=== PATIENT | male | born 1960 | race Caucasian/White ===

== ENCOUNTER → 2020-02-04 14:06 | Outpatient (BNVA) | payer OTHER, SELFPAY | PROVIDERS: PCP Nurse Practitioner Family; Referring Provider Nurse Practitioner Family; Visit Provider Internal Medicine Endocrinology, Diabetes & Metabolism | DX: E11.65 Type 2 diabetes mellitus with hyperglycemia (principal); E11.21 Type 2 diabetes mellitus with diabetic nephropathy; E11.42 Type 2 diabetes mellitus with diabetic polyneuropathy; Z79.4 Long term (current) use of insulin; E23.0 Hypopituitarism; E66.9 Obesity, unspecified; Z68.39 Body mass index [BMI] 39.0-39.9, adult; I10 Essential (primary) hypertension; E78.5 Hyperlipidemia, unspecified | CPT/HCPCS: 82947; 99212 ==

== ENCOUNTER → 2020-05-08 11:16 | Outpatient (BNVA) | payer OTHER, SELFPAY | PROVIDERS: PCP Nurse Practitioner Family; Visit Provider Internal Medicine Endocrinology, Diabetes & Metabolism | DX: Z13.89 Encounter for screening for other disorder (principal) | CPT/HCPCS: Q3014 ==

== ENCOUNTER → 2020-08-07 12:54 | Outpatient (BNVA) | payer OTHER, SELFPAY | PROVIDERS: PCP Family Medicine; Visit Provider Internal Medicine Endocrinology, Diabetes & Metabolism | DX: E11.65 Type 2 diabetes mellitus with hyperglycemia (principal); E11.42 Type 2 diabetes mellitus with diabetic polyneuropathy; E66.9 Obesity, unspecified; E29.1 Testicular hypofunction; I10 Essential (primary) hypertension; Z79.4 Long term (current) use of insulin; Z71.3 Dietary counseling and surveillance | CPT/HCPCS: Q3014 ==

== ENCOUNTER 2021-01-25 11:49 | Outpatient (REF) | payer OTHER, SELFPAY ==
[2021-01-25 12:32] LABS: Hematocrit 46.9 % (42-52)
[2021-01-25 12:36] LABS: Estimated Average Glucose 197 mg/dL; Hemoglobin A1c % 8.5 %
[2021-01-25 12:54] LABS: Alanine Aminotransferase 11 U/L (0-40); Albumin Level 4.4 g/dL (3.5-5.0); Alkaline Phosphatase 120 U/L (39-117); Anion Gap 14 (12-20); Aspartate Amino Transferase 15 U/L (5-37); Bilirubin Total 0.5 mg/dL (0.0-1.0); Blood Urea Nitrogen 19 mg/dL (9-16); Calcium 9.6 mg/dL (8.4-10.2); Carbon Dioxide 27 mmol/L (22-29); Chloride 102 mmol/L (96-108); Cholesterol 209 mg/dL; Estimated Glomerular Filt Rate 50; Glucose Fasting 160 mg/dL (60-99); HDL Cholesterol 34 mg/dL; LDL Cholesterol Calculated 142 mg/dl; Sodium 139 mmol/L (135-145); Total Protein 7.1 g/dL (6.5-8.0); Triglycerides 165 mg/dL
[2021-01-25 13:15] LABS: Free T4 (Free Thyroxine) 1.16 ng/dL (0.71-1.85); Prostate Specific Antigen 0.46 ng/mL (<0.05-4.0); Thyroid Stimulating Hormone 1.84 uIU/mL (0.32-4.0)
[2021-01-25 13:21] LABS: Vitamin B12 335 pg/mL (200-900)
[2021-01-25 13:53] LABS: Creatinine Urine 155.31 mg/dL; Microalbum/Creatinine Ratio Ur 5.1 ug/mg cr
[2021-01-26 12:42] LABS: Sex Hormone Binding Globulin 11 nmol/L (22-77)
[2021-01-27 08:16] LABS: LDL Cholesterol Direct 149 mg/dL (<100)
[2021-01-29 14:51] LABS: Testosterone-Albumin 4.2 g/dL (3.6-5.1); Testosterone-Bioavailable 32.2 ng/dL (110.0-575.0); Testosterone-Free 16.7 pg/mL (46.0-224.0); Testosterone-SHBG 11 nmol/L (22-77); Testosterone-Total 67 ng/dL (250-1100)
[2021-01-30 14:21] LABS: Testosterone, Free 15.8 pg/mL (35.0-155.0); Testosterone, Total 65 ng/dL (250-1100)
== END 2021-01-25 11:50 | disposition home or self-care (01) ==
LOC: HO.LAB 11:49
PROVIDERS: Visit Provider Internal Medicine Endocrinology, Diabetes & Metabolism
DX: E11.65 Type 2 diabetes mellitus with hyperglycemia (principal); E29.1 Testicular hypofunction
CPT/HCPCS: 36415; 80053; 80061; 82043; 82607; 83036; 83721; 84153; 84270; 84402; 84403; 84439; 84443; 85014

== ENCOUNTER → 2021-01-28 07:52 | Outpatient (BNVA) | payer OTHER, SELFPAY | PROVIDERS: PCP Family Medicine; Visit Provider Nurse Practitioner Gerontology | DX: E11.65 Type 2 diabetes mellitus with hyperglycemia (principal); E11.42 Type 2 diabetes mellitus with diabetic polyneuropathy; E66.9 Obesity, unspecified; E78.5 Hyperlipidemia, unspecified; I10 Essential (primary) hypertension; Z79.4 Long term (current) use of insulin | CPT/HCPCS: 82947; 99212 ==

== ENCOUNTER → 2021-03-08 11:48 | Outpatient (BNVA) | payer OTHER, SELFPAY | PROVIDERS: PCP Family Medicine; Visit Provider Internal Medicine | DX: Z13.89 Encounter for screening for other disorder (principal) | CPT/HCPCS: Q3014 ==

== ENCOUNTER 2021-03-10 11:00 | Outpatient (REF) | payer OTHER, SELFPAY | END 2021-03-10 11:01 | disposition home or self-care (01) | LOC: HO.LAB 11:00 | PROVIDERS: Visit Provider Internal Medicine | DX: Z20.822 Contact with and (suspected) exposure to COVID-19 (principal) | CPT/HCPCS: C9803; U0003; U0005 ==

== ENCOUNTER → 2021-04-19 08:22 | Outpatient (BNVA) | payer OTHER, SELFPAY | PROVIDERS: PCP Family Medicine; Visit Provider Internal Medicine | DX: E29.1 Testicular hypofunction (principal); E78.5 Hyperlipidemia, unspecified | CPT/HCPCS: Q3014 ==

== ENCOUNTER 2021-05-04 14:56 | Outpatient (REF) | payer OTHER, SELFPAY | END 2021-05-04 14:57 | disposition home or self-care (01) | LOC: HO.MRI 14:56 | PROVIDERS: Visit Provider Registered Nurse Community Health | DX: Z13.89 Encounter for screening for other disorder (principal) ==

== ENCOUNTER 2021-05-11 09:33 | Outpatient (REF) | payer OTHER, SELFPAY ==
[2021-05-11 10:19] LABS: Hematocrit 47.1 % (42.0-52.0); Hemoglobin 15.2 g/dl (14.0-18.0)
[2021-05-11 11:26] LABS: Anion Gap 13 (12-20); Blood Urea Nitrogen 26 mg/dL (9-16); Calcium 9.7 mg/dL (8.4-10.2); Carbon Dioxide 27 mmol/L (22-29); Chloride 104 mmol/L (96-108); Cholesterol 216 mg/dL; Estimated Glomerular Filt Rate 48; Glucose Random 179 mg/dL (60-115); HDL Cholesterol 39 mg/dL; LDL Cholesterol Calculated 145 mg/dl; Potassium 4.1 mmol/L (3.3-5.1); Sodium 140 mmol/L (135-145); Triglycerides 164 mg/dL
[2021-05-11 11:33] LABS: Osmolality, Serum 305 mosm/kg (281-305); Prostate Specific Antigen 0.44 ng/mL (<0.05-4.0); Thyroid Stimulating Hormone 1.22 uIU/mL (0.32-4.0)
[2021-05-11 11:39] LABS: Cortisol Random 13.2 ug/dL
[2021-05-12 08:57] LABS: Follicle Stimulating Hormone 6.7 mIU/mL (1.6-8.0); LDL Cholesterol Direct 161 mg/dL (<100); Lutenizing Hormone 2.8 mIU/mL (1.5-9.3); Prolactin 9.7 ng/mL (2.0-18.0); Sex Hormone Binding Globulin 11 nmol/L (22-77)
[2021-05-12 17:55] LABS: Triiodothyronine T3 Total 98 ng/dL (76-181)
[2021-05-12 20:37] LABS: Adrenocorticotropic Hormone 19 pg/mL (6-50)
[2021-05-14 12:41] LABS: IGF-1 (Somatomedin C) 119 ng/mL (50-317); IGF-1 Z Score (Male) -0.2 SD (-2.0 - +2.0)
[2021-05-15 14:42] LABS: Testosterone, Free 22.6 pg/mL (35.0-155.0); Testosterone, Total 108 ng/dL (250-1100)
== END 2021-05-11 09:34 | disposition home or self-care (01) ==
LOC: HO.LAB 09:33
PROVIDERS: Internal Medicine; Visit Provider Nurse Practitioner Gerontology
DX: E29.1 Testicular hypofunction (principal)
CPT/HCPCS: 36415; 80048; 80061; 82024; 82533; 83001; 83002; 83721; 83930; 84146; 84153; 84270; 84305; 84402; 84403; 84439; 84443; 84480; 85014; 85018

== ENCOUNTER → 2021-05-24 09:25 | Outpatient (BNVA) | payer OTHER, SELFPAY | PROVIDERS: PCP Family Medicine; Visit Provider Registered Nurse Diabetes Educator | DX: E11.42 Type 2 diabetes mellitus with diabetic polyneuropathy (principal); Z79.4 Long term (current) use of insulin | CPT/HCPCS: 95250 ==

== ENCOUNTER → 2021-06-07 08:30 | Outpatient (BNVA) | payer OTHER, SELFPAY | PROVIDERS: PCP Family Medicine; Visit Provider Nurse Practitioner Gerontology | DX: E11.65 Type 2 diabetes mellitus with hyperglycemia (principal); E11.42 Type 2 diabetes mellitus with diabetic polyneuropathy; E78.5 Hyperlipidemia, unspecified; E66.01 Morbid (severe) obesity due to excess calories; I10 Essential (primary) hypertension; Z68.38 Body mass index [BMI] 38.0-38.9, adult; Z79.4 Long term (current) use of insulin | CPT/HCPCS: 82947; 83036; 99212 ==

== ENCOUNTER 2021-08-17 08:24 | Outpatient (REF) | payer OTHER, SELFPAY ==
[2021-08-17 09:35] LABS: Blood Urea Nitrogen 30 mg/dL (9-16); Estimated Glomerular Filt Rate 50
[2021-08-17 10:34] LABS: Cortisol Random 15.6 ug/dL
[2021-08-19 15:51] LABS: Adrenocorticotropic Hormone 37 pg/mL (6-50)
[2021-08-19 17:46] LABS: Follicle Stimulating Hormone 5.6 mIU/mL (1.6-8.0); Lutenizing Hormone 2.5 mIU/mL (1.5-9.3); Prolactin 9.9 ng/mL (2.0-18.0); Sex Hormone Binding Globulin 11 nmol/L (22-77)
[2021-08-26 12:39] LABS: Testosterone, Total 111 ng/dL (250-1100)
== END 2021-08-17 08:25 | disposition home or self-care (01) ==
LOC: HO.LAB 08:24
PROVIDERS: Absent Provider Nurse Practitioner Gerontology; Visit Provider Internal Medicine
DX: E29.1 Testicular hypofunction (principal)
CPT/HCPCS: 36415; 82024; 82533; 82565; 83001; 83002; 84146; 84270; 84402; 84403; 84520

== ENCOUNTER → 2021-08-19 08:24 | Outpatient (BNVA) | payer OTHER, SELFPAY | PROVIDERS: PCP Family Medicine; Visit Provider Internal Medicine | DX: E29.1 Testicular hypofunction (principal); E11.42 Type 2 diabetes mellitus with diabetic polyneuropathy | CPT/HCPCS: Q3014 ==

== ENCOUNTER → 2021-08-30 10:37 | Outpatient (BNVA) | payer OTHER, SELFPAY | PROVIDERS: PCP Family Medicine; Visit Provider Nurse Practitioner Gerontology | DX: E11.65 Type 2 diabetes mellitus with hyperglycemia (principal); E11.42 Type 2 diabetes mellitus with diabetic polyneuropathy; E78.5 Hyperlipidemia, unspecified; E66.01 Morbid (severe) obesity due to excess calories; I10 Essential (primary) hypertension; Z79.4 Long term (current) use of insulin; Z68.39 Body mass index [BMI] 39.0-39.9, adult | CPT/HCPCS: 82947; 83036; Q3014 ==

== ENCOUNTER → 2021-09-16 11:48 | Outpatient (BNVA) | payer OTHER, SELFPAY | PROVIDERS: PCP Family Medicine; Visit Provider Registered Nurse Diabetes Educator | DX: E11.42 Type 2 diabetes mellitus with diabetic polyneuropathy (principal) | CPT/HCPCS: 99211 ==

== ENCOUNTER → 2021-11-17 08:43 | Outpatient (BNVA) | payer OTHER, SELFPAY | PROVIDERS: PCP Family Medicine; Visit Provider Internal Medicine Endocrinology, Diabetes & Metabolism | DX: E29.1 Testicular hypofunction (principal); E11.65 Type 2 diabetes mellitus with hyperglycemia | CPT/HCPCS: 82947; 99212 ==

== ENCOUNTER 2022-02-17 09:07 | Outpatient (REF) | payer OTHER, SELFPAY ==
[2022-02-17 11:21] LABS: Cholesterol 207 mg/dL; HDL Cholesterol 43 mg/dL; LDL Cholesterol Calculated 143 mg/dl; Triglycerides 107 mg/dL
[2022-02-17 11:28] LABS: Prostate Specific Antigen 0.48 ng/mL (<0.05-4.0)
== END 2022-02-17 09:08 | disposition home or self-care (01) ==
LOC: HO.10HDL 09:07
PROVIDERS: Visit Provider Internal Medicine Endocrinology, Diabetes & Metabolism
DX: Z12.5 Encounter for screening for malignant neoplasm of prostate (principal); E11.65 Type 2 diabetes mellitus with hyperglycemia; E29.1 Testicular hypofunction
CPT/HCPCS: 36415; 80061; 84153; 99211

== ENCOUNTER → 2022-02-24 15:38 | Outpatient (BNVA) | payer OTHER, SELFPAY | PROVIDERS: PCP Family Medicine; Visit Provider Internal Medicine Endocrinology, Diabetes & Metabolism | DX: E11.65 Type 2 diabetes mellitus with hyperglycemia (principal); E29.1 Testicular hypofunction; E78.5 Hyperlipidemia, unspecified; Z79.4 Long term (current) use of insulin | CPT/HCPCS: 82947; 83036; 99212 ==

== ENCOUNTER 2022-05-23 11:57 | Outpatient (REF) | payer OTHER, SELFPAY ==
[2022-05-23 13:28] LABS: Hematocrit 43.5 % (42.0-52.0); Hemoglobin 14.7 g/dl (14.0-18.0)
[2022-05-23 14:14] LABS: Cholesterol 202 mg/dL; HDL Cholesterol 37 mg/dL; LDL Cholesterol Calculated 136 mg/dl; Triglycerides 145 mg/dL
[2022-05-31 11:39] LABS: Testosterone, Free 17.5 pg/mL (35.0-155.0); Testosterone, Total 102 ng/dL (250-1100)
== END 2022-05-23 11:58 | disposition home or self-care (01) ==
LOC: HO.10HDL 11:57
PROVIDERS: Visit Provider Internal Medicine Endocrinology, Diabetes & Metabolism
DX: E11.42 Type 2 diabetes mellitus with diabetic polyneuropathy (principal); E29.1 Testicular hypofunction; Z12.5 Encounter for screening for malignant neoplasm of prostate
CPT/HCPCS: 36415; 80061; 84153; 84402; 84403; 85014; 85018

== ENCOUNTER → 2022-05-24 13:47 | Outpatient (BNVA) | payer OTHER, SELFPAY | PROVIDERS: PCP Family Medicine; Visit Provider Internal Medicine Endocrinology, Diabetes & Metabolism | DX: E11.65 Type 2 diabetes mellitus with hyperglycemia (principal); E29.1 Testicular hypofunction; E78.5 Hyperlipidemia, unspecified | CPT/HCPCS: 82947; 83036; 99212 ==

== ENCOUNTER 2022-08-10 10:09 | Outpatient (REF) | payer OTHER, SELFPAY ==
[2022-08-10 14:07] LABS: Cholesterol 199 mg/dL; HDL Cholesterol 37 mg/dL; LDL Cholesterol Calculated 140 mg/dl; Triglycerides 111 mg/dL
== END 2022-08-10 10:10 | disposition home or self-care (01) ==
LOC: HO.10HDL 10:09
PROVIDERS: Visit Provider Internal Medicine Endocrinology, Diabetes & Metabolism
DX: E78.5 Hyperlipidemia, unspecified (principal)
CPT/HCPCS: 36415; 80061

== ENCOUNTER → 2022-08-24 12:29 | Outpatient (BNVA) | payer OTHER, SELFPAY | PROVIDERS: PCP Family Medicine; Visit Provider Internal Medicine Endocrinology, Diabetes & Metabolism | DX: E11.65 Type 2 diabetes mellitus with hyperglycemia (principal); E29.1 Testicular hypofunction; E78.5 Hyperlipidemia, unspecified; Z79.4 Long term (current) use of insulin | CPT/HCPCS: 82947; 83036; 99212 ==

== ENCOUNTER → 2022-09-01 09:41 | Outpatient (BNVA) | payer OTHER, SELFPAY | PROVIDERS: PCP Family Medicine; Visit Provider Internal Medicine Endocrinology, Diabetes & Metabolism ==

== ENCOUNTER 2022-11-18 09:49 | Outpatient (REF) | payer OTHER, SELFPAY ==
[2022-11-18 10:42] LABS: Estimated Average Glucose 203 mg/dL; Hemoglobin A1c % 8.7 %
[2022-11-18 11:09] LABS: Glucose Random 210 mg/dL (60-115)
== END 2022-11-18 09:50 | disposition home or self-care (01) ==
LOC: HO.LAB 09:49
PROVIDERS: Physician Assistant Surgical; Visit Provider Internal Medicine Endocrinology, Diabetes & Metabolism
DX: E11.65 Type 2 diabetes mellitus with hyperglycemia (principal)
CPT/HCPCS: 36415; 82947; 83036

== ENCOUNTER 2022-11-22 11:54 | Outpatient (AMB) | payer OTHER, SELFPAY ==
[2022-11-22 12:05] VITALS: BP 124/68; PULSE 88; BMI 42.2
--- NOTE | 2022-11-22 12:05 | A.OFFVIS_ITS ---
Intake Vital Signs 11/22/22 12:05 Height 5 ft 11 in Weight 302 lb 11.115 oz BMI 42.2 BP 124/68 Blood Pressure Location Lt brachial Position Sitting Pulse 88 Pulse Source Pulse Oximeter Intake Visit Reasons: DM Intake Note: Patient present today to follow up on Type Diabetes Mellitus. Patient receives DME supplies through: [facility] Last Diabetic Eye exam: May 2022 Last Podiatry Visit: Does not see a Low Altitude Air Defense Officer Random Glucose:366 mg/dl HgA1C: 9.4% Wire Saw Operator Required: No Accompanied by: Self / Same As Patient Allergies Penicillins Allergy (Unknown, Verified 11/22/22 12:09) RASH/HIVES Medication List - Last Reconciled 11/22/22 by Aquilino oByer MD atorvastatin 80 mg PO BEDTIME bempedoic acid (Nexletol) 180 mg PO DAILY blood sugar diagnostic (FreeStyle Lite Strips) As directed four times a day blood-glucose meter (FreeStyle Lite Meter kit) As directed 4x/day bolus insulin pump, 200 unit (CeQur Simplicity) As directed bupropion HCl 300 mg PO DAILY cholecalciferol (vitamin D3) 50 mcg PO DAILY clonazepam 2 mg PO BEDTIME dulaglutide (Trulicity) 3 mg (0.5 mL) subcut QWEEK empagliflozin (Jardiance) 10 mg PO QAM enalapril-hydrochlorothiazide 10-25 mg 1 tab PO DAILY ezetimibe 10 mg PO DAILY insulin aspart U-100 (Novolog FlexPen U-100 Insulin aspart) subcutaneously use as directed; Take 6 units breakfast, 10 units lunch, 8 units dinner, 4 units snack. insulin glargine (Lantus Solostar U-100 Insulin) 40 units (0.4 mL) subcut QAM lancets (FreeStyle Lancets) As directed levothyroxine 50 mcg PO DAILY omeprazole 20 mg PO DAILY oxcarbazepine 150 mg PO BID oxycodone 5 mg PO QID PRN oxycodone ER 20 mg PO BID pen needle, diabetic (BD Amaya 2nd Gen Pen Needle) As directed 3 times a day prazosin 2 mg PO BEDTIME sertraline 200 mg PO DAILY syringe with needle, safety (BD Integra Syringe) As directed injrcts once a wk syringe with needle, safety (BD Integra Syringe) As directed use once a week tadalafil (Cialis) 5 mg PO DAILY PRN 30 days testosterone cypionate 100 mg (0.5 mL) IM QWEEK zolpidem 10 mg PO BEDTIME HPI HPI Comments History of Present Illness Details Patient is a 62-year-old male with DM type 2 diagnosed who presents for management of diabetes and hypogonadism. . Past medical history: Dm2, HTN, HLD, Obesity, secondary hypogonadism for which he has received testosterone the past by myself. sleep apnea uses C-Pap Micro and macrovascular complications: Neuropathy nephropathy Diabetes medications:Trulicity 3 mg Qwkly , Jardiance 10 mg stopped due to genital yeast infection. Metformin stopped due to edema. Took Ozempic in past without sucess Lantus 32 units Novolog 10-12 units before meals stopped 4 days ago Blood glucose monitor: [employer] download shows he is using theCGMS 73% of the time. Average glucose is 254 with GMI of 9.4 . 20% range with 80% hyperglycemia c no hypoglycemia. 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 Low Altitude Air Defense Officer: no Dental exam: goes annually Ophthalmology evaluation: 05/2022 - ou Background diabetic retinopathy Other specialists: psychiatrist and counselor Laboratory Tests 01/25/21 01/25/21 01/25/21 12:10 12:10 12:40 Estimated GFR Hemoglobin A1c % 8.5 Triglycerides Cholesterol LDL Cholesterol Di rect LDL Cholesterol, C alc HDL Cholesterol Vitamin B12 335 TSH Free T4 Microalb/Creat Rat io 5.1 05/11/21 05/11/21 09:57 09:57 Estimated GFR 48 Hemoglobin A1c % Triglycerides 164 Cholesterol 216 LDL Cholesterol Di rect 161 H LDL Cholesterol, C alc 145 HDL Cholesterol 39 Vitamin B12 TSH 1.22 Free T4 1.10 Microalb/Creat Rat io On Testosterone intramuscular 100 mg q.week . No problems with urinating. 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 Absence of acromegalic features. Neck exam reveals nl size thyroid about 15 gms. No thyroid nodules palpable. No carotid bruits present. Lungs CTA. Heart S1 S2, Reg R/R. No M/R/ G. Skin exam reveals absence of vitiligo or acanthosis nigricans. Abdominal exam reveals Soft NT/ND with NA BS. No organomegaly present. A rectal examination was performed 05/2022 revealed nl smooth prostate Neck Other: . Extrem Other: Visual exam of foot performed. No ulcerations or open lesions. No onchomycosis, no callouses.Pulses 2 + distally Sensation intact to monofilament exam. Vibratory sensation sensed is decreased with 128 Hz tuning fork Results AMB Hemoglobin A1c AMB Hemoglobin A1c 9.4 % Last Edit by Christa Martinez on 11/22/22 12:24 Results Reviewed Results Reviewed: 11/22/22 12:13 Glucose, Whole Blood Routine Laboratory Last Values Glucose (Clinic) 366 mg/dL (60-115) H* 11/22/22 12:13 Hgb A1c (Clinic) 9.4 % (4.0-6.0) H 11/22/22 12:20 Assessment & Plan Assessment & Plan (1) Diabetes type 2, uncontrolled: Code(s): E11.65 - Type 2 diabetes mellitus with hyperglycemia Plan: This is a 62-year-old white male with a history of type 2 diabetes being treated with Trulicity and bolus insulin with poor glycemic control and known microvascular complications namely neuropathy. Plan is to change the Trulicity to Mounjaro 2.5 mg and titrate as tolerated. Went over side effects of Mounjaro including but not limited to nausea, vomiting rare risk pancreatitis. Patient has failed both Ozempic and Trulicity. Told patient report any hypoglycemia to adjust insulin . Patient should have follow-up with clinical unit educator . Mounjaro 2.5 mg samples given the patient lot number [id number] expiration date 05/2024 Fiasp FlexTouch U-100 samples given the patient lot number [id number] expiration 08/08/2023 (2) Hypogonadism male: Code(s): E29.1 - Testicular hypofunction Plan: History of secondary hypogonadism previously treated with testosterone and worked up in the past. Suboptimal testosterone levels on testosterone gel maximum doses. Currently on intramuscular testosterone 100 mg q.week Will check peak and trough testosterone as well as PSA and CBC and adjust testosterone accordingly. Will attempt to get approval for switching to Xyosted which is a subcutaneous testosterone refilled as patient is having difficulty with injection site pain. (3) HLD (hyperlipidemia): Code(s): E78.5 - Hyperlipidemia, unspecified Plan: Patient currently on atorvastatin and ezetimibe. and Nexletol . Will recheck lipid profile Orders: Orders Lipid Panel 1 Day E78.5 - Hyperlipidemia, unspecified AMB Hemoglobin A1c Today E11.42 - Type 2 diabetes mellitus with diabetic polyneuropathy Medications: New tirzepatide (Mounjaro) 2.5 mg (0.5 mL) subcut QWEEK 4 weeks 2 mL 5RF testosterone enanthate (Xyosted) 100 mg (0.5 mL) subcut QWEEK 2 mL 4RF Refilled insulin aspart U-100 (Novolog FlexPen U-100 Insulin aspart) subcutaneously use as directed; Take 6 units breakfast, 10 units lunch, 8 units dinner, 4 units snack. 45 mL 4RF Discontinued dulaglutide (Trulicity) Discontinued Reason: Doctor's Order 3 mg (0.5 mL) subcut QWEEK 2 mL 5RF Coding Level of Care Code Est Pt Level 4 (40727) Diagnoses Diabetes type 2, uncontrolled E11.65 Hypogonadism male E29.1 HLD (hyperlipidemia) E78.5
[2022-11-22 12:17] LABS: Glucose, Whole Blood 366 mg/dL (60-115)
== END 2022-11-22 14:27 | disposition home or self-care (01) ==
PROVIDERS: PCP Family Medicine; Referring Provider Family Medicine; Visit Provider Internal Medicine Endocrinology, Diabetes & Metabolism
DX: E11.65 Type 2 diabetes mellitus with hyperglycemia (principal); E78.5 Hyperlipidemia, unspecified; Z87.438 Personal history of other diseases of male genital organs; E11.42 Type 2 diabetes mellitus with diabetic polyneuropathy
CPT/HCPCS: 99214

== ENCOUNTER → 2022-11-22 11:54 | Outpatient (BNVA) | payer OTHER, SELFPAY | PROVIDERS: Visit Provider Internal Medicine Endocrinology, Diabetes & Metabolism | DX: E11.65 Type 2 diabetes mellitus with hyperglycemia (principal); E11.42 Type 2 diabetes mellitus with diabetic polyneuropathy; E29.1 Testicular hypofunction; E78.5 Hyperlipidemia, unspecified | CPT/HCPCS: 82947; 83036; 99212 ==

== ENCOUNTER 2022-11-23 09:55 | Outpatient (REF) | payer OTHER, SELFPAY ==
[2022-11-23 13:22] LABS: Cholesterol 215 mg/dL; HDL Cholesterol 43 mg/dL; LDL Cholesterol Calculated 145 mg/dl; Triglycerides 135 mg/dL
[2022-11-23 13:39] LABS: Hematocrit 56.4 % (42.0-52.0); Hemoglobin 18.5 g/dl (14.0-18.0)
[2022-11-23 13:53] LABS: Prostate Specific Antigen 0.79 ng/mL (<0.05-4.0)
== END 2022-11-23 09:56 | disposition home or self-care (01) ==
LOC: HO.10HDL 09:55
PROVIDERS: Visit Provider Internal Medicine Endocrinology, Diabetes & Metabolism
DX: E29.1 Testicular hypofunction (principal); E78.5 Hyperlipidemia, unspecified
CPT/HCPCS: 36415; 80061; 84153; 84402; 84403; 85014; 85018

== ENCOUNTER 2023-03-22 08:51 | Outpatient (REF) | payer OTHER, SELFPAY ==
[2023-03-22 11:27] LABS: MANUAL DIFF FLAG NO
[2023-03-22 11:35] LABS: Basophils Absolute Auto 0.1 X10*3/uL (0.0-0.2); Basophils Percent Auto 0.5 % (0-2); Eosinophils Absolute Auto 0.3 X10*3/uL (0.0-0.4); Eosinophils Percent Auto 2.2 % (0-4); Hematocrit 45.7 % (42.0-52.0); Imm Gran Abs Auto 0.06 X10*3/uL (0.00-0.03); Imm Gran Pct Auto 0.5 % (0.0-0.4); Lymphocytes Absolute Auto 2.9 X10*3/uL (1.2-4.9); Lymphocytes Percent Auto 22.8 % (20-40); Mean Corpuscular HGB Conc 32.8 g/dl (31.0-36.0); Mean Corpuscular Hemoglobin 28.2 pg (27.0-33.0); Mean Corpuscular Volume 86.1 fL (80.0-98.0); Mean Platelet Volume 11.4 fL (9.4-12.4); Monocytes Absolute Auto 0.9 X10*3/uL (0.1-1.2); Neutrophils Absolute Auto 8.7 x10*3/uL (2.0-8.3); Platelet Count 292 X10*3/uL (160-400); Red Blood Count 5.31 X10*6/uL (4.60-5.80); Red Cell Distribution Width 13.9 % (11.0-16.0); White Blood Count 12.9 X10*3/uL (4.8-10.8)
[2023-03-22 11:56] LABS: Alanine Aminotransferase 11 U/L (0-40); Albumin Level 4.2 g/dL (3.5-5.0); Alkaline Phosphatase 130 U/L (39-117); Aspartate Amino Transferase 16 U/L (5-37); Bilirubin Direct 0.1 mg/dL (0.0-0.5); Bilirubin Total 0.3 mg/dL (0.0-1.0); Iron 96 mcg/dL (45-160); Percent Iron Saturation 43 % (15-50); Total Iron Binding Capacity 221 mcg/dL (228-428); Total Protein 7.4 g/dL (6.5-8.0); Unsaturated Iron Binding 125 ug/dL
[2023-03-22 12:23] LABS: Ferritin 652 ng/mL (20-250)
== END 2023-03-22 08:52 | disposition home or self-care (01) ==
LOC: HO.HHCL 08:51
PROVIDERS: Visit Provider Nurse Practitioner Primary Care
DX: R71.8 Other abnormality of red blood cells (principal); D58.2 Other hemoglobinopathies
CPT/HCPCS: 36415; 80076; 82728; 83540; 85025

== ENCOUNTER 2023-06-21 11:32 | Outpatient (AMB) | payer OTHER, SELFPAY ==
--- NOTE | 2023-06-21 11:33 | A.OFFVIS_ITS ---
Intake Vital Signs 06/21/23 11:34 Height 5 ft 11 in Weight 293 lb 3.437 oz BMI 40.9 BP 114/76 Blood Pressure Location Lt brachial Position Sitting Pulse 90 Pulse Source Pulse Oximeter Intake Visit Reasons: DM-lvm Intake Note: Patient presents today to follow up on D2MT. Last Diabetic Eye exam: 02/2023 Last Podiatry Visit: Doesn't have one. Random Glucose: 172 mg/dl HgA1c: 9.4% Nail Specialist Required: No Accompanied by: Self / Same As Patient Allergies Penicillins Allergy (Unknown, Verified 06/21/23 11:39) RASH/HIVES HPI HPI Comments History of Present Illness Details Patient is a 62-year-old male with DM type 2 diagnosed who presents for management of diabetes and hypogonadism. . Past medical history: Dm2, HTN, HLD, Obesity, secondary hypogonadism for which he has received testosterone the past by myself. sleep apnea uses C-Pap Micro and macrovascular complications: Neuropathy nephropathy Diabetes medications:Mounjaro 2.5 mg Wkly , Jardiance 10 mg stopped due to genital yeast infection. Metformin stopped due to edema. Took Ozempic in past without sucess Lantus 40 units Novolog 10-12 units before meals stopped 4 days ago Blood glucose monitor: [email or web address] download shows he is using theCGMS 77% of the time. Average glucose is 241 with GMI of 9.1 . 15% range with 85% hyperglycemia c no hypoglycemia. 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 Dental exam: goes annually Ophthalmology evaluation: needs to make appt - ou Background diabetic retinopathy Other specialists: psychiatrist and counselor Laboratory Tests 01/25/21 01/25/21 01/25/21 12:10 12:10 12:40 Estimated GFR Hemoglobin A1c % 8.5 Triglycerides Cholesterol LDL Cholesterol Di rect LDL Cholesterol, C alc HDL Cholesterol Vitamin B12 335 TSH Free T4 Microalb/Creat Rat io 5.1 05/11/21 05/11/21 09:57 09:57 Estimated GFR 48 Hemoglobin A1c % Triglycerides 164 Cholesterol 216 LDL Cholesterol Di rect 161 H LDL Cholesterol, C alc 145 HDL Cholesterol 39 Vitamin B12 TSH 1.22 Free T4 1.10 Microalb/Creat Rat io On Testosterone intramuscular 100 mg q.week . No problems with urinating. Uses CPAP PFSH Medical History (System 04/05/23 @ 14:38 by Mera Pierce) Obesity due to excess calories HLD (hyperlipidemia) Depression Osteoarthritis Dyslipidemia Hypertension Obesity (BMI 30-39.9) Hypogonadism male Diabetic polyneuropathy associated with type 2 diabetes mellitus longterm (current) use of insulin Diabetes type 2, uncontrolled Surgical History History of hip surgery History of surgical procedure on eye proper using laser Hx of neck surgery Hx of shoulder surgery Family History Father Prostate cancer Mother Diabetes Heart problem Social History (System 04/05/23 @ 14:38 by Mera Pierce) Household Members: Family Alcohol intake: never Patient Tobacco Use Status: Never used Tobacco Physical Exam Vital Signs: Last Vital Signs Pulse 90 06/21/23 11:34 BP 114/76 06/21/23 11:34 BMI result Body Mass Index 40.9 Absence of Cushingoid features. Absence of acromegalic features. Neck exam reveals nl size thyroid about 15 gms. No thyroid nodules palpable. No carotid bruits present. Lungs CTA. Heart S1 S2, Reg R/R. No M/R/ G. Skin exam reveals absence of vitiligo or acanthosis nigricans. Abdominal exam reveals Soft NT/ND with NA BS. No organomegaly present. A rectal examination was performed 05/2022 revealed nl smooth prostate Neck Other: . Extrem Other: Visual exam of foot performed. No ulcerations or open lesions. No onchomycosis, no callouses.Pulses 2 + distally Sensation intact to monofilament exam. Vibratory sensation sensed is decreased with 128 Hz tuning fork Results AMB Hemoglobin A1c AMB Hemoglobin A1c 9.4 % Last Edit by NICHOL aHy on 06/21/23 11:53 Results Reviewed Results Reviewed: Laboratory Last Values Glucose (Clinic) 172 mg/dL (60-115) H 06/21/23 11:41 Assessment & Plan Assessment & Plan (1) Diabetes type 2, uncontrolled: Code(s): E11.65 - Type 2 diabetes mellitus with hyperglycemia Plan: This is a 62-year-old white male with a history of type 2 diabetes being treated with Mounjaro and bolus insulin with poor glycemic control and known microvascular complications namely neuropathy. Plan is to increase the Mounjaro to 5 mg Qwkly. If this does not have an optimal effect, have told patient increase Lantus by 10 units to 50 units and by 10 unit increments every 4 days to get point of care fasting < 1/5 . Patient should have follow-up with agricultural extension educator . I also took the liberty referring the patient to in flight technician (2) Hypogonadism male: Code(s): E29.1 - Testicular hypofunction Plan: History of secondary hypogonadism previously treated with testosterone and worked up in the past. Suboptimal testosterone levels on testosterone gel maximum doses. Currently off testosterone because increase in hematocrit and hemoglobin. However, patient was not using CPAP mask during time of blood work. He is getting fitted for a CPAP mask and when he restarts CPAP can reinitiate testosterone at that point. (3) HLD (hyperlipidemia): Code(s): E78.5 - Hyperlipidemia, unspecified Plan: Patient currently on atorvastatin and ezetimibe. and Nexletol . Will recheck lipid profile . If not at goal could consider a PCSK9 inhibitor Orders: Orders AMB Hemoglobin A1c Today E11.65 - Type 2 diabetes mellitus with hyperglycemia, Z13.9 - Encounter for screening, unspecified Lipid Panel Today E78.5 - Hyperlipidemia, unspecified Referrals Podiatry Referral E11.65 - Type 2 diabetes mellitus with hyperglycemia Medications: New tirzepatide (Mounjaro) 5 mg (0.5 mL) subcut QWEEK 2 mL 5RF Refilled flash glucose sensor (FreeStyle Edwin 2 Sensor kit) As directed 2 ea 4RF Discontinued tirzepatide (Mounjaro) Discontinued Reason: Doctor's Order 2.5 mg (0.5 mL) subcut QWEEK 2 mL 5RF Coding Level of Care Code Est Pt Level 4 (55071) Diagnoses Diabetes type 2, uncontrolled E11.65 Hypogonadism male E29.1 HLD (hyperlipidemia) E78.5
[2023-06-21 11:34] VITALS: BP 114/76; PULSE 90; BMI 40.9
[2023-06-21 11:46] LABS: Glucose, Whole Blood 172 mg/dL (60-115)
== END 2023-06-21 12:01 | disposition home or self-care (01) ==
PROVIDERS: PCP Family Medicine; Visit Provider Internal Medicine Endocrinology, Diabetes & Metabolism
DX: E11.65 Type 2 diabetes mellitus with hyperglycemia (principal); E29.1 Testicular hypofunction
CPT/HCPCS: 99214

== ENCOUNTER → 2023-06-21 11:32 | Outpatient (BNVA) | payer OTHER, SELFPAY | PROVIDERS: PCP Family Medicine; Visit Provider Internal Medicine Endocrinology, Diabetes & Metabolism | DX: E11.65 Type 2 diabetes mellitus with hyperglycemia (principal); E29.1 Testicular hypofunction; E78.5 Hyperlipidemia, unspecified; Z79.4 Long term (current) use of insulin; Z79.899 Other long term (current) drug therapy | CPT/HCPCS: 82947; 83036; 99212 ==

== ENCOUNTER 2023-07-11 11:26 | Outpatient (REF) | payer OTHER, SELFPAY | END 2023-07-11 11:27 | disposition home or self-care (01) | LOC: HO.HOSX 11:26 | PROVIDERS: Visit Provider Orthopaedic Surgery | DX: Z13.89 Encounter for screening for other disorder (principal) ==

== ENCOUNTER 2023-07-13 10:32 | Outpatient (AMB) | payer OTHER, SELFPAY ==
--- NOTE | 2023-07-13 11:43 | MHC.AMDMED ---
Intake Intake Visit Reasons: f/u Type 2 DM-confirmed Cereal Popper Required: No Accompanied by: Self / Same As Patient Allergies Penicillins Allergy (Unknown, Verified 06/21/23 11:39) RASH/HIVES HPI Comprehensive Diabetes Asmnt Most Recent Diabetes Results: Hemoglobin A1c 8.7 % 05/01/18 Microalb/Creat Ratio 5.1 ug/mg cr 01/25/21 Cholesterol 215 mg/dL 11/23/22 HDL Cholesterol 43 mg/dL 11/23/22 Triglycerides 135 mg/dL 11/23/22 Creatinine 1.44 mg/dL (0.5-1.4) H 08/17/21 Blood Urea Nitrogen 30 mg/dL (9-16) H 08/17/21 Sodium 140 mmol/L (135-145) 05/11/21 Potassium 4.1 mmol/L (3.3-5.1) 05/11/21 Chloride 104 mmol/L (96-108) 05/11/21 Carbon Dioxide 27 mmol/L (22-29) 05/11/21 Calcium 9.7 mg/dL (8.4-10.2) 05/11/21 AST 16 U/L (5-37) 03/22/23 ALT 11 U/L (0-40) 03/22/23 Total Protein 7.4 g/dL (6.5-8.0) 03/22/23 Albumin 4.2 g/dL (3.5-5.0) 03/22/23 [facility] Medical History (Updated 07/07/23 @ 14:03 by Andres Mcdaniel MD) Obesity due to excess calories HLD (hyperlipidemia) Depression Osteoarthritis Dyslipidemia Hypertension Obesity (BMI 30-39.9) Hypogonadism male Diabetic polyneuropathy associated with type 2 diabetes mellitus rn long term care (current) use of insulin Diabetes type 2, uncontrolled Surgical History History of hip surgery History of surgical procedure on eye proper using laser Hx of neck surgery Hx of shoulder surgery Family History Father Prostate cancer Mother Diabetes Heart problem Social History (System 04/05/23 @ 14:38 by Mera Pierce) Household Members: Family Alcohol intake: never Patient Tobacco Use Status: Never used Tobacco Assessment & Plan Assessment & Plan (1) Diabetes type 2, uncontrolled: Code(s): E11.65 - Type 2 diabetes mellitus with hyperglycemia Plan: Patient lost his old cellphone which was compatible with the Edwin 2 sensor Downloaded Edwin 2 paulette on patient's new cellphone, once we inserted and started sensor got a continual error message about blue to connectivity. Called [employer] customer service, patient's new cellphone is not compatible Edwin 2 paulette Message sent to Dr. Boyer to send prescription for Edwin 2 controller Edwin agreed to replace 2 sensors that patient lost due to on compatibility Patient will contact tobacco prevention health educator if he needs assistance in setting up Edwin reader Patient will call and set up appointment for 1 month after starting Mounjaro 5 mg to review glucose levels Coding Level of Care Code Est Pt Level 1 (16734) Diagnoses Diabetes type 2, uncontrolled E11.65
== END 2023-07-13 11:48 | disposition home or self-care (01) ==
PROVIDERS: PCP Family Medicine; Visit Provider Registered Nurse Diabetes Educator
DX: E11.65 Type 2 diabetes mellitus with hyperglycemia (principal)

== ENCOUNTER → 2023-07-13 10:32 | Outpatient (BNVA) | payer OTHER, SELFPAY | PROVIDERS: PCP Family Medicine; Visit Provider Registered Nurse Diabetes Educator | DX: E11.65 Type 2 diabetes mellitus with hyperglycemia (principal); E11.42 Type 2 diabetes mellitus with diabetic polyneuropathy; Z79.4 Long term (current) use of insulin | CPT/HCPCS: 99211 ==

== ENCOUNTER 2023-07-18 10:12 | Outpatient (REF) | payer OTHER, SELFPAY | END 2023-07-18 10:13 | disposition home or self-care (01) | LOC: HO.HOSX 10:12 | PROVIDERS: Visit Provider Orthopaedic Surgery | DX: Z13.89 Encounter for screening for other disorder (principal) ==

== ENCOUNTER 2023-10-16 10:25 | Outpatient (REF) | payer OTHER, SELFPAY ==
[2023-10-16 11:59] LABS: Cholesterol 193 mg/dL (<200); HDL Cholesterol 34 mg/dL (>40); LDL Cholesterol Calculated 135 mg/dL (<100); Triglycerides 123 mg/dL (<150)
== END 2023-10-16 10:26 | disposition home or self-care (01) ==
LOC: HO.10HDL 10:25
PROVIDERS: Visit Provider Internal Medicine Endocrinology, Diabetes & Metabolism
DX: E78.5 Hyperlipidemia, unspecified (principal)
CPT/HCPCS: 36415; 80061

== ENCOUNTER 2023-10-23 11:26 | Outpatient (AMB) | payer OTHER, SELFPAY ==
[2023-10-23 11:27] VITALS: BP 102/60; PULSE 96; BMI 41.0
--- NOTE | 2023-10-23 11:27 | MHC.OFFVIS ---
Vital Signs 10/23/23 11:27 Height 5 ft 11 in Weight 294 lb 1.546 oz BMI 41.0 BP 102/60 Blood Pressure Location Lt brachial Position Sitting Pulse 96 Pulse Source Pulse Oximeter Intake Visit Reasons: f/u T2DM /hypogonadism/hyperlipidemia/CONFIRMED Intake Note: Patient presents today to follow up on D2MT/Hypogonadism and Hyperlipidemia. Last Diabetic Eye exam: 08/2022 Last Podiatry Visit: Doesn't have one. Random Glucose: 117 mg/dl HgA1c: 9.5% Mesmerist Required: No Accompanied by: Self / Same As Patient Allergies Penicillins Allergy (Unknown, Verified 10/23/23 11:32) RASH/HIVES Medication List - Last Reconciled 10/23/23 by Génesis Gar PA-C atorvastatin 80 mg PO BEDTIME bempedoic acid (Nexletol) 180 mg PO DAILY blood sugar diagnostic (Alaris Ultra Test strips) DIRECTED TESTS 4 X/DAY blood-glucose meter (Alaris Ultra2 Meter) DIRECTED CHECKS 4 X/DAY bolus insulin pump, 200 unit (CeQur Simplicity) As directed bupropion HCl XL 300 mg PO DAILY cholecalciferol (vitamin D3) 50 mcg PO DAILY clonazepam 2 mg PO BEDTIME empagliflozin (Jardiance) 10 mg PO QAM enalapril-hydrochlorothiazide 10-25 mg 1 tab PO DAILY ezetimibe 10 mg PO DAILY flash glucose scanning reader (FreeStyle Edwin 2 [place]) As directed flash glucose sensor (FreeStyle Edwin 2 Sensor kit) As directed insulin aspart U-100 (Novolog FlexPen U-100 Insulin aspart) 10 units 3 times a day; insulin glargine (Lantus Solostar U-100 Insulin) 40 units (0.4 mL) subcut QAM lancets (FreeStyle Lancets) As directed lancets (Alaris UltraSoft 2 Lancet) As directed tests 4 X/day levothyroxine 50 mcg PO DAILY omeprazole 20 mg PO DAILY oxcarbazepine 150 mg PO BID oxycodone 5 mg PO QID PRN oxycodone ER 20 mg PO BID pen needle, diabetic (BD Amaya 2nd Gen Pen Needle) As directed 3 times a day prazosin 2 mg PO BEDTIME sertraline 200 mg PO DAILY syringe with needle, safety (BD Integra Syringe) As directed injrcts once a wk syringe with needle, safety (BD Integra Syringe) As directed use once a week tadalafil (Cialis) 5 mg PO DAILY PRN 30 days tirzepatide (Mounjaro) 5 mg (0.5 mL) subcut QWEEK zolpidem 10 mg PO BEDTIME HPI HPI f/u T2DM /hypogonadism/hyperlipidemia/CONFIRMED: Details: Patient is a 63-year-old male with a significant past medical history of hypertension, hyperlipidemia, obesity, obstructive sleep apnea, hypogonadism , hypothyroidismwho presents today for a follow-up of type 2 diabetes. he last saw Dr. Boyer in June and had CDE July. Endo: DM: his A1c today in the office is 9.5. He is currently on monitor 5 mg weekly, Lantus 50 units daily, NovoLog 14 units with breakfast, 14 units with lunch, 20 units with supper and then sometimes 20 units later in the night, Jardiance 10. he states that he finds himself giving more insulin at nighttime because he has a lot of back pain and is up all night and will often have another meal. cgm download- usage 76%, average glucose 124, GM 8.7% variability 33%. Very high 31%, high 38%, in range 31%, no hypoglycemic events. This is improved from June when he was very high 39%, high 76% and only within range 15%. He is high for most of the day with increases around mealtimes. CV: Blood pressure today in the office is 102/60 and he is enalapril / hydrochlorothiazide. His cholesterol is Not completely controlled with atorvastatin and Zetia but he states that this is better for him. Last LDL from last week was 135. 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 Diabetes type 2, uncontrolled Surgical History History of surgical procedure on eye proper using laser Hx of shoulder surgery History of hip surgery Hx of neck surgery Family History Father Prostate cancer Mother Diabetes Heart problem Social History Household Members: Family Alcohol intake: never Patient Tobacco Use Status: Never used Tobacco Physical Exam Vital Signs: Last Vital Signs Pulse 96 10/23/23 11:27 BP 102/60 10/23/23 11:27 BMI result Body Mass Index 41.0 Const Orientation/consciousness: patient oriented x3 Neck Neck: Yes no lymphadenopathy Thyroid: Thyroid normal Carotids: no bruits Resp Auscultation: clear to auscultation bilaterally Cardio Rate: regular rate Rhythm: regular rhythm Heart sounds: S1 normal heart sound present and S2 normal heart sound present Peripheral pulses: dorsalis pedis present Neuro General: patient oriented x3, gait normal and no focal motor deficits Extrem Other: Monofilament sensation intact bilaterally. Vibratory sensation intact bilaterally. Skin intact. General: Yes normal to inspection Results AMB Hemoglobin A1c AMB Hemoglobin A1c 9.5 % Last Edit by NICHOL Hay on 10/23/23 11:43 Results Reviewed Results Reviewed: Laboratory Last Values Glucose (Clinic) 117 mg/dL (60-115) H 10/23/23 11:34 Hgb A1c (Clinic) 9.5 % (4.0-6.0) H 10/23/23 11:38 Laboratory Tests 03/22/23 06/21/23 10/16/23 08:56 11:44 10:30 Hgb A1c (Clinic) 9.4 H AST 16 ALT 11 Triglycerides 123 Cholesterol 193 LDL Cholesterol, Calc 135 H HDL Cholesterol 34 L Assessment & Plan Assessment & Plan (1) Diabetes type 2, uncontrolled: Code(s): E11.65 - Type 2 diabetes mellitus with hyperglycemia Category: Medical Qualifiers: Glycemic state: with hyperglycemia Qualified Code(s): E11.65 - Type 2 diabetes mellitus with hyperglycemia Plan: We will increase the Mounjaro, switch from Lantus to toujeo and increase NovoLog. One-month follow-up. Sooner if needed. (2) shelter (current) use of insulin: Code(s): Z79.4 - shelter (current) use of insulin Category: Medical Plan: Will start Monday at 46 units given that he does have some lower readings overnight/early mornings. no true hypoglycemia. he does understand the rule of 15 and reports having glucose tabs at home. (3) Diabetic polyneuropathy associated with type 2 diabetes mellitus: Code(s): E11.42 - Type 2 diabetes mellitus with diabetic polyneuropathy Category: Medical Plan: Discussed the importance of controlling his blood sugars and the complications associated with uncontrolled type 2 diabetes. (4) Obesity (BMI 30-39.9): Code(s): E66.9 - Obesity, unspecified Category: Medical Plan: increased mounjaro. encouraged diet changes (5) Hypertension: Code(s): I10 - Essential (primary) hypertension Category: Medical Plan: wnl continue current plan (6) Dyslipidemia: Code(s): E78.5 - Hyperlipidemia, unspecified Category: Medical Plan: encouraged lowfat diet Plan More than 1 hour was spent [id number] time today with patient discussing compliance, carbohydrates, complications associated with diabetes, the pathophysiology of diabetes and the importance of lowering his A1c to be a candidate for the back surgery that he wishes to undergo. f/u 1 month or sooner prn Orders: Orders AMB Hemoglobin A1c Today E11.65 - Type 2 diabetes mellitus with hyperglycemia, Z13.9 - Encounter for screening, unspecified Medications: New tirzepatide (Mounjaro) 7.5 mg (0.5 mL) subcut QWEEK 2 mL 3RF insulin glargine U-300 conc (Toujeo Max U-300 SoloStar) 50 units (0.1667 mL) subcut DAILY 6 mL 3RF insulin glargine U-300 conc (Toujeo Max U-300 SoloStar) 46 units (0.1533 mL) subcut DAILY 6 mL 3RF Changed From insulin aspart U-100 (Novolog FlexPen U-100 Insulin aspart) (0.1 mL) 10 units 3 times a day; 15 mL 4RF E11.65 - Type 2 diabetes mellitus with hyperglycemia To insulin aspart U-100 (Novolog FlexPen U-100 Insulin aspart) (0.1 mL) 20 units 3 times a day; 15 mL 4RF E11.65 - Type 2 diabetes mellitus with hyperglycemia Discontinued tirzepatide (Mounjaro) Discontinued Reason: Doctor's Order 5 mg (0.5 mL) subcut QWEEK 2 mL 5RF insulin glargine (Lantus Solostar U-100 Insulin) Discontinued Reason: Doctor's Order 40 units (0.4 mL) subcut QAM 15 mL 5RF Patient Instructions: we switched from lantus to toujeo.. decrease dosage to 46 units increased novolog to 20 units with meals increased mounjaro to 7.5 mg weekly call me if any concerns, lows or highs. Coding Level of Care Code Est Pt Level 5 (89677) Diagnoses Uncontrolled type 2 diabetes mellitus with hyperglycemia E11.65 Glycemic state: with hyperglycemia shelter (current) use of insulin Z79.4 Diabetic polyneuropathy associated with type 2 diabetes mellitus E11.42 Obesity (BMI 30-39.9) E66.9 Hypertension I10 Dyslipidemia E78.5 Time Spent (min) 70
[2023-10-23 11:38] LABS: Glucose, Whole Blood 117 mg/dL (60-115)
== END 2023-10-23 12:18 | disposition home or self-care (01) ==
PROVIDERS: PCP Family Medicine; Visit Provider Physician Assistant
DX: E11.65 Type 2 diabetes mellitus with hyperglycemia (principal); Z79.4 Long term (current) use of insulin; E11.42 Type 2 diabetes mellitus with diabetic polyneuropathy; E66.9 Obesity, unspecified; I10 Essential (primary) hypertension; E78.5 Hyperlipidemia, unspecified
CPT/HCPCS: 99215

== ENCOUNTER → 2023-10-23 11:26 | Outpatient (BNVA) | payer OTHER, SELFPAY | PROVIDERS: PCP Family Medicine; Visit Provider Physician Assistant | DX: E11.65 Type 2 diabetes mellitus with hyperglycemia (principal); E11.42 Type 2 diabetes mellitus with diabetic polyneuropathy; E66.9 Obesity, unspecified; E78.5 Hyperlipidemia, unspecified; I10 Essential (primary) hypertension; Z79.4 Long term (current) use of insulin; Z68.41 Body mass index [BMI] 40.0-44.9, adult | CPT/HCPCS: 82947; 83036; 99212 ==

== ENCOUNTER 2023-11-27 11:09 | Outpatient (AMB) | payer OTHER, SELFPAY ==
--- NOTE | 2023-11-27 11:11 | A.OFFVIS_ITS ---
Vital Signs 11/27/23 11:14 Height 5 ft 11 in Weight 291 lb 0.163 oz BMI 40.6 BP 132/80 Blood Pressure Location Rt brachial Position Sitting Pulse 99 Pulse Source Pulse Oximeter Intake Visit Reasons: T2DM/CONFIRMED Intake Note: Patient presents today for [facility] follow up visit. Last Diabetic Eye exam: DUE Last Podiatry Visit: Does not see a Podiatris Random Glucose: 270mg/dL, Today HgA1c: 9.5%, 10/23/2023 Tip Bander Required: No Tip Bander Services: Tip Bander Offered & Declined (Patient stated he speak Irish) Accompanied by: Self / Same As Patient Allergies Penicillins Allergy (Unknown, Verified 11/27/23 11:12) RASH/HIVES Medication List - Last Reconciled 11/27/23 by Génesis Gar PA-C atorvastatin 80 mg PO BEDTIME bempedoic acid (Nexletol) 180 mg PO DAILY blood sugar diagnostic ([employer] Ultra Test strips) DIRECTED TESTS 4 X/DAY blood-glucose meter ([employer] Ultra2 Meter) DIRECTED CHECKS 4 X/DAY bolus insulin pump, 200 unit (CeQur Simplicity) As directed bupropion HCl XL 300 mg PO DAILY cholecalciferol (vitamin D3) 50 mcg PO DAILY clonazepam 2 mg PO BEDTIME empagliflozin (Jardiance) 10 mg PO QAM enalapril-hydrochlorothiazide 10-25 mg 1 tab PO DAILY ezetimibe 10 mg PO DAILY flash glucose scanning reader (FreeStyle Edwin 2 [place]) As directed flash glucose sensor (FreeStyle Edwin 2 Sensor kit) As directed insulin aspart U-100 (Novolog FlexPen U-100 Insulin aspart) 20 units 3 times a day; insulin glargine U-300 conc (Toujeo Max U-300 SoloStar) 46 units (0.1533 mL) subcut DAILY lancets (EnviroGeneStyle Lancets) As directed lancets ([employer] UltraSoft 2 Lancet) As directed tests 4 X/day levothyroxine 50 mcg PO DAILY omeprazole 20 mg PO DAILY oxcarbazepine 150 mg PO BID oxycodone 5 mg PO QID PRN oxycodone ER 20 mg PO BID pen needle, diabetic (BD Amaya 2nd Gen Pen Needle) As directed 3 times a day prazosin 2 mg PO BEDTIME sertraline 200 mg PO DAILY syringe with needle, safety (BD Integra Syringe) As directed injrcts once a wk syringe with needle, safety (BD Integra Syringe) As directed use once a week tadalafil (Cialis) 5 mg PO DAILY PRN 30 days tirzepatide (Mounjaro) 7.5 mg (0.5 mL) subcut QWEEK zolpidem 10 mg PO BEDTIME HPI HPI T2DM/CONFIRMED: Details: Patient is a 63-year-old male with a significant past medical history of hypertension, hyperlipidemia, type 2 diabetes and obesity presenting today for a follow-up. He was last seen by myself last month. Endo: DM: his A1c today in the office is 9.5. He is currently on mounjaro 7.5 mg weekly, toujeo u-300 46 units, units daily, NovoLog 20 units tid. he states that he finds himself giving more insulin at nighttime because he has a lot of back pain and is up all night and will often have another meal. -he is tolerating mounjaro while and states that actually caused him to lose a few lb. -States his pharmacy never gave him the Toujeo. They did not have this in stock so he has been using the Lantus 46 units. - d/c from jardiance a couple years ago due to yeast infections and d/c from metformin to side effects cgm download- usage 50%, average glucose 124, GM 8.7% variability 28.9%. Very high 34%, high 43%, in range 22%, 1% hypoglycemic. -low happened late afternoon He is high for most of the day with increases around mealtimes. CV: Blood pressure today in the office is 132/80 and he is enalapril / hydrochlorothiazide. His cholesterol is Not completely controlled with atorvastatin and Zetia but he states that this is better for him. Last LDL was 135. 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 Diabetes type 2, uncontrolled Surgical History History of surgical procedure on eye proper using laser Hx of shoulder surgery History of hip surgery Hx of neck surgery Family History Father Prostate cancer Mother Diabetes Heart problem Social History Household Members: Family Alcohol intake: never Patient Tobacco Use Status: Never used Tobacco Physical Exam Vital Signs: Last Vital Signs Pulse 99 11/27/23 11:14 BP 132/80 11/27/23 11:14 BMI result Body Mass Index 40.6 Const Orientation/consciousness: patient oriented x3 Neck Neck: Yes no lymphadenopathy Thyroid: Thyroid normal Carotids: no bruits Resp Auscultation: clear to auscultation bilaterally Cardio Rate: regular rate Rhythm: regular rhythm Heart sounds: S1 normal heart sound present and S2 normal heart sound present Peripheral pulses: dorsalis pedis present Neuro General: patient oriented x3, gait normal and no focal motor deficits Extrem Other: Monofilament sensation intact bilaterally. Vibratory sensation intact bilaterally. Skin intact. General: Yes normal to inspection Results Reviewed Results Reviewed: Laboratory Tests 01/25/21 03/22/23 10/16/23 12:40 08:56 10:30 AST 16 ALT 11 Triglycerides 123 Cholesterol 193 LDL Cholesterol, Calc 135 H HDL Cholesterol 34 L Urine Creatinine 155.31 Urine Microalbumin 8.0 Microalb/Creat Ratio 5.1 Assessment & Plan Assessment & Plan (1) Diabetic polyneuropathy associated with type 2 diabetes mellitus: Code(s): E11.42 - Type 2 diabetes mellitus with diabetic polyneuropathy Category: Medical Plan: Called the pharmacy today and they were able to fill the Toujeo. He will pick this up and start using it. Continue with the increased dose of the Mounjaro and NovoLog. 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 Orders: Orders Comprehensive Loyal. 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 Medications: New blood-glucose meter,continuous (FreeStyle Edwin 3 [place]) Use daily As directed to monitor blood glucose 1 ea 0RF E11.42 - Type 2 diabetes mellitus with diabetic polyneuropathy, Z79.4 - 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 of insulin blood-glucose sensor (FreeStyle Edwin 3 Sensor device) Apply every 14 days As directed to monitor blood glucose 2 ea 11RF E11.9 - Type 2 diabetes mellitus without complications, Z79.4 - half-way (current) use of insulin Changed From insulin glargine U-300 conc (Toujeo Max U-300 SoloStar) 46 units (0.1533 mL) subcut DAILY 6 mL 3RF To insulin glargine U-300 conc (Toujeo Max U-300 SoloStar) 46 units (0.1533 mL) subcut DAILY 30 days 6 mL 3RF Discontinued flash glucose scanning reader (FreeStyle Edwin 2 [place]) Discontinued Reason: Doctor's Order As directed 1 ea 0RF Coding Level of Care Code Est Pt Level 4 (11085) Complex EM visit Add On G2211 Diagnoses Diabetic polyneuropathy associated with type 2 diabetes mellitus E11.42 Primary hypertension I10 Hypertension type: primary hypertension half-way (current) use of insulin Z79.4
[2023-11-27 11:14] VITALS: BP 132/80; PULSE 99; BMI 40.6
[2023-11-27 11:23] LABS: Glucose, Whole Blood 270 mg/dL (60-115)
== END 2023-11-27 11:43 | disposition home or self-care (01) ==
PROVIDERS: PCP Family Medicine; Visit Provider Physician Assistant
DX: E11.42 Type 2 diabetes mellitus with diabetic polyneuropathy (principal); I10 Essential (primary) hypertension; Z79.4 Long term (current) use of insulin
CPT/HCPCS: 99214; G2211

== ENCOUNTER → 2023-11-27 11:09 | Outpatient (BNVA) | payer OTHER, SELFPAY | PROVIDERS: PCP Family Medicine; Visit Provider Physician Assistant | DX: E11.42 Type 2 diabetes mellitus with diabetic polyneuropathy (principal); Z79.4 Long term (current) use of insulin; I10 Essential (primary) hypertension | CPT/HCPCS: 82947; 99212 ==

== ENCOUNTER 2024-02-02 10:23 | Outpatient (REF) | payer OTHER, SELFPAY ==
[2024-02-02 13:41] LABS: Alanine Aminotransferase 22 U/L (0-40); Albumin Level 4.2 g/dL (3.5-5.0); Alkaline Phosphatase 105 U/L (39-117); Anion Gap 12 (12-20); Aspartate Amino Transferase 24 U/L (5-37); Bilirubin Total 0.5 mg/dL (0.0-1.0); Blood Urea Nitrogen 27 mg/dL (9-16); Calcium 9.2 mg/dL (8.4-10.2); Carbon Dioxide 26 mmol/L (22-29); Chloride 102 mmol/L (96-108); Estimated Glomerular Filt Rate 47; Glucose Fasting 253 mg/dL (60-99); Potassium 4.1 mmol/L (3.3-5.1); Sodium 136 mmol/L (135-145)
[2024-02-02 13:43] LABS: Estimated Average Glucose 189 mg/dL; Hemoglobin A1C 251.8629 umol/L; Hemoglobin A1c % 8.2 % (<6.0); Total Hemoglobin (HGBA1C) 3822.4082 umol/L
[2024-02-02 14:09] LABS: Creatinine Urine 97.97 mg/dL; Microalbum/Creatinine Ratio Ur 13.2 ug/mg cr (<30)
== END 2024-02-02 10:24 | disposition home or self-care (01) ==
LOC: HO.10HDL 10:23
PROVIDERS: Visit Provider Physician Assistant
DX: I10 Essential (primary) hypertension (principal); E11.42 Type 2 diabetes mellitus with diabetic polyneuropathy; Z79.4 Long term (current) use of insulin
CPT/HCPCS: 36415; 80053; 82043; 82570; 83036

== ENCOUNTER 2024-02-05 10:30 | Outpatient (AMB) | payer OTHER, SELFPAY ==
--- NOTE | 2024-02-05 10:51 | A.OFFVIS_ITS ---
Vital Signs 02/05/24 10:53 Height 5 ft 11 in Weight 291 lb 0.163 oz BMI 40.6 BP 126/78 Blood Pressure Location Rt brachial Position Sitting Pulse 93 Pulse Source Pulse Oximeter Intake Visit Reasons: T2DM/# NOT IN SERVICE Intake Note: Patient presents today for DMT2 follow up visit. Patient reporting having difficulty getting his Freestyle Edwin 3 Sensors from the Pharmacy, sensors are on backorder from the manufactory: Last Diabetic Eye exam was on: DUE Last Podiatry Visit was on: Does not see a Eviction Specialist Most Recent HgA1c: 8.2%, 02/02/2024 Random Glucose: 282 mg/dL, Today Betting Agency Counter Clerk Required: No Betting Agency Counter Clerk Services: Betting Agency Counter Clerk Offered & Declined (Patient stated he speak Burundian) Accompanied by: Self / Same As Patient Allergies Penicillins Allergy (Unknown, Verified 11/27/23 11:12) RASH/HIVES Medication List - Last Reconciled 02/05/24 by Génesis Gar PA-C atorvastatin 80 mg PO BEDTIME bempedoic acid (Nexletol) 180 mg PO DAILY blood sugar diagnostic (OneTouch Ultra Test strips) DIRECTED TESTS 4 X/DAY blood-glucose meter (OneTouch Ultra2 Meter) DIRECTED CHECKS 4 X/DAY blood-glucose meter,continuous (FreeStyle Edwin 3 [place]) Use daily As directed to monitor blood glucose blood-glucose sensor (FreeStyle Edwin 3 Sensor device) Apply every 14 days As directed to monitor blood glucose blood-glucose sensor (FreeStyle Edwin 3 Plus Sensor device) Apply 1 new sensor every 14 days as directed to monitor blood glucose continuously. bolus insulin pump, 200 unit (CeQur Simplicity) As directed bupropion HCl XL 300 mg PO DAILY cholecalciferol (vitamin D3) 50 mcg PO DAILY clonazepam 2 mg PO BEDTIME enalapril-hydrochlorothiazide 10-25 mg 1 tab PO DAILY ezetimibe 10 mg PO DAILY insulin aspart U-100 (Novolog FlexPen U-100 Insulin aspart) 20 units 3 times a day; insulin glargine U-300 conc (Toujeo Max U-300 SoloStar) 46 units (0.1533 mL) subcut DAILY 30 days lancets (FreeStyle Lancets) As directed lancets (OneTouch UltraSoft 2 Lancet) As directed tests 4 X/day levothyroxine 50 mcg PO DAILY omeprazole 20 mg PO DAILY oxcarbazepine 150 mg PO BID oxycodone 5 mg PO QID PRN oxycodone ER 20 mg PO BID pen needle, diabetic (BD Amaya 2nd Gen Pen Needle) As directed 3 times a day prazosin 2 mg PO BEDTIME sertraline 200 mg PO DAILY syringe with needle, safety (BD Integra Syringe) As directed injrcts once a wk syringe with needle, safety (BD Integra Syringe) As directed use once a week tadalafil (Cialis) 5 mg PO DAILY PRN 30 days zolpidem 10 mg PO BEDTIME HPI HPI T2DM/# NOT IN SERVICE: Details: Patient is a 63-year-old male with a significant past medical history of hypertension, hyperlipidemia, type 2 diabetes and obesity presenting today for a follow-up. He was last seen by myself last month. Endo: DM: His A1c is 8.2 and down from 9.5. He is currently on mounjaro 5 mg weekly, toujeo u-300 46 units, units daily, NovoLog 20 units tid. -he states that he did not tolerate the 7.5 mg of Mounjaro so he started taking the left over 5 mg of Mounjaro that he had. -he states that the Toujeo did nothing at the 46 units. He states that he would still wake up with elevated blood sugars and have elevated blood sugars mid day. He does not want to be on this medication. Finds that this is ineffective just like Lantus was ineffective. He actually has not been taking any basal insulin for the last week or so. He states he has been trying to control his blood sugars with just the NovoLog. - d/c from jardiance a couple years ago due to yeast infections and d/c from metformin to side effects cgm-he was not able to pick this up. He states that they were out of stock. CV: Blood pressure today in the office is 126/78 and he is enalapril / hydrochlorothiazide. His cholesterol is Not completely controlled with atorvastatin and Zetia but he states that this is better for him. Last LDL was 135. 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 Diabetes type 2, uncontrolled Surgical History History of surgical procedure on eye proper using laser Hx of shoulder surgery History of hip surgery Hx of neck surgery Family History Father Prostate cancer Mother Diabetes Heart problem Social History Household Members: Family Alcohol intake: never Patient Tobacco Use Status: Never used Tobacco Physical Exam Vital Signs: Last Vital Signs Pulse 93 02/05/24 10:53 BP 126/78 02/05/24 10:53 BMI result Body Mass Index 40.6 Const Orientation/consciousness: patient oriented x3 Neck Neck: Yes no lymphadenopathy Thyroid: Thyroid normal Carotids: no bruits Resp Auscultation: clear to auscultation bilaterally Cardio Rate: regular rate Rhythm: regular rhythm Heart sounds: S1 normal heart sound present and S2 normal heart sound present Neuro General: patient oriented x3, gait normal and no focal motor deficits Extrem General: Yes normal to inspection Results Reviewed Results Reviewed: Laboratory Last Values Glucose (Clinic) 282 mg/dL (60-115) H 02/05/24 10:58 Laboratory Tests 02/02/24 10:28 Sodium 136 Potassium 4.1 Chloride 102 Carbon Dioxide 26 Creatinine 1.51 H Estimated GFR 47 Fasting Glucose 253 H Estimat Average Glucose 189 Hemoglobin A1c % 8.2 H Urine Creatinine 97.97 Urine Microalbumin 13.0 Microalb/Creat Ratio 13.2 Assessment & Plan Assessment & Plan (1) prison (current) use of insulin: Code(s): Z79.4 - prison (current) use of insulin Category: Medical Plan: Advised to continue with the Toujeo until he picks up Tresiba. I will switch to Tresiba due to the ineffectiveness of Lantus in Toujeo. I have reordered the sensors. He will pick these up. Continue NovoLog. Recent in Mounjaro 5 mg. We will stop the 7.5 due to intolerance. (2) Diabetic polyneuropathy associated with type 2 diabetes mellitus: Code(s): E11.42 - Type 2 diabetes mellitus with diabetic polyneuropathy Category: Medical Plan: As above. I have also referred him to Podiatry. 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 2 ea 11RF blood-glucose sensor (FreeStyle Edwin 3 Plus Sensor device) Apply 1 new sensor every 14 days as directed to monitor blood glucose continuously. 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
[2024-02-05 10:53] VITALS: BP 126/78; PULSE 93; BMI 40.6
[2024-02-05 11:08] LABS: Glucose, Whole Blood 282 mg/dL (60-115)
== END 2024-02-05 11:40 | disposition home or self-care (01) ==
PROVIDERS: PCP Family Medicine; Visit Provider Physician Assistant
DX: Z79.4 Long term (current) use of insulin (principal); E11.42 Type 2 diabetes mellitus with diabetic polyneuropathy

== ENCOUNTER → 2024-02-05 10:30 | Outpatient (BNVA) | payer OTHER, SELFPAY | PROVIDERS: PCP Family Medicine; Visit Provider Physician Assistant | DX: E11.42 Type 2 diabetes mellitus with diabetic polyneuropathy (principal); Z79.4 Long term (current) use of insulin | CPT/HCPCS: 82947; 99212 ==

== ENCOUNTER 2024-03-11 13:58 | Outpatient (AMB) | payer OTHER, SELFPAY ==
--- NOTE | 2024-03-11 14:00 | MHC.OFFVIS ---
Vital Signs 03/11/24 14:01 Height 5 ft 11 in Weight 300 lb 0.786 oz BMI 41.8 BP 116/78 Blood Pressure Location Lt brachial Position Sitting Pulse 102 H Pulse Source Pulse Oximeter Intake Visit Reasons: DM/CONFIRMED Intake Note: Patient presents today for D2MT follow up visit. Last Diabetic Eye exam: 02/2024 Last Podiatry Visit: Doesn't have one Random Glucose: 182 mg/dl HgA1c: 8.2% 02/02/24 Ship Steward Required: No Accompanied by: Self / Same As Patient Allergies Penicillins Allergy (Unknown, Verified 03/11/24 14:07) RASH/HIVES Medication List - Last Reconciled 03/11/24 by Génesis Gar PA-C atorvastatin 80 mg PO BEDTIME bempedoic acid (Nexletol) 180 mg PO DAILY blood sugar diagnostic ([email or web address] Ultra Test strips) DIRECTED TESTS 4 X/DAY blood-glucose meter ([email or web address] Ultra2 Meter) DIRECTED CHECKS 4 X/DAY blood-glucose meter,continuous (FreeStyle Edwin 3 [place]) Use daily As directed to monitor blood glucose blood-glucose sensor (FreeStyle Edwin 3 Sensor device) Apply every 14 days As directed to monitor blood glucose blood-glucose sensor (FreeStyle Edwin 3 Plus Sensor device) Apply 1 new sensor every 14 days as directed to monitor blood glucose continuously. bolus insulin pump, 200 unit (CeQur Simplicity) As directed bupropion HCl XL 300 mg PO DAILY cholecalciferol (vitamin D3) 50 mcg PO DAILY clonazepam 2 mg PO BEDTIME enalapril-hydrochlorothiazide 10-25 mg 1 tab PO DAILY ezetimibe 10 mg PO DAILY insulin aspart U-100 (Novolog FlexPen U-100 Insulin aspart) 20 units 3 times a day; insulin degludec (Tresiba FlexTouch U-200 insulin) 40 units (0.2 mL) subcut BEDTIME lancets (FreeStyle Lancets) As directed lancets ([email or web address] UltraSoft 2 Lancet) As directed tests 4 X/day levothyroxine 50 mcg PO DAILY omeprazole 20 mg PO DAILY oxcarbazepine 150 mg PO BID oxycodone 5 mg PO QID PRN oxycodone ER 20 mg PO BID pen needle, diabetic (BD Amaya 2nd Gen Pen Needle) As directed 3 times a day prazosin 2 mg PO BEDTIME sertraline 200 mg PO DAILY syringe with needle, safety (BD Integra Syringe) As directed injrcts once a wk syringe with needle, safety (BD Integra Syringe) As directed use once a week tadalafil (Cialis) 5 mg PO DAILY PRN 30 days tirzepatide (Mounjaro) 5 mg (0.5 mL) subcut QWEEK zolpidem 10 mg PO BEDTIME HPI HPI DM/CONFIRMED: Details: Patient is a 63-year-old male with a significant past medical history of hypertension, hyperlipidemia, type 2 diabetes and obesity presenting today for a follow-up. He was last seen by myself last month. Endo: DM: His A1c is 8.2 and down from 9.5. He is currently on mounjaro 5 mg weekly, tresiba 40 units, NovoLog 20 units tid. -He states his blood sugars have been much better since starting tresiba. He states his blood sugars are around 150-200. -He has had 2 low blood sugars. He states once he was fasting for a long time and states it was self induced. - d/c from jardiance a couple years ago due to yeast infections and d/c from metformin to side effects. he states that he did not tolerate the 7.5 mg of Mounjaro so he started taking the left over 5 mg of Mounjaro that he had. cgm-he forgot to bring his reader CV: Blood pressure today in the office is 116/78 and he is enalapril / hydrochlorothiazide. His cholesterol is Not completely controlled with atorvastatin and Zetia but he states that this is better for him. Last LDL was 135. 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 Diabetes type 2, uncontrolled Surgical History History of surgical procedure on eye proper using laser Hx of shoulder surgery History of hip surgery Hx of neck surgery Family History Father Prostate cancer Mother Diabetes Heart problem Social History Household Members: Family Alcohol intake: never Patient Tobacco Use Status: Never used Tobacco Physical Exam Vital Signs: Last Vital Signs Pulse 102 H 03/11/24 14:01 BP 116/78 03/11/24 14:01 BMI result Body Mass Index 41.8 Results Reviewed Results Reviewed: Laboratory Tests 10/16/23 02/02/24 02/05/24 10:30 10:28 10:58 Sodium 136 Potassium 4.1 Chloride 102 Carbon Dioxide 26 Anion Gap 12 BUN 27 H Creatinine 1.51 H Estimated GFR 47 Glucose (Clinic) 282 H Fasting Glucose 253 H Estimat Average Glucose 189 Hemoglobin A1c % 8.2 H Triglycerides 123 Cholesterol 193 LDL Cholesterol, Calc 135 H HDL Cholesterol 34 L Urine Creatinine 97.97 Urine Microalbumin 13.0 Microalb/Creat Ratio 13.2 Assessment & Plan Assessment & Plan (1) Diabetes type 2, uncontrolled: Code(s): E11.65 - Type 2 diabetes mellitus with hyperglycemia Category: Medical Qualifiers: Glycemic state: with hyperglycemia Qualified Code(s): E11.65 - Type 2 diabetes mellitus with hyperglycemia Plan: increase tresiba to 46 units continue novolog 20 units TID continue mounjaro 5 mg weekly (2) Hypertension: Code(s): I10 - Essential (primary) hypertension Category: Medical Qualifiers: Hypertension type: primary hypertension Qualified Code(s): I10 - Essential (primary) hypertension Plan: WNL. Continue current regimen (3) CKD (chronic kidney disease) stage 3, GFR 30-59 ml/min: Code(s): N18.30 - Chronic kidney disease, stage 3 unspecified Category: Medical Plan: stable. 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 Microalbumin, Random (w Creat) Today E11.65 - Type 2 diabetes mellitus with hyperglycemia, I10 - Essential (primary) hypertension, N18.30 - Chronic kidney disease, stage 3 unspecified, Z79.4 - 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 (current) 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 of insulin Referrals Nephrology Referral E11.65 - Type 2 diabetes mellitus with hyperglycemia, I10 - Essential (primary) hypertension, N18.30 - Chronic kidney disease, stage 3 unspecified, Z79.4 - senior living (current) use of insulin Medications: Changed From insulin degludec (Tresiba FlexTouch U-200 insulin) 40 units (0.2 mL) subcut BEDTIME 9 mL 6RF To insulin degludec (Tresiba FlexTouch U-200 insulin) 46 units (0.23 mL) subcut BEDTIME 9 mL 6RF Refilled tirzepatide (Mounjaro) 5 mg (0.5 mL) subcut QWEEK 2 mL 3RF tadalafil (Cialis) administer approximately 30min before sexual activity; do not use more than 1 dose per 24hrs 5 mg PO DAILY 30 days PRN 7 tabs 5RF sexual activity E29.1 - Testicular hypofunction Coding Level of Care Code Tele Est Pt Level 4 (31541) Complex EM visit Add On G2211 Diagnoses Uncontrolled type 2 diabetes mellitus with hyperglycemia E11.65 Glycemic state: with hyperglycemia Primary hypertension I10 Hypertension type: primary hypertension CKD (chronic kidney disease) stage 3, GFR 30-59 ml/min N18.30
[2024-03-11 14:01] VITALS: BP 116/78; PULSE 102; BMI 41.8
[2024-03-11 14:12] LABS: Glucose, Whole Blood 182 mg/dL (60-115)
== END 2024-03-11 14:29 | disposition home or self-care (01) ==
PROVIDERS: PCP Family Medicine; Visit Provider Physician Assistant
DX: E11.65 Type 2 diabetes mellitus with hyperglycemia (principal); I10 Essential (primary) hypertension; N18.30 Chronic kidney disease, stage 3 unspecified

== ENCOUNTER → 2024-03-11 13:58 | Outpatient (BNVA) | payer OTHER, SELFPAY | PROVIDERS: PCP Family Medicine; Visit Provider Physician Assistant | DX: E11.65 Type 2 diabetes mellitus with hyperglycemia (principal) | CPT/HCPCS: 82947 ==

== ENCOUNTER 2024-06-12 08:46 | Outpatient (REF) | payer OTHER, SELFPAY ==
--- OUTSIDE RECORDS SUMMARY | 2024-06-12 10:26 | XMS_ITS | Encounter Summary ---
Author Organization [employer] Address 75 [facility] 7 [place] [address] Care Team Providers Care Trademark Attorney Name Role Phone Karen Avelar Primary Care Provider [phone] Reason for Visit * Reason Onset Date Comments Med Refill 01/15/2024 Encounter Details Date Type Department Care Team (Late st Contact Info) Description 01/15/2024 Telephone [facility] MEDICINE 230 [place], [place] [phone] Karen Avelar ANP 230 [place], [place] [phone] Med Refill Social History Tobacco Use Types [...] hr tablet To be sent to: [facility]/pharmacy #[id number] documented in this encounter Plan of Treatment Upcoming Encounters Date Type Department Care Team (Late st Contact Info) Description 07/04/2024 11:00 AM EDT Office Visit [facility] MEDICINE 230 [place] [address] Karen Avelar ANP [address] [place] [address] 08/01/2024 11:00 AM EDT Clinical Support [facility] CH[facility] MED & PEDS 505 [place], [place] [phone] Becky Pool, JIMMIE 505 [place] [address] documented as of this encounter Visit Diagnoses Not on filedocumented in this encounter Additional Health Concerns Assessment Noted Time PHQ-9 Depression Total Score: 21 024 2:14 PM EDT documented as of this encounter Care Teams Trademark Attorney Relationship Specialty Start Date End Date Karen Avelar ANP 230 [place] [address] PCP - General Family Medicine 12/08/21 documented as of this encounter
--- OUTSIDE RECORDS SUMMARY | 2024-06-12 10:26 | XMS_ITS | Encounter Summary ---
Author Organization [employer] Address 75 [facility] 7 [place] [address] Care Team Providers Care Lens Molder Name Role Phone Karen Avelar LIBBY Primary Care Provider [phone] Reason for Visit * Reason Comments controlled substance treatment Encounter Details Date Type Department Care Team ([facility] Contact Info) Description 05/13/2024 11:00 AM EST Telemedicine [facility] MED & PEDS 505 [place] [address] Becky Pool, RN 505 [place] [address] prison (current) use of opiate analgesic Social History [...] RN - 05/13/2024 11:00 AM EST S: COOK NIGHT NV. Prescribed oxycodone 10mg PO q6h PRN [...] No questions/ concerns at this time. O: MANAGER OF DIGITAL verified today. Oxycodone 10mg rx last filled on 05/06/24 & oxycontin ER 20mg rx last filled 05/09/24. Pill count performed over the phone, patient states he has 86 Oxycodone 10mg at this time, 82 expected; 47 oxycontin ER at this time, 47 expected. Medications are not overused by patient.. A: COOK NIGHT Contract Revisit: Opioid dependence related to chronic pain. P: Patient to continue taking medication only as prescribed; Next COOK NIGHT RV appointment scheduled for 08/01/24 @ 11am at [facility]. F/U sooner PRN. Patient verbalized understanding and agreed to plan. 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
--- OUTSIDE RECORDS SUMMARY | 2024-06-12 10:26 | XMS_ITS | Encounter Summary ---
Author Organization [employer] Address 75 [facility] 7 [place] [address] Care Team Providers Care Siderographist Name Role Phone Karen Avelar Primary Care Provider [phone] Reason for Visit * Reason Onset Date Comments Durable Medical Equipment 05/13/2024 Shoe h orn, sock aid, bariatric walker Encounter Details Date Type Department Care Team ([facility] st Contact Info) Description 05/13/2024 Telephone [facility] MEDICINE [address] [place], [place] [phone] Karen Avelar ANP [address] [place], [place] [phone] Durable Medical Equipment (Shoe horn, sock aid, [...] and up loaded into Media. Message to [facility] Care ManagerBriana Morales was sent via [employer]. * Telephone Encounter - Chaya Holbrook - 05/13/2024 1:11 PM EST DME RX for Walker and shoe horn and sock aid generated and placed on providers desk for review and signature. * Telephone Encounter - Chaya Holbrook - 05/13/2024 1:10 PM EST ----- Message from Briana Vale sent at 05/13/2024 10:11 AM EST ----- Regarding: DME request Greetings, I am (Briana Morales), Animal Care Giver for [facility] Care Management, requesting the following DME???s on [...] this request, feel free to contact the Animal Care Giver below. Utility Porter: Briana Morales E-mail: [email or web address] Production Supervisor: Cortney Sanchez E-mail: [email or web address] Thanks in advance for your assistance with this request. Sincerely, [facility] [employer] Care Management documented in this encounter Plan of Treatment Upcoming Encounters Date Type Department Care Team ([facility] st Contact Info) Description 07/04/2024 11:00 AM EDT Office Visit [facility] MEDICINE [address] [place] [address] Karen Avelar ANP [address] [place] [address] 08/01/2024 11:00 AM EDT Clinical Support [facility] CHC MED & PEDS [address] [place] [address] Becky Pool, RN 505 [place] [address] documented as of this encounter Visit Diagnoses Not on filedocumented in this encounter Additional Health Concerns Assessment Noted Time PHQ-9 Depression Total Score: 21 024 2:14 PM EDT documented as of this encounter Care Teams Siderographist Relationship Specialty Start Date End Date Karen Avelar ANP [address] [place] [address] PCP - General Family Medicine 12/08/21 documented as of this encounter
--- OUTSIDE RECORDS SUMMARY | 2024-06-12 10:26 | XMS_ITS | Encounter Summary ---
Author Organization [employer] Address 75 [facility] 7 [place] [address] Care Team Providers Care Quality Assurance Clerk Name Role Phone Karen Avelar Primary Care Provider [phone] Reason for Visit * Reason Onset Date Comments Med Refill 03/28/2023 Encounter Details Date Type Department Care Team ([facility] st Contact Info) Description 03/28/[address] [facility] MEDICINE [address] [place], [place] [phone] Karen Avelar ANP 230 [place], [place] [phone] Med Refill Social History Tobacco Use Types [...] Description 07/04/2024 11:00 AM EDT Office Visit [facility] MEDICINE [address] [place] [address] Karen Avelar ANP 230 [place] [address] 08/01/2024 11:00 AM EDT Clinical Support [facility] CHC MED & PEDS [address] [place] [address] Becky Pool, JIMMIE [address] [place] [address] documented as of this encounter Visit Diagnoses Not on filedocumented in this encounter Additional Health Concerns Assessment Noted Time PHQ-9 Depression Total Score: 14 023 1:08 PM EDT documented as of this encounter Care Teams Quality Assurance Clerk Relationship Specialty Start Date End Date Karen Avelar ANP 230 [place] [address] PCP - General Family Medicine 12/08/21 documented as of this encounter
--- OUTSIDE RECORDS SUMMARY | 2024-06-12 10:26 | XMS_ITS | Clinical Summary ---
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 05/13/2024 Telephone [facility] MEDICINE [address] [place] [address] Karen Avelar ANP Durable Medical Equipment (Shoe horn, sock aid, bariatric walker) 05/13/2024 Telephone [facility] MED & PEDS [address] [place] [address] Becky Pool, RN 05/13/2024 Travel 05/06/2024 11:00 AM EST Telemedicine [facility] MEDICINE [address] [place] [address] Karen Avelar ANP Type 2 diabetes mellitus with stage 3 chronic kidney disease, with long-term current use of insulin, unspecified whether stage 3a or 3b CKD (CMS/HCC) (Primary Dx); Hypotestosteronism; Diabetic polyneuropathy associated with type 2 diabetes mellitus (CMS/HCC); alf (current) use of opiate analgesic; Primary osteoarthritis involving multiple joints 05/06/2024 Travel 05/06/2024 Refill [facility] MEDICINE [address] [place] [address] Karen Avelar ANP Primary osteoarthritis involving multiple joints 04/30/2024 Telephone [facility] MEDICINE [address] [place] [address] Karen Avelar ANP Referral 04/23/2024 Telephone [facility] MED & PEDS [address] [place] [address] Becky Pool, RN 04/23/2024 Refill [facility] MED & PEDS [address] [place] [address] Becky Pool, JIMMIE 04/23/2024 Telephone [facility] MEDICINE [address] [place] [address] Karen Avelar ANP Med refill 04/04/2024 Telephone [facility] MED & PEDS [address] [place] [address] Becky Pool, RN 04/04/2024 Telephone [facility] MED & PEDS [address] [place] [address] Becky Pool, JIMMIE 04/02/2024 Telephone [facility] MED & PEDS [address] [place] [address] Becky Pool RN 04/02/2024 Telephone [facility] [address] [place] [address] Karen Avelar ANP PSG ORDER 04/02/[address] [address] Karen Avelar ANP Medication Question 03/29/[address] [address] Karen Avelar ANP Nurse Triage 03/28/2024 1:30 PM EST Telemedicine [facility] MED & PEDS [address] [place] [address] Gefofrey Kaur MD Acute cough (Primary Dx); COVID 03/28/2024 Travel 03/28/[address] [address] Karen Avelar ANP Nurse Triage 03/26/[address] [address] Karen Avelar ANP Nurse Triage 03/22/[address] [address] Karen Avelar ANP Medication Question 03/21/2024 10:30 AM EST Office Visit [address] [address] Karen Avelar ANP Mixed hyperlipidemia (Primary Dx); Hypertension with albuminuria; Obstructive sleep apnea syndrome; Primary osteoarthritis involving multiple joints; Type 2 diabetes mellitus with stage 3 chronic kidney disease, with long-term current use of insulin, unspecified whether stage 3a or 3b CKD (CMS/HCC); alf (current) use of opiate analgesic; Diabetic polyneuropathy [...] Description 07/04/2024 11:00 AM EDT Office Visit [facility] MEDICINE [address] [place] [address] Karen Avelar ANP [address] [place] [address] 08/01/2024 11:00 AM EDT Clinical Support [facility] MED & PEDS [address] [place] [address] Becky Pool, JIMMIE [address] [place] [address] Health Maintenance Due Date Last Done Comments [...] unspecified whether stage 3a or 3b CKD (CMS/[facility]) LIPID PANEL, STANDARD Routine 08/10/2022 10:13 AM EDT COLONOSCOPY Routine 03/02/2016 4:57 PM EST from Last 3 Months or Most Recently Relevant to Health Maintenance Results * (ABNORMAL) POCT HGB A1C (10/16/2023 9:44 AM EDT) Hemoglobin A1C 9.0(A) 4.0 - 6.0 % QC Media Lot # [id number] Lot# Expiration Date ,[id number] Blood 10/16/2023 9:44 AM EDT [facility] POINT OF CARE TEST ENTER/EDIT OR DERABLES Final Result * Lipid Panel, Standard (08/10/2022 10:13 AM EDT) Triglycerides 111 mg/dL [facility] Comment:Desirable Triglyceri de: less than 150 mg/dLBorderline High Triglyceride 150-199 mg/dLHigh Triglyceride: 200-499 mg/dLVery High Triglyceride: greater than or equal to 5OO mg/dL Cholesterol 199 mg/dL [facility] Comment:Desirable Cholestero l: less than 200 mg/dLBorderline High Cholesterol: 200-239 mg/dLHigh Cholesterol: greater than 239 mg/dL LDL Cholesterol Calculated 140 mg/dl [facility] Comment:Desirable LDL: less than 100 mg/dLNear Optimal/Above Optimal LDL: 110- 129 mg/dLBorderline High LDL: 130-159 mg/dLHigh LDL: 160-189 mg/dLVery High LDL: greater than or equal to 190 mg/dL HDL Cholesterol 37 mg/dL [facility] Comment:Desirable HDL: great er than 40 mg/dL Note: This HDL assay may give artificially low results in patients with liver disease. 08/10/2022 10:1 3 AM EDT 08/10/2022 1:36 PM EDT [facility] External Provider LAB BLO OD ORDERABLES Final Result [facility] [address] [place] [address] [phone] * Hm Colonoscopy (03/02/2016 4:57 PM EST) us Historical Provider HEALTH MAINTENANCE Final Result from Last 3 Months or Most Recently Relevant to Health Maintenance Insurance [facility] Care Teams Violin Teacher Relationship Specialty Start Date End Date Karen Avelar ANP [address] [place] [address] PCP - General Family Medicine 12/08/21
--- OUTSIDE RECORDS SUMMARY | 2024-06-12 10:26 | XMS_ITS | Clinical Summary ---
Author Organization [address] [place] [address] Address [address] [place] [address] Phone Care Team Providers Care Cellophane Worker Name Role Phone Jordana Cade MD Primary Care Provider [phone] Allergies Active Allergy Reactions Criticality Noted Date [...] can recall. Patient's C-spine MRI 05/11/2021 at [facility] shows left >right neuroforaminal narrowing [...] AM EST Office Visit Orthopedic Surgery - [address] [phone] Tristan Deal DPM Controlled type 2 diabetes [...] in [place] OTHER SURGICAL HISTORY 12/10/2019 PROCEDURE: [place] ARTHRD ANT INTERBODY MIN DSC CRV BELOW [...] AM EDT Office Visit Orthopedic Surgery - [place] [address] [phone] Tristan eDal DPM [address] [address] Health Maintenance Due Date Last Done Comments [...] patient's age to complete this topic Insurance [facility] MEDICARE Member Subscriber Plan / Payer (Ef fective 2013-Present) Name:Bhumika Rose Relation to Subscriber:Self Name:Bhumika Rose Payer ID:[id number] Group ID:[id number] Type:Not on file Address: [place] [address] [address] [place] [address] Care Teams Cellophane Worker Relationship Specialty Start Date End Date [place], [place] Jordana [address] [place] [phone] PCP - General 07/21/13
--- OUTSIDE RECORDS SUMMARY | 2024-06-12 10:26 | XMS_ITS | Encounter Summary ---
Author Organization [employer] Address 75 [facility] 7 [place] [address] Care Team Providers Care Supervisor Aluminum Fabrication Name Role Phone Karen Avelar Primary Care Provider [phone] Reason for Visit * Reason Onset Date Comments Med Refill 12/19/2023 Encounter Details Date Type Department Care Team (Late st Contact Info) Description 12/19/[address] [facility] MEDICINE [address] [place], [place] [phone] Karen Avelar ANP [address] [place], [place] [phone] Med Refill Social History Tobacco Use Types [...] immediate release tablet To be sent to: [facility]/pharmacy #[id number] documented in this encounter Plan of Treatment Upcoming Encounters Date Type Department Care Team (Late st Contact Info) Description 07/04/2024 11:00 AM EDT Office Visit [facility] MEDICINE [address] [place] [address] Karen Avealr ANP [address] [place] [address] 08/01/2024 11:00 AM EDT Clinical Support [facility] CH[facility] MED & PEDS [address] [place], [place] [phone] Becky Pool, JIMMIE [address] [place] [address] documented as of this encounter Visit Diagnoses Not on filedocumented in this encounter Additional Health Concerns Assessment Noted Time PHQ-9 Depression Total Score: 21 024 2:14 PM EDT documented as of this encounter Care Teams Supervisor Aluminum Fabrication Relationship Specialty Start Date End Date Karen Avelar ANP [address] [place] [address] PCP - General Family Medicine 12/08/21 documented as of this encounter
--- OUTSIDE RECORDS SUMMARY | 2024-06-12 10:26 | XMS_ITS | Encounter Summary ---
Author Organization [employer] Address 75 [facility] 7 [place] [address] Care Team Providers Care Child Welfare Social Worker Name Role Phone Karen Avelar Primary Care Provider [phone] Reason for Visit * Reason Onset Date Comments Referral 09/15/2022 Encounter Details Date Type Department Care Team (Late st Contact Info) Description 09/15/2022 Telephone [facility] MEDICINE [address] [place] [address] Karen Avelar ANP [address] [place], [place] [phone] Referral Social History Tobacco Use Types Packs/Day [...] Description 07/04/2024 11:00 AM EDT Office Visit [facility] MEDICINE [address] [place] [address] Karen Avelar ANP [address] [place] [address] 08/01/2024 11:00 AM EDT Clinical Support [facility] CHC MED & PEDS [address] [place], [place] [phone] Becky Pool, RN [address] [place] [address] documented as of this encounter Visit Diagnoses Not on filedocumented in this encounter Care Teams Child Welfare Social Worker Relationship Specialty Start Date End Date Karen Avelar ANP [address] [place] [address] PCP - General Family Medicine 12/08/21 documented as of this encounter
--- OUTSIDE RECORDS SUMMARY | 2024-06-12 10:26 | XMS_ITS | Encounter Summary ---
Author Organization [employer] Address 75 [facility] 7 [place] [address] Care Team Providers Care Stemhole Borer Name Role Phone Valentino Karen SOUZA Primary Care Provider [phone] Encounter Details Date Type Department Care Team ([facility] Contact Info) Description 05/13/2024 Telephone [facility] MED & PEDS [address] [place] [address] Becky Pool, RN 505 [place] [address] Social History Tobacco Use Types Packs/Day Years [...] RN - 05/13/2024 11:45 AM EST .What SUPERVISOR PYROTECHNIC LOADING Tier would you like this patient to be? Tier 1 = HIGH RISK, Monthly SUPERVISOR PYROTECHNIC LOADING visits Tier 2 = MODerate RISK, Q3 Month visits Tier 3 = LOW RISK = Q4-6 month visits documented in this encounter Plan of Treatment Upcoming Encounters Date Type Department Care Team (Late st Contact Info) Description 07/04/2024 11:00 AM EDT Office Visit [facility] MEDICINE 230 [place] [address] Karen Avelar ANP 230 [place] [address] 08/01/2024 11:00 AM EDT Clinical Support [facility] CHC MED & PEDS [address] [place] [address] Becky Pool, RN 505 [place] [address] documented as of this encounter Visit Diagnoses Not on filedocumented in this encounter Additional Health Concerns Assessment Noted Time PHQ-9 Depression Total Score: 21 024 2:14 PM EDT documented as of this encounter Care Teams Stemhole Borer Relationship Specialty Start Date End Date Karen Avelar ANP 230 [place] [address] PCP - General Family Medicine 12/08/21 documented as of this encounter
--- OUTSIDE RECORDS SUMMARY | 2024-06-12 10:26 | XMS_ITS | Encounter Summary ---
Author Organization [employer] Address 75 [facility] 7 [place] [address] Care Team Providers Care Metal Hanging Supervisor Name Role Phone Karen Avelar Primary Care Provider [phone] Reason for Visit * Reason Onset Date Comments Med Refill 11/21/2023 Encounter Details Date Type Department Care Team (Late st Contact Info) Description 11/21/2023 Telephone [facility] MEDICINE 230 [place], [place] [phone] Karen Avelar ANP 230 [place], [place] [phone] Med Refill Social History Tobacco Use Types [...] 12 hr tablet To be sent to: [facility]/PHARMACY #[id number] documented in this encounter Plan of Treatment Upcoming Encounters Date Type Department Care Team (Late st Contact Info) Description 07/04/2024 11:00 AM EDT Office Visit [facility] MEDICINE 230 [place] [address] Karen Avelar ANP 230 [place] [address] 08/01/2024 11:00 AM EDT Clinical Support [facility] CHC MED & PEDS 505 [place], [place] [phone] Becky Pool, JIMMIE 505 [place] [address] documented as of this encounter Visit Diagnoses Not on filedocumented in this encounter Additional Health Concerns Assessment Noted Time PHQ-9 Depression Total Score: 21 024 2:14 PM EDT documented as of this encounter Care Teams Metal Hanging Supervisor Relationship Specialty Start Date End Date Karen Avelar ANP 230 [place] [address] PCP - General Family Medicine 12/08/21 documented as of this encounter
--- OUTSIDE RECORDS SUMMARY | 2024-06-12 10:26 | XMS_ITS | Encounter Summary ---
Author Organization [employer] Address 75 [facility] 7 [place] [address] Care Team Providers Care Piercing Mill Operator Name Role Phone Karen Avelar Primary Care Provider [phone] Reason for Visit * Reason Onset Date Comments Prior Authorization 09/07/2022 Encounter Details Date Type Department Care Team (Late st Contact Info) Description 09/07/2022 Telephone [facility] MEDICINE 230 [place], [place] [phone] Karen Avelar ANP 230 [place], [place] [phone] Prior Authorization Social History Tobacco Use Types [...] - 09/07/2022 11:47 AM EDT Tc from [place] with [facility] pharmacy requesting a PA for medication OxyCONTIN 20 MG 12 hr tablet documented in this encounter Plan of Treatment Upcoming Encounters Date Type Department Care Team (Late st Contact Info) Description 07/04/2024 11:00 AM EDT Office Visit [facility] MEDICINE [address] [place] [address] Karen Avelar ANP 230 [place] [address] 08/01/2024 11:00 AM EDT Clinical Support [facility] CHC MED & PEDS 505 [place] [address] Becky Pool, RN 505 [place] [address] documented as of this encounter Visit Diagnoses Not on filedocumented in this encounter Care Teams Piercing Mill Operator Relationship Specialty Start Date End Date Karen Avelar ANP [address] [place] [address] PCP - General Family Medicine 12/08/21 documented as of this encounter
--- OUTSIDE RECORDS SUMMARY | 2024-06-12 10:26 | XMS_ITS | Encounter Summary ---
Author Organization [employer] Address 75 [facility] 7t [place] [address] Care Team Providers Care Pill Maker Name Role Phone Karen Avelar Primary Care Provider [phone] Encounter Details Date Type Department Care Team [...] Description 07/04/2024 11:00 AM EDT Office Visit [facility] MEDICINE 230 [place] [address] Karen Avelar ANP 230 [place] [address] 08/01/2024 11:00 AM EDT Clinical Support [facility] MED & PEDS 505 [place] [address] Becky Pool, RN 505 [place] [address] documented as of this encounter Visit Diagnoses Not on filedocumented in this encounter Additional Health Concerns Assessment Noted Time PHQ-9 Depression Total Score: 21 024 2:14 PM EDT documented as of this encounter Care Teams Pill Maker Relationship Specialty Start Date End Date Karen Avelar ANP [address] [place] [address] PCP - General Family Medicine 12/08/21 documented as of this encounter
--- OUTSIDE RECORDS SUMMARY | 2024-06-12 10:26 | XMS_ITS | Clinical Summary ---
Author Organization [facility] Address [address] [place] [address] Care Team Providers Care Crossing Guard Name Role Phone Merna Read VETERANS' COUNSELOR Primary Care Provider [phone] Social History Tobacco Use Types Packs/Day Years [...] age to complete this topic Care Teams Crossing Guard Relationship Specialty Start Date End Date Merna Read NP [address] [place] [address] PCP - General Family Medicine 08/10/17
--- OUTSIDE RECORDS SUMMARY | 2024-06-12 10:26 | XMS_ITS | Encounter Summary ---
Author Organization [employer] Address 75 [facility] 7 [place] [address] Care Team Providers Care Airline Mechanic Name Role Phone Karen Avelar Primary Care Provider [phone] Reason for Visit * Reason Onset Date Comments Med Refill 06/03/2024 Encounter Details Date Type Department Care Team (Late st Contact Info) Description 06/03/2024 Refill [facility] MEDICINE 230 [place], [place] [phone] Karen Avelar ANP 230 [place], [place] [phone] Primary osteoarthritis involving multiple joints Social History [...] hr tablet To be sent to: [facility]/pharmacy #[id number] documented in this encounter Plan of Treatment Upcoming Encounters Date Type Department Care Team (Late st Contact Info) Description 07/04/2024 11:00 AM EDT Office Visit [facility] MEDICINE [address] [place] [address] Karen Avelar ANP 230 [place] [address] 08/01/2024 11:00 AM EDT Clinical Support [facility] CHC MED & PEDS 505 [place] [address] Becky Pool, RN 505 [place] [address] documented as of this encounter Visit Diagnoses Diagnosis Primary osteoarthritis involving multiple joints documented in this encounter Additional Health Concerns Assessment Noted Time PHQ-9 Depression Total Score: 21 024 2:14 PM EDT documented as of this encounter Care Teams Airline Mechanic Relationship Specialty Start Date End Date Karen Avelar ANP 230 [place] [address] PCP - General Family Medicine 12/08/21 documented as of this encounter
--- OUTSIDE RECORDS SUMMARY | 2024-06-12 10:26 | XMS_ITS | Encounter Summary ---
Author Organization [employer] Address 75 [facility] 7 [place] [address] Care Team Providers Care Donor Center Technician Name Role Phone Karen Avelar Primary Care Provider [phone] Reason for Visit * Reason Comments Med Refill Encounter Details Date Type Department Care Team ([facility] st Contact Info) Description 03/05/2023 Refill [facility] MEDICINE 230 [place] [address] Karen Avelar ANP 230 [place], [place] [phone] Social History Tobacco Use Types Packs/Day Years [...] Description 07/04/2024 11:00 AM EDT Office Visit [facility] MEDICINE [address] [place] [address] Karen Avelar ANP [address] [place] [address] 08/01/2024 11:00 AM EDT Clinical Support [facility] CHC MED & PEDS 505 [place] [address] Becky Pool, RN 505 [place] [address] documented as of this encounter Visit Diagnoses Not on filedocumented in this encounter Additional Health Concerns Assessment Noted Time PHQ-9 Depression Total Score: 14 023 1:08 PM EDT documented as of this encounter Care Teams Donor Center Technician Relationship Specialty Start Date End Date Karen Avelar ANP [address] [place] [address] PCP - General Family Medicine 12/08/21 documented as of this encounter
--- OUTSIDE RECORDS SUMMARY | 2024-06-12 10:27 | XMS_ITS | Encounter Summary ---
Author Organization [employer] Address 75 [facility] 7 [place] [address] Care Team Providers Care Knit Goods Press Hand Name Role Phone Karen Avelar Primary Care Provider [phone] Reason for Visit * Reason Onset Date Comments Med Refill 02/12/2024 Encounter Details Date Type Department Care Team (Late st Contact Info) Description 02/12/2024 Telephone [facility] MEDICINE 230 [place], [place] [phone] Karen Avelar ANP 230 [place], [place] [phone] Med Refill Social History Tobacco Use Types [...] 12 hr tablet To be sent to: [facility]/pharmacy #[id number] documented in this encounter Plan of Treatment Upcoming Encounters Date Type Department Care Team (Late st Contact Info) Description 07/04/2024 11:00 AM EDT Office Visit [facility] MEDICINE [address] [place] [address] Karen Avelar ANP [address] [place] [address] 08/01/2024 11:00 AM EDT Clinical Support [facility] CHC MED & PEDS 505 [place] [address] Becky Pool, RN 505 [place] [address] documented as of this encounter Visit Diagnoses Not on filedocumented in this encounter Additional Health Concerns Assessment Noted Time PHQ-9 Depression Total Score: 21 024 2:14 PM EDT documented as of this encounter Care Teams Knit Goods Press Hand Relationship Specialty Start Date End Date Karen Avelar ANP [address] [place] [address] PCP - General Family Medicine 12/08/21 documented as of this encounter
--- OUTSIDE RECORDS SUMMARY | 2024-06-12 10:27 | XMS_ITS | Encounter Summary ---
Author Organization [employer] Address 75 [facility] 7 [place] [address] Care Team Providers Care Drainman Name Role Phone Karen Avelar Primary Care Provider [phone] Reason for Visit * Reason Onset Date Comments Med Refill 07/31/2023 Encounter Details Date Type Department Care Team (Late st Contact Info) Description 07/31/2023 Refill [facility] MEDICINE 230 [place] [address] Karen Avelar ANP 230 [place], [place] [phone] Social History Tobacco Use Types Packs/Day Years [...] * Telephone Encounter - LIBBY Paiz - 08/02/2023 4:33 PM EDT Rx'd alternate med * Telephone Encounter - Marylou Irizarry - 07/31/2023 1:01 PM EDT TC from pt requesting medication refill. Medications needing refill : enalapril-hydroCHLOROthiazide (Vasoretic) 10-25 MG tablet To be sent to: [facility]/pharmacy #[id number] - [address] documented in this encounter Plan of Treatment Upcoming Encounters Date Type Department Care Team (Late st Contact Info) Description 07/04/2024 11:00 AM EDT Office Visit [facility] MEDICINE [address] [place] [address] Karen Avelar ANP 230 [place] [address] 08/01/2024 11:00 AM EDT Clinical Support [facility] CHC MED & PEDS 505 [place] [address] Becky Pool, RN 505 [place] [address] documented as of this encounter Visit Diagnoses Not on filedocumented in this encounter Additional Health Concerns Assessment Noted Time PHQ-9 Depression Total Score: 14 023 1:08 PM EDT documented as of this encounter Care Teams Drainman Relationship Specialty Start Date End Date Karen Avelar ANP 230 [place] [address] PCP - General Family Medicine 12/08/21 documented as of this encounter
--- OUTSIDE RECORDS SUMMARY | 2024-06-12 10:27 | XMS_ITS | Encounter Summary ---
Author Organization [employer] Address 75 [facility] 7 [place] [address] Care Team Providers Care Entomology Professor Name Role Phone Karen Avelar Primary Care Provider [phone] Reason for Visit * Reason Onset Date Comments Med Refill 01/19/2024 Encounter Details Date Type Department Care Team ([facility] st Contact Info) Description 01/19/[address] [facility] MEDICINE 230 [place], [place] [phone] Karen Avelar ANP 230 [place], [place] [phone] Med Refill Social History Tobacco Use Types [...] 11:00 AM EDT Medication was sent to [id number] on 12/20/23 with 1 refill. * Telephone Encounter - Luz Mcclendon - 01/19/2024 10:54 AM EDT TC from pt requesting medication refill. Medications needing refill : tadalafil (Cialis) 5 MG tablet To be sent to: [facility] #[id number] - [address] documented in this encounter Plan of Treatment Upcoming Encounters Date Type Department Care Team (Late st Contact Info) Description 07/04/2024 11:00 AM EDT Office Visit [facility] MEDICINE [address] [place], [place] [phone] Karen Avelar ANP 230 [place], [place] [phone] 08/01/2024 11:00 AM EDT Clinical Support [facility] CHC MED & PEDS [address] [place] [address] Becky Pool RN [address] [place] [address] documented as of this encounter Visit Diagnoses Not on filedocumented in this encounter Additional Health Concerns Assessment Noted Time PHQ-9 Depression Total Score: 21 024 2:14 PM EDT documented as of this encounter Care Teams Entomology Professor Relationship Specialty Start Date End Date Karen Avelar ANP [address] [place] [address] PCP - General Family Medicine 12/08/21 documented as of this encounter
--- OUTSIDE RECORDS SUMMARY | 2024-06-12 10:27 | XMS_ITS | Encounter Summary ---
Author Organization [employer] Address 75 [facility] 7t [place] [address] Care Team Providers Care Real Estate Listing Consultant Name Role Phone Karen Avelar LIBBY Primary Care Provider [phone] Encounter Details Date Type Department Care Team ([facility] st Contact Info) Description 08/06/2023 Orders Only [facility] MEDICINE 230 [place] [address] Provider, MD Lawrence Social History Tobacco Use Types Packs/Day Years [...] the past 12 months, has t he [email or web address], gas, oil or water company threatened to [...] 07/04/2024 11:00 AM EDT Office Visit [facility] MEDICINE 230 [place] [address] Karen Avelar ANP 230 [place] [address] 08/01/2024 11:00 AM EDT Clinical Support [facility] CHC MED & PEDS 505 [place] [address] Becky Pool, RN 505 [place] [address] documented as of this encounter Procedures Procedure [...] documented as of this encounter Care Teams Real Estate Listing Consultant Relationship Specialty Start Date End Date Karen Avelar ANP [address] [place] [address] PCP - General Family Medicine 12/08/21 documented as of this encounter
--- OUTSIDE RECORDS SUMMARY | 2024-06-12 10:27 | XMS_ITS | Encounter Summary ---
Author Organization [employer] Address 75 [facility] 7 [place] [address] Care Team Providers Care Light Industrial Supervisor Name Role Phone Karen Avelar Primary Care Provider [phone] Reason for Visit * Reason Onset Date Comments Med Refill 01/30/2023 Encounter Details Date Type Department Care Team ([facility] st Contact Info) Description 01/30/2023 Telephone [facility] MEDICINE 230 [place], [place] [phone] Karen Avelar ANP 230 [place], [place] [phone] Med Refill Social History Tobacco Use Types [...] Office Visit [facility] MEDICINE [address] [place] [address] Karen Avelar ANP 230 [place] [address] 08/01/2024 11:00 AM EDT Clinical Support [facility] CHC MED & PEDS 505 [place] [address] Becky Pool, JIMMIE 505 [place] [address] documented as of this encounter Visit Diagnoses Not on filedocumented in this encounter Additional Health Concerns Assessment Noted Time PHQ-9 Depression Total Score: 14 023 1:08 PM EDT documented as of this encounter Care Teams Light Industrial Supervisor Relationship Specialty Start Date End Date Karen Avelar ANP [address] [place] [address] PCP - General Family Medicine 12/08/21 documented as of this encounter
--- OUTSIDE RECORDS SUMMARY | 2024-06-12 10:27 | XMS_ITS | Clinical Summary ---
Author Organization [facility], Address [address] [place] [address] [place] [address] Phone Care Team Providers Care General Science Teacher Name Role Phone Merna Read NP Primary Care Provider [phone] Allergies Active Allergy Reactions Criticality Noted Date [...] Active Naloxone HCl (Narcan) 4 MG/0.1ML liquid [place] as directed Ac tive OXcarbazepine (TRILEPTAL) 150 MG tablet TOME SHIRA TABLETA DOS VECES AL D?A 0 Active OXYCONTIN 20 MG 12 hr abuse-deterren t tablet TOME SIHRA TABLETA CADA 12 HORAS 0 Active pioglitazone [...] AM EDT) Hemoglobin A1C 8.3(H) (4.0-5.6) % [facility] Comment: MONITORING: In known diabetic patients, hemoglobin A1c targets should be discussed with health care provider. DIAGNOSTIC USE: ??The English Diabetes Association (ADA) and the World Health [...] Supplement 1 Testing performed or reported by [facility], a Service of [facility], [address] [place] [address] Jude Villanueva MD, Straight Line Edger Blood (Blood, Venous) 10/14/2020 9:11 AM EDT 10/14/2020 9:21 AM EDT Janusz Francisco MD LAB BLOOD ORDERABLES Final Result Performing Organization Address City/State/[facility] Co de Phone Number [facility] from Last 3 Months or Most Recently Relevant to Health Maintenance Insurance ALTH Care Teams General Science Teacher Relationship Specialty Start Date End Date Merna Read NP [facility] - General 02/12/19
--- OUTSIDE RECORDS SUMMARY | 2024-06-12 10:27 | XMS_ITS | Encounter Summary ---
Author Organization [facility], Address [address] [place] [address] Phone Care Team Providers Care Manager Convention Name Role Phone Merna Read NP Primary Care Provider [phone] Encounter Details Date Type Department Care Team (Late st Contact Info) Description 07/05/2021 Documentation Only [facility], [address] [place] [phone] Janusz Francisco MD [address] [place] [address] Social History Tobacco Use Types [...] on filedocumented in this encounter Care Teams Manager Convention Relationship Specialty Start Date End Date Merna Read NP PCP - General 02/12/19 documented as of this encounter
--- OUTSIDE RECORDS SUMMARY | 2024-06-12 10:27 | XMS_ITS | Encounter Summary ---
Author Organization [employer] Address 75 [facility] 7 [place] [address] Care Team Providers Care Core Finisher Name Role Phone Karen Avelar Primary Care Provider [phone] Reason for Visit * Reason Onset Date Comments Med Refill 01/27/2023 Encounter Details Date Type Department Care Team ([facility] st Contact Info) Description 01/27/2023 Telephone [facility] MEDICINE 230 [place], [place] [phone] Karen Avelar ANP 230 [place], [place] [phone] Med Refill Social History Tobacco Use Types [...] 12 hr tablet to be sent to [facility]/pharmacy #[id number] documented in this encounter Plan of Treatment Upcoming Encounters Date Type Department Care Team (Late st Contact Info) Description 07/04/2024 11:00 AM EDT Office Visit [facility] MEDICINE 230 [place] [address] Karen Avelar ANP 230 [place] [address] 08/01/2024 11:00 AM EDT Clinical Support [facility] CHC MED & PEDS 505 [place] [address] Becky Pool, JIMMIE 505 [place] [address] documented as of this encounter Visit Diagnoses Not on filedocumented in this encounter Additional Health Concerns Assessment Noted Time PHQ-9 Depression Total Score: 14 023 1:08 PM EDT documented as of this encounter Care Teams Core Finisher Relationship Specialty Start Date End Date Karen Avelar ANP [address] [place] [address] PCP - General Family Medicine 12/08/21 documented as of this encounter
[2024-06-12 17:55] LABS: Appearance Urine Cloudy; Color Urine Yellow; Glucose Urine UA 100 mg/dL (Negative); Leukocyte Esterase Urine Negative (Negative); Nitrite Urine Negative (Negative); PH 5.5 (5.0-9.0); Urine Blood Negative (Negative); Urine Ketones Negative (Negative); Urine Protein Negative (Neg-Trace)
[2024-06-12 18:06] LABS: Estimated Average Glucose 189 mg/dL; Hemoglobin A1c % 8.2 % (<6.0); Total Hemoglobin (HGBA1C) 3936.3913 umol/L
[2024-06-12 18:19] LABS: Alanine Aminotransferase 23 U/L (0-40); Albumin Level 4.5 g/dL (3.5-5.0); Alkaline Phosphatase 119 U/L (39-117); Anion Gap 12 (12-20); Aspartate Amino Transferase 29 U/L (5-37); Bilirubin Total 0.4 mg/dL (0.0-1.0); Blood Urea Nitrogen 30 mg/dL (9-16); Calcium 9.6 mg/dL (8.4-10.2); Carbon Dioxide 25 mmol/L (22-29); Chloride 104 mmol/L (96-108); Estimated Glomerular Filt Rate 51; Glucose Random 207 mg/dL (60-115); Sodium 137 mmol/L (135-145); Total Protein 8.1 g/dL (6.5-8.0)
[2024-06-12 18:22] LABS: Creatinine Urine 143.39 mg/dL; Total Protein Urine Random < 7 mg/dL (<12)
[2024-06-12 18:28] LABS: Parathyroid Hormone Intact 150.6 pg/mL (8.7-77.1)
[2024-06-12 18:31] LABS: Hematocrit 45.6 % (42.0-52.0); Hemoglobin 15.2 g/dl (14.0-18.0); Mean Corpuscular HGB Conc 33.3 g/dl (31.0-36.0); Mean Corpuscular Hemoglobin 28.8 pg (27.0-33.0); Mean Corpuscular Volume 86.4 fL (80.0-98.0); Mean Platelet Volume 11.6 fL (9.4-12.4); Platelet Count 346 X10*3/uL (160-400); Red Blood Count 5.28 X10*6/uL (4.60-5.80); Red Cell Distribution Width 13.4 % (11.0-16.0); White Blood Count 14.3 X10*3/uL (4.8-10.8)
[2024-06-12 18:37] LABS: Vitamin D 25-OH Total 47.5 ng/mL (>30)
== END 2024-06-12 08:47 | disposition home or self-care (01) ==
LOC: HO.HKASLDS 08:46
PROVIDERS: PCP Family Medicine; Referring Provider Physician Assistant; Visit Provider Internal Medicine Hypertension Specialist
DX: N18.30 Chronic kidney disease, stage 3 unspecified (principal); Z13.1 Encounter for screening for diabetes mellitus
CPT/HCPCS: 36415; 80053; 81003; 82306; 82570; 83036; 83970; 84100; 84156; 85027

== ENCOUNTER 2024-06-12 08:46 | Outpatient (AMB) | payer OTHER, SELFPAY ==
[2024-06-12 08:52] VITALS: BP 132/80; PULSE 98; O2SAT 98; BMI 40.6
--- NOTE | 2024-06-12 08:52 | HO.NEPHOV_ITS ---
Vital Signs 06/12/24 08:52 Height 5 ft 11 in Weight 291 lb BMI 40.6 BP 132/80 Blood Pressure Location Lt brachial Position Sitting Pulse 98 Pulse Source Pulse Oximeter Pulse Oximetry (%) 98 Oxygen Delivery Method Room Air Intake Visit Reasons: INP: Chronic kidney disease/ LVM Sheet Sorter Required: No Accompanied by: Self / Same As Patient Allergies Penicillins Allergy (Unknown, Verified 06/12/24 08:55) RASH/HIVES Medication List - Last Reconciled 06/12/24 by Danny Pan MD atorvastatin 80 mg PO BEDTIME bempedoic acid (Nexletol) 180 mg PO DAILY blood sugar diagnostic ([employer] Ultra Test strips) DIRECTED TESTS 4 X/DAY blood-glucose meter ([employer]such Ultra2 Meter) DIRECTED CHECKS 4 X/DAY blood-glucose meter,continuous (LayerGlossStyle Edwin 3 [place]) Use daily As directed to monitor blood glucose blood-glucose sensor (FreeStyle Edwin 3 Plus Sensor device) Apply 1 new sensor every 14 days as directed to monitor blood glucose continuously. bolus insulin pump, 200 unit (CeQur Simplicity) As directed bupropion HCl XL 300 mg PO DAILY cholecalciferol (vitamin D3) 50 mcg PO DAILY clonazepam 2 mg PO BEDTIME enalapril maleate 10 mg PO DAILY ezetimibe 10 mg PO DAILY hydrochlorothiazide 25 mg PO DAILY insulin aspart U-100 (Novolog FlexPen U-100 Insulin aspart) 20 units 3 times a day; insulin degludec (Tresiba FlexTouch U-200 insulin) 46 units (0.23 mL) subcut BEDTIME lancets (FreeStyle Lancets) As directed lancets (ContactuallyTouch UltraSoft 2 Lancet) As directed tests 4 X/day levothyroxine 50 mcg PO DAILY omeprazole 20 mg PO DAILY oxcarbazepine 300 mg PO DAILY oxycodone 10 mg PO DAILY PRN oxycodone ER 20 mg PO BID pen needle, diabetic (BD Amaya 2nd Gen Pen Needle) As directed 3 times a day prazosin 2 mg PO BEDTIME sertraline 200 mg PO DAILY syringe with needle, safety (BD Integra Syringe) As directed injrcts once a wk syringe with needle, safety (BD Integra Syringe) As directed use once a week tadalafil (Cialis) 5 mg PO DAILY PRN 30 days tirzepatide (Mounjaro) 5 mg (0.5 mL) subcut QWEEK zolpidem 10 mg PO BEDTIME HPI Comments Details: l eft hip pain - repla Right replaced 2019 dm x since 35 Leona Bai a pleasant middle-aged man with a history of diabetes mellitus since age of 35. Hemoglobin A1c has been around 8.5-9.3%. He has been referred for evaluation of chronic kidney disease. Serum creatinine has been averaging around 1.5 mg/dL. The EGFR was 50 mL/minute back in 2020 and as of January 2024 EGFR was 47 mL/minute. In the past he did not have any significant proteinuria based on the urine protein creatinine ratio. Has a history of significant arthritis. He had right hip replaced back in 2018. He is waiting for left hip replacement in the next few weeks. He has been taking Patsy Neurobion which she obtained from [facility]. This contains diclofenac. Also has a history of hypertension blood pressure has been well controlled. [facility] Medical History Obesity due to excess calories HLD (hyperlipidemia) Depression Osteoarthritis Dyslipidemia Hypertension Obesity (BMI 30-39.9) Hypogonadism male Diabetic polyneuropathy associated with type 2 diabetes mellitus [facility] (current) use of insulin Diabetes type 2, uncontrolled Surgical History History of surgical procedure on eye proper using laser Hx of shoulder surgery History of hip surgery Hx of neck surgery Family History Father Prostate cancer Mother Diabetes Heart problem Social History Household Members: Family Alcohol intake: never Patient Tobacco Use Status: Never used Tobacco Review of Systems Const Denies fever(s) and Denies weight loss Card Denies chest pain Resp Denies cough and Denies hemoptysis GI Denies abdominal pain, Denies diarrhea and Denies nausea Musc Reports back pain (Chronic) and Reports arthralgias Neuro Denies focal weakness Physical Exam Vital Signs: Last Vital Signs Pulse 98 06/12/24 08:52 BP 132/80 06/12/24 08:52 Pulse Ox 98 06/12/24 08:52 Oxygen Delivery Method Room Air 06/12/24 08:52 BMI result Body Mass Index 40.6 Const General: comfortable; No acute distress Orientation/consciousness: patient oriented x3 Eyes General: appearance normal, both eyes and all related structures Visual Gabriel: normal visual gabriel by confrontation Neck Neck: Yes supple and Yes no JVD Resp Effort & Inspection: normal respiratory effort and respiratory effort not decreased Cardio Palpation: no palpable S3 and no palpable S4 Heart sounds: no rubs GI Inspection: Yes normal to inspection Palpation (GI): Soft to palpation Percussion: Yes normal to percussion Auscultation: normal bowel sounds General: Yes no CVA tenderness Back/Spine/Pelvis Back: no CVA tenderness Skin General skin exam: no petechiae and no purpura Neuro General: patient oriented x3 and no focal motor deficits Extrem General: No clubbing and No edema Results Reviewed Nephrology Results: Sodium 136 mmol/L (135-145) 02/02/24 Potassium 4.1 mmol/L (3.3-5.1) 02/02/24 Chloride 102 mmol/L (96-108) 02/02/24 Carbon Dioxide 26 mmol/L (22-29) 02/02/24 BUN 27 mg/dL (9-16) H 02/02/24 Creatinine 1.51 mg/dL (0.5-1.4) H 02/02/24 Calcium 9.2 mg/dL (8.4-10.2) 02/02/24 Urine Creatinine 97.97 mg/dL 02/02/24 Assessment & Plan Assessment & Plan (1) CKD (chronic kidney disease) stage 3, GFR 30-59 ml/min: Code(s): N18.30 - Chronic kidney disease, stage 3 unspecified Category: Medical Plan 63-year-old man with a history of longstanding diabetes mellitus with hypertension obesity has chronic kidney disease. Based on the available lab data renal function has been relatively stable for the last few years. The most recent creatinine was 1.5 in January of 2024. He did not have a significant proteinuria at the time. He probably has underlying hypertensive diabetic kidney disease. Other possibilities would include obstructive uropathy Based on recent urine studies I do not believe he has any active glomerular nephritis or interstitial disease. There could be a component of YAZMIN from the use of NSAIDs however upon reviewing all the previous lab data I believe he was predominantly chronic kidney disease rather than acute Recommendations. Initiated workup for CKD. Repeat renal panel today. Recheck urine for protein creatinine ratio. Discussed importance of tight control blood sugar to slow the progression of renal disease. Maintain blood pressure less than 130/80. He should avoid NSAIDs including Doloneurobion. Further management will depend on the outcome of the above baseline investigations. Orders: Orders Phosphorus Today N18.30 - Chronic kidney disease, stage 3 unspecified Parathyroid Hormone Intact Today N18.30 - Chronic kidney disease, stage 3 unspecified Total Protein Urine Random Today N18.30 - Chronic kidney disease, stage 3 un specified UA and rflx microscopic Today N18.30 - Chronic kidney disease, stage 3 unspecified Creatinine Urine Today N18.30 - Chronic kidney disease, stage 3 unspecified Complete Blood Count no Diff Today N18.30 - Chronic kidney disease, stage 3 unspecified Comprehensive Met. Panel Today N18.30 - Chronic kidney disease, stage 3 unspecified Vitamin D 25-OH Total Today N18.30 - Chronic kidney disease, stage 3 unspecified Hemoglobin A1c Today N18.30 - Chronic kidney disease, stage 3 unspecified Coding Level of Care Code New Pt Level 5 (24539) Diagnoses CKD (chronic kidney disease) stage 3, GFR 30-59 ml/min N18.30
--- OUTSIDE RECORDS SUMMARY | 2024-06-12 09:30 | XMS_ITS | Encounter Summary ---
Author Organization [employer] Address [address] [place] [address] Care Team Providers Care Scale Attendant Name Role Phone Karen Avelar Primary Care Provider [phone] Reason for Visit * Reason Onset Date Comments Med Refill 03/28/2023 Encounter Details Date Type Department Care Team ([facility] st Contact Info) Description 03/28/2023 Telephone [facility] [address] [place], [place] [phone] Karen Avelar ANP [address] [place], [place] [phone] Med Refill Social History Tobacco Use Types Packs/Day Years Used Date Smoking Tobacco: Never Passive Smoke Exposure: Never Smokeless Tobacco: Never Alcohol Use Standard Drinks/Week Comments Never 0 (1 standard drink = 0.6 oz pur e alcohol) Depression Answer Date Recorded Patient Health Questionnaire-9 Score 14 01/02/2023 Housing Stability Answer Date Recorded What is your housing situation today? I have rodo hernandez 01/27/[address] you li ve. Do you have problems with any of the following? None of the above 01/27/2023 Food Insecurity Answer Date Recorded Within the past 12 months, y ou worried that your food would run out before you got money to buy more: Never True 01/27/2023 Within the past 12 months,th e food you bought just didn't last and you didn't have enough money to get more: Never True Transportation Answer Date Recorded In the past 12 months, has l ack of transportation kept you from medical appts, meetings, work or from getting things needed for daily living? No 01/27/2023 Utilities Answer Date Recorded In the past 12 months, has t he electric, gas, oil or water company threatened to shut off services in your home? No 01/27/2023 Depression Answer Date Recorded Patient Health Questionnaire-2 Score 4 01/02/2023 Sex and Gender Information Value Date Recorded Sex Assigned at Male 02/07/2022 10:20 AM EDT Legal Sex Male 10:20 AM EDT Gender Identity Male 02/07/2022 10:20 AM EDT Sexual Orientation Straight 02/07/2022 10 :20 AM EDT documented as of this encounter Miscellaneous Notes * Telephone Encounter - Dari Gao LPN - 03/28/2023 10:38 AM EST Medication pended to PCP. * Telephone Encounter - Stuart Reyes - 03/28/2023 10:28 AM EST Tc from pt requesting medication refill for enalapril-hydroCHLOROthiazide (Vasoretic) 10-25 MG tablet. documented in this encounter Plan of Treatment Upcoming Encounters Date Type Department Care Team (Late st Contact Info) Description 07/04/2024 11:00 AM EDT Office Visit [facility] [address] [place] [address] Karen Avelar ANP [address] [place] [address] 08/01/2024 11:00 AM EDT Clinical Support [facility] [address] [place] [address] Becky Pool, JIMMIE [address] [place] [address] documented as of this encounter Visit Diagnoses Not on filedocumented in this encounter Additional Health Concerns Assessment Noted Time PHQ-9 Depression Total Score: 14 023 1:08 PM EDT documented as of this encounter Care Teams Scale Attendant Relationship Specialty Start Date End Date Karen Avelar ANP [address] [place] [address] PCP - General Family Medicine 12/08/21 documented as of this encounter
--- OUTSIDE RECORDS SUMMARY | 2024-06-12 09:30 | XMS_ITS | Clinical Summary ---
Author Organization [employer] Address [address] [place] [address] 7 [place] [address] Care Team Providers Care Air Intercept Controller Supervisor Name Role Phone Karen Avelar Primary Care Provider [phone] Allergies Active Allergy Reactions Criticality Noted Date Comments Canagliflozin Rash Medium 04/14/2022 Rash on chest Penicillins Rash Low 03/25/2010 Other reaction(s): rash Pregabalin Other 01/18/2022 suicidality Medications buPROPion XL (Wellbutrin XL) 300 MG 24 hr tablet Active clonazePAM (KlonoPIN) 2 MG tablet TOME SHIRA TABLETA TODOS LOS D Active Docusate Sodium (DSS) 100 MG capsule Take 1 capsule by mouth 2 times daily. Active ezetimibe (Zetia) 10 MG tablet TOME SHIRA TABLETA TODOS LOS D Active NovoLOG 100 UNIT/ML solution Active Insulin Disposable Pump (V-Go 30) kit USE DAILY DIRECTED Active Lantus SoloStar 100 UNIT/ML pen Inject 40 Units under the skin in the morning. Active BD Pen Needle Amaya U/F 32G X 4 MM misc DIRECTED ONCE DAILY Active ketorolac (Acular) 0.5 % ophthalmic solution PLEASE SEE ATTACHED FOR DETAILED DIRECTIONS Active OXcarbazepine (Trileptal) 300 MG tablet TOME SHIRA TABLETA DOS VECES AL D A 022 Active prazosin (Minipress) 2 MG capsule Active QUEtiapine (SEROquel) 50 MG tablet take 1 tablet (50MG) by oral route at bedtime Active sertraline (Zoloft) 100 MG tablet Active valACYclovir (Valtrex) 1 g tablet take 1 tablet by oral route BID x 7 days 022 Active zolpidem (Ambien) 10 MG tablet TOME SHIRA TABLETA POR V A ORAL AL ACOSTARSE Active CeQur Simplicity 2U device Active naloxone (Narcan) 4 mg/0.1 mL nasal sprayIndications :jail prescription opiate use Administer 1 spray (4 mg) into affected nostril(s) if needed for opioid reversal for up to 2 doses. 2 each 1 023 Active cloNIDine (Catapres) 0.1 MG tabletIndication s:Acute opioid withdrawal (CMS/HCC) Take orally up to three times daily for symptoms of withdrawal. Do note take if blood pressure less than 100/80 30 tablet 023 Active atorvastatin (Lipitor) 80 MG tablet TOME SHIRA TABLETA TODOS LOS D AL ACOSTARSE 023 Active prednisoLONE acetate (Pred-Forte) 1 % ophthalmic suspension INSTILL 1 DROP INTO BOTH EYES FOR 4 DAYS AFTER LASER PROCEDURE THEN DISCONTINUE 023 Active Mounjaro 2.5 MG/0.5ML solution pen-injector 5 mg. 023 Active testosterone cypionate (Depo-Testostero ne) 200 MG/ML injection INJECT 100 MG (0.5 ML) INTRAMUSCULARLY EVERY WEEK 023 Active aspirin 81 MG EC tablet Take 1 tablet by mouth. Active hydroCHLOROthiaz lynne (HYDRODiuril) 25 MG tabletIndication s:Hypertension with albuminuria,Hype rtension associated with diabetes (CMS/HCC) (CMS/HCC) Take 1 tab once daily by mouth 90 tablet 3 024 Active enalapril (Vasotec) 10 MG tabletIndication s:Hypertension with albuminuria,Hype rtension associated with diabetes (CMS/HCC) (CMS/HCC) Take 1 tab once daily by mouth 90 tablet 3 Active Emollient (CeraVe Diabetics Dry Skin) creamIndications :Type 2 diabetes mellitus with stage 3 chronic kidney disease, with long-term current use of insulin, unspecified whether stage 3a or 3b CKD (CMS/HCC),Dry skin Apply 1 Application. topically if needed in the morning and at bedtime (dry skin). 236 mL 11 Active glucose blood (FreeStyle Precision [place] Test) test strip Test blood sugar q 8 hours 100 each 12 Active omeprazole (PriLOSEC) [address] capsule TAKE 1 CAPSULES BY MOUTH EVERYDAY BEFORE A MEAL 90 capsule 1 Active levothyroxine (Synthroid, Levoxyl) 50 MCG tablet TAKE 1 TABLET BY MOUTH EVERY DAY 90 tablet 3 Active tadalafil (Cialis) 5 MG tabletIndication s:Vasculogenic erectile dysfunction, unspecified vasculogenic erectile dysfunction type TAKE 1 TABLET BY MOUTH EVERY DAY IF NEEDED FOR ERECTILE DYSFUNCTION 20 tablet 1 Active albuterol 108 (90 Base) MCG/ACT inhaler Inhale 2 puffs every 6 (six) hours if needed for wheezing. 18 g 024 2024 Active oxyCODONE (Roxicodone) 10 MG immediate release tabletIndication s:Primary osteoarthritis involving multiple joints Take 1 tablet (10 mg) by mouth every 6 (six) hours if needed for severe pain for up to 28 days. 112 tablet 025 2024 Active oxyCODONE ER (OxyCONTIN) 20 MG 12 hr tabletIndication s:Primary osteoarthritis involving multiple joints Take 1 tablet (20 mg) by mouth every 12 (twelve) hours. Do not crush, chew, or split. 56 tablet 025 2024 Active naloxone (Narcan) 4 mg/0.1 mL nasal sprayIndications :Type 2 diabetes mellitus with stage 3 chronic kidney disease, with long-term current use of insulin, unspecified whether stage 3a or 3b CKD (CMS/HCC) Administer 1 spray (4 mg) into affected nostril(s) if needed for opioid reversal. May repeat every 2-3 minutes if needed, alternating nostrils, until medical assistance becomes available. 2 each 024 2024 oxyCODONE ER (OxyCONTIN) 20 MG 12 hr tabletIndication s:Primary osteoarthritis involving multiple joints Take 1 tablet (20 mg) by mouth every 12 (twelve) hours. Do not crush, chew, or split. 56 tablet 025 2024 Discontinued( Reorder (will not trigger notification to Pharmacy)) oxyCODONE (Roxicodone) 10 MG immediate release tabletIndication s:Primary osteoarthritis involving multiple joints Take 1 tablet (10 mg) by mouth every 6 (six) hours if needed for severe pain for up to 28 days. 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 of opiate analgesic 03/10 Depression, recurrent 10/10/2023 Hypertension associated with diabetes ([facility]) 08/02/2023 Hypertension with albuminuria 07/17/2019 Overview (01/02/2023): Enalapril-hydrochlorothiazide 10-25mg daily Chronic kidney disease due to hypertension 07/16 Stage 3 chronic kidney disease 07/17/2019 Disorder associated with type 2 diabetes mellitu s 07/17/2019 Gastroesophageal reflux disease 04/30/2015 Hyperlipidemia 04/30/2015 Overview (01/02/2023): Atorvastatin 80mg Ezetimibe 10mg daily Lifestyle recommendations to improve heart health & lower cholesterol: be as active as able, ideally exercise 150min moderate intensity or 75min vigorous intensity weekly; increase intake of vegetables, fruits, whole grains, fish. Try to minimize intake of sugary or greasy food and drink. Use olive oil or vegetable, peanut, canola, or similar oil for cooking. Decrease or stop drinking alcohol if you drink, quit/decrease smoking if you smoke. Hypotestosteronism 04/30/2015 Overview (01/02/2023): Testosterone cypionate via endo 0.5mg 200mg/mL IM or subcu weekly Hypothyroidism 04/30/2015 Mixed anxiety and depressive disorder 04/30/2015 Overview (01/02/2023): w/ insomnia Follows w/ psychiatry Bupropion 300mg XL Clonazepam 2mg 1 tab daily prn anxiety Prazosin 2mg at bedtime Quetiapine 50mg at bedtime Sertraline 100mg daily Zolpidem 10mg at bedtime Obstructive sleep apnea syndrome 04/30/2015 Primary osteoarthritis involving multiple joints 04/30/2015 Overview (01/02/2023): And in context of chronic neck pain s/p ACDF C5-6 Oxycontin 20mg q12 Oxycodone 5mg for breakthrough q6hrs as needed Naloxone for prn use in case of resp depression Regular exercise, heat, stretching Type 2 diabetes mellitus wit h stage 3 chronic kidney disease, with long-term current use of insulin 04/30/2015 Overview (01/02/2023): Follows w/ [facility] Endo, meds rx'd by Dr. Boyer Has neuropathy, nephropathy, retinopathy Eye exam: 05/2022 mild non-prolif DM retinopathy, procedure 12/19/22 for posterior capsular opacification, at [facility]. A1c 8.7% 08/2022, most recently 9.4% 01/02/2023 Current regimen: Mounjaro 2.5mg/0.5ml wkly Lantus 40 units daily Enalapril-hydrochlorothiazide 10-25mg daily Atorvastatin 80mg Ezetimibe 10mg daily Novolog 6 UNITS SUBCUTANEOUSLY AT BREAKFAST, 10 UNITS AT LUNCH, 8 UNITS AT DINNER, 4 UNITS FOR SNACK ED (erectile dysfunction) of organic origin 04/11 Diabetic polyneuropathy asso ciated with type 2 diabetes mellitus 04/30/2015 Constipation 04/30/2015 Obesity, morbid 04/30/2015 Vitamin D deficiency 04/30/2015 Encounters Date Type Department Care Team Description 06/03/2024 Refill [facility] [address] [place] [address] Karen Avelar ANP Primary osteoarthritis involving multiple joints 05/13/2024 11:00 AM EST Telemedicine [facility] P[facility]S [address] [place] [address] Becky Pool, RN 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 of opiate analgesic 05/13/2024 Telephone [facility] [address] [place] [phone] Karen Avelar ANP Durable Medical Equipment (Shoe horn, sock aid, bariatric walker) 05/13/2024 Telephone [facility] PEDS [address] [place] [address] Becky Pool, RN 05/13/2024 Travel 05/06/2024 11:00 AM EST Telemedicine [facility] [address] [place] [phone] Karen Avelar ANP Type 2 diabetes mellitus with stage 3 chronic kidney disease, with long-term current use of insulin, unspecified whether stage 3a or 3b CKD (CMS/HCC) (Primary Dx); Hypotestosteronism; Diabetic polyneuropathy associated with type 2 diabetes mellitus (CMS/HCC); jail (current) use of opiate analgesic; Primary osteoarthritis involving multiple joints 05/06/2024 Travel 05/06/2024 Refill [facility] [address] [place] [phone] Karen Avelar ANP Primary osteoarthritis involving multiple joints 04/30/2024 Telephone [facility] [address] [place] [phone] Karen Avelar ANP Referral 04/23/2024 Telephone [facility]ED[facility] [address] [place] [address] Becky Pool, RN 04/23/2024 Refill [facility]ED[facility] [address] [place] [address] Becky Pool, JIMMIE 04/23/2024 Telephone [facility] [address] [place] [phone] Karen Avealr ANP Med refill 04/04/2024 Telephone [facility]ED[facility] [address] [place] [address] Becky Pool, RN 04/04/2024 Telephone [facility] [address] [place] [address] Becky Pool, JIMMIE 04/02/2024 Telephone [facility] [address] [place] [address] Becky Pool RN 04/02/2024 Telephone [facility] [address] [place] [phone] Karen Avelar ANP PSG ORDER 04/02/[address] [phone] Karen Avelar ANP Medication Question 03/29/[address] [address] Karen Avelar ANP Nurse Triage 03/28/2024 1:30 PM EST Telemedicine [facility] MED [facility] PED[facility] [address] [place] [address] Geoffrey Kaur MD Acute cough (Primary Dx); COVID 03/28/2024 Travel 03/28/[address] [phone] Karen Avelar ANP Nurse Triage 03/26/[address] [address] Karen Avelar ANP Nurse Triage 03/22/[address] [phone] Karen Avelar ANP Medication Question 03/21/2024 10:30 AM EST Office Visit [address] [address] Karen Avelar ANP Mixed hyperlipidemia (Primary Dx); Hypertension with albuminuria; Obstructive sleep apnea syndrome; Primary osteoarthritis involving multiple joints; Type 2 diabetes mellitus with stage 3 chronic kidney disease, with long-term current use of insulin, unspecified whether stage 3a or 3b CKD (CMS/HCC); jail (current) use of opiate analgesic; Diabetic polyneuropathy associated with type 2 diabetes mellitus (CMS/HCC); Encounter for immunization; Screening for malignant neoplasm of colon; Vasculogenic erectile dysfunction, unspecified vasculogenic erectile dysfunction type; Arthritis of both hips 03/21/2024 Travel from Last 3 Months Immunizations Name Administration Dates Next Due Hep B, adult 08/03/2015,07/09/2013,01/12/2009 Influenza injectable quadriv alent preservative free 04/14/2022 Influenza, IIV3, injectable 12/31/2009 Influenza, Split (incl. faustina fied surface antigen) 01/27/2012 Influenza, seasonal, injecta ble, preservative free 03/21/2024 Moderna Covid-19 Vaccine 6+ Bivalent 04/14/2022 Pneumococcal Polysaccharide PPSV23 09/24/2009 TD (adult), 2 Lf tetanus tox oid, preservative free, adsorbed 03/16/2009 Tdap 09/11/2013 Social History Tobacco Use Types Packs/Day Years Used Date Smoking Tobacco: Never Passive Smoke Exposure: Never Smokeless Tobacco: Never Tobacco Cessation:Counseling Given: Not Answered Alcohol Use Standard Drinks/Week Comments Never 0 (1 standard drink = 0.6 oz pur e alcohol) Depression Answer Date Recorded Patient Health Questionnaire-9 Score 21 10/10/2023 Patient Health Questionnaire-9 Score 21 10/10/2023 Last PHQ-9: Questionnaire Data Not on file 0 10/10/2023 Housing Stability Answer Date Recorded What is [...] to shut off services in your home? Yes 05/24/2023 Depression Answer Date Recorded Patient Health Questionnaire-2 Score 5 10/10/2023 Sex and Gender Information Value Date Recorded Sex Assigned at Male 02/07/2022 10:20 AM EDT Legal Sex Male 10:20 AM EDT Gender Identity Male 02/07/2022 10:20 AM EDT Sexual Orientation Straight 02/07/2022 10 :20 AM EDT Last Filed Vital Signs Vital Sign Reading Time Taken Comments Blood Pressure 135/72 03/21/2024 11:05 AM EST Pulse 89 03/21/2024 11:05 AM EST Temperature 36.8 ??C (98.2 ??F) 03/21/2024 11:[address] Respiratory Rate 14 03/21/2024 11:05 AM EST Oxygen Saturation 95% 03/21/2024 11:05 AM EST Inhaled Oxygen Concentration - - Weight 136 kg (299 lb 9.6 oz) 03/21/2024 11:05 A M EST Height 180.3 cm (5' 11 ) 10/10/2023 2:13 PM EDT Body Mass Index 41.79 10/10/2023 2:13 PM EDT Plan of Treatment Upcoming Encounters Date Type Department Care Team (Late st Contact Info) Description 07/04/2024 11:00 AM EDT Office Visit [facility] [address] [place] [address] Karen Avelar ANP [address] [place] [address] 08/01/2024 11:00 AM EDT Clinical Support [facility] [address] [place] [address] Becky Pool, JIMMIE [address] [place] [address] Health Maintenance Due Date Last Done Comments CT Colonography 1962 FIT DNA/Cologuard 1962 FIT 1962 FOBT 1962 HIV Screening 1962 Sigmoidoscopy 1962 Diabetes: Foot Exam 1972 Hepatitis C Screening 1980 Pneumococcal Vaccine: 50+ Years (2 of 2 - PCV) 09/24/2010 09/24/2009 Zoster Vaccines (1 of 2) 2012 Colonoscopy 03/02/2021 03/02/2016 Colorectal Cancer Screening 03/02/2021 RSV Patients and Patients Aged 60 years or older (1 - Risk 60-74 years 1-dose series) 2022 Lipid Panel 08/11/2023 08/10/2022, 05/11, 02/17/2022, Additional history exists DTaP/Tdap/Td Vaccines (2 - Td or Tdap) 09/12/2023 09/11/2013, 03/16/2009 Diabetes: Hemoglobin A1C 01/16/2024 024, 06/02/2023, 01/02/2023 Depression Monitoring (PHQ-9) 04/11/2024 10/10/2023, 10/10/2023 SDOH Screening 05/24/2024 05/24/2023 Depression Screening 10/09/2024 10/10/2023, 10/10/19 24 Eye Exam 12/19/2024 12/19/2022 Alcohol/Substance Use Screening 03/21/2025 03/21/2024 COVID-19 Vaccine ( season) 2025 04/14/2022, 04/27/2021, 07/23/2020, Additional history exists Postponed from 12/10/2023 (Patient Refused) Tobacco Screening 03/21/2025 03/21/2024 Hepatitis B Vaccines Completed 08/03/2015, 07/09/2013, 01/12/2009 Influenza Vaccine Completed 03/21/2024, , 01/27/2012, Additional history exists HIB Vaccines Aged Out No longer eligi ble based on patient's age to complete this topic HPV Vaccines Aged Out No longer eligi ble based on patient's age to complete this topic Hepatitis A Vaccines Aged Out No long er eligible based on patient's age to complete this topic IPV Vaccines Aged Out No longer eligi ble based on patient's age to complete this topic Meningococcal Vaccine Aged Out No musa lucia eligible based on patient's age to complete this topic RSV under 20 months Aged Out No longe r eligible based on patient's age to complete this topic Rotavirus Vaccines Aged Out No longer eligible based on patient's age to complete this topic Procedures Procedure Name Priority Date/Time Associated Diagnosis Comments POCT GLYCATED HEMOGLOBIN, TOTAL Routine 10/16/2023 9:44 AM EDT Type 2 diabetes mellitus with stage 3 chronic kidney disease, with long-term current use of insulin, unspecified whether stage 3a or 3b CKD (CMS/[facility]) LIPID PANEL, STANDARD Routine 08/10/2022 10:13 AM EDT COLONOSCOPY Routine 03/02/2016 4:57 PM EST from Last 3 Months or Most Recently Relevant to Health Maintenance Results * (ABNORMAL) POCT HGB A1C (10/16/2023 9:44 AM EDT) Hemoglobin A1C 9.0(A) 4.0 - 6.0 % QC Media Lot # [id number] Lot# Expiration Date ,[id number] Blood 10/16/2023 9:44 AM EDT [facility] POINT OF CARE TEST ENTER/EDIT OR DERABLES Final Result * Lipid Panel, Standard (08/10/2022 10:13 AM EDT) Triglycerides 111 mg/dL [facility] Comment:Desirable Triglyceri de: less than 150 mg/dLBorderline High Triglyceride 150-199 mg/dLHigh Triglyceride: 200-499 mg/dLVery High Triglyceride: greater than or equal to 5OO mg/dL Cholesterol 199 mg/dL [facility] Comment:Desirable Cholestero l: less than 200 mg/dLBorderline High Cholesterol: 200-239 mg/dLHigh Cholesterol: greater than 239 mg/dL LDL Cholesterol Calculated 140 mg/dl [facility] Comment:Desirable LDL: less than 100 mg/dLNear Optimal/Above Optimal LDL: 110- 129 mg/dLBorderline High LDL: 130-159 mg/dLHigh LDL: 160-189 mg/dLVery High LDL: greater than or equal to 190 mg/dL HDL Cholesterol 37 mg/dL [facility] Comment:Desirable HDL: great er than 40 mg/dL Note: This HDL assay may give artificially low results in patients with liver disease. 08/10/2022 10:1 3 AM EDT 08/10/2022 1:36 PM EDT [facility] External Provider LAB BLO OD ORDERABLES Final Result [facility] [address] [place] [address] [phone] * Hm Colonoscopy (03/02/2016 4:57 PM EST) us Historical Provider HEALTH MAINTENANCE Final Result from Last 3 Months or Most Recently Relevant to Health Maintenance Insurance [facility] Care Teams Air Intercept Controller Supervisor Relationship Specialty Start Date End Date Karen Avelar ANP [address] [place] [phone] PCP - General Family Medicine 12/08/21
--- OUTSIDE RECORDS SUMMARY | 2024-06-12 09:30 | XMS_ITS | Encounter Summary ---
Author Organization [employer] Address [address] [facility] [address] [place] [address] Care Team Providers Care Risk Adjustment Specialist Name Role Phone Karen Avelar Primary Care Provider [phone] Reason for Visit * Reason Onset Date Comments Referral 09/15/2022 Encounter Details Date Type Department Care Team (Late st Contact Info) Description 09/15/2022 Telephone [facility] [address] [place] [address] Karen Avelar ANP [address] [place], [place] [phone] Referral Social History Tobacco Use Types Packs/Day Years Used Date Smoking Tobacco: Never Passive Smoke Exposure: Never Smokeless Tobacco: Never Alcohol Use Standard Drinks/Week Comments Never 0 (1 standard drink = 0.6 oz pur e alcohol) Sex and Gender Information Value Date Recorded Sex Assigned at Male 02/07/2022 10:20 AM EDT Legal Sex Male 10:20 AM EDT Gender Identity Male 02/07/2022 10:20 AM EDT Sexual Orientation Straight 02/07/2022 10 :20 AM EDT COVID-19 Exposure Response Date Recorded In the last 10 days, have yo u been in contact with someone who was confirmed or suspected to have Coronavirus/COVID-19? No / Unsure 09/08/2022 11:10 AM EDT documented as of this encounter Miscellaneous Notes * Telephone Encounter - Gladis London - 09/15/2022 12:10 PM EDT Tc from pt requesting status on Physical therapy referral ? Would like to know where he is being referral to ? documented in this encounter Plan of Treatment Upcoming Encounters Date Type Department Care Team (Late st Contact Info) Description 07/04/2024 11:00 AM EDT Office Visit [facility] [address] [place] [address] Karen Avelar ANP [address] [place] [address] 08/01/2024 11:00 AM EDT Clinical Support [facility] [address] [place], [place] [phone] Becky Pool, RN [address] [place] [address] documented as of this encounter Visit Diagnoses Not on filedocumented in this encounter Care Teams Risk Adjustment Specialist Relationship Specialty Start Date End Date Karen Avelar ANP [address] [place] [phone] PCP - General Family Medicine 12/08/21 documented as of this encounter
--- OUTSIDE RECORDS SUMMARY | 2024-06-12 09:30 | XMS_ITS | Encounter Summary ---
Author Organization [employer] Address [address] [facility] [address] [place] [address] Care Team Providers Care Sales Executive Name Role Phone Karen Avelar Primary Care Provider [phone] Encounter Details Date Type Department Care Team (Latest Contact Info) Description 05/13/2024 Travel Social History Tobacco Use Types Packs/Day Years [...] AM EDT documented as of this encounter Plan of Treatment Upcoming Encounters Date Type Department Care Team (Late st Contact Info) Description 07/04/2024 11:00 AM EDT Office Visit [facility] [address] [place] [address] Karen Avelar ANP [address] [place] [address] 08/01/2024 11:00 AM EDT Clinical Support [facility] [address] [place] [address] Becky Pool, RN [address] [place] [address] documented as of this encounter Visit Diagnoses Not on filedocumented in this encounter Additional Health Concerns Assessment Noted Time PHQ-9 Depression Total Score: 21 024 2:14 PM EDT documented as of this encounter Care Teams Sales Executive Relationship Specialty Start Date End Date Karen Avelar ANP [address] [place] [phone] PCP - General Family Medicine 12/08/21 documented as of this encounter
--- OUTSIDE RECORDS SUMMARY | 2024-06-12 09:30 | XMS_ITS | Encounter Summary ---
Author Organization [employer] Address [address] [facility] 7 [place] [address] Care Team Providers Care Hospitality Intern Name Role Phone Karen Avelar Primary Care Provider [phone] Reason for Visit * Reason Onset Date Comments Durable Medical Equipment 05/13/2024 Shoe h orn, sock aid, bariatric walker Encounter Details Date Type Department Care Team ([facility] st Contact Info) Description 05/13/2024 Telephone [facility] MEDICINE [address] [place], [place] [phone] Karen Avelar ANP [address] [place], [place] [phone] Durable Medical Equipment (Shoe horn, sock aid, bariatric walker) Social History Tobacco Use Types Packs/Day Years [...] encounter Miscellaneous Notes * Telephone Encounter - Kyung Reyes - 05/21/2024 11:55 AM EST Signed DME Orders were received form provider and up loaded into Media. Message to [facility] Care ManagerBriana Morales was sent via Blinkbuggy. * Telephone Encounter - Chaya Holbrook - 05/13/2024 1:11 PM EST DME RX for Walker and shoe horn and sock aid generated and placed on providers desk for review and signature. * Telephone Encounter - Chaya Holbrook - 05/13/2024 1:10 PM EST ----- Message from Briana Vale sent at 05/13/2024 10:11 AM EST ----- Regarding: DME request Greetings, I am (Briana Morales), Compensation Business Partner for [facility] Care Management, requesting the following DME???s on behalf of patient. DME Item: shoe horn, Sock aid, Bariatric rollator walker with seat. Member will need a script for PT/OT evaluation. Supportive DX: E.11.42 Diabetic polyneuropathy associated with type 2 diabetes mellitus, I10, R80.9Hypertension with albuminuria, N18.30 Stage 3 chronic kidney disease, M15.0 primary osteoarthritis involving multiple joints, E66.01 Morbid Obesity. If you should have any inquiries regarding this request, feel free to contact the Compensation Business Partner below. Coronary Clinical Specialist: Briana Morales E-mail: [email or web address] Quarry Boss: Cortney Sanchez E-mail: [email or web address] Thanks in advance for your assistance with this request. Sincerely, [facility] Care Management documented in this encounter Plan of Treatment Upcoming Encounters Date Type Department Care Team ([facility] st Contact Info) Description 07/04/2024 11:00 AM EDT Office Visit [facility] MEDICINE [address] [place] [address] Karen Avelar ANP [address] [place] [address] 08/01/2024 11:00 AM EDT Clinical Support [facility] MED & PEDS [address] [place] [address] Becky Pool, RN [address] [place] [address] documented as of this encounter Visit Diagnoses Not on filedocumented in this encounter Additional Health Concerns Assessment Noted Time PHQ-9 Depression Total Score: 21 024 2:14 PM EDT documented as of this encounter Care Teams Hospitality Intern Relationship Specialty Start Date End Date Karen Avelar ANP [address] [place] [id number] PCP - General Family Medicine 12/08/21 documented as of this encounter
--- OUTSIDE RECORDS SUMMARY | 2024-06-12 09:30 | XMS_ITS | Clinical Summary ---
Author Organization [address] [place] [address] Address [address] [place] [address] Phone Care Team Providers Care Process Excellence Manager Name Role Phone Jordana Cade MD Primary Care Provider [phone] Allergies Active Allergy Reactions Criticality Noted Date Comments Penicillins 05/31/2021 Medications acetaminophen (TYLENOL) 500 mg tablet Take 500 mg by mouth every 6 hours as needed. Active zolpidem (AMBIEN) 10 mg tablet Take by mouth at bedtime as needed. Active testosterone (Androderm) 4 mg/[address] onto the skin. Active aspirin 81 mg EC tablet Take 81 mg by mouth daily. Active docusate sodium (COLACE) 100 mg capsule Take 100 mg by mouth 2 times daily. Active enalapril-hydro CHLOROthiazide (VASERETIC) 10-25 mg per tablet Take 1 tablet by mouth 1 (one) time each day. Active empagliflozin (Jardiance) 25 mg tablet Take by mouth. Activ e clonazePAM (KlonoPIN) 2 mg tablet Take 2 mg by mouth 2 times daily as needed. Active levothyroxine (SYNTHROID, LEVOTHROID) 50 mcg tablet Take 50 mcg by mouth daily. Active polyethylene glycol (MIRALAX) 17 gram packet Take 17 g by mouth daily. Active oxyCODONE (ROXICODONE) 5 mg immediate release tablet Take 5 mg by mouth every 4 hours as needed. Active senna (SENOKOT) 8.6 mg tablet Take by mouth. A ctive QUEtiapine (SEROquel) 50 mg tablet Take 50 mg by mouth 2 times daily. Active ezetimibe (ZETIA) 10 mg tablet Take 10 mg by mouth daily. Active ketoconazole (NIZORAL) 2 % cream Apply topically 1 (one) time each day. 60 g 1 5 Active Active Problems Problem Noted Date Diagnosed Date Acute pain of right shoulder 05/31/2021 Overview (03/06/2024): Last Assessment & Plan: Patient describes 2-month history of new right shoulder pain, worse with shoulder palpation, reaching overhead, behind the back and range of motion. I prescribed PT, for possible right cervical radiculopathy, and right shoulder pain/? tendinitis. I ordered right shoulder x-rays to evaluate for any arthritis. He has history of right shoulder surgery in 1979, has not seen orthopedics since that time, did not have issues with the right shoulder postop. If needed I can refer him to orthopedics if he is not improving with time and PT, any + findings on his x- ray. Cervical radiculopathy 05/31/2021 Overview (03/06/2024): Last Assessment & Plan: Patient is s/p C5-6 ACDF 12/10/2019, did well after surgery. 2 months ago he started experiencing pain in the right neck, shoulder, upper arm >forearm and hand. He states subjectively the right hand feels weak, he feels mild symptoms in the entire hand and all fingers. The main pain is in the right lateral neck, right shoulder and lateral upper arm to the lateral elbow. He states he gets headaches on and off from the pain. He does not experience symptoms on the left arm. He has not been on recent oral steroids. He has history of diabetes, his last hemoglobin A1c was 7.2 according to the patient. Recently he has also noticed tinnitus, denies recent cold or flu symptoms, fevers, sweats chills. He states he woke up with this pain, no inciting event that he can recall. Patient's C-spine MRI 05/11/2021 at [facility] shows left >right neuroforaminal narrowing C5-6, right C4-5 facet arthropathy without central or foraminal stenosis, bilateral C3-4 neuroforaminal narrowing. I prescribed PT, for possible right cervical radiculopathy, and right shoulder pain/? tendinitis. I ordered right shoulder x-rays to evaluate for any arthritis. He states the main pain tends to be right lateral neck and shoulder, increased shoulder pain with palpation and reaching overhead or behind his back. I also ordered C-spine x-rays to check the hardware and bony fusion, I do not see that he came in for his 6-week or 1 year postop x-rays. All questions answered, I will call patient with an update after reviewing his x-rays and MRI with Dr. Frederick. I asked him to call with any concerns or questions, worsening symptoms. Chest pain 05/31/2021 Overview (03/06/2024): Chest pain Hypertensive disorder 05/31/2021 Overview (03/06/2024): Hypertensive disorder Encounters Date Type Department Care Team Description 05/07/2024 10:45 AM EST Office Visit Orthopedic Surgery - [address] [phone] Tristan Deal DPM Controlled type 2 diabetes with neuropathy (CMS/HCC) (Primary Dx); Arthritis of both feet; Hammertoes of both feet; Tinea pedis of both feet; Dermatophytosis, nail from Last 3 Months Surgical History Surgery Date Site/Laterality Comments HIP ARTHROPLASTY 2016 Right PROCEDURE: HISTORICAL HIP REPLACEMENT SHOULDER SURGERY 1979 Right PROCEDURE: HISTORICAL SHOULDER SURGERY; COMMENT: bone graft from hip, surgery in [place] OTHER SURGICAL HISTORY 12/10/2019 PROCEDURE: TX ARTHRD ANT INTERBODY MIN DSC CRV BELOW C2; COMMENT: C5-6 ACDF, Dr. Glenda Frederick Medical History Medical History Date Comments DM type 2, uncontrolled, with neuropathy DX:DM type 2, uncontrolled, with neuropathy Mixed hyperlipidemia DX:Mixed hy perlipidemia Hypothyroidism (acquired) DX:Hyp othyroidism (acquired) Erectile dysfunction DX:Erectile dysfunction Low testosterone DX:Low testoste john GERD without esophagitis DX:GERD without esophagitis Vitamin D deficiency DX:Vitamin D deficiency Depression, unspecified depression type DX:Depression, unspecified depression type Obesity DX:Obesity Polyneuropathy DX:Polyneuropath y Essential hypertension DX:Essent ial hypertension Anxiety disorder DX:Anxiety diso rder Social History Tobacco Use Types Packs/Day Years Used Date Smoking Tobacco: Never Smokeless Tobacco: Never Alcohol Use Standard Drinks/Week Comments Not Currently 0 (1 standard drink = 0.6 oz pur e alcohol) Sex and Gender Information Value Date Recorded Sex Assigned at Not on file Legal Sex Male 3:25 AM EST Gender Identity Not on file Sexual Orientation Not on file Obstetrics History Last Filed Vital Signs Vital Sign Reading Time Taken Comments Blood Pressure - - Pulse - - Temperature - - Respiratory Rate - - Oxygen Saturation - - Inhaled Oxygen Concentration - - Weight 132 kg (290 lb) 05/07/2024 10:47 AM EST Height 180.3 cm (5' 11 ) 05/07/2024 10:47 AM EST Body Mass Index 40.45 05/07/2024 10:47 AM EST Plan of Treatment Upcoming Encounters Date Type Department Care Team (Late st Contact Info) Description 07/09/2024 10:00 AM EDT Office Visit Orthopedic Surgery - [place] [address] [phone] Tristan Deal DPM [address] [address] Health Maintenance Due Date Last Done Comments Diabetes: Annual GFR (Glomerular Filtration Rate) 1962 Diabetes: Annual Foot Exam 1972 Diabetes: Annual Retina Eye Exam 1972 Pneumococcal Vaccine: 50+ Years (2 of 2 - PCV) 09/24/2010 09/24/2009 Pneumococcal Vaccine: Pediatrics (0 to 5 Years) and At-Risk Patients (6 to 64 Years) (2 of 2 - PCV) 09/24/2010 09/24/2009 Zoster Vaccines (1 of 2) 2012 Colorectal Cancer Screening: Colonoscopy 03/13/2022 HIV Screening 03/13/2022 Hepatitis C Screening 03/13/2022 Medicare Annual Wellness Visit 03/13/2022 Social Influencers of Health Screening 03/13/2022 Hypertension/CHF/CAD Annual BMP Blood Test 03/25/2022 RSV Immunization Patients 60+ Years Old (1 - Risk 60-74 years 1-dose series) 2022 DTaP,Tdap,and Td Vaccines (3 - Td or Tdap) 09/12/2023 09/11/2013, 03/16/2009 COVID-19 Vaccine ( season) 2023 04/14/2022, 04/27/2021, 07/23/2020, Additional history exists Diabetes: Annual Urine Albumin-Creatinine Ratio (uACR) 05/07/2024 Diabetes: Blood Sugar Control Test (HGBA1C) 05/07/2024 10/16/2023 Depression Screening 10/09/2024 10/10/2023 Cholesterol Screening (Lipid Panel) 08/11/2027 08/10/2022 Hepatitis B Vaccines Completed 08/03/2015, 07/09/2013, 01/12/2009 [...] on patient's age to complete this topic MMR Vaccines Aged Out No longer eligi ble based on patient's age to complete this topic Meningococcal ACWY Vaccine Aged Out N o longer eligible based on patient's age to complete this topic Meningococcal B Vacine Aged Out No lo nger eligible based on patient's age to complete this topic RSV Immunization Patients Under 20 months Aged Out No longer eligible based on patient's age to complete this topic Varicella Vaccines Aged Out No longer eligible based on patient's age to complete this topic Insurance [facility] MEDIC[facility] Member Subscriber Plan / Payer (Ef fective 2013-Present) Name:Bhumika Rose Relation to Subscriber:Self Name:Bhumika Rose Payer ID:[id number] Group ID:[id number] Type:Not on file Address: [place] [address] [address] [place] [id number] Care Teams Process Excellence Manager Relationship Specialty Start Date End Date Caroline, MD Jordana [address] [place] [phone] PCP - General 07/21/13
--- OUTSIDE RECORDS SUMMARY | 2024-06-12 09:30 | XMS_ITS | Encounter Summary ---
Author Organization [employer] Address [address] [facility] 7 [place] [address] Care Team Providers Care Cost Accountant Name Role Phone Karen Avelar Primary Care Provider [phone] Reason for Visit * Reason Onset Date Comments Prior Authorization 09/07/2022 Encounter Details Date Type Department Care Team (Late st Contact Info) Description 09/07/2022 Telephone [facility] MEDICINE [address] [place], [place] [phone] Karen Avelar ANP [address] [place], [place] [phone] Prior Authorization Social History Tobacco Use Types Packs/Day Years [...] encounter Miscellaneous Notes * Telephone Encounter - Karely Townsend LPN - 09/09/2022 12:21 PM EDT Please read message below and advise regarding PA * Telephone Encounter - Rajiv Eyal - 09/07/2022 11:47 AM EDT Tc from [place] with [facility] pharmacy requesting a PA for medication OxyCONTIN 20 MG 12 hr tablet documented in this encounter Plan of Treatment Upcoming Encounters Date Type Department Care Team (Late st Contact Info) Description 07/04/2024 11:00 AM EDT Office Visit [facility] MEDICINE [address] [place] [address] Karen Avelar ANP [address] [place] [address] 08/01/2024 11:00 AM EDT Clinical Support [facility] MED & PEDS [address] [place] [address] Becky Pool, RN [address] [place] [address] documented as of this encounter Visit Diagnoses Not on filedocumented in this encounter Care Teams Cost Accountant Relationship Specialty Start Date End Date Karen Avelar ANP [address] [place] [id number] PCP - General Family Medicine 12/08/21 documented as of this encounter
--- OUTSIDE RECORDS SUMMARY | 2024-06-12 09:30 | XMS_ITS | Encounter Summary ---
Author Organization [employer] Address [address] [facility] 7 [place] [address] Care Team Providers Care Systems Admin Name Role Phone Karen Avelar Primary Care Provider Reason for Visit * Reason Onset Date Comments Med Refill 06/03/2024 Encounter Details Date Type Department Care Team (Late st Contact Info) Description 06/03/2024 Refill [facility] MEDICINE [address] [place], [place] [phone] Karen Avelar ANP [address] [place], [place] [phone] Primary osteoarthritis involving multiple joints Social History Tobacco Use Types Packs/Day Years [...] encounter Miscellaneous Notes * Telephone Encounter - Denise Su - 06/03/2024 9:33 AM EST TC from pt requesting medication refill. Medications needing refill : oxyCODONE (Roxicodone) 10 MG immediate release tablet oxyCODONE ER (OxyCONTIN) 20 MG 12 hr tablet To be sent to: [facility]/pharmacy #[id number] documented in this encounter Plan of Treatment Upcoming Encounters Date Type Department Care Team (Late st Contact Info) Description 07/04/2024 11:00 AM EDT Office Visit [facility] MEDICINE [address] [place] [address] Karen Avelar ANP [address] [place] [address] 08/01/2024 11:00 AM EDT Clinical Support [facility] MED [facility] PEDS [address] [place] [address] Becky Pool, RN [address] [place] [address] documented as of this encounter Visit Diagnoses Diagnosis Primary osteoarthritis involving multiple joints documented in this encounter Additional Health Concerns Assessment Noted Time PHQ-9 Depression Total Score: 21 024 2:14 PM EDT documented as of this encounter Care Teams Systems Admin Relationship Specialty Start Date End Date Karen Avelar ANP [address] [place] [address] PCP - General Family Medicine 12/08/21 documented as of this encounter
--- OUTSIDE RECORDS SUMMARY | 2024-06-12 09:30 | XMS_ITS | Encounter Summary ---
Author Organization [employer] Address [address] [facility] 7 [place] [address] Care Team Providers Care Parachute Manufacturing Supervisor Name Role Phone Valentino Karen SOUZA Primary Care Provider [phone] Encounter Details Date Type Department Care Team ([facility] Contact Info) Description 05/13/2024 Telephone [facility] MED & PEDS [address] [place] [address] Becky Pool, RN [address] [place] [address] Social History Tobacco Use Types Packs/Day Years [...] encounter Miscellaneous Notes * Telephone Encounter - LIBBY Paiz - 05/13/2024 4:54 PM EST 2 * Telephone Encounter - Becky Pool RN - 05/13/2024 11:45 AM EST .What FLY TIER Tier would you like this patient to be? Tier 1 = HIGH RISK, Monthly FLY TIER visits Tier 2 = MODerate RISK, Q3 Month visits Tier 3 = LOW RISK = Q4-6 month visits documented in this encounter Plan of Treatment Upcoming Encounters Date Type Department Care Team (Late st Contact Info) Description 07/04/2024 11:00 AM EDT Office Visit [facility] MEDICINE [address] [place] [address] Karen Avelar ANP [address] [place] [address] 08/01/2024 11:00 AM EDT Clinical Support [facility] CH[facility] MED & PEDS [address] [place] [address] Becky Pool, RN [address] [place] [address] documented as of this encounter Visit Diagnoses Not on filedocumented in this encounter Additional Health Concerns Assessment Noted Time PHQ-9 Depression Total Score: 21 024 2:14 PM EDT documented as of this encounter Care Teams Parachute Manufacturing Supervisor Relationship Specialty Start Date End Date Karen Avelar ANP [address] [place] [address] PCP - General Family Medicine 12/08/21 documented as of this encounter
--- OUTSIDE RECORDS SUMMARY | 2024-06-12 09:31 | XMS_ITS | Encounter Summary ---
Author Organization [employer] Address [address] [facility] 7t [place] [address] Care Team Providers Care Hasher Operator Name Role Phone Karen Avelar LIBBY Primary Care Provider [phone] Encounter Details Date Type Department Care Team ([facility] st Contact Info) Description 08/06/2023 Orders Only [facility] MEDICINE [address] [place] [address] Provider, MD aLwrence Social History Tobacco Use Types Packs/Day Years [...] the past 12 months, has t he [employer] gas, oil or water company threatened to [...] Description 07/04/2024 11:00 AM EDT Office Visit [facility] MEDICINE [address] [place] [address] Karen Avelar ANP [address] [place] [address] 08/01/2024 11:00 AM EDT Clinical Support [facility] CH[facility] MED & PEDS [address] [place] [address] Becky Pool, RN [address] [place] [address] documented as of this encounter Procedures Procedure Name Priority Date/Time Associated Diagnosis Comments HM COLONOSCOPY Routine 03/02/2016 4:57 PM EST documented in this encounter Results * Hm Colonoscopy (03/02/2016 4:57 PM EST) us Historical Provider HEALTH MAINTENANCE Final Result documented in this encounter Visit Diagnoses Not on filedocumented in this encounter Additional Health Concerns Assessment Noted Time PHQ-9 Depression Total Score: 14 023 1:08 PM EDT documented as of this encounter Care Teams Hasher Operator Relationship Specialty Start Date End Date Karen Avelar ANP [address] [place] [address] PCP - General Family Medicine 12/08/21 documented as of this encounter
--- OUTSIDE RECORDS SUMMARY | 2024-06-12 09:31 | XMS_ITS | Clinical Summary ---
Author Organization [facility], Address [address] [place] [address] [place] [address] Phone Care Team Providers Care Compliance Tester Name Role Phone Merna Read NP Primary Care Provider [phone] Allergies Active Allergy Reactions Criticality Noted Date Comments Penicillins Rash Low 07/17/2019 Medications aspirin 81 MG tablet Take 1 tablet by mouth 1 (one) time each day Active polyethylene glycol (MiraLax) packet 1 packet by Other route 1 (one) time each day Active Omeprazole 20 MG tablet delayed-releas e Take 1 capsule by mouth 1 (one) time each day Active cholecalcifero l (VITAMIN D-3) 50 MCG (1999 UT) capsule Take 1 capsule by mouth 1 (one) time each day Active oxyCODONE (ROXICODONE) 5 MG immediate release tablet Take 1 tablet by mouth every 4 (four) hours Active buPROPion XL (WELLBUTRIN XL) 300 MG 24 hr tablet 0 Active clonazePAM (KlonoPIN) 2 MG tablet TOME SHIRA TABLETA TODOS LOS D? 0 Active docusate sodium (Colace) 100 MG capsule Take 1 capsule by mouth 2 (two) times a day Active TRULICITY 1.5 MG/0.5ML solution pen-injector INJECT ONE PEN EVERY WEEK 0 Active JARDIANCE 25 MG tablet 0 Active enalapril-hydr oCHLOROthiazid e (VASERETIC) 10-25 MG per tablet Take 1 tablet by mouth 1 (one) time each day Active ezetimibe (ZETIA) 10 MG tablet 0 Active FREESTYLE LITE test strip TEST BLOOD SUGARS 4 TIMES A DAY 0 Active NOVOLOG 100 UNIT/ML injection 0 Active Insulin Disposable Pump (V-GO 30) kit 0 Active Lancets (FREESTYLE) lancets USE 1 LANCET BY TO SKIN ROUTE 4 TIMES EVERY DAY 0 Active levothyroxine (SYNTHROID, LEVOTHROID) 50 MCG tablet 0 Active Naloxone HCl (Narcan) 4 MG/0.1ML liquid [place] as directed Ac tive OXcarbazepine (TRILEPTAL) 150 MG tablet TOME SHIRA TABLETA DOS VECES AL D?A 0 Active OXYCONTIN 20 MG 12 hr abuse-deterren t tablet TOME SHIRA TABLETA CADA 12 HORAS 0 Active pioglitazone (ACTOS) 30 MG tablet 0 Active QUEtiapine (SEROquel) 50 MG tablet Take 1 tablet by mouth at bed time Active rosuvastatin (CRESTOR) 10 MG tablet 0 Active sertraline (ZOLOFT) 100 MG tablet 0 Active tadalafil (Cialis) 5 MG tablet Take 1 tablet by mouth 1 (one) time each day Active testosterone (Androderm) 4 MG/24HR Apply 1 patch topically 1 (one) time each day in the evening Active zolpidem (AMBIEN) 10 MG tablet 0 Active Ozempic, 1 MG/DOSE, 4 MG/3ML solution pen-injector INJECT 1 MG SUBCUTANEOUSLY EVERY WEEK 2 Active prazosin (MINIPRESS) 2 MG capsule TOME SHIRA C JONATAN WORTHINGTON LOS D AL ACOSTARSE 2 Active omeprazole (PriLOSEC) [address] capsule TOME SHIRA C JONATAN WORTHINGTON LOS D BEFORE A MEAL 2 Active atorvastatin (LIPITOR) 80 MG tablet Take 80 mg by mouth at bed time at bedtime 2 Active atorvastatin (LIPITOR) 40 MG tablet Take 40 mg by mouth at bed time 2 Active Active Problems Problem Noted Date Diagnosed Date Vitamin D deficiency 07/17/2019 Hypothyroidism 07/17/2019 Hyperlipidemia 07/17/2019 Hypertension with albuminuria 07/17/2019 Gastroesophageal reflux disease 07/17/2019 Disorder due to type 2 diabetes mellitus 04/08/2 020 Chronic kidney disease stage 3 07/17/2019 Chronic kidney disease due to hypertension 07/16 Family History Medical History Relation Comments Cancer Father 2 Prostate Hypertension Father 2 Diabetes Mother 2 Relation Status Comments Father 1 Father 2 Mother 1 Mother 2 Social History Tobacco Use Types Packs/Day Years Used Date Smoking Tobacco: Former Cigarettes Q uit: 07/18/1989 Comments:Smoking History Inf o:Some days Alcohol Use Standard Drinks/Week Comments No 0 (1 standard drink = 0.6 oz pur e alcohol) Sex and Gender Information Value Date Recorded Sex Assigned at Not on file Legal Sex Male 4:37 PM EST Gender Identity Not on file Sexual Orientation Not on file Last Filed Vital Signs Vital Sign Reading Time Taken Comments Blood Pressure 124/76 07/18/2017 12:00 PM EDT Pulse - - Temperature - - Respiratory Rate - - Oxygen Saturation - - Inhaled Oxygen Concentration - - Weight 134 kg (295 lb) 10/17/2017 12:00 PM EDT Height 180.3 cm (5' 11 ) 10/17/2017 12:00 PM EDT Body Mass Index 41.14 10/17/2017 12:00 PM EDT Plan of Treatment Health Maintenance Due Date Last Done Comments Pneumococcal Vaccine: Pediat rics (0 to 5 Years) and At-Risk Patients (6 to 64 Years) (1 of 2 - PCV) 1968 Colorectal Cancer Screening: Annual FOBT 07/27/2011 Colorectal Cancer Screening: Colonoscopy 07/27/2011 Colorectal Cancer Screening: Sigmoidoscopy 07/27/2011 Diabetes: Ophthalmology Exam 06/28/2019 Diabetes: Pedal Pulse Checked 06/28/2019 Diabetes: Sensory Foot Exam 06/28/2019 Diabetes: Visual Foot Exam 06/28/2019 Diabetes: Hemoglobin A1C 01/14/2021 10/14/2020 Influenza Vaccine (#1) 2023 Hepatitis B Vaccine Aged Out No longe r eligible based on patient's age to complete this topic Procedures Procedure Name Priority Date/Time Associated Diagnosis Comments HEMOGLOBIN A1C Routine 10/14/2020 9:11 AM EDT Type 2 diabetes mellitus with diabetic chronic kidney disease (HCC) Other proteinuria from Last 3 Months or Most Recently Relevant to Health Maintenance Results * (ABNORMAL) Hemoglobin A1c (10/14/2020 9:11 AM EDT) Hemoglobin A1C 8.3(H) (4.0-5.6) % [facility] Comment: MONITORING: In known diabetic patients, hemoglobin A1c targets should be discussed with health care provider. DIAGNOSTIC USE: ??The [place] Diabetes Association (ADA) and the World Health Organization (WHO) recommend the use of HbA1c to diagnose diabetes using a threshold of 6.5%. Patients who have an HbA1c between 5.7% and 6.4% are considered at increased risk for developing diabetes in the future. CAUTION: Falsely low HbA1c results may be observed in patients with hemolytic anemia, homozygous forms of abnormal hemoglobin (e.g. SS, CC, SC), , recent blood loss or hemoglobin F greater than 7%. Fructosamine may be used as an alternate test in these cases. REFERENCE: ADA: Standards of Medical Care in Diabetes 2020, The Journal of Clinical and Applied Research and Education Volume 43, Supplement 1 Testing performed or reported by [facility], a Service of [facility], [address] [place] [address] Jude Villanueva MD, Deputy General Counsel Blood (Blood, Venous) 10/14/2020 9:11 AM EDT 10/14/2020 9:21 AM EDT Janusz Francisco MD LAB BLOOD ORDERABLES Final Result Performing Organization Address City/State/[facility] Co de Phone Number [facility] from Last 3 Months or Most Recently Relevant to Health Maintenance Insurance ALTH Care Teams Compliance Tester Relationship Specialty Start Date End Date Merna Read NP [facility] - General 02/12/19
--- OUTSIDE RECORDS SUMMARY | 2024-06-12 09:31 | XMS_ITS | Clinical Summary ---
Author Organization [facility] Address [address] [place] [address] Care Team Providers Care Director Of Design Name Role Phone Merna Read ZIPPER JOINER Primary Care Provider [phone] Social History Tobacco Use Types Packs/Day Years Used Date Smoking Tobacco: Never Assessed Sex and Gender Information Value Date Recorded Sex Assigned at Not on file Gender Identity Not on file Sexual Orientation Not on file Plan of Treatment Health Maintenance Due Date Last Done Comments Hepatitis C Screening 1962 COVID-19 Vaccine (#1) 01/25/1963 Depression Screening 1974 Preventative Health Evaluation 1980 DTap / Tdap / Td (1 - Tdap) 1981 Colon Cancer Screening (Colonoscopy) 07/27/2007 Shingrix-Zoster Vaccine (1 of 2) 2012 Influenza Vaccine (#1) 2023 RSV Adult > 60+ Yrs or Pregn ant (1 - 1-dose 75+ series) 2037 Hepatitis B Vaccines Aged Out No long er eligible based on patient's age to complete this topic Pneumococcal Vaccine Aged Out No long er eligible based on patient's age to complete this topic RSV Ped < 20 months Aged Out No longe r eligible based on patient's age to complete this topic Care Teams Director Of Design Relationship Specialty Start Date End Date Merna Read NP [address] [place] [address] PCP - General Family Medicine 08/10/17
--- OUTSIDE RECORDS SUMMARY | 2024-06-12 09:31 | XMS_ITS | Encounter Summary ---
Author Organization [employer] Address [address] [facility] 7 [place] [address] Care Team Providers Care Associate Creative Director Name Role Phone Karen Avelar Primary Care Provider [phone] Reason for Visit * Reason Onset Date Comments Med Refill 02/12/2024 Encounter Details Date Type Department Care Team (Late st Contact Info) Description 02/12/2024 Telephone [facility] MEDICINE [address] [place], [place] [phone] Karen Avelar ANP [address] [place], [place] [phone] Med Refill Social History Tobacco Use Types [...] encounter Miscellaneous Notes * Telephone Encounter - Louise Garcias - 02/12/2024 9:16 AM EST TC from pt requesting medication refill. Medications needing refill : oxyCODONE (Roxicodone) 5 MG immediate release tablet oxyCODONE ER (OxyCONTIN) 30 MG 12 hr tablet To be sent to: [facility]/pharmacy #[id number] documented in this encounter Plan of Treatment Upcoming Encounters Date Type Department Care Team (Late st Contact Info) Description 07/04/2024 11:00 AM EDT Office Visit [facility] MEDICINE [address] [place] [address] Karen Avelar ANP [address] [place] [address] 08/01/2024 11:00 AM EDT Clinical Support [facility] MED & PEDS [address] [place] [address] Becky Pool, RN [address] [place] [address] documented as of this encounter Visit Diagnoses Not on filedocumented in this encounter Additional Health Concerns Assessment Noted Time PHQ-9 Depression Total Score: 21 024 2:14 PM EDT documented as of this encounter Care Teams Associate Creative Director Relationship Specialty Start Date End Date Karen Avelar ANP [address] [place] [address] PCP - General Family Medicine 12/08/21 documented as of this encounter
--- OUTSIDE RECORDS SUMMARY | 2024-06-12 09:31 | XMS_ITS | Encounter Summary ---
Author Organization [employer] Address 75 [facility] 7 [place] [address] Care Team Providers Care Punch Press Setter Name Role Phone Karen Avelar Primary Care Provider Reason for Visit * Reason Onset Date Comments Med Refill 12/19/2023 Encounter Details Date Type Department Care Team (Late st Contact Info) Description 12/19/2023 Telephone [facility] MEDICINE [address] [place], [place] [phone] Karen Avelar ANP [address] [place], [place] [phone] Med Refill Social History Tobacco Use Types [...] * Telephone Encounter - Gladis London - 12/19/2023 12:51 PM EDT TC from pt requesting medication refill. Medications needing refill : oxyCODONE ER (OxyCONTIN) 30 MG 12 hr tablet oxyCODONE (Roxicodone) 5 MG immediate release tablet To be sent to: [facility]/pharmacy #[id number] documented in this encounter Plan of Treatment Upcoming Encounters Date Type Department Care Team (Late st Contact Info) Description 07/04/2024 11:00 AM EDT Office Visit [facility] MEDICINE [address] [place] [address] Karen Avelar ANP [address] [place] [address] 08/01/2024 11:00 AM EDT Clinical Support [facility] CH[facility] MED & PEDS [address] [place], [place] [phone] Becky Pool, JIMMIE [address] [place] [address] documented as of this encounter Visit Diagnoses Not on filedocumented in this encounter Additional Health Concerns Assessment Noted Time PHQ-9 Depression Total Score: 21 024 2:14 PM EDT documented as of this encounter Care Teams Punch Press Setter Relationship Specialty Start Date End Date Karen Avelar ANP [address] [place] [address] PCP - General Family Medicine 12/08/21 documented as of this encounter
--- OUTSIDE RECORDS SUMMARY | 2024-06-12 09:31 | XMS_ITS | Encounter Summary ---
Author Organization [employer] Address 75 [facility] 7 [place] [address] Care Team Providers Care Road Manager Name Role Phone Karen Avelar Primary Care Provider [phone] Reason for Visit * Reason Onset Date Comments Med Refill 01/30/2023 Encounter Details Date Type Department Care Team ([facility] st Contact Info) Description 01/30/2023 Telephone [facility] MEDICINE [address] [place], [place] [phone] Karen Avelar ANP [address] [place], [place] [phone] Med Refill Social History Tobacco Use Types [...] 07/04/2024 11:00 AM EDT Office Visit [facility] MEDICINE [address] [place] [phone] Karen Avelar ANP [address] [place] [address] 08/01/2024 11:00 AM EDT Clinical Support [facility] MED & PEDS [address] [place] [address] Becky Pool, JIMMIE [address] [place] [address] documented as of this encounter Visit Diagnoses Not on filedocumented in this encounter Additional Health Concerns Assessment Noted Time PHQ-9 Depression Total Score: 14 023 1:08 PM EDT documented as of this encounter Care Teams Road Manager Relationship Specialty Start Date End Date Karen Avelar ANP [address] [place] [address] PCP - General Family Medicine 12/08/21 documented as of this encounter
--- OUTSIDE RECORDS SUMMARY | 2024-06-12 09:31 | XMS_ITS | Encounter Summary ---
Author Organization [employer] Address 75 [facility] 7 [place] [address] Care Team Providers Care Sleeve Turner Name Role Phone Karen Avelar Primary Care Provider [phone] Reason for Visit * Reason Onset Date Comments Med Refill 07/31/2023 Encounter Details Date Type Department Care Team (Late st Contact Info) Description 07/31/2023 Refill [facility] MEDICINE [address] [place] [address] Karen Avelar ANP [address] [place], [place] [phone] Social History Tobacco Use Types Packs/Day Years [...] Miscellaneous Notes * Telephone Encounter - LIBBY Pazi - 08/02/2023 4:33 PM EDT Rx'd alternate med * Telephone Encounter - Marylou Irizarry - 07/31/2023 1:01 PM EDT TC from pt requesting medication refill. Medications needing refill : enalapril-hydroCHLOROthiazide (Vasoretic) 10-25 MG tablet To be sent to: [facility]/pharmacy #[id number] - [address] documented in this encounter Plan of Treatment Upcoming Encounters Date Type Department Care Team (Late st Contact Info) Description 07/04/2024 11:00 AM EDT Office Visit [facility] MEDICINE [address] [place] [address] Karen Avelar ANP [address] [place] [address] 08/01/2024 11:00 AM EDT Clinical Support [facility] CHC MED & PEDS [address] [place] [address] Becky Pool, RN [address] [place] [address] documented as of this encounter Visit Diagnoses Not on filedocumented in this encounter Additional Health Concerns Assessment Noted Time PHQ-9 Depression Total Score: 14 023 1:08 PM EDT documented as of this encounter Care Teams Sleeve Turner Relationship Specialty Start Date End Date Karen Avelar ANP [address] [place] [address] PCP - General Family Medicine 12/08/21 documented as of this encounter
--- OUTSIDE RECORDS SUMMARY | 2024-06-12 09:31 | XMS_ITS | Encounter Summary ---
Author Organization [facility], Address [address] [place] [address] Phone Care Team Providers Care Dermatological Surgeon Name Role Phone Merna Read NP Primary Care Provider [phone] Encounter Details Date Type Department Care Team (Late st Contact Info) Description 07/05/2021 Documentation Only [facility], [address] [place] [phone] Janusz Francisco MD [address] [place] [place] [address] Social History Tobacco Use Types Packs/Day Years [...] on file Sexual Orientation Not on file documented as of this encounter Plan of Treatment Not on file documented as of this encounter Visit Diagnoses Not on filedocumented in this encounter Care Teams Dermatological Surgeon Relationship Specialty Start Date End Date Merna Read NP PCP - General 02/12/19 documented as of this encounter
--- OUTSIDE RECORDS SUMMARY | 2024-06-12 09:31 | XMS_ITS | Encounter Summary ---
Author Organization [employer] Address 75 [facility] 7 [place] [address] Care Team Providers Care Toll Test Desk Worker Name Role Phone Karen Avelar Primary Care Provider [phone] Reason for Visit * Reason Comments Med Refill Encounter Details Date Type Department Care Team ([facility] st Contact Info) Description 03/05/2023 Refill [facility] MEDICINE [address] [place] [address] Karen Avelar ANP [address] [place], [place] [phone] Social History Tobacco Use Types Packs/Day Years [...] Description 07/04/2024 11:00 AM EDT Office Visit [facility] MEDICINE [address] [place] [phone] Karen Avelar ANP [address] [place] [address] 08/01/2024 11:00 AM EDT Clinical Support [facility] CHC MED & PEDS [address] [place] [address] Becky Pool, RN [address] [place] [address] documented as of this encounter Visit Diagnoses Not on filedocumented in this encounter Additional Health Concerns Assessment Noted Time PHQ-9 Depression Total Score: 14 023 1:08 PM EDT documented as of this encounter Care Teams Toll Test Desk Worker Relationship Specialty Start Date End Date Karen Avelar ANP [address] [place] [address] PCP - General Family Medicine 12/08/21 documented as of this encounter
--- OUTSIDE RECORDS SUMMARY | 2024-06-12 09:31 | XMS_ITS | Encounter Summary ---
Author Organization [employer] Address 75 [facility] 7 [place] [address] Care Team Providers Care Mule Tender Name Role Phone Karen Avelar Primary Care Provider [phone] Reason for Visit * Reason Onset Date Comments Med Refill 01/15/2024 Encounter Details Date Type Department Care Team (Late st Contact Info) Description 01/15/2024 Telephone [facility] MEDICINE [address] [place], [place] [phone] Karen Avelar ANP [address] [place], [place] [phone] Med Refill Social History Tobacco Use Types [...] encounter Miscellaneous Notes * Telephone Encounter - Teofilo Martinez - 01/15/2024 10:58 AM EDT TC from pt requesting medication refill. Medications needing refill : oxyCODONE (Roxicodone) 5 MG immediate release tablet and oxyCODONE ER (OxyCONTIN) 30 MG 12 hr tablet To be sent to: [facility]/pharmacy #[id number] documented in this encounter Plan of Treatment Upcoming Encounters Date Type Department Care Team (Late st Contact Info) Description 07/04/2024 11:00 AM EDT Office Visit [facility] MEDICINE [address] [place] [address] Karen Avelar ANP [address] [place] [address] 08/01/2024 11:00 AM EDT Clinical Support [facility] CH[facility] MED & PEDS [address] [place], [place] [phone] Becky Pool, JIMMIE [address] [place] [address] documented as of this encounter Visit Diagnoses Not on filedocumented in this encounter Additional Health Concerns Assessment Noted Time PHQ-9 Depression Total Score: 21 024 2:14 PM EDT documented as of this encounter Care Teams Mule Tender Relationship Specialty Start Date End Date Karen Avelar ANP [address] [place] [address] PCP - General Family Medicine 12/08/21 documented as of this encounter
--- OUTSIDE RECORDS SUMMARY | 2024-06-12 09:31 | XMS_ITS | Encounter Summary ---
Author Organization [employer] Address 75 [facility] 7 [place] [address] Care Team Providers Care Rfid Analyst Name Role Phone Karen Avelar Primary Care Provider [phone] Reason for Visit * Reason Onset Date Comments Med Refill 11/21/2023 Encounter Details Date Type Department Care Team (Late st Contact Info) Description 11/21/2023 Telephone [facility] MEDICINE [address] [place], [place] [phone] Karen Avelar ANP [address] [place], [place] [phone] Med Refill Social History Tobacco Use Types [...] * Telephone Encounter - Teofilo Martinez - 11/21/2023 9:23 AM EDT TC from pt requesting medication refill. Medications needing refill : oxyCODONE (Roxicodone) 5 MG immediate release tablet and oxyCODONE ER (OxyCONTIN) 30 MG 12 hr tablet To be sent to: [facility]/PHARMACY #[id number] documented in this encounter Plan of Treatment Upcoming Encounters Date Type Department Care Team (Late st Contact Info) Description 07/04/2024 11:00 AM EDT Office Visit [facility] MEDICINE [address] [place] [address] Karen Avelar ANP [address] [place] [address] 08/01/2024 11:00 AM EDT Clinical Support [facility] CH[facility] MED & PEDS [address] [place], [place] [phone] Becky Pool, JIMMIE [address] [place] [address] documented as of this encounter Visit Diagnoses Not on filedocumented in this encounter Additional Health Concerns Assessment Noted Time PHQ-9 Depression Total Score: 21 024 2:14 PM EDT documented as of this encounter Care Teams Rfid Analyst Relationship Specialty Start Date End Date Karen Avelar ANP [address] [place] [address] PCP - General Family Medicine 12/08/21 documented as of this encounter
--- OUTSIDE RECORDS SUMMARY | 2024-06-12 09:31 | XMS_ITS | Encounter Summary ---
Author Organization [employer] Address 75 [facility] 7 [place] [address] Care Team Providers Care Desktop Manager Name Role Phone Karen Avelar Primary Care Provider [phone] Reason for Visit * Reason Onset Date Comments Med Refill 01/27/2023 Encounter Details Date Type Department Care Team ([facility] st Contact Info) Description 01/27/2023 Telephone [facility] MEDICINE [address] [place], [place] [phone] Karen Avelar ANP [address] [place], [place] [phone] Med Refill Social History Tobacco Use Types [...] encounter Miscellaneous Notes * Telephone Encounter - Janine Ann - 01/27/2023 10:33 AM EDT Tc from pt requesting medication refill on OxyCONTIN 20 MG 12 hr tablet to be sent to [facility]/pharmacy #[id number] documented in this encounter Plan of Treatment Upcoming Encounters Date Type Department Care Team (Late st Contact Info) Description 07/04/2024 11:00 AM EDT Office Visit [facility] MEDICINE [address] [place] [address] Karen Avelar ANP [address] [place] [address] 08/01/2024 11:00 AM EDT Clinical Support [facility] CH[facility] MED & PEDS [address] [place] [address] Becky Pool, JIMMIE [address] [place] [address] documented as of this encounter Visit Diagnoses Not on filedocumented in this encounter Additional Health Concerns Assessment Noted Time PHQ-9 Depression Total Score: 14 023 1:08 PM EDT documented as of this encounter Care Teams Desktop Manager Relationship Specialty Start Date End Date Karen Avelar ANP [address] [place] [address] PCP - General Family Medicine 12/08/21 documented as of this encounter
--- OUTSIDE RECORDS SUMMARY | 2024-06-12 09:31 | XMS_ITS | Encounter Summary ---
Author Organization [employer] Address 75 [facility] 7 [place] [address] Care Team Providers Care Iron Pourer Name Role Phone Karen Avelar Primary Care Provider [phone] Reason for Visit * Reason Onset Date Comments Med Refill 01/19/2024 Encounter Details Date Type Department Care Team ([facility] st Contact Info) Description 01/19/[address] [facility] MEDICINE [address] [place], [place] [phone] Karen Avelar ANP [address] [place], [place] [phone] Med Refill Social History Tobacco Use Types [...] Telephone Encounter - Dari Gao LPN - 01/19/2024 11:00 AM EDT Medication was sent to [id number] on 12/20/23 with 1 refill. * Telephone Encounter - Luz Mcclendon - 01/19/2024 10:54 AM EDT TC from pt requesting medication refill. Medications needing refill : tadalafil (Cialis) 5 MG tablet To be sent to: [id number] - [address] documented in this encounter Plan of Treatment Upcoming Encounters Date Type Department Care Team (Late st Contact Info) Description 07/04/2024 11:00 AM EDT Office Visit [facility] MEDICINE [address] [place], [place] [phone] Karen Avelar ANP [address] [place], [place] [phone] 08/01/2024 11:00 AM EDT Clinical Support [facility] CHC MED & PEDS [address] [place] [address] Becky Pool RN [address] [place] [address] documented as of this encounter Visit Diagnoses Not on filedocumented in this encounter Additional Health Concerns Assessment Noted Time PHQ-9 Depression Total Score: 21 024 2:14 PM EDT documented as of this encounter Care Teams Iron Pourer Relationship Specialty Start Date End Date Karen Avelar ANP [address] [place] [address] PCP - General Family Medicine 12/08/21 documented as of this encounter
--- OUTSIDE RECORDS SUMMARY | 2024-06-12 09:31 | XMS_ITS | Encounter Summary ---
Author Organization [employer] Address 75 [facility] 7 [place] [address] Care Team Providers Care Archeology Professor Name Role Phone Karen Avelar LIBBY Primary Care Provider [phone] Reason for Visit * Reason Comments controlled substance treatment Encounter Details Date Type Department Care Team (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 Prescribed oxycodone 10mg PO q6h PRN & oxycontin ER 20mg Po q12h PRN. (doses increased at the last PCP visit 05/06/24). States has been taking as prescribed. BZO from psych. Provider. Patient states talks to his therapist Q 3- 4 weeks. Pt denies use of nicotine/ETOH/street drugs/marijuana. Currently rates pain a 8/10 located in the back, neck, shoulders, hips, elbows. States medicatio n is about 50% effective at alleviating pain. Ibuprofen PRN. No questions/ concerns at this time. O: HOME MANAGER verified today. Oxycodone 10mg rx last filled on 05/06/24 & oxycontin ER 20mg rx last filled 05/09/24. Pill count performed over the phone, patient states he has 86 Oxycodone 10mg at this time, 82 expected; 47 oxycontin ER at this time, 47 expected. Medications are not overused by patient.. A: AUTOMOTIVE SERVICE ASSISTANT Contract Revisit: Opioid dependence related to chronic pain. P: Patient to continue taking medication only as prescribed; Next AUTOMOTIVE SERVICE ASSISTANT RV appointment scheduled for 08/01/24 @ 11am at [facility]. F/U sooner PRN. Patient verbalized understanding and agreed to plan. 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
== END 2024-06-12 09:18 | disposition home or self-care (01) ==
PROVIDERS: PCP Family Medicine; Referring Provider Physician Assistant; Visit Provider Internal Medicine Hypertension Specialist
DX: N18.30 Chronic kidney disease, stage 3 unspecified (principal)
CPT/HCPCS: 99203

== ENCOUNTER 2024-06-17 10:27 | Outpatient (AMB) | payer OTHER, SELFPAY ==
--- NOTE | 2024-06-17 10:35 | A.OFFVIS_ITS ---
Vital Signs 06/17/24 10:37 Height 5 ft 11 in Weight 291 lb 0.163 oz BMI 40.6 BP 116/66 Blood Pressure Location Rt brachial Position Sitting Pulse 94 Pulse Source Pulse Oximeter Pulse Oximetry (%) 96 Oxygen Delivery Method Room Air Intake Visit Reasons: T2DM Intake Note: Patient presents today for a follow-up on for Type 2 Diabetes Mellitus: Last Diabetic eye exam was on: 02/2024, Next appt 02/28/2025 Last Podiatry exam was on: Patient does not see a Delivery Technician Most recent HbA1c: 8.2%, 06/12/2024 Random Glucose- 262 mg/dL, Today Real Estate Sales Agent Required: No Accompanied by: Significant Other Allergies Penicillins Allergy (Unknown, Verified 06/17/24 10:46) RASH/HIVES HPI HPI T2DM: Details: Patient is a 63-year-old male with a significant past medical history of hypertension, hyperlipidemia, type 2 diabetes and obesity presenting today for a follow-up. Endo: DM: His A1c is 8.2 and down from 9.5. He is currently on mounjaro 5 mg weekly, tresiba 46 units, NovoLog 20 units tid. He states that he has had some hypoglycemic events if he does not eat as much as he expected to eat. cgm-very hyperglycemic 20%, 42% hyperglycemic, 37% in range, 1% low. - d/c from jardiance a couple years ago due to yeast infections and d/c from metformin to side effects. he states that he did not tolerate the 7.5 mg of Mounjaro so he started taking the left over 5 mg of Mounjaro that he had. He has not tolerated Trulicity due to GI upset. CV: Blood pressure today in the office is 116/66 and he is enalapril / hydrochlorothiazide. His cholesterol is Not completely controlled with a torvastatin and Zetia but he states that this is better for him. Last LDL was 135. 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 Diabetes type 2, uncontrolled Surgical History History of surgical procedure on eye proper using laser Hx of shoulder surgery History of hip surgery Hx of neck surgery Family History Father Prostate cancer Mother Diabetes Heart problem Social History Household Members: Family Alcohol intake: never Patient Tobacco Use Status: Never used Tobacco Physical Exam Vital Signs: Last Vital Signs Pulse 94 06/17/24 10:37 BP 116/66 06/17/24 10:37 Pulse Ox 96 06/17/24 10:37 Oxygen Delivery Method Room Air 06/17/24 10:37 BMI result Body Mass Index 40.6 Const Orientation/consciousness: patient oriented x3 Neck Neck: Yes no lymphadenopathy Thyroid: Thyroid normal Carotids: no bruits Resp Auscultation: clear to auscultation bilaterally Cardio Rate: regular rate Rhythm: regular rhythm Heart sounds: S1 normal heart sound present and S2 normal heart sound present Peripheral pulses: dorsalis pedis present Neuro General: patient oriented x3, gait normal and no focal motor deficits Extrem Other: Monofilament sensation absent on the right plantar aspect of the foot. Monofilament sensation present but diminished on the dorsum of the feet and on the left plantar aspect. Vibratory sensation intact bilaterally. Skin intact. Good capillary refill. General: Yes normal to inspection Results Reviewed Results Reviewed: Laboratory Tests 06/12/24 06/17/24 09:27 10:45 Sodium 137 Potassium 4.0 Chloride 104 Carbon Dioxide 25 Anion Gap 12 BUN 30 H Creatinine 1.42 H Estimated GFR 51 Glucose (Clinic) 262 H Random Glucose 207 H Estimat Average Glucose 189 Hemoglobin A1c % 8.2 H Assessment & Plan Assessment & Plan (1) Diabetes type 2, uncontrolled: Code(s): E11.65 - Type 2 diabetes mellitus with hyperglycemia Category: Medical Qualifiers: Glycemic state: with hyperglycemia Qualified Code(s): E11.65 - Type 2 diabetes mellitus with hyperglycemia Plan: Increase Tresiba to 50 units this week as he is on Mounjaro and then he is discontinuing it for the next 2 weeks due to surgery. We discussed that when he discontinues the Mounjaro he should temporarily go up on the Tresiba to 55 units. He will continue with his NovoLog dosing. He has tolerated Ozempic better but ran into supply issues and I advised him to switch from Mounjaro to Ozempic after the completion of his knee surgery. 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 Reviewed rule of 15. (3) Diabetic polyneuropathy associated with type 2 diabetes mellitus: Code(s): E11.42 - Type 2 diabetes mellitus with diabetic polyneuropathy Category: Medical Plan: Follows with Podiatry. Neuropathy is stable. is here today and does report checking his feet daily. Medications: New semaglutide (Ozempic) 0.5 mg (0.736 mL) subcut QWEEK 3 mL 2RF Changed From insulin degludec (Tresiba FlexTouch U-200 insulin) 46 units (0.23 mL) subcut BEDTIME 9 mL 6RF To insulin degludec (Tresiba FlexTouch U-200 insulin) 55 units (0.275 mL) subcut BEDTIME 9 mL 6RF Discontinued tirzepatide (Mounjaro) Discontinued Reason: Doctor's Order 5 mg (0.5 mL) subcut QWEEK 2 mL 3RF Coding Level of Care Code Est Pt Level 4 (96980) Complex EM visit Add On G2211 Diagnoses Uncontrolled type 2 diabetes mellitus with hyperglycemia E11.65 Glycemic state: with hyperglycemia penitentiary (current) use of insulin Z79.4 Diabetic polyneuropathy associated with type 2 diabetes mellitus E11.42
[2024-06-17 10:37] VITALS: BP 116/66; PULSE 94; O2SAT 96; BMI 40.6
[2024-06-17 10:50] LABS: Glucose, Whole Blood 262 mg/dL (60-115)
--- OUTSIDE RECORDS SUMMARY | 2024-06-17 11:47 | XMS_ITS | Encounter Summary ---
Author Organization [employer] Address [address] [facility] 7 [place] [address] Care Team Providers Care Lacquer Maker Name Role Phone Karen Avelar Primary Care Provider [phone] Encounter Details Date Type Department Care Team (Late st Contact Info) Description 06/17/2024 Orders Only GENERIC EXTERNAL DATA DEPARTMENT Provider, Generic External Data Social History Tobacco Use Types Packs/Day Years [...] 07/04/2024 11:00 AM EDT Office Visit [facility] [address] [place] [address] Karen Avelar ANP [address] [place] [address] 08/01/2024 11:00 AM EDT Clinical Support [facility] [address] [place], [place] [phone] Becky Pool, RN [address] [place] [address] documented as of this encounter Procedures Procedure Name Priority Date/Time Associated Diagnosis Comments GLUCOSE, WHOLE BLOOD Routine 06/17/2024 10:45 AM EDT documented in this encounter Results * (ABNORMAL) Glucose, Whole Blood (06/17/2024 10:45 AM EDT) Glucose, Whole Blood 262(H) 60 - 115 mg/dL [facility] Comment:METER #: [id number] 5Testing performed in the Endocrinology Department [address] , [address], [facility]. 06/17/2024 10:4 5 AM EDT 06/17/2024 10:49 AM EDT us Generic External Data Provider LAB BLOOD ORDERAB LES Final Result [facility] [address] [place] [address] [phone] documented in this encounter Visit Diagnoses Not on filedocumented in this encounter Additional Health Concerns Assessment Noted Time PHQ-9 Depression Total Score: 21 024 2:14 PM EDT documented as of this encounter Care Teams Lacquer Maker Relationship Specialty Start Date End Date Karen Avelar ANP [address] [place] [address] PCP - General Family Medicine 12/08/21 documented as of this encounter
--- OUTSIDE RECORDS SUMMARY | 2024-06-17 11:47 | XMS_ITS | Encounter Summary ---
Author Organization [employer] Address [address] [facility] 7 [place] [address] Care Team Providers Care Human Resources Office Manager Name Role Phone Karen Avelar Primary Care Provider [phone] Reason for Visit * Reason Onset Date Comments Med Refill 06/03/2024 Encounter Details Date Type Department Care Team (Late st Contact Info) Description 06/03/[address] [facility] [address] [place] [address] Karen Avelar ANP [address] [place], [place] [phone] Primary osteoarthritis involving multiple joints Social History [...] 12 hr tablet To be sent to: [facility]/pharmacy #[id number] documented in this encounter Plan of Treatment Upcoming Encounters Date Type Department Care Team (Late st Contact Info) Description 07/04/2024 11:00 AM EDT Office Visit [facility] [address] [place] [address] Karen Avelar ANP [address] [place] [address] 08/01/2024 11:00 AM EDT Clinical Support [facility] [address] [place] [address] Becky Pool, RN [address] [place] [address] documented as of this encounter Visit Diagnoses Diagnosis Primary osteoarthritis involving multiple joints documented in this encounter Additional Health Concerns Assessment Noted Time PHQ-9 Depression Total Score: 21 024 2:14 PM EDT documented as of this encounter Care Teams Human Resources Office Manager Relationship Specialty Start Date End Date Karen Avelar ANP [address] [place] [address] PCP - General Family Medicine 12/08/21 documented as of this encounter
--- OUTSIDE RECORDS SUMMARY | 2024-06-17 11:47 | XMS_ITS | Encounter Summary ---
Author Organization [employer] Address [address] [facility] 7 [place] [address] Care Team Providers Care Industrial Conveyor Belt Repairer Name Role Phone Karen Avelar Primary Care Provider [phone] Reason for Visit * Reason Comments Med Refill Encounter Details Date Type Department Care Team ([facility] st Contact Info) Description 03/05/2023 Refill [facility] [address] [place] [address] Karen Avelar ANP [address] [place], [place] [phone] Social History Tobacco Use Types Packs/Day Years [...] Office Visit [facility] [address] [place] [address] Karen Avelar ANP [address] [place] [address] 08/01/2024 11:00 AM EDT Clinical Support [facility] [address] [place] [address] Becky Pool, RN [address] [place] [address] documented as of this encounter Visit Diagnoses Not on filedocumented in this encounter Additional Health Concerns Assessment Noted Time PHQ-9 Depression Total Score: 14 023 1:08 PM EDT documented as of this encounter Care Teams Industrial Conveyor Belt Repairer Relationship Specialty Start Date End Date Karen Avelar ANP [address] [place] [address] PCP - General Family Medicine 12/08/21 documented as of this encounter
--- OUTSIDE RECORDS SUMMARY | 2024-06-17 11:47 | XMS_ITS | Encounter Summary ---
Author Organization [employer] Address [address] [facility] 7 [place] [address] Care Team Providers Care B2B Account Executive Name Role Phone Karen Avelar Primary Care Provider [phone] Reason for Visit * Reason Onset Date Comments Durable Medical Equipment 05/13/2024 Shoe h orn, sock aid, bariatric walker Encounter Details Date Type Department Care Team ([facility] st Contact Info) Description 05/13/2024 Telephone [facility] [address] [place], [place] [phone] Karen Avelar ANP [address] [place], [place] [phone] Durable Medical Equipment (Shoe horn, sock aid, [...] and up loaded into Media. Message to [facility] Care ManagerBriana Morales was sent via [employer]. * Telephone Encounter - Chaya Holbrook - 05/13/2024 1:11 PM EST DME RX for Walker and shoe horn and sock aid generated and placed on providers desk for review and signature. * Telephone Encounter - Chaya Holbrook - 05/13/2024 1:10 PM EST ----- Message from Briana Vale sent at 05/13/2024 10:11 AM EST ----- Regarding: DME request Greetings, I am (Briana Morales), Feed Manager for [facility] Care Management, requesting the following DME???s [...] this request, feel free to contact the Feed Manager below. Resident Care Associate: Briana Morales E-mail: [email or web address] Division: Cortney Sanchez E-mail: [email or web address] Thanks in advance for your assistance with this request. Sincerely, [facility] [employer] Care Management documented in this encounter Plan of Treatment Upcoming Encounters Date Type Department Care Team ([facility] st Contact Info) Description 07/04/2024 11:00 AM EDT Office Visit [facility] [address] [place] [address] Karen Avelar ANP [address] [place] [address] 08/01/2024 11:00 AM EDT Clinical Support [facility] [address] [place] [address] Becky Pool, RN [address] [place] [address] documented as of this encounter Visit Diagnoses Not on filedocumented in this encounter Additional Health Concerns Assessment Noted Time PHQ-9 Depression Total Score: 21 024 2:14 PM EDT documented as of this encounter Care Teams B2B Account Executive Relationship Specialty Start Date End Date Karen Avelar ANP [address] [place] [address] PCP - General Family Medicine 12/08/21 documented as of this encounter
--- OUTSIDE RECORDS SUMMARY | 2024-06-17 11:47 | XMS_ITS | Clinical Summary ---
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 05/13/2024 Telephone [facility] [address] [place] [address] Karen Avelar ANP Durable Medical Equipment (Shoe horn, sock aid, bariatric walker) 05/13/2024 Telephone [facility] PEDS [address] [place] [address] Becky Pool, JIMMIE 05/13/2024 Travel 05/06/2024 11:00 AM EST Telemedicine [facility] [address] [place] [address] Karen Avelar ANP Type 2 diabetes mellitus with stage 3 chronic kidney disease, with long-term current use of insulin, unspecified whether stage 3a or 3b CKD (CMS/HCC) (Primary Dx); Hypotestosteronism; Diabetic polyneuropathy associated with type 2 diabetes mellitus (CMS/HCC); halfway (current) use of opiate analgesic; Primary osteoarthritis involving multiple joints 05/06/2024 Travel 05/06/2024 Refill [facility] [address] [place] [address] Karen Avelar ANP Primary osteoarthritis involving multiple joints 04/30/2024 Telephone [facility] [address] [place] [address] Karen Avelar ANP Referral 04/23/2024 Telephone [facility] PEDS [address] [place] [address] Becky Pool, JIMMIE 04/23/2024 Refill [facility] P[facility] [address] [place] [address] Becky Pool, RN 04/23/2024 Telephone [facility] [address] [place] [address] Karen Avelar ANP Med refill 04/04/2024 Telephone [facility] P[facility] [address] [place] [address] Becky Pool, JIMMIE 04/04/2024 Telephone [facility] [address] [place] [address] Becky Pool, JIMMIE 04/02/2024 Telephone [facility] P[facility] [address] [place] [address] Becky Pool, JIMMIE 04/02/2024 [facility] Health Information Management [address] [place] [address] Karen Avelar ANP PSG ORDER 04/02/[address] [address] Karen Avelar ANP Medication Question 03/29/[address] [address] Karen Avelar ANP Nurse Triage 03/28/2024 1:30 PM EST Telemedicine [facility] [address] [place] [phone] Geoffrey Kaur MD Acute cough (Primary Dx); COVID 03/28/2024 Travel 03/28/[address] [phone] Karen Avelar ANP Nurse Triage 03/26/[address] [address] Karen Avelar ANP Nurse Triage 03/22/[address] [address] Karen Avelar ANP Medication Question 03/21/2024 10:30 AM EST Office Visit [address] [phone] Karen Avelar ANP Mixed hyperlipidemia (Primary Dx); Hypertension with albuminuria; Obstructive sleep apnea syndrome; Primary osteoarthritis involving multiple joints; Type 2 diabetes mellitus with stage 3 chronic kidney disease, with long-term current use of insulin, unspecified whether stage 3a or 3b CKD (CMS/HCC); 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; Diabetic polyneuropathy [...] Visit [facility] [address] [place] [address] Karen Avelar, ANP [address] [place] [address] 08/01/2024 11:00 AM EDT Clinical Support [facility] [address] [place] [address] Becky Pool, RN [address] [place] [address] Health Maintenance Due Date Last Done Comments [...] - Td or Tdap) 09/12/2023 09/11/2013, 03/16/2009 Depression Monitoring (PHQ-9) 04/11/2024 10/10/2023, 10/10/2023 SDOH Screening 05/24/2024 05/24/2023 Diabetes: Hemoglobin A1C 09/12/2024 025, 10/16/2023, 06/02/2023, Additional history exists Depression Screening 10/09/2024 10/10/2023, 10/10/19 24 Eye [...] WHOLE BLOOD Routine 06/17/2024 10:45 AM EDT URINE PROTEIN, TOTAL, RANDOM (W/O CREATININE) Routine 06/12/2024 9:37 AM EST CREATININE, RANDOM URINE Routine 06/12/2024 9:37 AM EST URINALYSIS WITH REFLEX TO MICROSCOPIC Routine 06/12/2024 9:37 AM EST VITAMIN D,25-OH,TOTAL,IA Routine 06/12/2024 9:27 AM EST CBC Routine 06/12/2024 9:27 AM EST PTH, INTACT WITHOUT CALCIUM Routine 06/12/2024 9:27 AM EST PHOSPHATE ( PHOSPHORUS) Routine 06/12/2024 9:27 AM EST COMPREHENSIVE METABOLIC PANEL Routine 06/12/2024 9:27 AM EST HEMOGLOBIN A1C Routine 06/12/2024 9:27 AM EST LIPID PANEL, STANDARD Routine 08/10/2022 10:13 AM EDT HM COLONOSCOPY Routine 03/02/2016 4:57 PM EST from Last 3 Months or Most Recently Relevant to Health Maintenance Results * (ABNORMAL) Glucose, Whole Blood (06/17/2024 10:45 AM EDT) Glucose, Whole Blood 262(H) 60 - 115 mg/dL [facility] Comment:METER #: [id number] 5Testing performed in the Endocrinology Department [address] , [address], [facility]. 06/17/2024 10:4 5 AM EDT 06/17/2024 10:49 AM EDT us Generic External Data Provider LAB BLOOD ORDERAB LES Final Result [facility] [address] [place] [phone] * (ABNORMAL) Urinalysis with Reflex to Microscopic (06/12/2024 9:37 AM EST) Color Urine Yellow [facility] Appearance Urine Cloudy [facility] PH 5.5 5.0 - 9.0 [facility] Glucose Urine UA 100(A) Negative mg/dL [facility] Urine Blood Negative Negative [facility] Specific [place] - Urine 1.020 1.005 - 1.025 [facility] Urine Protein Negative Neg-Trace mg/dL [facility] Urine Ketones Negative Negative mg/dL [facility] Nitrite Urine Negative Negative [facility] Leukocyte Esterase Urine Negative Negative [facility] 06/12/2024 9:37 AM EST 06/12/2024 5:49 PM EST us Generic External Data Provider LAB URINE ORDERAB LES Final Result Performing Organization Address City/[facility]/ZIP Co de Phone Number [facility] [address] [place] [phone] * Urine Protein, Total, Random without Creatinine (06/12/2024 9:37 AM EST) Protein, Total, Random Urine <7 <12 mg/dL [facility] 06/12/2024 9:37 AM EST 06/12/2024 5:49 PM EST us Generic External Data Provider LAB URINE ORDERAB LES Final Result Performing Organization Address City/[facility] Co de Phone Number [facility] [address] [place] [phone] * Creatinine, Random Urine (06/12/2024 9:37 AM EST) Creatinine, Urine 143.39 mg/dL [facility] 06/12/2024 9:37 AM EST 06/12/2024 5:49 PM EST us Generic External Data Provider LAB URINE ORDERAB LES Final Result Performing Organization Address [facility]/ZIP Co de Phone Number [facility] [address] [place] [phone] * Vitamin D, 25-Hydroxy, Total, Immunoassay (06/12/2024 9:27 AM EST) Vitamin D 25-OH Total 47.5 >30 ng/mL [facility] Comment:Health Based Referen ce Values*< 20 ng/mL [id number] ng/mL Insufficient> 30 ng/mL Sufficient*Trini ALLEN. N Engl J Med. 2007;357:266-280Care must be taken in interpreting Vitamin D results fromdifferent laboratories and methodologies. Published datademonstrated that results from patients undergoinghemodialysis may show a negative bias when tested withvarious automated 25-OH vitamin D assays when compared toLC-MS/MS.When testing samples from patients whose predominant form ofVitamin D is Vitamin D2, such as patients receiving VitaminD2 supplementation, results that are subtherapeutic shouldbe confirmed with another method such as LC-MS/MS. 06/12/2024 9:27 AM EST 06/12/2024 5:49 PM EST Generic External Data Provider LAB BLOOD ORDERAB LES Final Result Performing Organization Address [facility] Co de Phone Number [facility] [address] [place] [phone] * (ABNORMAL) CBC (06/12/2024 9:27 AM EST) White Blood Count 14.3(H) 4.8 - 10.8 X10*3/uL [facility] Red Blood Count 5.28 4.60 - 5.80 X10*6/uL [facility] Hemoglobin 15.2 14.0 - 18.0 g/dl [facility] Hematocrit 45.6 42.0 - 52.0 % [facility] Mean Corpuscular Volume 86.4 80.0 - 98.0 fL [facility] Mean Corpuscular Hemoglobin 28.8 27.0 - 33.0 pg [facility] Mean Corpuscular HGB Conc 33.3 31.0 - 36.0 g/dl [facility] Red Cell Distribution Width 13.4 11.0 - 16.0 % [facility] Platelet Count 346 160 - 400 X10*3/uL [facility] Mean Platelet Volume 11.6 9.4 - 12.4 fL [facility] NRBC Pct Auto 0.0 0.0 - 0.2 /100WBC [facility] NRBC Abs Auto 0.000 0.0 - 0.012 X10*3/uL [facility] 06/12/2024 9:27 AM EST 06/12/2024 5:49 PM EST Generic External Data Provider LAB BLOOD ORDERAB LES Final Result Performing Organization Address [facility] de Phone Number [facility] [address] [place] [phone] * (ABNORMAL) Phosphate (As Phosphorus) (06/12/2024 9:27 AM EST) Phosphorus 2.0(L) 2.7 - 4.5 mg/dL [facility] 06/12/2024 9:27 AM EST 06/12/2024 5:49 PM EST Generic External Data Provider LAB BLOOD ORDERAB LES Final Result Performing Organization Address [facility] Co de Phone Number [facility] [address] [place] [phone] * (ABNORMAL) PTH, Intact Without Calcium (06/12/2024 9:27 AM EST) Parathyroid Hormone, Intact 150.6(H) 8.7 - 77.1 pg/mL [facility] 06/12/2024 9:27 AM EST 06/12/2024 5:49 PM EST us Generic External Data Provider LAB BLOOD ORDERAB LES Final Result Performing Organization Address [facility]/ZIP Co de Phone Number [facility] [address] [place] [phone] * (ABNORMAL) Hemoglobin A1c (06/12/2024 9:27 AM EST) Hemoglobin A1c 8.2(H) <6.0 % [facility] Comment:Hemoglobin A1C Refer ence Range Adults: 4.8 - 6.0 % Non diabetic: < 6.0 % Goal: < 7.0 %Additional Action Suggested: > 8.0 %Note: Hemoglobin A1c results are invalid for patients with abnormal amounts of HbF. Blood transfusions may impact the HbA1c concentration in the patient sample. Estimated Average Glucose 189 mg/dL [facility] Comment:eAG = Estimated ave rage glucose which is %A1C expressed asaverage glucose, using the formula of the H5O-MyzdqieBdmgvwy Glucose study (ADAG), Diabetes Care, Vol.31,#8,Nov. 2007 06/12/2024 9:27 AM EST 06/12/2024 5:49 PM EST us Generic External Data Provider LAB BLOOD ORDERAB LES Final Result Performing Organization Address [facility] Co de Phone Number [facility] [address] [place] [phone] * (ABNORMAL) Comprehensive Metabolic Panel (06/12/2024 9:27 AM EST) Sodium 137 135 - 145 mmol/L [facility] Potassium 4.0 3.3 - 5.1 mmol/L [facility] Chloride 104 96 - 108 mmol/L [facility] Carbon Dioxide 25 22 - 29 mmol/L [facility] Anion Gap 12 12 - 20 [facility] Urea Nitrogen (BUN) 30(H) 9 - 16 mg/dL [facility] Creatinine, Serum 1.42(H) 0.5 - 1.4 mg/dL [facility] Estimated Glomerular Filt Rate 51 [facility] Comment:Chronic Kidney Disea se: Estimated GFR < 60 mL/min/1.17m0Xbbepq Kidney Disease: Estimated GFR < 15 mL/min/1.73m2 Glucose 207(H) 60 - 115 mg/dL [facility] Calcium 9.6 8.4 - 10.2 mg/dL [facility] Bilirubin, Total 0.4 0.0 - 1.0 mg/dL [facility] Aspartate Amino Transferase 29 5 - 37 U/L [facility] Alanine Aminotransferase 23 0 - 40 U/L [facility] Total Protein 8.1(H) 6.5 - 8.0 g/dL [facility] Albumin Level 4.5 3.5 - 5.0 g/dL [facility] Alkaline Phosphatase 119(H) 39 - 117 U/L [facility] 06/12/2024 9:27 AM EST 06/12/2024 5:49 PM EST us Generic External Data Provider LAB BLOOD ORDERAB LES Final Result [facility] [address] [place] [phone] * Lipid Panel, Standard (08/10/2022 10:13 AM EDT) Triglycerides 111 mg/dL [facility] Comment:Desirable Triglyceri de: less than 150 mg/dLBorderline High Triglyceride 150-199 mg/dLHigh Triglyceride: 200-499 mg/dLVery High Triglyceride: greater than or equal to 5OO mg/dL Cholesterol 199 mg/dL [facility] Comment:Desirable Cholestero l: less than 200 mg/dLBorderline High Cholesterol: 200-239 mg/dLHigh Cholesterol: greater than 239 mg/dL LDL Cholesterol Calculated 140 mg/dl [facility] Comment:Desirable LDL: less than 100 mg/dLNear Optimal/Above Optimal LDL: 110- 129 mg/dLBorderline High LDL: 130-159 mg/dLHigh LDL: 160-189 mg/dLVery High LDL: greater than or equal to 190 mg/dL HDL Cholesterol 37 mg/dL [facility] Comment:Desirable HDL: great er than 40 mg/dL Note: This HDL assay may give artificially low results in patients with liver disease. 08/10/2022 10:1 3 AM EDT 08/10/2022 1:36 PM EDT [facility] External Provider LAB BLO OD ORDERABLES Final Result [facility] [address] [place] [phone] * Hm Colonoscopy (03/02/2016 4:57 PM EST) Historical Provider MD HEALTH MAINTENANCE Final Result from Last 3 Months or Most Recently Relevant to Health Maintenance [place] [address] [place] [address] - [employer] Care Teams Camp Tender Relationship Specialty Start Date End Date Karen Avelar ANP [address] [place] [phone] PCP - General Family Medicine 12/08/21
--- OUTSIDE RECORDS SUMMARY | 2024-06-17 11:47 | XMS_ITS | Encounter Summary ---
Author Organization [employer] Address [address] [facility] [address] [place] [address] Care Team Providers Care Licensed Home Inspector Name Role Phone Karen Avelar Primary Care Provider [phone] Reason for Visit * Reason Onset Date Comments Referral 09/15/2022 Encounter Details Date Type Department Care Team (Late st Contact Info) Description 09/15/2022 Telephone [facility] [address] [place] [address] Karen Avelar ANP [address] [place], [place] [phone] Referral Social History Tobacco Use Types Packs/Day [...] EDT Office Visit [facility] [address] [place] [address] Karen Avelar ANP [address] [place] [address] 08/01/2024 11:00 AM EDT Clinical Support [facility] [address] [place], [place] [phone] Becky Pool, RN [address] [place] [address] documented as of this encounter Visit Diagnoses Not on filedocumented in this encounter Care Teams Licensed Home Inspector Relationship Specialty Start Date End Date Karen Avelar ANP [address] [place] [phone] PCP - General Family Medicine 12/08/21 documented as of this encounter
--- OUTSIDE RECORDS SUMMARY | 2024-06-17 11:47 | XMS_ITS | Clinical Summary ---
Author Organization [address] [place] [address] Address [address] [place] [address] Phone Care Team Providers Care Machine Stapler Name Role Phone Jordana Cade MD Primary Care Provider [phone] Allergies Active Allergy Reactions Criticality Noted Date [...] can recall. Patient's C-spine MRI 05/11/2021 at [facility] shows left >right neuroforaminal narrowing C5-6, [...] AM EST Office Visit Orthopedic Surgery - [address] [phone] Tristan Deal DPM Controlled type 2 diabetes [...] in [place] OTHER SURGICAL HISTORY 12/10/2019 PROCEDURE: AL ARTHRD ANT INTERBODY MIN DSC CRV BELOW [...] AM EDT Office Visit Orthopedic Surgery - [place] [address] [phone] Tristan Deal DPM [address] [address] Health Maintenance Due Date Last Done Comments [...] [facility] MEDICARE Member Subscriber Plan / Payer (Ef fective 2013-Present) Name:Bhumika Rose Relation to Subscriber:Self Name:Bhumika Rose Payer ID:[id number] Group ID:[id number] Type:Not on file Address: [place] [address] [phone] Care Teams Machine Stapler Relationship Specialty Start Date End Date [place], [place] Jordana [address] [place] [phone] PCP - General 07/21/13
--- OUTSIDE RECORDS SUMMARY | 2024-06-17 11:47 | XMS_ITS | Encounter Summary ---
Author Organization [employer] Address [address] [facility] 7 [place] [address] Care Team Providers Care [facility] Name Role Phone Karen Avelar Primary Care Provider [phone] Reason for Visit * Reason Onset Date Comments Prior Authorization 09/07/2022 Encounter Details Date Type Department Care Team (Late st Contact Info) Description 09/07/[address] [facility] [address] [place], [place] [phone] Karen Avelar ANP [address] [place], [place] [phone] Prior Authorization Social History Tobacco Use Types [...] - 09/07/2022 11:47 AM EDT Tc from [place] with [facility] pharmacy requesting a PA for medication OxyCONTIN 20 MG 12 hr tablet documented in this encounter Plan of Treatment Upcoming Encounters Date Type Department Care Team (Late st Contact Info) Description 07/04/2024 11:00 AM EDT Office Visit [facility] [address] [place] [address] Karen Avelar ANP [address] [place] [address] 08/01/2024 11:00 AM EDT Clinical Support [facility] [address] [place] [address] Becky Pool, RN [address] [place] [address] documented as of this encounter Visit Diagnoses Not on filedocumented in this encounter Care Teams [facility] Relationship Specialty Start Date End Date Karen Avelar ANP [address] [place] [phone] PCP - General Family Medicine 12/08/21 documented as of this encounter
--- OUTSIDE RECORDS SUMMARY | 2024-06-17 11:48 | XMS_ITS | Encounter Summary ---
Author Organization [employer] Address 75 [facility] 7 [place] [address] Care Team Providers Care Geospatial Engineer Name Role Phone Karen Avelar Primary Care Provider [phone] Encounter Details Date Type Department Care Team (Late st Contact Info) Description 06/12/2024 Orders Only GENERIC EXTERNAL DATA DEPARTMENT [...] Office Visit [facility] MED[facility]INE 230 [place], [place] [phone] Karen Avelar ANP 230 [place] [address] 08/01/2024 11:00 AM EDT Clinical Support [facility]S 505 [place] [address] Becky Pool, RN 505 [place] [address] documented as of this encounter Procedures Procedure Name Priority Date/Time Associated Diagnosis Comments URINALYSIS WITH REFLEX TO MICROSCOPIC Routine 06/12/2024 9:37 AM EST URINE PROTEIN, TOTAL, RANDOM (W/O CREATININE) Routine 06/12/2024 9:37 AM EST CREATININE, RANDOM URINE Routine 06/12/2024 9:37 AM EST VITAMIN D,25-OH,TOTAL,IA Routine 06/12/2024 9:27 AM EST CBC Routine 06/12/2024 9:27 AM EST PHOSPHATE ( PHOSPHORUS) Routine 06/12/2024 9:27 AM EST PTH, INTACT WITHOUT CALCIUM Routine 06/12/2024 9:27 AM EST HEMOGLOBIN A1C Routine 06/12/2024 9:27 AM EST COMPREHENSIVE METABOLIC PANEL Routine 06/12/2024 9:27 AM EST documented in this encounter Results * Urine Protein, Total, Random without Creatinine (06/12/2024 9:37 AM EST) Protein, Total, Random Urine <7 <12 mg/dL [facility] 06/12/2024 9:37 AM EST 06/12/2024 5:49 PM EST Generic External Data Provider LAB URINE ORDERAB LES Final Result Performing Organization Address City/[facility] Co de Phone Number [facility] [address] [place] [phone] * Creatinine, Random Urine (06/12/2024 9:37 AM EST) Creatinine, Urine 143.39 mg/dL [facility] 06/12/2024 9:37 AM EST 06/12/2024 5:49 PM EST [facility] External Data Provider LAB URINE ORDERAB LES Final Result Performing Organization Address [facility] Co de Phone Number [facility] [address] [place] [phone] * (ABNORMAL) Urinalysis with Reflex to Microscopic (06/12/2024 9:37 AM EST) Color Urine Yellow [facility] Appearance Urine Cloudy [facility] PH 5.5 5.0 - 9.0 [facility] Glucose Urine UA 100(A) Negative mg/dL [facility] Urine Blood Negative Negative [facility] Specific [place] - Urine 1.020 1.005 - 1.025 [facility] Urine Protein Negative Neg-Trace mg/dL [facility] Urine Ketones Negative Negative mg/dL [facility] Nitrite Urine Negative Negative [facility] Leukocyte Esterase Urine Negative Negative [facility] 06/12/2024 9:37 AM EST 06/12/2024 5:49 PM EST Generic External Data Provider LAB URINE ORDERAB LES Final Result Performing Organization Address [facility]/ZIP Co de Phone Number [facility] [address] [place] [phone] * Vitamin D, 25-Hydroxy, Total, Immunoassay (06/12/2024 9:27 AM EST) Vitamin D 25-OH Total 47.5 >30 ng/mL [facility] Comment:Health Based Referen ce Values*< 20 ng/mL Snvieeeql31-34 ng/mL Insufficient> 30 ng/mL Sufficient*Trini ALLEN. N [...] ORDERAB LES Final Result Performing Organization Address City/[facility]/ZIP Co de Phone Number [facility] [address] [place] [phone] * (ABNORMAL) CBC (06/12/2024 9:27 AM EST) White Blood Count 14.3(H) 4.8 - 10.8 X10*3/uL [facility] Red Blood Count 5.28 4.60 - 5.80 X10*6/uL [facility] Hemoglobin 15.2 14.0 - 18.0 g/dl [facility] Hematocrit 45.6 42.0 - 52.0 % [facility] Mean Corpuscular Volume 86.4 80.0 - 98.0 fL [facility] Mean Corpuscular Hemoglobin 28.8 27.0 - 33.0 pg [facility] Mean Corpuscular HGB Conc 33.3 31.0 - 36.0 g/dl [facility] Red Cell Distribution Width 13.4 11.0 - 16.0 % [facility] Platelet Count 346 160 - 400 X10*3/uL [facility] Mean Platelet Volume 11.6 9.4 - 12.4 fL [facility] NRBC Pct Auto 0.0 0.0 - 0.2 /100WBC [facility] NRBC Abs Auto 0.000 0.0 - 0.012 X10*3/uL [facility] 06/12/2024 9:27 AM EST 06/12/2024 5:49 PM EST us Generic External Data Provider LAB BLOOD ORDERAB LES Final Result Performing Organization Address City/[facility]/ZIP Co de Phone Number [facility] [address] [place] [phone] * (ABNORMAL) PTH, Intact Without Calcium (06/12/2024 9:27 AM EST) Parathyroid Hormone, Intact 150.6(H) 8.7 - 77.1 pg/mL [facility] 06/12/2024 9:27 AM EST 06/12/2024 5:49 PM EST us Generic External Data Provider LAB BLOOD ORDERAB LES Final Result Performing Organization Address [facility]/ZIP Co de Phone Number [facility] [address] [place] [phone] * (ABNORMAL) Phosphate (As Phosphorus) (06/12/2024 9:27 AM EST) Phosphorus 2.0(L) 2.7 - 4.5 mg/dL [facility] 06/12/2024 9:27 AM EST 06/12/2024 5:49 PM EST us Generic External Data Provider LAB BLOOD ORDERAB LES Final Result Performing Organization Address City/State/[facility] Co de Phone Number [facility] [address] [place] [phone] * (ABNORMAL) Comprehensive Metabolic Panel (06/12/2024 9:27 AM EST) Sodium 137 135 - 145 mmol/L [facility] Potassium 4.0 3.3 - 5.1 mmol/L [facility] Chloride 104 96 - 108 mmol/L [facility] Carbon Dioxide 25 22 - 29 mmol/L [facility] Anion Gap 12 12 - 20 [facility] Urea Nitrogen (BUN) 30(H) 9 - 16 mg/dL [facility] Creatinine, Serum 1.42(H) 0.5 - 1.4 mg/dL [facility] Estimated Glomerular Filt Rate 51 [facility] Comment:Chronic Kidney Disea se: Estimated GFR < 60 mL/min/1.61n4Zbdzyl Kidney Disease: Estimated GFR < 15 mL/min/1.73m2 Glucose 207(H) 60 - 115 mg/dL [facility] Calcium 9.6 8.4 - 10.2 mg/dL [facility] Bilirubin, Total 0.4 0.0 - 1.0 mg/dL [facility] Aspartate Amino Transferase 29 5 - 37 U/L [facility] Alanine Aminotransferase 23 0 - 40 U/L [facility] Total Protein 8.1(H) 6.5 - 8.0 g/dL [facility] Albumin Level 4.5 3.5 - 5.0 g/dL [facility] Alkaline Phosphatase 119(H) 39 - 117 U/L [facility] 06/12/2024 9:27 AM EST 06/12/2024 5:49 PM EST us Generic External Data Provider LAB BLOOD ORDERAB LES Final Result Performing Organization Address [facility] Co de Phone Number [facility] [address] [place] [phone] * (ABNORMAL) Hemoglobin A1c (06/12/2024 9:27 AM EST) Hemoglobin A1c 8.2(H) <6.0 % [facility] Comment:Hemoglobin A1C Refer ence Range Adults: 4.8 - 6.0 % Non diabetic: < 6.0 % Goal: < 7.0 %Additional Action Suggested: > 8.0 %Note: Hemoglobin A1c results are invalid for patients with abnormal amounts of HbF. Blood transfusions may impact the HbA1c concentration in the patient sample. Estimated Average Glucose 189 mg/dL [facility] Comment:eAG = Estimated ave rage glucose which is %A1C expressed asaverage glucose, using the formula of the M3R-TsotemhXvqgupz Glucose study (ADAG), Diabetes Care, Vol.31,#8,Nov. 2007 06/12/2024 9:27 AM EST 06/12/2024 5:49 PM EST us Generic External Data Provider LAB BLOOD ORDERAB LES Final Result Performing Organization Address [facility] de Phone Number [facility] [address] [place] [phone] documented in this encounter Visit Diagnoses Not on filedocumented in this encounter Additional Health Concerns Assessment Noted Time PHQ-9 Depression Total Score: 21 024 2:14 PM EDT documented as of this encounter Care Teams Geospatial Engineer Relationship Specialty Start Date End Date Karen Avelar ANP [address] [place] [address] PCP - General Family Medicine 12/08/21 documented as of this encounter
--- OUTSIDE RECORDS SUMMARY | 2024-06-17 11:48 | XMS_ITS | Encounter Summary ---
Author Organization [employer] Address 75 [facility] 7 [place] [address] Care Team Providers Care Performance Improvement Coordinator Name Role Phone Karen Avelar Primary Care Provider [phone] Reason for Visit * Reason Onset Date Comments Med Refill 02/12/2024 Encounter Details Date Type Department Care Team (Late st Contact Info) Description 02/12/2024 Telephone [facility] MEDICINE 230 [place], [place] [phone] Karen Avelar ANP 230 [place], [place] [phone] Med Refill Social History Tobacco Use Types [...] 12 hr tablet To be sent to: [facility]/pharmacy #[id number] documented in this encounter Plan of Treatment Upcoming Encounters Date Type Department Care Team (Late st Contact Info) Description 07/04/2024 11:00 AM EDT Office Visit [facility] [address] [place] [address] Karen Avelar ANP [address] [place] [address] 08/01/2024 11:00 AM EDT Clinical Support [facility]EDS 505 [place] [address] Becky Pool, RN 505 [place] [address] documented as of this encounter Visit Diagnoses Not on filedocumented in this encounter Additional Health Concerns Assessment Noted Time PHQ-9 Depression Total Score: 21 024 2:14 PM EDT documented as of this encounter Care Teams Performance Improvement Coordinator Relationship Specialty Start Date End Date Karen Avelar ANP [address] [place] [address] PCP - General Family Medicine 12/08/21 documented as of this encounter
--- OUTSIDE RECORDS SUMMARY | 2024-06-17 11:48 | XMS_ITS | Encounter Summary ---
Author Organization [employer] Address 75 [facility] 7 [place] [address] Care Team Providers Care Crime Specialist Name Role Phone Karen Avelar Primary Care Provider [phone] Reason for Visit * Reason Onset Date Comments Med Refill 12/19/2023 Encounter Details Date Type Department Care Team (Late st Contact Info) Description 12/19/[address] [facility] MED[facility]INE 230 [place], [place] [phone] Karen Avelar ANP 230 [place], [place] [phone] Med Refill Social History Tobacco Use Types [...] immediate release tablet To be sent to: [facility]/pharmacy #[id number] documented in this encounter Plan of Treatment Upcoming Encounters Date Type Department Care Team (Late st Contact Info) Description 07/04/2024 11:00 AM EDT Office [address] [facility] MEDICINE [address] [place] [address] Karen Avelar ANP 230 [place] [address] 08/01/2024 11:00 AM EDT Clinical Support [facility] MED [facility]EDS 505 [place], [place] [phone] Becky Pool, JIMMIE 505 [place] [address] documented as of this encounter Visit Diagnoses Not on filedocumented in this encounter Additional Health Concerns Assessment Noted Time PHQ-9 Depression Total Score: 21 024 2:14 PM EDT documented as of this encounter Care Teams Crime Specialist Relationship Specialty Start Date End Date Karen Avelar ANP [address] [place] [address] PCP - General Family Medicine 12/08/21 documented as of this encounter
--- OUTSIDE RECORDS SUMMARY | 2024-06-17 11:48 | XMS_ITS | Encounter Summary ---
Author Organization [employer] Address 75 [facility] 7 [place] [address] Care Team Providers Care Panel Beater Name Role Phone Karen Avelar Primary Care Provider [phone] Reason for Visit * Reason Onset Date Comments Med Refill 01/30/2023 Encounter Details Date Type Department Care Team ([facility] st Contact Info) Description 01/30/2023 Telephone [facility] MEDICINE [address] [place], [place] [phone] Karen Avelar ANP [address] [place], [place] [phone] Med Refill Social History Tobacco Use Types [...] Description 07/04/2024 11:00 AM EDT Office Visit [facility] MEDICINE [address] [place] [phone] Karen Avelar ANP [address] [place] [address] 08/01/2024 11:00 AM EDT Clinical Support [facility] MED & PEDS [address] [place] [address] Becky Pool, JIMMIE 505 [place] [address] documented as of this encounter Visit Diagnoses Not on filedocumented in this encounter Additional Health Concerns Assessment Noted Time PHQ-9 Depression Total Score: 14 023 1:08 PM EDT documented as of this encounter Care Teams Panel Beater Relationship Specialty Start Date End Date Karen Avelar ANP [address] [place] [address] PCP - General Family Medicine 12/08/21 documented as of this encounter
--- OUTSIDE RECORDS SUMMARY | 2024-06-17 11:48 | XMS_ITS | Clinical Summary ---
Author Organization [facility] Address [address] [place] [address] Care Team Providers Care Shellfish Bed Worker Name Role Phone Merna Read DOOR REPAIRER BUS Primary Care Provider [phone] Social History Tobacco Use Types Packs/Day Years [...] age to complete this topic Care Teams Shellfish Bed Worker Relationship Specialty Start Date End Date Merna Read NP 230 [place] [address] PCP - General Family Medicine 08/10/17
--- OUTSIDE RECORDS SUMMARY | 2024-06-17 11:48 | XMS_ITS | Clinical Summary ---
Author Organization [facility], Address [address] [place] [address] [place] [address] Phone Care Team Providers Care Security Shift Manager Name Role Phone Merna Read NP Primary Care Provider [phone] Allergies Active Allergy Reactions Criticality Noted Date [...] Active Naloxone HCl (Narcan) 4 MG/0.1ML liquid [place] as directed Ac tive OXcarbazepine (TRILEPTAL) 150 [...] AM EDT) Hemoglobin A1C 8.3(H) (4.0-5.6) % [facility] Comment: MONITORING: In known diabetic patients, hemoglobin A1c targets should be discussed with health care provider. DIAGNOSTIC USE: ??The [place] Diabetes Association (ADA) and the World Health [...] Supplement 1 Testing performed or reported by [facility], a Service of [facility], [address] [place] [address] Jude Villanueva MD, Jacquard Loom Fixer Blood (Blood, Venous) 10/14/2020 9:11 AM EDT 10/14/2020 9:21 AM EDT Janusz Francisco MD LAB BLOOD ORDERABLES Final Result Performing Organization Address City/State/[facility] Co de Phone Number [facility] from Last 3 Months or Most Recently Relevant to Health Maintenance Insurance ALTH Care Teams Security Shift Manager Relationship Specialty Start Date End Date Merna Read NP [facility] - General 02/12/19
--- OUTSIDE RECORDS SUMMARY | 2024-06-17 11:48 | XMS_ITS | Encounter Summary ---
Author Organization [employer] Address 75 [facility] 7 [place] [address] Care Team Providers Care Beekeeper Name Role Phone Karen Avelar Primary Care Provider [phone] Reason for Visit * Reason Onset Date Comments Med Refill 01/15/2024 Encounter Details Date Type Department Care Team (Late st Contact Info) Description 01/15/2024 Telephone [facility] MEDICINE [address] [place], [place] [phone] Karen Avelar ANP 230 [place], [place] [phone] Med Refill Social History Tobacco Use Types [...] 12 hr tablet To be sent to: [facility]/pharmacy #[id number] documented in this encounter Plan of Treatment Upcoming Encounters Date Type Department Care Team (Late st Contact Info) Description 07/04/2024 11:00 AM EDT Office Visit [facility] MEDICINE [address] [place] [address] Karen Avelar ANP [address] [place] [address] 08/01/2024 11:00 AM EDT Clinical Support [facility]S [address] [place], [place] [phone] Becky Pool, JIMMIE 505 [place] [address] documented as of this encounter Visit Diagnoses Not on filedocumented in this encounter Additional Health Concerns Assessment Noted Time PHQ-9 Depression Total Score: 21 024 2:14 PM EDT documented as of this encounter Care Teams Beekeeper Relationship Specialty Start Date End Date Karen Avelar ANP 230 [place] [address] PCP - General Family Medicine 12/08/21 documented as of this encounter
--- OUTSIDE RECORDS SUMMARY | 2024-06-17 11:48 | XMS_ITS | Encounter Summary ---
Author Organization [employer] Address 75 [facility] 7 [place] [address] Care Team Providers Care Bakery And Deli Sales Manager Name Role Phone Karen Avelar Primary Care Provider [phone] Reason for Visit * Reason Onset Date Comments Med Refill 11/21/2023 Encounter Details Date Type Department Care Team (Late st Contact Info) Description 11/21/2023 Telephone [facility] MEDICINE 230 [place], [place] [phone] Karen Avelar ANP 230 [place], [place] [phone] Med Refill Social History Tobacco Use Types [...] 12 hr tablet To be sent to: [facility]/PHARMACY #[id number] documented in this encounter Plan of Treatment Upcoming Encounters Date Type Department Care Team (Late st Contact Info) Description 07/04/2024 11:00 AM EDT Office Visit [facility] MEDICINE [address] [place] [address] Karen Avelar ANP [address] [place] [address] 08/01/2024 11:00 AM EDT Clinical Support [facility] MED [facility]EDS [address] [place], [place] [phone] Becky Pool, JIMMIE [address] [place] [address] documented as of this encounter Visit Diagnoses Not on filedocumented in this encounter Additional Health Concerns Assessment Noted Time PHQ-9 Depression Total Score: 21 024 2:14 PM EDT documented as of this encounter Care Teams Bakery And Deli Sales Manager Relationship Specialty Start Date End Date Karen Avelar ANP [address] [place] [address] PCP - General Family Medicine 12/08/21 documented as of this encounter
--- OUTSIDE RECORDS SUMMARY | 2024-06-17 11:48 | XMS_ITS | Encounter Summary ---
Author Organization [employer] Address 75 [facility] 7 [place] [address] Care Team Providers Care User Acceptance Tester Name Role Phone Karen Avelar Primary Care Provider [phone] Reason for Visit * Reason Onset Date Comments Med Refill 01/19/2024 Encounter Details Date Type Department Care Team (Late st Contact Info) Description 01/19/2024 Telephone [facility] MEDICINE 230 [place], [place] [phone] Karen Avelar ANP 230 [place], [place] [phone] Med Refill Social History Tobacco Use Types [...] 11:00 AM EDT Medication was sent to [id number] on 12/20/23 with 1 refill. * Telephone Encounter - Luz Mcclendon - 01/19/2024 10:54 AM EDT TC from pt requesting medication refill. Medications needing refill : tadalafil (Cialis) 5 MG tablet To be sent to: [id number] - [address] documented in this encounter Plan of Treatment Upcoming Encounters Date Type Department Care Team (Late st Contact Info) Description 07/04/2024 11:00 AM EDT Office Visit [facility] MEDICINE [address] [place], [place] [phone] Karen Avelar ANP [address] [place], [place] [phone] 08/01/2024 11:00 AM EDT Clinical Support [facility]S [address] [place] [address] Becky Pool RN [address] [place] [address] documented as of this encounter Visit Diagnoses Not on filedocumented in this encounter Additional Health Concerns Assessment Noted Time PHQ-9 Depression Total Score: 21 024 2:14 PM EDT documented as of this encounter Care Teams User Acceptance Tester Relationship Specialty Start Date End Date Karen Avelar ANP [address] [place] [address] PCP - General Family Medicine 12/08/21 documented as of this encounter
--- OUTSIDE RECORDS SUMMARY | 2024-06-17 11:48 | XMS_ITS | Encounter Summary ---
Author Organization [employer] Address 75 [facility] 7 [place] [address] Care Team Providers Care Bonsai Tender Name Role Phone Karen Avelar Primary Care Provider [phone] Reason for Visit * Reason Onset Date Comments Med Refill 03/28/2023 Encounter Details Date Type Department Care Team ([facility] st Contact Info) Description 03/28/2023 Telephone [facility] MEDICINE 230 [place], [place] [phone] Karen Avelar ANP 230 [place], [place] [phone] Med Refill Social History Tobacco Use Types [...] Description 07/04/2024 11:00 AM EDT Office Visit [facility] [address] [place] [address] Karen Avelar ANP [address] [place] [address] 08/01/2024 11:00 AM EDT Clinical Support [facility]S [address] [place] [address] Becky Pool, JIMMIE [address] [place] [address] documented as of this encounter Visit Diagnoses Not on filedocumented in this encounter Additional Health Concerns Assessment Noted Time PHQ-9 Depression Total Score: 14 023 1:08 PM EDT documented as of this encounter Care Teams Bonsai Tender Relationship Specialty Start Date End Date Karen Avelar ANP [address] [place] [address] PCP - General Family Medicine 12/08/21 documented as of this encounter
--- OUTSIDE RECORDS SUMMARY | 2024-06-17 11:48 | XMS_ITS | Encounter Summary ---
Author Organization [employer] Address 75 [facility] 7 [place] [address] Care Team Providers Care Cabin Supervisor Name Role Phone Karen Avelar Primary Care Provider [phone] Reason for Visit * Reason Onset Date Comments Med Refill 07/31/2023 Encounter Details Date Type Department Care Team (Late st Contact Info) Description 07/31/2023 Refill [facility]INE [address] [place] [address] Karen Avelar ANP 230 [place], [place] [phone] Social History Tobacco Use Types Packs/Day Years [...] 10-25 MG tablet To be sent to: [facility]/pharmacy #[id number] - [address] documented in this encounter Plan of Treatment Upcoming Encounters Date Type Department Care Team (Late st Contact Info) Description 07/04/2024 11:00 AM EDT Office Visit [facility] MED[facility]INE [address] [place] [address] Karen Avelar ANP [address] [place] [address] 08/01/2024 11:00 AM EDT Clinical Support [facility] [address] [place] [address] Becky Pool, RN [address] [place] [address] documented as of this encounter Visit Diagnoses Not on filedocumented in this encounter Additional Health Concerns Assessment Noted Time PHQ-9 Depression Total Score: 14 023 1:08 PM EDT documented as of this encounter Care Teams Cabin Supervisor Relationship Specialty Start Date End Date Karen Avelar ANP [address] [place] [address] PCP - General Family Medicine 12/08/21 documented as of this encounter
--- OUTSIDE RECORDS SUMMARY | 2024-06-17 11:48 | XMS_ITS | Encounter Summary ---
Author Organization [facility], Address [address] [place] [address] Phone Care Team Providers Care Automatic Tire Tester Name Role Phone Merna Read NP Primary Care Provider [phone] Encounter Details Date Type Department Care Team (Late st Contact Info) Description 07/05/2021 Documentation Only [facility], [address] [place] [phone] Janusz Francisco MD [address] [place] [address] Social History Tobacco Use Types [...] on filedocumented in this encounter Care Teams Automatic Tire Tester Relationship Specialty Start Date End Date Merna Read NP PCP - General 02/12/19 documented as of this encounter
--- OUTSIDE RECORDS SUMMARY | 2024-06-17 11:48 | XMS_ITS | Encounter Summary ---
Author Organization [employer] Address 75 [facility] 7t [place] [address] Care Team Providers Care Focuser Name Role Phone Karen Avelar LIBBY Primary Care Provider Encounter Details Date Type Department Care Team ([facility] st Contact Info) Description 08/06/2023 Orders Only [facility] [address] [place] [address] Provider, MD Lawrence Social History Tobacco Use [...] the past 12 months, has t he [place], gas, oil or water company threatened to [...] Office Visit [facility] 230 [place] [address] Karen Avelar ANP 230 [place] [address] 08/01/2024 11:00 AM EDT Clinical Support [facility] 505 [place] [address] Becky Pool, RN 505 [place] [address] documented as of this encounter Procedures Procedure [...] documented as of this encounter Care Teams Focuser Relationship Specialty Start Date End Date Karen Avelar ANP 230 [place] [address] PCP - General Family Medicine 12/08/21 documented as of this encounter
--- OUTSIDE RECORDS SUMMARY | 2024-06-17 11:48 | XMS_ITS | Encounter Summary ---
Author Organization [employer] Address 75 [facility] 7 [place] [address] Care Team Providers Care Clamshell Engineer Name Role Phone Karen Avelar Primary Care Provider [phone] Reason for Visit * Reason Onset Date Comments Med Refill 01/27/2023 Encounter Details Date Type Department Care Team ([facility] st Contact Info) Description 01/27/2023 Telephone [facility] MEDICINE 230 [place], [place] [phone] Karen Avelar ANP 230 [place], [place] [phone] Med Refill Social History Tobacco Use Types [...] 12 hr tablet to be sent to [facility]/pharmacy #[id number] documented in this encounter Plan of Treatment Upcoming Encounters Date Type Department Care Team (Late st Contact Info) Description 07/04/2024 11:00 AM EDT Office Visit [facility] MED[facility]INE 230 [place] [address] Karen Avelar ANP 230 [place] [address] 08/01/2024 11:00 AM EDT Clinical Support [facility] MED & PEDS 505 [place] [address] Becky Pool, JIMMIE 505 [place] [address] documented as of this encounter Visit Diagnoses Not on filedocumented in this encounter Additional Health Concerns Assessment Noted Time PHQ-9 Depression Total Score: 14 023 1:08 PM EDT documented as of this encounter Care Teams Clamshell Engineer Relationship Specialty Start Date End Date Karen Avelar ANP [address] [place] [phone] PCP - General Family Medicine 12/08/21 documented as of this encounter
== END 2024-06-17 11:38 | disposition home or self-care (01) ==
PROVIDERS: PCP Family Medicine; Visit Provider Physician Assistant
DX: E11.65 Type 2 diabetes mellitus with hyperglycemia (principal); Z79.4 Long term (current) use of insulin; E11.42 Type 2 diabetes mellitus with diabetic polyneuropathy

== ENCOUNTER → 2024-06-17 10:27 | Outpatient (BNVA) | payer OTHER, SELFPAY | PROVIDERS: PCP Family Medicine; Visit Provider Physician Assistant ==

== ENCOUNTER 2024-06-17 11:19 | Outpatient (REF) | payer OTHER, SELFPAY ==
[2024-06-17 11:46] LABS: MANUAL DIFF FLAG NO
[2024-06-17 11:51] LABS: Basophils Absolute Auto 0.1 X10*3/uL (0.0-0.2); Basophils Percent Auto 0.5 % (0-2); Eosinophils Absolute Auto 0.2 X10*3/uL (0.0-0.4); Eosinophils Percent Auto 1.3 % (0-4); Hemoglobin 14.8 g/dl (14.0-18.0); Imm Gran Abs Auto 0.05 X10*3/uL (0.00-0.03); Imm Gran Pct Auto 0.4 % (0.0-0.4); Mean Corpuscular HGB Conc 33.6 g/dl (31.0-36.0); Mean Corpuscular Hemoglobin 28.5 pg (27.0-33.0); Mean Corpuscular Volume 84.8 fL (80.0-98.0); Mean Platelet Volume 10.9 fL (9.4-12.4); Monocytes Absolute Auto 0.8 X10*3/uL (0.1-1.2); Monocytes Percent Auto 6.1 % (2-11); Neutrophils Percent Auto 76.7 % (45-73); Platelet Count 331 X10*3/uL (160-400); Red Blood Count 5.19 X10*6/uL (4.60-5.80); Red Cell Distribution Width 13.2 % (11.0-16.0)
[2024-06-17 11:58] LABS: Prothrombin Time 11.6 SEC (10.9-12.4)
[2024-06-17 12:00] LABS: Partial Thromboplastin Time 31.1 SEC (26.0-36.8)
[2024-06-17 12:05] LABS: Estimated Average Glucose 189 mg/dL; Hemoglobin A1c % 8.2 % (<6.0)
[2024-06-17 12:39] LABS: Anion Gap 14 (12-20); Blood Urea Nitrogen 27 mg/dL (9-16); Carbon Dioxide 25 mmol/L (22-29); Chloride 106 mmol/L (96-108); Estimated Glomerular Filt Rate 55; Glucose Random 254 mg/dL (60-115); Potassium 4.2 mmol/L (3.3-5.1); Sodium 141 mmol/L (135-145)
--- OUTSIDE RECORDS SUMMARY | 2024-06-17 12:59 | XMS_ITS | Encounter Summary ---
Author Organization [employer] Address 75 [facility] 7 [place] [address] Care Team Providers Care Service Desk Team Lead Name Role Phone Karen Avelar Primary Care Provider [phone] Encounter Details Date Type Department Care Team [...] Description 07/04/2024 11:00 AM EDT Office Visit [facility] MEDICINE 230 [place] [address] Karen Avelar ANP 230 [place] [address] 08/01/2024 11:00 AM EDT Clinical Support [facility] MED & PEDS 505 [place], [place] [phone] Becky Pool, RN 505 [place] [address] documented as of this encounter Procedures Procedure Name Priority Date/Time Associated Diagnosis Comments GLUCOSE, WHOLE BLOOD Routine 06/17/2024 10:45 AM EDT documented in this encounter Results * (ABNORMAL) Glucose, Whole Blood (06/17/2024 10:45 AM EDT) Glucose, Whole Blood 262(H) 60 - 115 mg/dL [facility] Comment:METER #: [id number] 5Testing performed in the Endocrinology Department [address] , [address], [facility]. 06/17/2024 10:4 5 AM EDT 06/17/2024 10:49 AM EDT us Generic External Data Provider LAB BLOOD ORDERAB LES Final Result [facility] [address] [place] [address] [phone] documented in this encounter Visit Diagnoses Not on filedocumented in this encounter Additional Health Concerns Assessment Noted Time PHQ-9 Depression Total Score: 21 024 2:14 PM EDT documented as of this encounter Care Teams Service Desk Team Lead Relationship Specialty Start Date End Date Karen Avelar ANP 230 [place] [address] PCP - General Family Medicine 12/08/21 documented as of this encounter
--- OUTSIDE RECORDS SUMMARY | 2024-06-17 12:59 | XMS_ITS | Encounter Summary ---
Author Organization [employer] Address 75 [facility] 7 [place] [address] Care Team Providers Care Museum Guide Name Role Phone Karen Avelar Primary Care Provider [phone] Reason for Visit * Reason Onset Date Comments Referral 09/15/2022 Encounter Details Date Type Department Care Team (Late st Contact Info) Description 09/15/2022 Telephone [facility] MEDICINE 230 [place] [address] Karen Avelar ANP 230 [place], [place] [phone] Referral Social History Tobacco Use Types Packs/Day [...] 11:00 AM EDT Office Visit [facility] MEDICINE [address] [place] [address] Karen Avelar ANP 230 [place] [address] 08/01/2024 11:00 AM EDT Clinical Support [facility] MED & PEDS 505 [place], [place] [phone] Becky Pool, RN 505 [place] [address] documented as of this encounter Visit Diagnoses Not on filedocumented in this encounter Care Teams Museum Guide Relationship Specialty Start Date End Date Karen Avelar ANP [address] [place] [address] PCP - General Family Medicine 12/08/21 documented as of this encounter
--- OUTSIDE RECORDS SUMMARY | 2024-06-17 12:59 | XMS_ITS | Clinical Summary ---
Author Organization [employer] Address [address] [place] [address] 7 [place] [address] Care Team Providers Care Mutual Funds Agent Name Role Phone Karen Avelar Primary Care Provider Allergies Active Allergy Reactions Criticality Noted Date [...] naloxone (Narcan) 4 mg/0.1 mL nasal sprayIndications :parts counterman prescription opiate use Administer 1 spray (4 [...] Diagnosed Date Acute cough 03/28/2024 COVID 03/28/2024 parts counterman (current) use of opiate analgesic 03/10 Depression, recurrent 10/10/2023 Hypertension associated with diabetes (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 Boyer Has [...] DEPARTMENT Provider, Generic External Data 06/03/2024 Refill [facility] [address] [place] [phone] Karen Avelar, LIBBY Primary osteoarthritis involving multiple joints 05/13/2024 11:00 AM EST Telemedicine [facility] MED [facility] PEDS 505 [place] [address] Becky Pool, RN parts counterman (current) use of opiate analgesic 05/13/2024 Telephone [facility] 230 [place] [address] Karen Avelar ANP Durable Medical Equipment (Shoe horn, sock aid, bariatric walker) 05/13/2024 Telephone [facility] 505 [place] [address] Becky Pool, JIMMIE 05/13/2024 Travel 05/06/2024 11:00 AM EST Telemedicine [facility] [address] [place] [address] Karen Avelar ANP Type 2 diabetes mellitus with stage 3 chronic kidney disease, with long-term current use of insulin, unspecified whether stage 3a or 3b CKD (CMS/HCC) (Primary Dx); Hypotestosteronism; Diabetic polyneuropathy associated with type 2 diabetes mellitus (CMS/HCC); nursing home (current) use of opiate analgesic; Primary osteoarthritis involving multiple joints 05/06/2024 Travel 05/06/2024 Refill [facility] [address] [place] [address] Karen Avelar ANP Primary osteoarthritis involving multiple joints 04/30/2024 Telephone [facility] [address] [place] [address] Karen Avelar ANP Referral 04/23/2024 Telephone [facility] PED[facility] 505 [place] [address] Becky Pool, JIMMIE 04/23/2024 Refill [facility] 505 [place] [address] Becky Pool, RN 04/23/2024 Telephone [facility] [address] [place] [phone] Karen Avelar ANP Med refill 04/04/2024 Telephone [facility] PED[facility] 505 [place] [address] Becky Pool, JIMMIE 04/04/2024 Telephone [facility] 505 [place] [address] Becky Pool, JIMMIE 04/02/2024 Telephone [facility] 505 [place] [address] Becky Pool, JIMMIE 04/02/2024 [facility] Health Information Management [address] [place] [phone] Karen Avelar ANP PSG ORDER 04/02/[address] [address] Karen Avelar ANP Medication Question 03/29/[address] [address] Karen Avelar ANP Nurse Triage 03/28/2024 1:30 PM EST Telemedicine [facility] MED [facility] PEDS [address] [place] [phone] Geoffrey Kaur MD Acute cough (Primary Dx); COVID 03/28/2024 Travel 03/28/[address] [address] Karen Avelar ANP Nurse Triage 03/26/[address] [address] Karen Avelar ANP Nurse Triage 03/22/[address] [address] Karen Avelar ANP Medication Question 03/21/2024 10:30 AM EST Office Visit [address] [address] Karen Avelar ANP Mixed hyperlipidemia (Primary Dx); Hypertension with albuminuria; Obstructive sleep apnea syndrome; Primary osteoarthritis involving multiple joints; Type 2 diabetes mellitus with stage 3 chronic kidney disease, with long-term current use of insulin, unspecified whether stage 3a or 3b CKD (CMS/HCC); parts counterman (current) use of opiate 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 06/17/2024 10:4 5 AM EDT 06/17/2024 10:49 AM EDT us Generic External Data Provider LAB BLOOD ORDERAB LES Final Result [facility] [address] [place] [phone] * (ABNORMAL) Urinalysis with Reflex to Microscopic (06/12/2024 9:37 AM EST) Color Urine Yellow [facility] Appearance Urine Cloudy [facility] PH 5.5 5.0 - 9.0 [facility] Glucose Urine UA 100(A) Negative mg/dL [facility] Urine Blood Negative Negative [facility] Specific [place] - Urine 1.020 1.005 - 1.025 [facility] Urine Protein Negative Neg-Trace mg/dL [facility] Urine Ketones Negative Negative mg/dL [facility] Nitrite Urine Negative Negative [facility] Leukocyte Esterase Urine Negative Negative [facility] 06/12/2024 9:37 AM EST 06/12/2024 5:49 PM EST us Generic External Data Provider LAB URINE ORDERAB LES Final Result Performing Organization Address [facility]/ZIP Co de Phone Number [facility] [address] [place] [phone] * Urine Protein, Total, Random without Creatinine (06/12/2024 9:37 AM EST) Protein, Total, Random Urine <7 <12 mg/dL [facility] 06/12/2024 9:37 AM EST 06/12/2024 5:49 PM EST us Generic External Data Provider LAB URINE ORDERAB LES Final Result Performing Organization Address [facility] Co de Phone Number [facility] [address] [place] [phone] * Creatinine, Random Urine (06/12/2024 9:37 AM EST) Creatinine, Urine 143.39 mg/dL [facility] 06/12/2024 9:37 AM EST 06/12/2024 5:49 PM EST us Generic External Data Provider LAB URINE ORDERAB LES Final Result Performing Organization Address [facility]/ZIP Co de Phone Number [facility] [address] [place] [phone] * Vitamin D, 25-Hydroxy, Total, Immunoassay (06/12/2024 9:27 AM EST) Vitamin D 25-OH Total 47.5 >30 ng/mL [facility] Comment:Health Based Referen ce Values*< 20 ng/mL Ucdinczdz35-91 ng/mL Insufficient> 30 ng/mL Sufficient*Trini ALLEN. N [...] ORDERAB LES Final Result Performing Organization Address [facility] Co de Phone Number [facility] [address] [place] [phone] * (ABNORMAL) CBC (06/12/2024 9:27 AM EST) White Blood Count 14.3(H) 4.8 - 10.8 X10*3/uL [facility] Red Blood Count 5.28 4.60 - 5.80 X10*6/uL [facility] Hemoglobin 15.2 14.0 - 18.0 g/dl [facility] Hematocrit 45.6 42.0 - 52.0 % [facility] Mean Corpuscular Volume 86.4 80.0 - 98.0 fL [facility] Mean Corpuscular Hemoglobin 28.8 27.0 - 33.0 pg [facility] Mean Corpuscular HGB Conc 33.3 31.0 - 36.0 g/dl [facility] Red Cell Distribution Width 13.4 11.0 - 16.0 % [facility] Platelet Count 346 160 - 400 X10*3/uL [facility] Mean Platelet Volume 11.6 9.4 - 12.4 fL [facility] NRBC Pct Auto 0.0 0.0 - 0.2 /100WBC [facility] NRBC Abs Auto 0.000 0.0 - 0.012 X10*3/uL [facility] 06/12/2024 9:27 AM EST 06/12/2024 5:49 PM EST Generic External Data Provider LAB BLOOD ORDERAB LES Final Result Performing Organization Address [facility] de Phone Number [facility] [address] [place] [phone] * (ABNORMAL) Phosphate (As Phosphorus) (06/12/2024 9:27 AM EST) Phosphorus 2.0(L) 2.7 - 4.5 mg/dL [facility] 06/12/2024 9:27 AM EST 06/12/2024 5:49 PM EST Generic External Data Provider LAB BLOOD ORDERAB LES Final Result Performing Organization Address [facility] Co de Phone Number [facility] [address] [place] [phone] * (ABNORMAL) PTH, Intact Without Calcium (06/12/2024 9:27 AM EST) Parathyroid Hormone, Intact 150.6(H) 8.7 - 77.1 pg/mL [facility] 06/12/2024 9:27 AM EST 06/12/2024 5:49 PM EST us Generic External Data Provider LAB BLOOD ORDERAB LES Final Result Performing Organization Address [facility]/ZIP Co de Phone Number [facility] [address] [place] [phone] * (ABNORMAL) Hemoglobin A1c (06/12/2024 9:27 AM EST) Hemoglobin A1c 8.2(H) <6.0 % [facility] Comment:Hemoglobin A1C Refer ence Range Adults: 4.8 - 6.0 % Non diabetic: < 6.0 % Goal: < 7.0 %Additional Action Suggested: > 8.0 %Note: Hemoglobin A1c results are invalid for patients with abnormal amounts of HbF. Blood transfusions may impact the HbA1c concentration in the patient sample. Estimated Average Glucose 189 mg/dL [facility] Comment:eAG = Estimated ave rage glucose which is %A1C expressed asaverage glucose, using the formula of the K9E-QyasnxsBkomtxw Glucose study (ADAG), Diabetes Care, Vol.31,#8,Nov. 2007 06/12/2024 9:27 AM EST 06/12/2024 5:49 PM EST us Generic External Data Provider LAB BLOOD ORDERAB LES Final Result Performing Organization Address [facility] Co de Phone Number [facility] [address] [place] [phone] * (ABNORMAL) Comprehensive Metabolic Panel (06/12/2024 9:27 AM EST) Sodium 137 135 - 145 mmol/L [facility] Potassium 4.0 3.3 - 5.1 mmol/L [facility] Chloride 104 96 - 108 mmol/L [facility] Carbon Dioxide 25 22 - 29 mmol/L [facility] Anion Gap 12 12 - 20 [facility] Urea Nitrogen (BUN) 30(H) 9 - 16 mg/dL [facility] Creatinine, Serum 1.42(H) 0.5 - 1.4 mg/dL [facility] Estimated Glomerular Filt Rate 51 [facility] Comment:Chronic Kidney Disea se: Estimated GFR < 60 mL/min/1.06r7Apeyrh Kidney Disease: Estimated GFR < 15 mL/min/1.73m2 Glucose 207(H) 60 - 115 mg/dL [facility] Calcium 9.6 8.4 - 10.2 mg/dL [facility] Bilirubin, Total 0.4 0.0 - 1.0 mg/dL [facility] Aspartate Amino Transferase 29 5 - 37 U/L [facility] Alanine Aminotransferase 23 0 - 40 U/L [facility] Total Protein 8.1(H) 6.5 - 8.0 g/dL [facility] Albumin Level 4.5 3.5 - 5.0 g/dL [facility] Alkaline Phosphatase 119(H) 39 - 117 U/L [facility] 06/12/2024 9:27 AM EST 06/12/2024 5:49 PM EST us Generic External Data Provider LAB BLOOD ORDERAB LES Final Result [facility] [address] [place] [phone] * Lipid Panel, Standard (08/10/2022 10:13 AM EDT) Triglycerides 111 mg/dL [facility] Comment:Desirable Triglyceri de: less than 150 mg/dLBorderline High Triglyceride 150-199 mg/dLHigh Triglyceride: 200-499 mg/dLVery High Triglyceride: greater than or equal to 5OO mg/dL Cholesterol 199 mg/dL [facility] Comment:Desirable Cholestero l: less than 200 mg/dLBorderline High Cholesterol: 200-239 mg/dLHigh Cholesterol: greater than 239 mg/dL LDL Cholesterol Calculated 140 mg/dl [facility] Comment:Desirable LDL: less than 100 mg/dLNear Optimal/Above Optimal LDL: 110- 129 mg/dLBorderline High LDL: 130-159 mg/dLHigh LDL: 160-189 mg/dLVery High LDL: greater than or equal to 190 mg/dL HDL Cholesterol 37 mg/dL [facility] Comment:Desirable HDL: great er than 40 mg/dL Note: This HDL assay may give artificially low results in patients with liver disease. 08/10/2022 10:1 3 AM EDT 08/10/2022 1:36 PM EDT [facility] External Provider LAB BLO OD ORDERABLES Final Result [facility] [address] [place] [phone] * Hm Colonoscopy (03/02/2016 4:57 PM EST) Historical Provider MD HEALTH MAINTENANCE Final Result from Last 3 Months or Most Recently Relevant to Health Maintenance [place] [address] [place] [address] - [employer] Care Teams Mutual Funds Agent Relationship Specialty Start Date End Date Karen Avelar ANP [address] [place] [phone] PCP - General Family Medicine 12/08/21
--- OUTSIDE RECORDS SUMMARY | 2024-06-17 12:59 | XMS_ITS | Clinical Summary ---
Author Organization [facility] Address [address] [place] [address] Care Team Providers Care Cardiograph Operator Name Role Phone Merna Read HOSIERY KNITTER Primary Care Provider [phone] Social History Tobacco Use Types Packs/Day Years [...] age to complete this topic Care Teams Cardiograph Operator Relationship Specialty Start Date End Date Merna Read NP [address] [facility] [place] [address] PCP - General Family Medicine 08/10/17
--- OUTSIDE RECORDS SUMMARY | 2024-06-17 12:59 | XMS_ITS | Encounter Summary ---
Author Organization [employer] Address 75 [facility] 7 [place] [address] Care Team Providers Care Software Development Analyst Name Role Phone Karen Avelar Primary Care Provider [phone] Reason for Visit * Reason Onset Date Comments Med Refill 01/30/2023 Encounter Details Date Type Department Care Team ([facility] st Contact Info) Description 01/30/2023 Telephone [facility] [address] [place], [place] [phone] Karen Avelar ANP [address] [place], [place] [phone] Med Refill Social History Tobacco Use Types [...] Description 07/04/2024 11:00 AM EDT Office Visit [facility] [address] [place] [phone] Karen Avelar ANP [address] [place] [address] 08/01/2024 11:00 AM EDT Clinical Support [facility] [address] [place] [address] Becky Pool, JIMMIE [address] [place] [address] documented as of this encounter Visit Diagnoses Not on filedocumented in this encounter Additional Health Concerns Assessment Noted Time PHQ-9 Depression Total Score: 14 023 1:08 PM EDT documented as of this encounter Care Teams Software Development Analyst Relationship Specialty Start Date End Date Karen Avelar ANP [address] [place] [phone] PCP - General Family Medicine 12/08/21 documented as of this encounter
--- OUTSIDE RECORDS SUMMARY | 2024-06-17 12:59 | XMS_ITS | Encounter Summary ---
Author Organization [employer] Address 75 [facility] 7 [place] [address] Care Team Providers Care Sample Patternmaker Name Role Phone Karen Avelar Primary Care Provider [phone] Reason for Visit * Reason Onset Date Comments Med Refill 11/21/2023 Encounter Details Date Type Department Care Team (Late st Contact Info) Description 11/21/[address] [facility] MED[facility] [address] [place], [place] [phone] Karen Avelar ANP [address] [place], [place] [phone] Med Refill Social History Tobacco Use Types [...] 12 hr tablet To be sent to: [facility] #[id number] documented in this encounter Plan of Treatment Upcoming Encounters Date Type Department Care Team (Late st Contact Info) Description 07/04/2024 11:00 AM EDT Office Visit [facility] MED[facility] [address] [place] [address] Karen Avelar ANP [address] [place] [address] 08/01/2024 11:00 AM EDT Clinical Support [facility] [address] [place], [place] [phone] Becky Pool, JIMMIE [address] [place] [address] documented as of this encounter Visit Diagnoses Not on filedocumented in this encounter Additional Health Concerns Assessment Noted Time PHQ-9 Depression Total Score: 21 024 2:14 PM EDT documented as of this encounter Care Teams Sample Patternmaker Relationship Specialty Start Date End Date Karen Avelar ANP [address] [place] [address] PCP - General Family Medicine 12/08/21 documented as of this encounter
--- OUTSIDE RECORDS SUMMARY | 2024-06-17 12:59 | XMS_ITS | Encounter Summary ---
Author Organization [employer] Address [address] [facility] 7 [place] [address] Care Team Providers Care [employer] Team Member Name Role Phone Karen Avelar Primary Care Provider [phone] Encounter Details Date Type Department Care Team [...] Description 07/04/2024 11:00 AM EDT Office Visit [facility] MEDICINE [address] [place], [place] [phone] Karen Avelar ANP 230 [place] [address] 08/01/2024 11:00 AM EDT Clinical Support [facility] CHC MED & PEDS 505 [place] [address] Becky Pool, RN [address] [place] [address] documented as of this encounter Procedures Procedure [...] Protein, Total, Random Urine <7 <12 mg/dL [facility] 06/12/2024 9:37 AM EST 06/12/2024 5:49 PM EST Generic External Data Provider LAB URINE ORDERAB LES Final Result Performing Organization Address City/[facility] Co de Phone Number [facility] [address] [place] [phone] * Creatinine, Random Urine (06/12/2024 9:37 AM EST) Creatinine, Urine 143.39 mg/dL [facility] 06/12/2024 9:37 AM EST 06/12/2024 5:49 PM EST [email or web address] External Data Provider LAB URINE ORDERAB LES Final Result Performing Organization Address [facility] Co de Phone Number [facility] [address] [place] [phone] * (ABNORMAL) Urinalysis with Reflex to Microscopic (06/12/2024 9:37 AM EST) Color Urine Yellow [facility] Appearance Urine Cloudy [facility] PH 5.5 5.0 - 9.0 [facility] Glucose Urine UA 100(A) Negative mg/dL [facility] Urine Blood Negative Negative [facility] Specific [place] - Urine 1.020 1.005 - 1.025 [facility] Urine Protein Negative Neg-Trace mg/dL [facility] Urine Ketones Negative Negative mg/dL [facility] Nitrite Urine Negative Negative [facility] Leukocyte Esterase Urine Negative Negative [facility] 06/12/2024 9:37 AM EST 06/12/2024 5:49 PM EST Generic External Data Provider LAB URINE ORDERAB LES Final Result Performing Organization Address [facility]/ZIP Co de Phone Number [facility] [address] [place] [phone] * Vitamin D, 25-Hydroxy, Total, Immunoassay (06/12/2024 9:27 AM EST) Vitamin D 25-OH Total 47.5 >30 ng/mL [facility] Comment:Health Based Referen ce Values*< 20 ng/mL Yskwiuacp31-16 ng/mL Insufficient> 30 ng/mL Sufficient*Trini ALLEN. N [...] Performing Organization Address City/[facility]/ZIP Co de Phone Number [facility] [address] [place] [phone] * (ABNORMAL) CBC (06/12/2024 9:27 AM EST) White Blood Count 14.3(H) 4.8 - 10.8 X10*3/uL [facility] Red Blood Count 5.28 4.60 - 5.80 X10*6/uL [facility] Hemoglobin 15.2 14.0 - 18.0 g/dl [facility] Hematocrit 45.6 42.0 - 52.0 % [facility] Mean Corpuscular Volume 86.4 80.0 - 98.0 fL [facility] Mean Corpuscular Hemoglobin 28.8 27.0 - 33.0 pg [facility] Mean Corpuscular HGB Conc 33.3 31.0 - 36.0 g/dl [facility] Red Cell Distribution Width 13.4 11.0 - 16.0 % [facility] Platelet Count 346 160 - 400 X10*3/uL [facility] Mean Platelet Volume 11.6 9.4 - 12.4 fL [facility] NRBC Pct Auto 0.0 0.0 - 0.2 /100WBC [facility] NRBC Abs Auto 0.000 0.0 - 0.012 X10*3/uL [facility] 06/12/2024 9:27 AM EST 06/12/2024 5:49 PM EST us Generic External Data Provider LAB BLOOD ORDERAB LES Final Result Performing Organization Address City/[facility]/ZIP Co de Phone Number [facility] [address] [place] [phone] * (ABNORMAL) PTH, Intact Without Calcium (06/12/2024 9:27 AM EST) Parathyroid Hormone, Intact 150.6(H) 8.7 - 77.1 pg/mL [facility] 06/12/2024 9:27 AM EST 06/12/2024 5:49 PM EST us Generic External Data Provider LAB BLOOD ORDERAB LES Final Result Performing Organization Address [facility]/ZIP Co de Phone Number [facility] [address] [place] [phone] * (ABNORMAL) Phosphate (As Phosphorus) (06/12/2024 9:27 AM EST) Phosphorus 2.0(L) 2.7 - 4.5 mg/dL [facility] 06/12/2024 9:27 AM EST 06/12/2024 5:49 PM EST us Generic External Data Provider LAB BLOOD ORDERAB LES Final Result Performing Organization Address City/State/[facility] Co de Phone Number [facility] [address] [place] [address] [phone] * (ABNORMAL) Comprehensive Metabolic Panel (06/12/2024 9:27 AM EST) Sodium 137 135 - 145 mmol/L [facility] Potassium 4.0 3.3 - 5.1 mmol/L [facility] Chloride 104 96 - 108 mmol/L [facility] Carbon Dioxide 25 22 - 29 mmol/L [facility] Anion Gap 12 12 - 20 [facility] Urea Nitrogen (BUN) 30(H) 9 - 16 mg/dL [facility] Creatinine, Serum 1.42(H) 0.5 - 1.4 mg/dL [facility] Estimated Glomerular Filt Rate 51 [facility] Comment:Chronic Kidney Disea se: Estimated GFR < 60 mL/min/1.91t3Uxjhdx Kidney Disease: Estimated GFR < 15 mL/min/1.73m2 Glucose 207(H) 60 - 115 mg/dL [facility] Calcium 9.6 8.4 - 10.2 mg/dL [facility] Bilirubin, Total 0.4 0.0 - 1.0 mg/dL [facility] Aspartate Amino Transferase 29 5 - 37 U/L [facility] Alanine Aminotransferase 23 0 - 40 U/L [facility] Total Protein 8.1(H) 6.5 - 8.0 g/dL [facility] Albumin Level 4.5 3.5 - 5.0 g/dL [facility] Alkaline Phosphatase 119(H) 39 - 117 U/L [facility] 06/12/2024 9:27 AM EST 06/12/2024 5:49 PM EST us Generic External Data Provider LAB BLOOD ORDERAB LES Final Result Performing Organization Address [facility] Co de Phone Number [facility] [address] [place] [phone] * (ABNORMAL) Hemoglobin A1c (06/12/2024 9:27 AM EST) Hemoglobin A1c 8.2(H) <6.0 % [facility] Comment:Hemoglobin A1C Refer ence Range Adults: 4.8 - 6.0 % Non diabetic: < 6.0 % Goal: < 7.0 %Additional Action Suggested: > 8.0 %Note: Hemoglobin A1c results are invalid for patients with abnormal amounts of HbF. Blood transfusions may impact the HbA1c concentration in the patient sample. Estimated Average Glucose 189 mg/dL [facility] Comment:eAG = Estimated ave rage glucose which is %A1C expressed asaverage glucose, using the formula of the U9N-AibzqzzXdtipwv Glucose study (ADAG), Diabetes Care, Vol.31,#8,Nov. 2007 06/12/2024 9:27 AM EST 06/12/2024 5:49 PM EST us Generic External Data Provider LAB BLOOD ORDERAB LES Final Result Performing Organization Address [facility] de Phone Number [facility] [address] [place] [phone] documented in this encounter Visit Diagnoses Not on filedocumented in this encounter Additional Health Concerns Assessment Noted Time PHQ-9 Depression Total Score: 21 024 2:14 PM EDT documented as of this encounter Care Teams [employer] Team Member Relationship Specialty Start Date End Date Karen Avelar ANP [address] [place] [address] PCP - General Family Medicine 12/08/21 documented as of this encounter
--- OUTSIDE RECORDS SUMMARY | 2024-06-17 12:59 | XMS_ITS | Encounter Summary ---
Author Organization [employer] Address 75 [facility] 7 [place] [address] Care Team Providers Care Roofing Technician Name Role Phone Karen Avelar Primary Care Provider [phone] Reason for Visit * Reason Onset Date Comments Durable Medical Equipment 05/13/2024 Shoe h orn, sock aid, bariatric walker Encounter Details Date Type Department Care Team ([facility] st Contact Info) Description 05/13/2024 Telephone [facility] MEDICINE [address] [place], [place] [phone] Karen Avelar ANP [address] [place], [place] [phone] Durable Medical Equipment (Shoe horn, sock aid, [...] and up loaded into Media. Message to [facility] Care ManagerBriana Morales was sent via [employer]. * Telephone Encounter - Chaya Holbrook - 05/13/2024 1:11 PM EST DME RX for Walker and shoe horn and sock aid generated and placed on providers desk for review and signature. * Telephone Encounter - Chaya Holbrook - 05/13/2024 1:10 PM EST ----- Message from Briana Vale sent at 05/13/2024 10:11 AM EST ----- Regarding: DME request Greetings, I am (Briana Morales), Chief Design Engineer for [facility] Care Management, requesting the following DME???s on [...] this request, feel free to contact the Chief Design Engineer below. [employer] Custodian: Briana Morales E-mail: [email or web address] Knurling Machine Tender: Cortney Sanchez E-mail: [email or web address] Thanks in advance for your assistance with this request. Sincerely, [facility] Care Management documented in this encounter Plan of Treatment Upcoming Encounters Date Type Department Care Team ([facility] st Contact Info) Description 07/04/2024 11:00 AM EDT Office Visit [facility] MEDICINE [address] [place] [address] Karen Avelar ANP [address] [place] [address] 08/01/2024 11:00 AM EDT Clinical Support [facility] CHC MED & PEDS [address] [place] [address] Becky Pool, RN 505 [place] [address] documented as of this encounter Visit Diagnoses Not on filedocumented in this encounter Additional Health Concerns Assessment Noted Time PHQ-9 Depression Total Score: 21 024 2:14 PM EDT documented as of this encounter Care Teams Roofing Technician Relationship Specialty Start Date End Date Karen Avelar ANP [address] [place] [phone] PCP - General Family Medicine 12/08/21 documented as of this encounter
--- OUTSIDE RECORDS SUMMARY | 2024-06-17 12:59 | XMS_ITS | Encounter Summary ---
Author Organization [employer] Address [address] [facility] 7 [place] [address] Care Team Providers Care Senior Android Software Engineer Name Role Phone Karen Avelar Primary Care Provider [phone] Reason for Visit * Reason Onset Date Comments Prior Authorization 09/07/2022 Encounter Details Date Type Department Care Team (Late st Contact Info) Description 09/07/2022 Telephone [facility] MEDICINE [address] [place], [place] [phone] Karen Avelar ANP 230 [place], [place] [phone] Prior Authorization Social History Tobacco Use Types [...] - 09/07/2022 11:47 AM EDT [facility]c [facility] [place] pharmacy requesting a PA for medication OxyCONTIN 20 MG 12 hr tablet documented in this encounter Plan of Treatment Upcoming Encounters Date Type Department Care Team (Late st Contact Info) Description 07/04/2024 11:00 AM EDT Office Visit [facility] MEDICINE [address] [place] [address] Karen Avelar ANP [address] [place] [address] 08/01/2024 11:00 AM EDT Clinical Support [facility] MED & PEDS 505 [place] [address] Becky Pool, RN 505 [place] [address] documented as of this encounter Visit Diagnoses Not on filedocumented in this encounter Care Teams Senior Android Software Engineer Relationship Specialty Start Date End Date Karen Avelar ANP [address] [place] [address] PCP - General Family Medicine 12/08/21 documented as of this encounter
--- OUTSIDE RECORDS SUMMARY | 2024-06-17 12:59 | XMS_ITS | Encounter Summary ---
Author Organization [employer] Address 75 [facility] 7 [place] [address] Care Team Providers Care Fork Assembler Name Role Phone Karen Avelar Primary Care Provider [phone] Reason for Visit * Reason Onset Date Comments Med Refill 01/27/2023 Encounter Details Date Type Department Care Team ([facility] st Contact Info) Description 01/27/2023 Telephone [facility] MEDICINE [address] [place], [place] [phone] Karen Avelar ANP 230 [place], [place] [phone] Med Refill Social History Tobacco Use Types [...] hr tablet to be sent to [facility]/pharmacy #[id number] documented in this encounter Plan of Treatment Upcoming Encounters Date Type Department Care Team (Late st Contact Info) Description 07/04/2024 11:00 AM EDT Office Visit [facility] MEDICINE [address] [place] [address] Karen Avelar ANP [address] [place] [address] 08/01/2024 11:00 AM EDT Clinical Support [facility] CHC MED & PEDS [address] [place] [address] Becky Pool, JIMMIE [address] [place] [address] documented as of this encounter Visit Diagnoses Not on filedocumented in this encounter Additional Health Concerns Assessment Noted Time PHQ-9 Depression Total Score: 14 023 1:08 PM EDT documented as of this encounter Care Teams Fork Assembler Relationship Specialty Start Date End Date Karen Avelar ANP [address] [place] [address] PCP - General Family Medicine 12/08/21 documented as of this encounter
--- OUTSIDE RECORDS SUMMARY | 2024-06-17 12:59 | XMS_ITS | Encounter Summary ---
Author Organization [employer] Address 75 [facility] 7 [place] [address] Care Team Providers Care Producer Assistant Name Role Phone Karen Avelar Primary Care Provider [phone] Reason for Visit * Reason Onset Date Comments Med Refill 01/15/2024 Encounter Details Date Type Department Care Team (Late st Contact Info) Description 01/15/2024 Telephone [facility] MEDICINE 230 [place], [place] [phone] Karen Avelar ANP 230 [place], [place] [phone] Med Refill Social History Tobacco Use Types [...] hr tablet To be sent to: [facility]/pharmacy #[id number] documented in this encounter Plan of Treatment Upcoming Encounters Date Type Department Care Team (Late st Contact Info) Description 07/04/2024 11:00 AM EDT Office Visit [facility] MEDICINE [address] [place] [address] Karen Avelar ANP [address] [place] [address] 08/01/2024 11:00 AM EDT Clinical Support [facility] CH[facility] MED & PEDS 505 [place], [place] [phone] Becky Pool, JIMMIE [address] [place] [address] documented as of this encounter Visit Diagnoses Not on filedocumented in this encounter Additional Health Concerns Assessment Noted Time PHQ-9 Depression Total Score: 21 024 2:14 PM EDT documented as of this encounter Care Teams Producer Assistant Relationship Specialty Start Date End Date Karen Avelar ANP 230 [place] [address] PCP - General Family Medicine 12/08/21 documented as of this encounter
--- OUTSIDE RECORDS SUMMARY | 2024-06-17 12:59 | XMS_ITS | Encounter Summary ---
Author Organization [employer] Address 75 [facility] 7 [place] [address] Care Team Providers Care Office Bookkeeper Name Role Phone Karen Avelar Primary Care Provider [phone] Reason for Visit * Reason Onset Date Comments Med Refill 12/19/2023 Encounter Details Date Type Department Care Team (Late st Contact Info) Description 12/19/2023 Telephone [facility] MEDICINE 230 [place], [place] [phone] Karen Avelar ANP 230 [place], [place] [phone] Med Refill Social History Tobacco Use Types [...] immediate release tablet To be sent to: [facility]/pharmacy #[id number] documented in this encounter Plan of Treatment Upcoming Encounters Date Type Department Care Team (Late st Contact Info) Description 07/04/2024 11:00 AM EDT Office Visit [facility] MEDICINE [address] [place] [address] Karen Avelar ANP [address] [place] [address] 08/01/2024 11:00 AM EDT Clinical Support [facility] MED & PEDS 505 [place], [place] [phone] Becky Pool, JIMMIE 505 [place] [address] documented as of this encounter Visit Diagnoses Not on filedocumented in this encounter Additional Health Concerns Assessment Noted Time PHQ-9 Depression Total Score: 21 024 2:14 PM EDT documented as of this encounter Care Teams Office Bookkeeper Relationship Specialty Start Date End Date Karen Avelar ANP 230 [place] [address] PCP - General Family Medicine 12/08/21 documented as of this encounter
--- OUTSIDE RECORDS SUMMARY | 2024-06-17 12:59 | XMS_ITS | Encounter Summary ---
Author Organization [employer] Address 75 [facility] 7 [place] [address] Care Team Providers Care Slope Tender Name Role Phone Karen Avelar Primary Care Provider [phone] Reason for Visit * Reason Onset Date Comments Med Refill 06/03/2024 Encounter Details Date Type Department Care Team (Late st Contact Info) Description 06/03/2024 Refill [facility] MEDICINE 230 [place] [address] Karen Avelar ANP 230 [place], [place] [phone] Primary osteoarthritis involving multiple joints Social History [...] 12 hr tablet To be sent to: [facility]/pharmacy #[id number] documented in this encounter Plan of Treatment Upcoming Encounters Date Type Department Care Team (Late st Contact Info) Description 07/04/2024 11:00 AM EDT Office Visit [facility] MEDICINE [address] [place] [address] Karen Avelar ANP [address] [place] [address] 08/01/2024 11:00 AM EDT Clinical Support [facility] CHC MED & PEDS [address] [place] [address] Becky Pool, RN 505 [place] [address] documented as of this encounter Visit Diagnoses Diagnosis Primary osteoarthritis involving multiple joints documented in this encounter Additional Health Concerns Assessment Noted Time PHQ-9 Depression Total Score: 21 024 2:14 PM EDT documented as of this encounter Care Teams Slope Tender Relationship Specialty Start Date End Date Karen Avelar ANP [address] [place] [address] PCP - General Family Medicine 12/08/21 documented as of this encounter
--- OUTSIDE RECORDS SUMMARY | 2024-06-17 12:59 | XMS_ITS | Encounter Summary ---
Author Organization [employer] Address 75 [facility] 7 [place] [address] Care Team Providers Care Air Intelligence Officer Name Role Phone Karen Avelar Primary Care Provider [phone] Reason for Visit * Reason Comments Med Refill Encounter Details Date Type Department Care Team ([facility] st Contact Info) Description 03/05/2023 Refill [facility] MEDICINE 230 [place] [address] Karen Avelar ANP 230 [place], [place] [phone] Social History Tobacco Use Types Packs/Day Years [...] Description 07/04/2024 11:00 AM EDT Office Visit [facility] MEDICINE [address] [place] [phone] Karen Avelar ANP [address] [place] [address] 08/01/2024 11:00 AM EDT Clinical Support [facility] CHC MED & PEDS [address] [place] [address] Becky Pool, RN 505 [place] [address] documented as of this encounter Visit Diagnoses Not on filedocumented in this encounter Additional Health Concerns Assessment Noted Time PHQ-9 Depression Total Score: 14 023 1:08 PM EDT documented as of this encounter Care Teams Air Intelligence Officer Relationship Specialty Start Date End Date Karen Avelar ANP [address] [place] [address] PCP - General Family Medicine 12/08/21 documented as of this encounter
--- OUTSIDE RECORDS SUMMARY | 2024-06-17 12:59 | XMS_ITS | Clinical Summary ---
Author Organization [address] [place] [address] Address [address] [place] [address] Phone Care Team Providers Care Clinical Statistics Manager Name Role Phone Jordana Cade MD Primary Care Provider [phone] Allergies Active Allergy Reactions Criticality Noted Date [...] can recall. Patient's C-spine MRI 05/11/2021 at [facility] shows left >right neuroforaminal narrowing [...] AM EST Office Visit Orthopedic Surgery - [address] [phone] Tristan Deal DPM Controlled type 2 diabetes [...] in [place] OTHER SURGICAL HISTORY 12/10/2019 PROCEDURE: ME ARTHRD ANT INTERBODY MIN DSC CRV BELOW [...] AM EDT Office Visit [facility] Surgery - [place] [address] [phone] Tristan Deal DPM [address] [address] Health Maintenance Due Date Last Done Comments [...] patient's age to complete this topic Insurance [facility] MEDICARE Member Subscriber Plan / Payer (Ef fective 2013-Present) Name:Bhumika Rose Relation to Subscriber:Self Name:Bhumika Rose Payer ID:[id number] Group ID:[id number] Type:Not on file Address: [place] [address] [address] [phone] Care Teams Clinical Statistics Manager Relationship Specialty Start Date End Date [place], [place] Jordana [address] [place] [phone] PCP - General 07/21/13
--- OUTSIDE RECORDS SUMMARY | 2024-06-17 12:59 | XMS_ITS | Encounter Summary ---
Author Organization [employer] Address 75 [facility] 7 [place] [address] Care Team Providers Care Building Surveyor Name Role Phone Karen Avelar Primary Care Provider [phone] Reason for Visit * Reason Onset Date Comments Med Refill 03/28/2023 Encounter Details Date Type Department Care Team ([facility] st Contact Info) Description 03/28/2023 Telephone [facility] MEDICINE [address] [place], [place] [phone] Karen Avelar ANP 230 [place], [place] [phone] Med Refill Social History Tobacco Use Types [...] Description 07/04/2024 11:00 AM EDT Office Visit [facility] MEDICINE [address] [place] [address] Karen Avlear ANP [address] [place] [address] 08/01/2024 11:00 AM EDT Clinical Support [facility] MED & PEDS 505 [place] [address] Becky Pool, JIMMIE [address] [place] [address] documented as of this encounter Visit Diagnoses Not on filedocumented in this encounter Additional Health Concerns Assessment Noted Time PHQ-9 Depression Total Score: 14 023 1:08 PM EDT documented as of this encounter Care Teams Building Surveyor Relationship Specialty Start Date End Date Karen Avelar ANP [address] [place] [address] PCP - General Family Medicine 12/08/21 documented as of this encounter
--- OUTSIDE RECORDS SUMMARY | 2024-06-17 13:00 | XMS_ITS | Encounter Summary ---
Author Organization [employer] Address 75 [facility] 7 [place] [address] Care Team Providers Care Outside Residential Sales Professional Name Role Phone Karen Avelar Primary Care Provider [phone] Reason for Visit * Reason Onset Date Comments Med Refill 01/19/2024 Encounter Details Date Type Department Care Team (Late st Contact Info) Description 01/19/2024 Telephone [facility] MEDICINE [address] [place], [place] [phone] Karen Avelar ANP 230 [place], [place] [phone] Med Refill Social History Tobacco Use Types [...] 11:00 AM EDT Medication was sent to [id number] on 12/20/23 with 1 refill. * Telephone Encounter - Luz Mcclendon - 01/19/2024 10:54 AM EDT TC from pt requesting medication refill. Medications needing refill : tadalafil (Cialis) 5 MG tablet To be sent to: [facility] #[id number] - [address] documented in this encounter Plan of Treatment Upcoming Encounters Date Type Department Care Team (Late st Contact Info) Description 07/04/2024 11:00 AM EDT Office Visit [facility] MEDICINE [address] [place], [place] [phone] Karen Avelar ANP 230 [place], [place] [phone] 08/01/2024 11:00 AM EDT Clinical Support [facility] CH[facility] MED & PEDS [address] [place] [address] Becky Pool RN [address] [place] [address] documented as of this encounter Visit Diagnoses Not on filedocumented in this encounter Additional Health Concerns Assessment Noted Time PHQ-9 Depression Total Score: 21 024 2:14 PM EDT documented as of this encounter Care Teams Outside Residential Sales Professional Relationship Specialty Start Date End Date Karen Avelar ANP [address] [place] [address] PCP - General Family Medicine 12/08/21 documented as of this encounter
--- OUTSIDE RECORDS SUMMARY | 2024-06-17 13:00 | XMS_ITS | Encounter Summary ---
Author Organization [employer] Address 75 [facility] 7 [place] [address] Care Team Providers Care Product Safety Expert Name Role Phone Karen Avelar Primary Care Provider [phone] Reason for Visit * Reason Onset Date Comments Med Refill 02/12/2024 Encounter Details Date Type Department Care Team (Late st Contact Info) Description 02/12/2024 Telephone [facility] MEDICINE [address] [place], [place] [phone] Karen Avelar ANP 230 [place], [place] [phone] Med Refill Social History Tobacco Use Types [...] 12 hr tablet To be sent to: [facility]/pharmacy #[id number] documented in this encounter Plan of Treatment Upcoming Encounters Date Type Department Care Team (Late st Contact Info) Description 07/04/2024 11:00 AM EDT Office Visit [facility] MEDICINE [address] [place] [address] Karen Avelar ANP 230 [place] [address] 08/01/2024 11:00 AM EDT Clinical Support [facility] CHC MED & PEDS 505 [place] [address] Becky Pool, RN 505 [place] [address] documented as of this encounter Visit Diagnoses Not on filedocumented in this encounter Additional Health Concerns Assessment Noted Time PHQ-9 Depression Total Score: 21 024 2:14 PM EDT documented as of this encounter Care Teams Product Safety Expert Relationship Specialty Start Date End Date Karen Avelar ANP 230 [place] [address] PCP - General Family Medicine 12/08/21 documented as of this encounter
--- OUTSIDE RECORDS SUMMARY | 2024-06-17 13:00 | XMS_ITS | Encounter Summary ---
Author Organization [employer] Address 75 [facility] 7t [place] [address] Care Team Providers Care Police Shift Commander Name Role Phone Karen Avelar LIBBY Primary Care Provider [phone] Encounter Details Date Type Department Care Team ([facility] st Contact Info) Description 08/06/2023 Orders Only [facility] MEDICINE 230 [place] [address] Provider, MD Lawrence Social History Tobacco Use [...] the past 12 months, has t he [employer], gas, oil or water company threatened to [...] 11:00 AM EDT Office Visit [facility] MEDICINE 230 [place] [address] Karen Avelar ANP 230 [place] [address] 08/01/2024 11:00 AM EDT Clinical Support [facility] CHC MED & PEDS 505 [place] [address] Becky Pool, RN 505 [place] [address] documented as of this encounter Procedures Procedure [...] documented as of this encounter Care Teams Police Shift Commander Relationship Specialty Start Date End Date Karen Avelar ANP 230 [place] [address] PCP - General Family Medicine 12/08/21 documented as of this encounter
--- OUTSIDE RECORDS SUMMARY | 2024-06-17 13:00 | XMS_ITS | Clinical Summary ---
Author Organization [facility], Address [address] [place] [address] [place] [address] Phone Care Team Providers Care Vp Emerging Media Name Role Phone Merna Read NP Primary Care Provider [phone] Allergies Active Allergy Reactions Criticality Noted Date [...] Active Naloxone HCl (Narcan) 4 MG/0.1ML liquid [place] as directed Ac tive OXcarbazepine (TRILEPTAL) 150 MG tablet TOME SHRIA TABLETA DOS VECES AL D?A 0 Active [...] AM EDT) Hemoglobin A1C 8.3(H) (4.0-5.6) % [facility] Comment: MONITORING: In known diabetic patients, hemoglobin A1c targets should be discussed with health care provider. DIAGNOSTIC USE: ??The [place] Diabetes Association (ADA) and the World Health [...] Supplement 1 Testing performed or reported by [facility], a Service of [facility], [address] [place] [address] Jude Villanueva MD, Oxygen Equipment Aide Blood (Blood, Venous) 10/14/2020 9:11 AM EDT 10/14/2020 9:21 AM EDT Janusz Francisco MD LAB BLOOD ORDERABLES Final Result Performing Organization Address City/State/[facility] Co de Phone Number [facility] from Last 3 Months or Most Recently Relevant to Health Maintenance Insurance ALTH Care Teams Vp Emerging Media Relationship Specialty Start Date End Date Merna Read NP [facility] - General 02/12/19
--- OUTSIDE RECORDS SUMMARY | 2024-06-17 13:00 | XMS_ITS | Encounter Summary ---
Author Organization [facility], Address [address] [place] [address] Phone Care Team Providers Care Film Processing Utility Worker Name Role Phone Merna Read NP Primary Care Provider [phone] Encounter Details Date Type Department Care Team (Late st Contact Info) Description 07/05/2021 Documentation Only [facility], [address] [phone] Janusz Francisco MD [address] [place] [address] Social History Tobacco Use Types [...] on filedocumented in this encounter Care Teams Film Processing Utility Worker Relationship Specialty Start Date End Date Merna Read NP PCP - General 02/12/19 documented as of this encounter
--- OUTSIDE RECORDS SUMMARY | 2024-06-17 13:00 | XMS_ITS | Encounter Summary ---
Author Organization [employer] Address 75 [facility] 7 [place] [address] Care Team Providers Care Structural Engineering Technician Name Role Phone Karen Avelar Primary Care Provider [phone] Reason for Visit * Reason Onset Date Comments Med Refill 07/31/2023 Encounter Details Date Type Department Care Team (Late st Contact Info) Description 07/31/2023 Refill [facility] MEDICINE [address] [place] [address] Karen Avelar ANP 230 [place], [place] [phone] Social History Tobacco Use Types Packs/Day Years [...] 10-25 MG tablet To be sent to: [facility]/pharmacy #[id number] - [address] documented in this encounter Plan of Treatment Upcoming Encounters Date Type Department Care Team (Late st Contact Info) Description 07/04/2024 11:00 AM EDT Office Visit [facility] MEDICINE [address] [place] [address] Karen Avelar ANP 230 [place] [address] 08/01/2024 11:00 AM EDT Clinical Support [facility] CHC MED & PEDS 505 [place] [address] Becky Pool, RN 505 [place] [address] documented as of this encounter Visit Diagnoses Not on filedocumented in this encounter Additional Health Concerns Assessment Noted Time PHQ-9 Depression Total Score: 14 023 1:08 PM EDT documented as of this encounter Care Teams Structural Engineering Technician Relationship Specialty Start Date End Date Karen Avelar ANP 230 [place] [address] PCP - General Family Medicine 12/08/21 documented as of this encounter
== END 2024-06-17 11:20 | disposition home or self-care (01) ==
LOC: HO.10HDL 11:19
PROVIDERS: Visit Provider Orthopaedic Surgery
DX: Z01.812 Encounter for preprocedural laboratory examination (principal); Z79.01 Long term (current) use of anticoagulants; E11.65 Type 2 diabetes mellitus with hyperglycemia; E11.42 Type 2 diabetes mellitus with diabetic polyneuropathy; Z79.4 Long term (current) use of insulin
CPT/HCPCS: 36415; 80051; 82565; 82947; 83036; 84520; 85025; 85610; 85730; 99212

== ENCOUNTER 2024-07-31 09:33 | Outpatient (AMB) | payer OTHER, SELFPAY ==
[2024-07-31 09:35] VITALS: BP 142/80; PULSE 86; O2SAT 93; BMI 41.3
--- NOTE | 2024-07-31 09:35 | HO.NEPHOV_ITS ---
Vital Signs 07/31/24 09:35 07/31/24 09:44 Height 5 ft 11 in Weight 296 lb 4 oz BMI 41.3 BP 142/80 H 120/70 Blood Pressure Location Lt brachial Lt brachial Position Sitting Sitting Pulse 86 Pulse Source Pulse Oximeter Pulse Oximetry (%) 93 Oxygen Delivery Method Room Air Intake Visit Reasons: R/S 07/24/2024/ LVM Accompanied by: Spouse Allergies Penicillins Allergy (Unknown, Verified 07/31/24 09:36) RASH/HIVES Medication List - Last Reconciled 07/31/24 by Danny Pan MD atorvastatin 80 mg PO BEDTIME bempedoic acid (Nexletol) 180 mg PO DAILY blood sugar diagnostic (ARKeXuch Ultra Test strips) DIRECTED TESTS 4 X/DAY blood-glucose meter (GenerationOne Ultra2 Meter) DIRECTED CHECKS 4 X/DAY blood-glucose sensor (Aminex TherapeuticsStyle Edwin 3 Plus Sensor device) Apply 1 new sensor every 14 days as directed to monitor blood glucose continuously. blood-glucose,coroner technician,cont (FreeStyle Edwin 3 [place]) Use daily As directed to monitor blood glucose bolus insulin pump, 200 unit (CeQur Simplicity) As directed bupropion HCl XL 300 mg PO DAILY cholecalciferol (vitamin D3) 50 mcg PO DAILY clonazepam 2 mg PO BEDTIME enalapril maleate 10 mg PO DAILY ezetimibe 10 mg PO DAILY hydrochlorothiazide 25 mg PO DAILY insulin aspart U-100 (Novolog FlexPen U-100 Insulin aspart) 20 units 3 times a day; insulin degludec (Tresiba FlexTouch U-200 insulin) 55 units (0.275 mL) subcut BEDTIME lancets (FreeStyle Lancets) As directed lancets (HoverWindTouch UltraSoft 2 Lancet) As directed tests 4 X/day levothyroxine 50 mcg PO DAILY omeprazole 20 mg PO DAILY oxcarbazepine 300 mg PO DAILY oxycodone 10 mg PO DAILY PRN oxycodone ER 20 mg PO BID pen needle, diabetic (BD Amaya 2nd Gen Pen Needle) As directed 3 times a day prazosin 2 mg PO BEDTIME semaglutide (Ozempic) 0.5 mg (0.736 mL) subcut QWEEK sertraline 200 mg PO DAILY syringe with needle, safety (BD Integra Syringe) As directed injrcts once a wk syringe with needle, safety (BD Integra Syringe) As directed use once a week tadalafil (Cialis) 5 mg PO DAILY PRN 30 days zolpidem 10 mg PO BEDTIME HPI Comments Details: Bhumika a pleasant middle-aged man with a history of diabetes mellitus since age of 35. Hemoglobin A1c has been around 8.5-9.3%. He has been referred for evaluation of chronic kidney disease. Serum creatinine has been averaging around 1.5 mg/dL. The EGFR was 50 mL/minute back in 2020 and as of January 2024 EGFR was 47 mL/minute. In the past he did not have any significant proteinuria based on the urine prot ein creatinine ratio. Has a history of significant arthritis. He had right hip replaced back in 2018. He is waiting for left hip replacement in the next few weeks. He has been taking Patsy Neurobion which she obtained from [facility] [employer]. This contains diclofenac Also has a history of hypertension blood pressure has been well controlled. 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 Diabetes type 2, uncontrolled Surgical History History of surgical procedure on eye proper using laser Hx of shoulder surgery History of hip surgery Hx of neck surgery Family History Father Prostate cancer Mother Diabetes Heart problem Social History Household Members: Family Alcohol intake: never Patient Tobacco Use Status: Never used Tobacco Physical Exam Vital Signs: Last Vital Signs Pulse 86 07/31/24 09:35 BP 142/80 H 07/31/24 09:35 Pulse Ox 93 07/31/24 09:35 Oxygen Delivery Method Room Air 07/31/24 09:35 BMI result Body Mass Index 41.3 Const General: comfortable; No acute distress Orientation/consciousness: patient oriented x3 Eyes General: appearance normal, both eyes and all related structures Visual Gabriel: normal visual gabriel by confrontation Neck Neck: Yes supple and Yes no JVD Resp Effort & Inspection: normal respiratory effort and respiratory effort not dec reased Cardio Palpation: no palpable S3 and no palpable S4 Heart sounds: no rubs GI Inspection: Yes normal to inspection Palpation (GI): Soft to palpation Percussion: Yes normal to percussion Auscultation: normal bowel sounds General: Yes no CVA tenderness Back/Spine/Pelvis Back: no CVA tenderness Skin General skin exam: no petechiae and no purpura Neuro General: patient oriented x3 and no focal motor deficits Extrem General: No clubbing and No edema Results Reviewed Nephrology Results: Hgb 14.8 g/dl (14.0-18.0) 06/17/24 WBC 13.0 X10*3/uL (4.8-10.8) H 06/17/24 Plt Count 331 X10*3/uL (160-400) 06/17/24 Sodium 141 mmol/L (135-145) 06/17/24 Potassium 4.2 mmol/L (3.3-5.1) 06/17/24 Chloride 106 mmol/L (96-108) 06/17/24 Carbon Dioxide 25 mmol/L (22-29) 06/17/24 BUN 27 mg/dL (9-16) H 06/17/24 Creatinine 1.33 mg/dL (0.5-1.4) 06/17/24 Calcium 9.6 mg/dL (8.4-10.2) 06/12/24 Phosphorus 2.0 mg/dL (2.7-4.5) L 06/12/24 PTH Intact 150.6 pg/mL (8.7-77.1) H 06/12/24 Urine Protein Negative mg/dL (Neg-Trace) 06/12/24 Urine Creatinine 143.39 mg/dL 06/12/24 Assessment & Plan Assessment & Plan (1) CKD (chronic kidney disease) stage 3, GFR 30-59 ml/min: Code(s): N18.30 - Chronic kidney disease, stage 3 unspecified Category: Medical Plan 64-year-old man with a history of longstanding diabetes mellitus with hypertension obesity has chronic kidney disease. Based on the available lab data renal function has been relatively stable for the last few years. The recent creatinine was 1.5 in January of 2024. Repeat was 1.33 in June 2024 No significant proteinuria at the time. He probably has underlying hypertensive diabetic kidney disease. Other possibilities would include obstructive uropathy- but seems unlikely Based on recent urine studies I do not believe he has any active glomerular nephritis or interstitial disease. There could be a component of YAZMIN from the use of NSAIDs however upon reviewing all the previous lab data I believe he was predominantly chronic kidney disease rather than acute Recommendations. Discussed importance of tight control blood sugar to slow the progression of renal disease. Maintain blood pressure less than 130/80. Weight loss He would benefit from SGLT-2 inhibitors. He should avoid NSAIDs including Doloneurobion. NO changes made today Orders: Orders Basic Metabolic Panel 5 Months N18.30 - Chronic kidney disease, stage 3 unspecified Coding Level of Care Code Est Pt Level 4 (38680) Diagnoses CKD (chronic kidney disease) stage 3, GFR 30-59 ml/min N18.30
[2024-07-31 09:44] VITALS: BP 120/70
--- OUTSIDE RECORDS SUMMARY | 2024-07-31 10:41 | XMS_ITS | Encounter Summary ---
Author Organization [employer] Address 75 [facility] 7 [place] [address] Care Team Providers Care Home Appliance Technician Name Role Phone Karen Avelar Primary Care Provider [phone] Reason for Visit * Reason Onset Date Comments Med Refill 11/21/2023 Encounter Details Date Type Department Care Team (Late st Contact Info) Description 11/21/2023 Telephone [facility] MEDICINE 230 [place], [place] [phone] Karen Avelar ANP 230 [place], [place] [phone] Med Refill Social History Tobacco Use Types [...] 12 hr tablet To be sent to: [facility]/PHARMACY #[id number] documented in this encounter Plan of Treatment Upcoming Encounters Date Type Department Care Team (Late st Contact Info) Description 08/01/2024 11:00 AM EDT Clinical Support [facility] CHC MED & PEDS 505 [place] [address] Becky Pool, JIMMIE 505 [place] [address] 08/29/2024 9:00 AM EDT Office Visit [facility] MEDICINE 230 [place], [place] [phone] Karen Avelar ANP [address] [place] [address] documented as of this encounter Visit Diagnoses Not on filedocumented in this encounter Additional Health Concerns Assessment Noted Time PHQ-9 Depression Total Score: 21 024 2:14 PM EDT documented as of this encounter Care Teams Home Appliance Technician Relationship Specialty Start Date End Date Karen Avelar ANP 230 [place] [address] PCP - General Family Medicine 12/08/21 documented as of this encounter
--- OUTSIDE RECORDS SUMMARY | 2024-07-31 10:41 | XMS_ITS | Encounter Summary ---
Author Organization [employer] Address 75 [facility] 7 [place] [address] Care Team Providers Care Dry Starch Operator Name Role Phone Karen Avelar Primary Care Provider [phone] Reason for Visit * Reason Onset Date Comments Med Refill 12/19/2023 Encounter Details Date Type Department Care Team (Late st Contact Info) Description 12/19/2023 Telephone [facility] MEDICINE 230 [place], [place] [phone] Karen Avelar ANP 230 [place], [place] [phone] Med Refill Social History Tobacco Use Types [...] immediate release tablet To be sent to: [facility]/pharmacy #[id number] documented in this encounter Plan of Treatment Upcoming Encounters Date Type Department Care Team (Late st Contact Info) Description 08/01/2024 11:00 AM EDT Clinical Support [facility] CHC MED & PEDS 505 [place] [address] Becky Pool, JIMMIE 505 [place] [address] 08/29/2024 9:00 AM EDT Office Visit [facility] MEDICINE 230 [place], [place] [phone] Karen Avelar ANP [address] [place], [place] [phone] documented as of this encounter Visit Diagnoses Not on filedocumented in this encounter Additional Health Concerns Assessment Noted Time PHQ-9 Depression Total Score: 21 024 2:14 PM EDT documented as of this encounter Care Teams Dry Starch Operator Relationship Specialty Start Date End Date Karen Avelar ANP [address] [place] [address] PCP - General Family Medicine 12/08/21 documented as of this encounter
--- OUTSIDE RECORDS SUMMARY | 2024-07-31 10:41 | XMS_ITS | Encounter Summary ---
Author Organization [employer] Address 75 [facility] 7 [place] [address] Care Team Providers Care Stars Specialist Name Role Phone Karen Avelar Primary Care Provider [phone] Reason for Visit * Reason Onset Date Comments Med Refill 07/30/2024 Encounter Details Date Type Department Care Team (Late st Contact Info) Description 07/30/[address] [facility] MEDICINE [address] [place] [address] Karen Avelar ANP 230 [place], [place] [phone] Primary osteoarthritis involving multiple joints Social History [...] * Telephone Encounter - Denise Su - 07/30/2024 9:18 AM EDT TC from pt requesting medication refill. Medications needing refill : oxyCODONE (Roxicodone) 10 MG immediate release tablet oxyCODONE ER (OxyCONTIN) 20 MG 12 hr tablet To be sent to: [facility]/pharmacy #[id number] documented in this encounter Plan of Treatment Upcoming Encounters Date Type Department Care Team (Late st Contact Info) Description 08/01/2024 11:00 AM EDT Clinical Support [facility] CHC MED & PEDS 505 [place] [address] Becky Pool, RN 505 [place] [address] 08/29/2024 9:00 AM EDT Office Visit [facility] MEDICINE [address] [place] [address] Karen Avelar ANP [address] [place] [address] documented as of this encounter Visit Diagnoses Diagnosis Primary osteoarthritis involving multiple joints documented in this encounter Additional Health Concerns Assessment Noted Time PHQ-9 Depression Total Score: 21 024 2:14 PM EDT documented as of this encounter Care Teams Stars Specialist Relationship Specialty Start Date End Date Karen Avelar ANP 230 [place] [address] PCP - General Family Medicine 12/08/21 documented as of this encounter
--- OUTSIDE RECORDS SUMMARY | 2024-07-31 10:41 | XMS_ITS | Encounter Summary ---
Author Organization [employer] Address 75 [facility] 7 [place] [address] Care Team Providers Care Housekeeping Worker Name Role Phone Karen Avelar Primary Care Provider [phone] Reason for Visit * Reason Onset Date Comments Referral 09/15/2022 Encounter Details Date Type Department Care Team (Late st Contact Info) Description 09/15/2022 Telephone [facility] MEDICINE 230 [place] [address] Karen Avelar ANP 230 [place], [place] [phone] Referral Social History Tobacco Use Types Packs/Day [...] Description 08/01/2024 11:00 AM EDT Clinical Support [facility] MED & PEDS 505 [place] [address] Becky Pool, RN 505 [place] [address] 08/29/2024 9:00 AM EDT Office Visit [facility] MEDICINE [address] [place] [address] Karen Avelar ANP [address] [place] [address] documented as of this encounter Visit Diagnoses Not on filedocumented in this encounter Care Teams Housekeeping Worker Relationship Specialty Start Date End Date Karen Avelar ANP [address] [place] [address] PCP - General Family Medicine 12/08/21 documented as of this encounter
--- OUTSIDE RECORDS SUMMARY | 2024-07-31 10:41 | XMS_ITS | Encounter Summary ---
Author Organization [employer] Address 75 [facility] 7 [place] [address] Care Team Providers Care Employee Relations Specialist Name Role Phone Karen Avelar Primary Care Provider [phone] Reason for Visit * Reason Comments Med Refill Encounter Details Date Type Department Care Team ([facility] st Contact Info) Description 03/05/2023 Refill [facility] MEDICINE 230 [place] [address] Karen Avelar ANP 230 [place], [place] [phone] Social History Tobacco Use Types Packs/Day Years [...] Description 08/01/2024 11:00 AM EDT Clinical Support [facility] CHC MED & PEDS 505 [place] [address] Becky Pool, RN 505 [place] [address] 08/29/2024 9:00 AM EDT Office Visit [facility] MEDICINE 230 [place] [address] Karen Avelar ANP 230 [place] [address] documented as of this encounter Visit Diagnoses Not on filedocumented in this encounter Additional Health Concerns Assessment Noted Time PHQ-9 Depression Total Score: 14 023 1:08 PM EDT documented as of this encounter Care Teams Employee Relations Specialist Relationship Specialty Start Date End Date Karen Avelar ANP [address] [place] [address] PCP - General Family Medicine 12/08/21 documented as of this encounter
--- OUTSIDE RECORDS SUMMARY | 2024-07-31 10:41 | XMS_ITS | Encounter Summary ---
Author Organization [employer] Address 75 [facility] 7 [place] [address] Care Team Providers Care Veneer Cutter Name Role Phone Karen Avelar Primary Care Provider [phone] Reason for Visit * Reason Onset Date Comments Med Refill 07/31/2023 Encounter Details Date Type Department Care Team (Late st Contact Info) Description 07/31/2023 Refill [facility] MEDICINE [address] [place] [address] Karen Avelra ANP [address] [place], [place] [phone] Social History Tobacco Use Types Packs/Day Years [...] Rx'd alternate med * Telephone Encounter - Mraylou Irizarry - 07/31/2023 1:01 PM EDT TC from pt requesting medication refill. Medications needing refill : enalapril-hydroCHLOROthiazide (Vasoretic) 10-25 MG tablet To be sent to: [facility]/pharmacy #[id number] - [address] documented in this encounter Plan of Treatment Upcoming Encounters Date Type Department Care Team (Late st Contact Info) Description 08/01/2024 11:00 AM EDT Clinical Support [facility] CHC MED & PEDS [address] [place] [address] Becky Pool, RN 505 [place] [address] 08/29/2024 9:00 AM EDT Office Visit [facility] MEDICINE [address] [place] [address] Karen Avelar ANP [address] [place] [address] documented as of this encounter Visit Diagnoses Not on filedocumented in this encounter Additional Health Concerns Assessment Noted Time PHQ-9 Depression Total Score: 14 023 1:08 PM EDT documented as of this encounter Care Teams Veneer Cutter Relationship Specialty Start Date End Date Karen Avelar ANP [address] [place] [address] PCP - General Family Medicine 12/08/21 documented as of this encounter
--- OUTSIDE RECORDS SUMMARY | 2024-07-31 10:41 | XMS_ITS | Encounter Summary ---
Author Organization [email or web address] Address 75 [facility] 7 [place] [address] Care Team Providers Care Composition Tile Layer Name Role Phone Karen Avelar Primary Care Provider [phone] Reason for Visit * Reason Onset Date Comments Med Refill 02/12/2024 Encounter Details Date Type Department Care Team (Late st Contact Info) Description 02/12/2024 Telephone [facility] MEDICINE [address] [place], [place] [phone] Karen Avelar ANP 230 [place], [place] [phone] Med Refill Social History Tobacco Use Types [...] 12 hr tablet To be sent to: [facility]/pharmacy #[id number] documented in this encounter Plan of Treatment Upcoming Encounters Date Type Department Care Team (Late st Contact Info) Description 08/01/2024 11:00 AM EDT Clinical Support [facility] CHC MED & PEDS [address] [place] [address] Becky Pool, JIMMIE 505 [place] [address] 08/29/2024 9:00 AM EDT Office Visit [facility] MEDICINE [address] [place] [address] Karen Avelar ANP [address] [place] [address] documented as of this encounter Visit Diagnoses Not on filedocumented in this encounter Additional Health Concerns Assessment Noted Time PHQ-9 Depression Total Score: 21 024 2:14 PM EDT documented as of this encounter Care Teams Composition Tile Layer Relationship Specialty Start Date End Date Karen Avelar ANP 230 [place] [address] PCP - General Family Medicine 12/08/21 documented as of this encounter
--- OUTSIDE RECORDS SUMMARY | 2024-07-31 10:41 | XMS_ITS | Clinical Summary ---
Author Organization [employer] Address [address] [place] [address] 7 [place] [address] Care Team Providers Care Critical Care Specialist Name Role Phone Karen Avelar Primary Care Provider [phone] Allergies Active Allergy Reactions Criticality Noted Date [...] SHIRA TABLETA DOS VECES AL D A Active prazosin (Minipress) 2 MG capsule Active QUEtiapine (SEROquel) 50 MG tablet take 1 tablet (50MG) by oral route at bedtime Active sertraline (Zoloft) 100 MG tablet Active valACYclovir (Valtrex) 1 g tablet take 1 tablet by oral route BID x 7 days Active zolpidem (Ambien) 10 MG tablet TOME SHIRA TABLETA POR V A ORAL AL ACOSTARSE Active CeQur Simplicity 2U device Active naloxone (Narcan) 4 mg/0.1 mL nasal sprayIndications :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 2 each 1 Active cloNIDine (Catapres) 0.1 MG tabletIndication s:Acute opioid withdrawal (CMS/HCC) Take orally up to three times daily for symptoms of withdrawal. Do note take if blood pressure less than 100/80 30 tablet 023 Active atorvastatin (Lipitor) 80 MG tablet TOME SHIRA TABLETA TODOS LOS D AL ACOSTARSE Active prednisoLONE acetate (Pred-Forte) 1 % ophthalmic suspension INSTILL 1 DROP INTO BOTH EYES FOR 4 DAYS AFTER LASER PROCEDURE THEN DISCONTINUE Active Mounjaro 2.5 MG/0.5ML solution pen-injector 5 mg. 023 Active testosterone cypionate (Depo-Testostero ne) 200 MG/ML injection INJECT 100 MG (0.5 ML) INTRAMUSCULARLY EVERY WEEK 023 Active aspirin 81 MG EC tablet Take 1 tablet by mouth. Active Emollient (CeraVe Diabetics Dry Skin) creamIndications :Type 2 diabetes mellitus with stage 3 chronic kidney disease, with long-term current use of insulin, unspecified whether stage 3a or 3b CKD (CMS/HCC),Dry skin Apply 1 Application. topically if needed in the morning and at bedtime (dry skin). 236 mL 11 024 Active glucose blood (FreeStyle Precision [place] Test) test strip Test blood sugar q 8 hours 100 each 12 024 Active levothyroxine (Synthroid, Levoxyl) 50 MCG tablet TAKE 1 TABLET BY MOUTH EVERY DAY 90 tablet 3 024 Active tadalafil (Cialis) 5 MG tabletIndication s:Vasculogenic erectile dysfunction, unspecified vasculogenic erectile dysfunction type TAKE 1 TABLET BY MOUTH EVERY DAY IF NEEDED FOR ERECTILE DYSFUNCTION 20 tablet 1 024 Active albuterol 108 (90 Base) MCG/ACT inhaler Inhale 2 puffs every 6 (six) hours if needed for wheezing. 18 g 024 2024 Active oxyCODONE ER (OxyCONTIN) 20 MG 12 hr tabletIndication s:Primary osteoarthritis involving multiple joints Take 1 tablet (20 mg) by mouth every 12 (twelve) hours. Do not crush, chew, or split. Do not start before July 03, 2024. 56 tablet 025 2024 Active omeprazole (PriLOSEC) [address] capsule TAKE 1 CAPSULES BY MOUTH EVERYDAY BEFORE A MEAL 90 capsule 1 025 Active hydroCHLOROthiaz lynne (HYDRODiuril) 25 MG tabletIndication s:Hypertension with albuminuria,Hype rtension associated with diabetes (CMS/HCC) TAKE 1 TABLET BY MOUTH ONCE DAILY 90 tablet 3 025 Active enalapril (Vasotec) 10 MG tabletIndication s:Hypertension with albuminuria,Hype rtension associated with diabetes (CMS/HCC) TOME SHIRA TABLETA POR VIA ORAL TODOS LOS NETTLES 90 tablet 3 025 Active hydroCHLOROthiaz lynne (HYDRODiuril) 25 MG tabletIndication s:Hypertension with albuminuria,Hype rtension associated with diabetes (CMS/HCC) Take 1 tab once daily by mouth 90 tablet 3 024 2024 Discontinued enalapril (Vasotec) 10 MG tabletIndication s:Hypertension with albuminuria,Hype rtension associated with diabetes (CMS/HCC) Take 1 tab once daily by mouth 90 tablet 3 024 2024 Discontinued omeprazole (PriLOSEC) [address] capsule TAKE 1 CAPSULES BY MOUTH EVERYDAY BEFORE A MEAL 90 capsule 1 024 2024 Discontinued oxyCODONE (Roxicodone) 10 MG immediate release tabletIndication s:Primary osteoarthritis involving multiple joints Take 1 tablet (10 mg) by mouth every 6 (six) hours if needed for severe pain for up to 28 days. Do not start before June 29, 2024. 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 Boyer Has [...] Encounters Date Type Department Care Team Description 07/30/2024 Refill [facility] MEDICINE [address] [place] [address] Karen Avelar ANP Primary osteoarthritis involving multiple joints 07/18/2024 Refill [facility] MEDICINE [address] [place] [address] Karen Avelar ANP Hypertension with albuminuria; Hypertension associated with diabetes ([facility]) 07/17/2024 Refill [facility] MEDICINE [address] [place], [place] [phone] Karen Avelar ANP 07/03/2024 Telephone [facility] MEDICINE [address] [place], [place] [phone] Karen Avelar ANP Nurse Triage 06/27/2024 Refill [facility] MEDICINE [address] [place] [address] Karen Avelar ANP Primary osteoarthritis involving multiple joints 06/17/2024 Orders Only GENERIC EXTERNAL DATA DEPARTMENT Provider, Generic External Data 06/12/2024 Orders Only GENERIC EXTERNAL DATA DEPARTMENT Provider, Generic External Data 06/03/2024 Refill [facility] MEDICINE [address] [place] [phone] Karen Avelar ANP Primary osteoarthritis involving multiple joints 05/13/2024 11:00 AM EST [facility] [address] [place] [address] Becky Pool, JIMMIE 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 05/13/2024 Telephone [facility] MEDICINE [address] [place] [address] Karen Avelar ANP Durable Medical Equipment (Shoe horn, sock aid, bariatric walker) 05/13/2024 Telephone [facility] [address] [place] [address] Becky Pool RN 05/13/2024 Travel 05/06/2024 11:00 AM EST Telemedicine [facility] MEDICINE [address] [place] [address] Karen Avelar ANP Type 2 diabetes mellitus with stage 3 chronic kidney disease, with long-term current use of insulin, unspecified whether stage 3a or 3b CKD (CMS/HCC) (Primary Dx); Hypotestosteronism; Diabetic polyneuropathy associated with type 2 diabetes mellitus (CMS/HCC); [facility] (current) use of opiate analgesic; Primary osteoarthritis involving multiple joints 05/06/2024 Travel 05/06/2024 Refill [facility] [address] [place] [address] Karen Avelar ANP Primary osteoarthritis involving multiple joints from Last 3 Months Immunizations Name Administration [...] 08/01/2024 11:00 AM EDT Clinical Support [facility] CHC MED & PEDS [address] [place] [address] Becky Pool, RN 505 [place] [address] 08/29/2024 9:00 AM EDT Office Visit [facility] MEDICINE [address] [place] [address] Karen Avelar ANP [address] [place] [address] Health Maintenance Due Date Last Done Comments [...] - Td or Tdap) 09/12/2023 09/11/2013, 03/16/2009 SDOH Screening 05/24/2024 05/24/2023 Diabetes: Hemoglobin A1C 09/12/202406/12/2 025, 10/16/2023, 06/02/2023, Additional history exists Depression [...] Procedure Name Priority Date/Time Associated Diagnosis Comments AMB REFERRAL TO ORTHOPAEDIC SURGERY Routine 06/20/2024 Primary osteoarthritis involving multiple joints GLUCOSE, WHOLE BLOOD Routine 06/17/2024 10:45 AM [...] Recently Relevant to Health Maintenance Results * Referral to Orthopaedic Surgery (06/20/2024) [facility] OUTPATIENT REFERRAL ORDERABLES F inal Result * (ABNORMAL) Glucose, Whole Blood (06/17/2024 10:45 AM EDT) Glucose, Whole Blood 262(H) 60 - 115 mg/dL [facility] Comment:METER #: [id number] 5Testing performed in the Endocrinology Department [address] , [address], [facility]. 06/17/2024 10:4 5 AM EDT 06/17/2024 10:49 AM EDT Generic External Data Provider LAB BLOOD ORDERAB LES Final Result [facility] [address] [place] [phone] * (ABNORMAL) Urinalysis with Reflex to Microscopic (06/12/2024 9:37 AM EST) Color Urine Yellow [facility] Appearance Urine Cloudy [facility] PH 5.5 5.0 - 9.0 [facility] Glucose Urine UA 100(A) Negative mg/dL [facility] Urine Blood Negative Negative [facility] Specific [place] - Urine 1.020 1.005 - 1.025 [facility] Urine Protein Negative Neg-Trace mg/dL [facility] Urine Ketones Negative Negative mg/dL [facility] Nitrite Urine Negative Negative [facility] Leukocyte Esterase Urine Negative Negative [facility] 06/12/2024 9:37 AM EST 06/12/2024 5:49 PM EST us Generic External Data Provider LAB URINE ORDERAB LES Final Result Performing Organization Address [facility] de Phone Number [facility] [address] [place] [phone] * Urine Protein, Total, Random without Creatinine (06/12/2024 9:37 AM EST) Protein, Total, Random Urine <7 <12 mg/dL [facility] 06/12/2024 9:37 AM EST 06/12/2024 5:49 PM EST us Generic External Data Provider LAB URINE ORDERAB LES Final Result Performing Organization Address [facility] Co de Phone Number [facility] [address] [place] [phone] * Creatinine, Random Urine (06/12/2024 9:37 AM EST) Creatinine, Urine 143.39 mg/dL [facility] 06/12/2024 9:37 AM EST 06/12/2024 5:49 PM EST us Generic External Data Provider LAB URINE ORDERAB LES Final Result Performing Organization Address [facility] Co de Phone Number [facility] [address] [place] [phone] * Vitamin D, 25-Hydroxy, Total, Immunoassay (06/12/2024 9:27 AM EST) Vitamin D 25-OH Total 47.5 >30 ng/mL [facility] Comment:Health Based Referen ce Values*< 20 ng/mL [id number] ng/mL Insufficient> 30 ng/mL Sufficient*Trini ALLEN. N [...] Provider LAB BLOOD ORDERAB LES Final Result [facility] [address] [place] [phone] * (ABNORMAL) CBC (06/12/2024 9:27 AM EST) White Blood Count 14.3(H) 4.8 - 10.8 X10*3/uL [facility] Red Blood Count 5.28 4.60 - 5.80 X10*6/uL [facility] Hemoglobin 15.2 14.0 - 18.0 g/dl [facility] Hematocrit 45.6 42.0 - 52.0 % [facility] Mean Corpuscular Volume 86.4 80.0 - 98.0 fL [facility] Mean Corpuscular Hemoglobin 28.8 27.0 - 33.0 pg [facility] Mean Corpuscular HGB Conc 33.3 31.0 - 36.0 g/dl [facility] Red Cell Distribution Width 13.4 11.0 - 16.0 % [facility] Platelet Count 346 160 - 400 X10*3/uL [facility] Mean Platelet Volume 11.6 9.4 - 12.4 fL [facility] NRBC Pct Auto 0.0 0.0 - 0.2 /100WBC [facility] NRBC Abs Auto 0.000 0.0 - 0.012 X10*3/uL [facility] 06/12/2024 9:27 AM EST 06/12/2024 5:49 PM EST us Generic External Data Provider LAB BLOOD ORDERAB LES Final Result Performing Organization Address [facility] de Phone Number [facility] [address] [place] [phone] * (ABNORMAL) Phosphate (As Phosphorus) (06/12/2024 9:27 AM EST) Phosphorus 2.0(L) 2.7 - 4.5 mg/dL [facility] 06/12/2024 9:27 AM EST 06/12/2024 5:49 PM EST us Generic External Data Provider LAB BLOOD ORDERAB LES Final Result Performing Organization Address [facility] de Phone Number [facility] [address] [place] [phone] * (ABNORMAL) PTH, Intact Without Calcium (06/12/2024 9:27 AM EST) Parathyroid Hormone, Intact 150.6(H) 8.7 - 77.1 pg/mL [facility] 06/12/2024 9:27 AM EST 06/12/2024 5:49 PM EST us Generic External Data Provider LAB BLOOD ORDERAB LES Final Result Performing Organization Address [facility] Co de Phone Number [facility] [address] [place] [phone] * (ABNORMAL) Hemoglobin A1c (06/12/2024 9:27 AM EST) Hemoglobin A1c 8.2(H) <6.0 % [facility] Comment:Hemoglobin A1C Refer ence Range Adults: 4.8 - 6.0 % Non diabetic: < 6.0 % Goal: < 7.0 %Additional Action Suggested: > 8.0 %Note: Hemoglobin A1c results are invalid for patients with abnormal amounts of HbF. Blood transfusions may impact the HbA1c concentration in the patient sample. Estimated Average Glucose 189 mg/dL [facility] Comment:eAG = Estimated ave rage glucose which is %A1C expressed asaverage glucose, using the formula of the [id number] Glucose study (ADAG), Diabetes Care, Vol.31,#8,Nov. 2007 06/12/2024 9:27 AM EST 06/12/2024 5:49 PM EST us Generic External Data Provider LAB BLOOD ORDERAB LES Final Result [facility] [address] [place] [phone] * (ABNORMAL) Comprehensive Metabolic Panel (06/12/2024 9:27 AM EST) Sodium 137 135 - 145 mmol/L [facility] Potassium 4.0 3.3 - 5.1 mmol/L [facility] Chloride 104 96 - 108 mmol/L [facility] Carbon Dioxide 25 22 - 29 mmol/L [facility] Anion Gap 12 12 - 20 [facility] Urea Nitrogen (BUN) 30(H) 9 - 16 mg/dL [facility] Creatinine, Serum 1.42(H) 0.5 - 1.4 mg/dL [facility] Estimated Glomerular Filt Rate 51 [facility] Comment:Chronic Kidney Disea se: Estimated GFR < 60 mL/min/[id number] Kidney Disease: Estimated GFR < 15 mL/min/1.73m2 Glucose 207(H) 60 - 115 mg/dL [facility] Calcium 9.6 8.4 - 10.2 mg/dL [facility] Bilirubin, Total 0.4 0.0 - 1.0 mg/dL [facility] Aspartate Amino Transferase 29 5 - 37 U/L [facility] Alanine Aminotransferase 23 0 - 40 U/L [facility] Total Protein 8.1(H) 6.5 - 8.0 g/dL [facility] Albumin Level 4.5 3.5 - 5.0 g/dL [facility] Alkaline Phosphatase 119(H) 39 - 117 U/L [facility] 06/12/2024 9:27 AM EST 06/12/2024 5:49 PM EST us Generic External Data Provider LAB BLOOD ORDERAB LES Final Result [facility] [address] [place] [phone] * Lipid Panel, Standard (08/10/2022 10:13 AM EDT) Triglycerides 111 mg/dL [facility] Comment:Desirable Triglyceri de: less than 150 mg/dLBorderline High Triglyceride 150-199 mg/dLHigh Triglyceride: 200-499 mg/dLVery High Triglyceride: greater than or equal to 5OO mg/dL Cholesterol 199 mg/dL [facility] Comment:Desirable Cholestero l: less than 200 mg/dLBorderline High Cholesterol: 200-239 mg/dLHigh Cholesterol: greater than 239 mg/dL LDL Cholesterol Calculated 140 mg/dl [facility] Comment:Desirable LDL: less than 100 mg/dLNear Optimal/Above Optimal LDL: 110- 129 mg/dLBorderline High LDL: 130-159 mg/dLHigh LDL: 160-189 mg/dLVery High LDL: greater than or equal to 190 mg/dL HDL Cholesterol 37 mg/dL [facility] Comment:Desirable HDL: great er than 40 mg/dL Note: This HDL assay may give artificially low results in patients with liver disease. 08/10/2022 10:1 3 AM EDT 08/10/2022 1:36 PM EDT [facility] External Provider LAB BLO OD ORDERABLES Final Result [facility] [address] [place] [phone] * Hm Colonoscopy (03/02/2016 4:57 PM EST) Historical Provider MD HEALTH MAINTENANCE Final Result from Last 3 Months or Most Recently Relevant to Health Maintenance [place] [address] [place] [address] - [employer] Care Teams Critical Care Specialist Relationship Specialty Start Date End Date Karen Avelar ANP [address] [place] [address] [place] [address] PCP - General Family Medicine 12/08/21
--- OUTSIDE RECORDS SUMMARY | 2024-07-31 10:41 | XMS_ITS | Encounter Summary ---
Author Organization [employer] Address 75 [facility] 7 [place] [address] Care Team Providers Care Santa'S Helper Name Role Phone Karen Avelar Primary Care Provider [phone] Reason for Visit * Reason Onset Date Comments Med Refill 01/27/2023 Encounter Details Date Type Department Care Team ([facility] st Contact Info) Description 01/27/2023 Telephone [facility] MEDICINE [address] [place], [place] [phone] Karen Avelar ANP [address] [place], [place] [phone] Med Refill Social History Tobacco Use Types [...] 12 hr tablet to be sent to [facility]/pharmacy #[id number] documented in this encounter Plan of Treatment Upcoming Encounters Date Type Department Care Team (Late st Contact Info) Description 08/01/2024 11:00 AM EDT Clinical Support [facility] CHC MED & PEDS [address] [place] [address] Becky Pool, RN [address] [place] [address] 08/29/2024 9:00 AM EDT Office Visit [facility] MEDICINE [address] [place] [address] Karen Avelar ANP [address] [place] [address] documented as of this encounter Visit Diagnoses Not on filedocumented in this encounter Additional Health Concerns Assessment Noted Time PHQ-9 Depression Total Score: 14 023 1:08 PM EDT documented as of this encounter Care Teams Santa'S Helper Relationship Specialty Start Date End Date Karen Avelar ANP [address] [place] [address] PCP - General Family Medicine 12/08/21 documented as of this encounter
--- OUTSIDE RECORDS SUMMARY | 2024-07-31 10:41 | XMS_ITS | Encounter Summary ---
Author Organization [employer] Address 75 [facility] 7t [place] [address] Care Team Providers Care Enterprise Systems Manager Name Role Phone Karen Avelar LIBBY Primary Care Provider [phone] Encounter Details Date Type Department Care Team ([facility] st Contact Info) Description 08/06/2023 Orders Only [facility] MEDICINE [address] [place] [address] Provider, MD [place] Social History Tobacco Use [...] the past 12 months, has t he [employer], gas, oil or water company threatened to [...] Description 08/01/2024 11:00 AM EDT Clinical Support [facility] MED & PEDS [address] [place] [address] Becky Pool, JIMMIE [address] [place] [address] 08/29/2024 9:00 AM EDT Office Visit [facility] MEDICINE [address] [place] [address] Karen Avelar ANP [address] [place] [address] documented as of this encounter Procedures Procedure [...] documented as of this encounter Care Teams Enterprise Systems Manager Relationship Specialty Start Date End Date Karen Avelar ANP [address] [place] [address] PCP - General Family Medicine 12/08/21 documented as of this encounter
--- OUTSIDE RECORDS SUMMARY | 2024-07-31 10:41 | XMS_ITS | Encounter Summary ---
Author Organization [employer] Address 75 [facility] 7 [place] [address] Care Team Providers Care Turkish Rubber Name Role Phone Karen Avelar Primary Care Provider [phone] Reason for Visit * Reason Onset Date Comments Med Refill 01/15/2024 Encounter Details Date Type Department Care Team (Late st Contact Info) Description 01/15/2024 Telephone [facility] MED[facility]INE [address] [place], [place] [phone] Karen Avelar ANP 230 [place], [place] [phone] Med Refill Social History Tobacco Use Types [...] 12 hr tablet To be sent to: [facility]acy #[id number] documented in this encounter Plan of Treatment Upcoming Encounters Date Type Department Care Team (Late st Contact Info) Description 08/01/2024 11:00 AM EDT Clinical Support [facility] PEDS [address] [place] [address] Becky Pool, JIMMIE 505 [place] [address] 08/29/2024 9:00 AM EDT Office Visit [facility] MEDICINE [address] [place], [place] [phone] Karen Avelar ANP 230 [place] [address] documented as of this encounter Visit Diagnoses Not on filedocumented in this encounter Additional Health Concerns Assessment Noted Time PHQ-9 Depression Total Score: 21 024 2:14 PM EDT documented as of this encounter Care Teams Turkish Rubber Relationship Specialty Start Date End Date Karen Avelar ANP 230 [place] [address] PCP - General Family Medicine 12/08/21 documented as of this encounter
--- OUTSIDE RECORDS SUMMARY | 2024-07-31 10:41 | XMS_ITS | Encounter Summary ---
Author Organization [employer] Address 75 [facility] 7 [place] [address] Care Team Providers Care Property Management Specialist Name Role Phone Karen Avelar Primary Care Provider [phone] Reason for Visit * Reason Onset Date Comments Med Refill 01/19/2024 Encounter Details Date Type Department Care Team ([facility] st Contact Info) Description 01/19/2024 Telephone [facility] MEDICINE 230 [place], [place] [phone] Karen Avelar ANP 230 [place], [place] [phone] Med Refill Social History Tobacco Use Types [...] 11:00 AM EDT Medication was sent to [id number] on 12/20/23 with 1 refill. * Telephone Encounter - Luz Mcclendon - 01/19/2024 10:54 AM EDT TC from pt requesting medication refill. Medications needing refill : tadalafil (Cialis) 5 MG tablet To be sent to: [id number] - [address] documented in this encounter Plan of Treatment Upcoming Encounters Date Type Department Care Team (Late st Contact Info) Description 08/01/2024 11:00 AM EDT Clinical Support [facility] MED [facility] PEDS [address] [place] [address] Becky Pool, JIMMIE 505 [place] [address] 08/29/2024 9:00 AM EDT Office Visit [facility] MED[facility]INE [address] [place] [address] [phone] Karen Avelar ANP 230 [place] [address] documented as of this encounter Visit Diagnoses Not on filedocumented in this encounter Additional Health Concerns Assessment Noted Time PHQ-9 Depression Total Score: 21 024 2:14 PM EDT documented as of this encounter Care Teams Property Management Specialist Relationship Specialty Start Date End Date Karen Avelar ANP 230 [place] [address] PCP - General Family Medicine 12/08/21 documented as of this encounter
--- OUTSIDE RECORDS SUMMARY | 2024-07-31 10:41 | XMS_ITS | Encounter Summary ---
Author Organization [employer] Address 75 [facility] 7 [place] [address] Care Team Providers Care Railway Switchman Name Role Phone Karen Avelar Primary Care Provider [phone] Reason for Visit * Reason Onset Date Comments Med Refill 03/28/2023 Encounter Details Date Type Department Care Team ([facility] st Contact Info) Description 03/28/2023 Telephone [facility] MEDICINE 230 [place], [place] [phone] Karen Avelar ANP 230 [place], [place] [phone] Med Refill Social History Tobacco Use Types [...] Description 08/01/2024 11:00 AM EDT Clinical Support [facility]EDS 505 [place] [address] Becky Pool, JIMMIE 505 [place] [address] 08/29/2024 9:00 AM EDT Office Visit [facility] 230 [place], [place] [phone] Karen Avelar ANP 230 [place] [address] documented as of this encounter Visit Diagnoses Not on filedocumented in this encounter Additional Health Concerns Assessment Noted Time PHQ-9 Depression Total Score: 14 023 1:08 PM EDT documented as of this encounter Care Teams Railway Switchman Relationship Specialty Start Date End Date Karen Avelar ANP [address] [place] [address] PCP - General Family Medicine 12/08/21 documented as of this encounter
--- OUTSIDE RECORDS SUMMARY | 2024-07-31 10:41 | XMS_ITS | Encounter Summary ---
Author Organization [facility], Address [address] [place] [address] Phone Care Team Providers Care Museum Technician Name Role Phone Merna Read NP Primary Care Provider [phone] Encounter Details Date Type Department Care Team (Late st Contact Info) Description 07/05/2021 Documentation Only [facility], [address] [place] [phone] Janusz Francisco MD [address] [place] [address] Social History Tobacco Use Types [...] filedocumented in this encounter Care Teams Museum Technician Relationship Specialty Start Date End Date Merna Read NP PCP - General 02/12/19 documented as of this encounter
--- OUTSIDE RECORDS SUMMARY | 2024-07-31 10:41 | XMS_ITS | Encounter Summary ---
Author Organization [employer] Address 75 [facility] 7 [place] [address] Care Team Providers Care Industrial Economics Teacher Name Role Phone Karen Avelar Primary Care Provider [phone] Reason for Visit * Reason Onset Date Comments Med Refill 01/30/2023 Encounter Details Date Type Department Care Team ([facility] st Contact Info) Description 01/30/2023 Telephone [facility] MEDICINE 230 [place], [place] [phone] Karen Avelar ANP 230 [place], [place] [phone] Med Refill Social History Tobacco Use Types [...] Description 08/01/2024 11:00 AM EDT Clinical Support [facility] MED & PEDS 505 [place] [address] Becky Pool, RN 505 [place] [address] 08/29/2024 9:00 AM EDT Office Visit [facility] [address] [place] [address] Karen Avelar ANP [address] [place] [address] documented as of this encounter Visit Diagnoses Not on filedocumented in this encounter Additional Health Concerns Assessment Noted Time PHQ-9 Depression Total Score: 14 023 1:08 PM EDT documented as of this encounter Care Teams Industrial Economics Teacher Relationship Specialty Start Date End Date Karen Avelar ANP [address] [place] [address] PCP - General Family Medicine 12/08/21 documented as of this encounter
--- OUTSIDE RECORDS SUMMARY | 2024-07-31 10:41 | XMS_ITS | Clinical Summary ---
Author Organization [facility], Address [address] [place] [address] [place] [address] Phone Care Team Providers Care Soft Crab Shedder Name Role Phone Merna Read NP Primary Care Provider [phone] Allergies Active Allergy Reactions Criticality Noted Date [...] Active Naloxone HCl (Narcan) 4 MG/0.1ML liquid [place] as directed Ac tive OXcarbazepine (TRILEPTAL) 150 [...] Due Date Last Done Comments Pneumococcal Vaccine: 50+ Ye ars (1 of 2 - PCV) 1981 Colorectal Cancer Screening: Annual FOBT 07/27/2011 Colorectal Cancer Screening: Colonoscopy 07/27/2011 Colorectal Cancer Screening: Sigmoidoscopy 07/27/2011 Diabetes: Ophthalmology Exam 06/28/2019 Diabetes: Pedal Pulse Checked 06/28/2019 Diabetes: Sensory Foot Exam 06/28/2019 Diabetes: Visual Foot Exam 06/28/2019 Diabetes: Hemoglobin A1C 01/14/2021 10/14/2020 Influenza Vaccine (Season Ended) 2024 Hepatitis B Vaccine Aged Out No longe [...] AM EDT) Hemoglobin A1C 8.3(H) (4.0-5.6) % [facility] Comment: MONITORING: In known diabetic patients, hemoglobin A1c targets should be discussed with health care provider. DIAGNOSTIC USE: ??The [place] Diabetes Association (ADA) and the World Health [...] Supplement 1 Testing performed or reported by [facility], a Service of [facility], [address] [place] [address] Jude Villanueva MD, Supervisor Dairy Sanitation Blood (Blood, Venous) 10/14/2020 9:11 AM EDT 10/14/2020 9:21 AM EDT us Janusz Francisco MD LAB BLOOD ORDERABLES Final Result [facility] from Last 3 Months or Most Recently Relevant to Health Maintenance Insurance [place] [id number] Care Teams Soft Crab Shedder Relationship Specialty Start Date End Date Merna Read NP PCP - General 02/12/19
--- OUTSIDE RECORDS SUMMARY | 2024-07-31 10:41 | XMS_ITS | Encounter Summary ---
Author Organization [employer] Address 75 [facility] 7 [place] [address] Care Team Providers Care Graphic Arts Instructor Name Role Phone Karen Avelar Primary Care Provider [phone] Reason for Visit * Reason Onset Date Comments Nurse Triage 07/03/2024 Encounter Details Date Type Department Care Team (Late st Contact Info) Description 07/03/2024 Telephone [facility]ICINE [address] [place], [place] [phone] Karen Avelar ANP [address] [place], [place] [phone] Nurse Triage Social History Tobacco Use Types Packs/Day Years [...] encounter Miscellaneous Notes * Telephone Encounter - Flavia Cuadra RN - 07/03/2024 1:12 PM EDT Triage call Pt reports right foot pain. Pain is located on the bottom of the foot radiating from middle to back. Pt reports, it feels like there is a cut inside . No open areas reported. Pt reportsdoes take oxycodone ER for pain and this is not helping. Pt is not able to take NSAIDS as per kidney Doctor . Pt uses cane and walker for ambulation but is ambulating with much difficulty and pain due to this foot pain. Pt was due for left hip surgery but this was canceled due to high A1C and willbe rescheduled at some point. Pt has applied arnica cream to the sole of right foot with a littlerelief. Pt is advised no in office apts available and offered to come to [facility] today. Pt reports willcome to [facility] tomorrow morning which opens at 830am. Pt is advised to apply ice to bottom of foot , cover a ziplock baggie full of ice with wash cloth and apply for 20 min. Pt could also try heat but, must remove cream from foot first and Pt agrees. Pt agrees with disposition and home care advised. Insurance is verified as active. Protocol Used: Foot Pain (Adult) Protocol-Based Disposition: See in Office or Video Visit within 3 Days Video visit not offered Positive Triage Questions: * Moderate pain (e.g., interferes with normal activities, limping) and present > 3 days * Patient wants to be seen * All higher-acuity triage questions were negative Care Advice Discussed: * Reassurance and Education - Foot Pain * Foot Pain - Aggravating Factors * Pain Medicines * Reasons To Call Back - Swelling, redness, or fever occur - Severe pain not relieved by pain medicine - Pain lasts over 7 days - You become worse * Telephone Encounter - Denise Su - 07/03/2024 12:38 PM EDT Symptom: Foot or Ankle Pain - Not From Injury Outcome: Talk to a nurse or provider within 15 minutes Reason: Can't walk (unless normally can't walk) The caller accepted this outcome. [phone] documented in this encounter Plan of Treatment Upcoming Encounters Date Type Department Care Team (Late st Contact Info) Description 08/01/2024 11:00 AM EDT Clinical Support [facility] [address] [place] [address] Becky Pool, JIMMIE 505 [place] [address] 08/29/2024 9:00 AM EDT Office Visit [facility] [address] [place] [address] Karen Avelar ANP [address] [place] [address] documented as of this encounter Visit Diagnoses Not on filedocumented in this encounter Additional Health Concerns Assessment Noted Time PHQ-9 Depression Total Score: 21 024 2:14 PM EDT documented as of this encounter Care Teams Graphic Arts Instructor Relationship Specialty Start Date End Date Karen Avelar ANP [address] [place] [address] PCP - General Family Medicine 12/08/21 documented as of this encounter
--- OUTSIDE RECORDS SUMMARY | 2024-07-31 10:41 | XMS_ITS | Encounter Summary ---
Author Organization [employer] Address 75 [facility] 7 [place] [address] Care Team Providers Care Straight Cutter Machine Name Role Phone Karen Avelar Primary Care Provider [phone] Reason for Visit * Reason Onset Date Comments Prior Authorization 09/07/2022 Encounter Details Date Type Department Care Team (Late st Contact Info) Description 09/07/2022 Telephone [facility] MEDICINE 230 [place], [place] [phone] Karen Avelar ANP 230 [place], [place] [phone] Prior Authorization Social History Tobacco Use Types [...] - 09/07/2022 11:47 AM EDT Tc from [place] with [facility] pharmacy requesting a PA for medication OxyCONTIN 20 MG 12 hr tablet documented in this encounter Plan of Treatment Upcoming Encounters Date Type Department Care Team (Late st Contact Info) Description 08/01/2024 11:00 AM EDT Clinical Support [facility] MED [facility] PEDS [address] [place] [address] Becky Pool, RN [address] [place] [address] 08/29/2024 9:00 AM EDT Office Visit [facility] MEDICINE [address] [place] [address] Karen Avelar ANP [address] [place] [address] documented as of this encounter Visit Diagnoses Not on filedocumented in this encounter Care Teams Straight Cutter Machine Relationship Specialty Start Date End Date Karen Avelar ANP [address] [place] [address] PCP - General Family Medicine 12/08/21 documented as of this encounter
--- OUTSIDE RECORDS SUMMARY | 2024-07-31 10:41 | XMS_ITS | Clinical Summary ---
Author Organization [facility] Address [address] [place] [address] Care Team Providers Care Control Systems Specialist Name Role Phone Merna Read GRADUATE RN Primary Care Provider [phone] Social History Tobacco Use Types Packs/Day Years [...] age to complete this topic Care Teams Control Systems Specialist Relationship Specialty Start Date End Date Merna Read NP 230 [facility] [place] [address] PCP - General Family Medicine 08/10/17
--- OUTSIDE RECORDS SUMMARY | 2024-07-31 10:41 | XMS_ITS | Clinical Summary ---
Author Organization [address] [place] [address] Address [address] [place] [address] Phone Care Team Providers Care Box Sealing Inspector Name Role Phone Jordana Cade MD Primary Care Provider [phone] Allergies Active Allergy Reactions Criticality Noted Date [...] can recall. Patient's C-spine MRI 05/11/2021 at [facility] shows left >right neuroforaminal narrowing C5-6, [...] reviewing his x-rays and MRI with Dr. Fredreick. I asked him to call with any concerns or questions, worsening symptoms. Chest pain 05/31/2021 Overview (03/06/2024): Chest pain Hypertensive disorder 05/31/2021 Overview (03/06/2024): Hypertensive disorder Encounters Date Type Department Care Team Description 05/07/2024 10:45 AM EST Office Visit Orthopedic Surgery - [address] [address] Tristan Deal DPM Controlled type 2 diabetes with neuropathy (CMS/HCC V24, CMS/HCC V28) (Primary Dx); Arthritis of both feet; Hammertoes of both feet; Tinea pedis of both feet; Dermatophytosis, nail from Last 3 Months Surgical History Surgery Date Site/Laterality Comments HIP ARTHROPLASTY 2016 Right PROCEDURE: HISTORICAL HIP REPLACEMENT SHOULDER SURGERY 1979 Right PROCEDURE: HISTORICAL SHOULDER SURGERY; COMMENT: bone graft from hip, surgery in [place] OTHER SURGICAL HISTORY 12/10/2019 PROCEDURE: [place] ARTHRD ANT INTERBODY MIN DSC CRV BELOW [...] 05/07/2024 10:47 AM EST Plan of Treatment Health Maintenance Due Date [...] Annual BMP Blood Test 03/25/2022 RSV Immunization Adult Patients (1 - Risk 60-74 years 1-dose series) 2022 DTaP,Tdap,and Td Vaccines (3 - Td or Tdap) 09/12/2023 09/11/2013, 03/16/2009 COVID-19 Vaccine (5 - season) 2023 04/14/2022, 04/27/2021, 07/23/2020, Additional history [...] age to complete this topic Meningococcal B Vaccine Aged Out No l onger eligible based on patient's age to complete this topic RSV Immunization Patients Under 20 months Aged Out No longer eligible based on patient's age to complete this topic Varicella Vaccines Aged Out No longer eligible based on patient's age to complete this topic Insurance [facility] MEDICARE Member Subscriber Plan / Payer (Ef fective 2013-Present) Name:Bhumika Rose Relation to Subscriber:Self Name:Bhumika Rose Payer ID:[id number] Group ID:[id number] Type:Not on file Address: [facility] [place] [id number] Care Teams Box Sealing Inspector Relationship Specialty Start Date End Date [place], [place] Jordana [address] [place] [phone] PCP - General 07/21/13
== END 2024-07-31 09:53 | disposition home or self-care (01) ==
LOC: HO.HKAS 09:33
PROVIDERS: PCP Family Medicine; Visit Provider Internal Medicine Hypertension Specialist
DX: N18.30 Chronic kidney disease, stage 3 unspecified (principal)
CPT/HCPCS: 99214

== ENCOUNTER → 2024-07-31 09:33 | Outpatient (BNVA) | payer OTHER, SELFPAY | PROVIDERS: PCP Family Medicine; Visit Provider Internal Medicine Hypertension Specialist | DX: E11.22 Type 2 diabetes mellitus with diabetic chronic kidney disease (principal); N18.30 Chronic kidney disease, stage 3 unspecified | CPT/HCPCS: 99212 ==

== ENCOUNTER 2024-09-23 10:08 | Outpatient (AMB) | payer OTHER, SELFPAY ==
[2024-09-23 10:12] VITALS: BP 136/74; PULSE 84; O2SAT 97; BMI 39.7
--- NOTE | 2024-09-23 10:12 | MHC.OFFVIS ---
Vital Signs 09/23/24 10:12 Height 5 ft 11 in Weight 284 lb 9.868 oz BMI 39.7 BP 136/74 Blood Pressure Location Lt brachial Position Sitting Pulse 84 Pulse Source Pulse Oximeter Pulse Oximetry (%) 97 Oxygen Delivery Method Room Air Intake Visit Reasons: T2DM Intake Note: Patient present today for Type 2 Diabetes Mellitus Last Diabetic eye exam: 2023 Last Podiatry Visit: 06/2024 Random Glucose: 239 mg/dl HgA1C: 9.6% Cupola Tapper Helper Required: No Accompanied by: Self / Same As Patient Allergies Penicillins Allergy (Unknown, Verified 09/23/24 10:19) RASH/HIVES Medication List - Last Reconciled 09/23/24 by Génesis Gar PA-C atorvastatin 80 mg PO BEDTIME bempedoic acid (Nexletol) 180 mg PO DAILY blood sugar diagnostic (Command Informationuch Ultra Test strips) DIRECTED TESTS 4 X/DAY blood-glucose meter (Command Informationuch Ultra2 Meter) DIRECTED CHECKS 4 X/DAY blood-glucose sensor (EduoraStyle Edwin 3 Plus Sensor device) Apply 1 new sensor every 14 days as directed to monitor blood glucose continuously. blood-glucose,transmitter chief,cont (FreeStyle Edwin 3 [place]) Use daily As directed to monitor blood glucose bolus insulin pump, 200 unit (CeQur Simplicity) As directed bupropion HCl XL 300 mg PO DAILY cholecalciferol (vitamin D3) 50 mcg PO DAILY clonazepam 2 mg PO BEDTIME enalapril maleate 10 mg PO DAILY ezetimibe 10 mg PO DAILY hydrochlorothiazide 25 mg PO DAILY insulin aspart U-100 (Novolog FlexPen U-100 Insulin aspart) 20 units 3 times a day; insulin degludec (Tresiba FlexTouch U-200 insulin) 30 units (0.15 mL) subcut BEDTIME lancets (FreeStyle Lancets) As directed lancets (Command Informationuch UltraSoft 2 Lancet) As directed tests 4 X/day levothyroxine 50 mcg PO DAILY metoprolol succinate ER 25 mg PO DAILY omeprazole 20 mg PO DAILY oxcarbazepine 300 mg PO DAILY oxycodone 10 mg PO DAILY PRN oxycodone ER 20 mg PO BID pen needle, diabetic (BD Amaya 2nd Gen Pen Needle) As directed 3 times a day prazosin 2 mg PO BEDTIME semaglutide (Ozempic) 1 mg (0.75 mL) subcut QWEEK sertraline 200 mg PO DAILY syringe with needle, safety (BD Integra Syringe) As directed injrcts once a wk syringe with needle, safety (BD Integra Syringe) As directed use once a week tadalafil (Cialis) 5 mg PO DAILY PRN 30 days zolpidem 10 mg PO BEDTIME HPI HPI T2DM: Details: Patient is a 64-year-old male with a significant past medical history of hypertension, hyperlipidemia, type 2 diabetes and obesity presenting today for a follow-up. Endo: DM: His A1c is 9.6. He is currently on ozempic 0.5 mg weekly, tresiba 46 units- he held this since hospitalization/while hospitalized, NovoLog 20 units tid. He states that the hospital told him to hold on the Tresiba until he spoke with us again. He has been using it a couple times and he feels like it is helpful on the days that he uses it. He states that he has had some hypoglycemic events if he does not eat as much as he expected to eat. cgm-very hyperglycemic 26%, 53% hyperglycemic, 21% in range,0% low. - d/c from jardiance a couple years ago due to yeast infections and d/c from metformin to side effects. he states that he did not tolerate the 7.5 mg of Mounjaro so he started taking the left over 5 mg of Mounjaro that he had. He has not tolerated Trulicity due to GI upset. CV: About a month ago he states that he called an ambulance because he was having chest pressure and shortness a breath. He states that he was initially sent to [facility] and then immediately sent to [facility] for cardiac catheterization. He states that he required 2 stents and was subsequently admitted for 9 days. Started cardiac rehab last week. Blood pressure today in the office is 136/74. He is on enalapril 10 mg, hydrochlorothiazide 25 mg, metoprolol 25 mg. He is on atorvastatin and Zetia. [facility] Medical History Obesity due to excess calories HLD (hyperlipidemia) Depression Osteoarthritis Dyslipidemia Hypertension Obesity (BMI 30-39.9) Hypogonadism male Diabetic polyneuropathy associated with type 2 diabetes mellitus halfway (current) use of insulin Diabetes type 2, uncontrolled Surgical History History of surgical procedure on eye proper using laser Hx of shoulder surgery History of hip surgery Hx of neck surgery Family History Father Prostate cancer Mother Diabetes Heart problem Social History Household Members: Family Alcohol intake: never Patient Tobacco Use Status: Never used Tobacco Physical Exam Vital Signs: Last Vital Signs Pulse 84 09/23/24 10:12 BP 136/74 09/23/24 10:12 Pulse Ox 97 09/23/24 10:12 Oxygen Delivery Method Room Air 09/23/24 10:12 BMI result Body Mass Index 39.7 Const Orientation/consciousness: patient oriented x3 Neck Neck: Yes no lymphadenopathy Thyroid: Thyroid normal Carotids: no bruits Resp Auscultation: clear to auscultation bilaterally Cardio Rate: regular rate Rhythm: regular rhythm Heart sounds: S1 normal heart sound present and S2 normal heart sound present Neuro General: patient oriented x3, gait normal and no focal motor deficits Extrem General: Yes normal to inspection Results AMB Hemoglobin A1c AMB Hemoglobin A1c 9.6 % Last Edit by NICHOL Hay on 09/23/24 10:31 Results Reviewed Results Reviewed: Laboratory Last Values Glucose (Clinic) 239 mg/dL (60-115) H 09/23/24 10:22 Hgb A1c (Clinic) 9.6 % (4.0-6.0) H 09/23/24 10:24 Assessment & Plan Assessment & Plan (1) Diabetic polyneuropathy associated with type 2 diabetes mellitus: Code(s): E11.42 - Type 2 diabetes mellitus with diabetic polyneuropathy Category: Medical Plan: restart tresiba at 40 units nightly continue novolog 20 units TID increase ozempic to 1 mg weekly short term follow up (2) Hypertension: Code(s): I10 - Essential (primary) hypertension Category: Medical Qualifiers: Hypertension type: primary hypertension Qualified Code(s): I10 - Essential (primary) hypertension Plan: Have history tell [facility] [employer]. Continue current regimen. Has follow up with Cardiology and Cardiac rehab. (3) Dyslipidemia: Code(s): E78.5 - Hyperlipidemia, unspecified Category: Medical Plan: States that this is being managed now by Cardiology. Orders: Orders AMB Hemoglobin A1c Today E11.65 - Type 2 diabetes mellitus with hyperglycemia, Z13.9 - Encounter for screening, unspecified Medications: New insulin degludec (Tresiba FlexTouch U-200 insulin) 30 units (0.15 mL) subcut BEDTIME 9 mL 3RF semaglutide (Ozempic) 1 mg (0.75 mL) subcut QWEEK 3 mL 4RF Coding Level of Care Code Est Pt Level 4 (48738) Complex EM visit Add On G2211 Diagnoses Diabetic polyneuropathy associated with type 2 diabetes mellitus E11.42 Primary hypertension I10 Hypertension type: primary hypertension Dyslipidemia E78.5
[2024-09-23 10:26] LABS: Glucose, Whole Blood 239 mg/dL (60-115)
--- OUTSIDE RECORDS SUMMARY | 2024-09-23 11:17 | XMS_ITS | Clinical Summary ---
Author Organization [facility] [employer] Address [address] [facility] 7 [place] [address] Care Team Providers Care Machine Engraver Name Role Phone Valentino Karen SOUZA Primary Care Provider [phone] Allergies Active Allergy Reactions Criticality Noted Date Comments Canagliflozin Rash Medium 04/14/2022 Rash on chest Penicillins Rash Low 03/25/2010 Other reaction(s): rash Pregabalin Other 01/18/2022 suicidality Medications buPROPion XL (Wellbutrin XL) 300 MG 24 hr tablet Active clonazePAM (KlonoPIN) 2 MG tablet Active Docusate Sodium (DSS) 100 MG capsule Take 1 capsule by mouth in the morning and 1 capsule in the evening. Active ezetimibe (Zetia) 10 MG tablet Active Insulin Disposable Pump (V-Go 30) kit Active BD Pen Needle Amaya U/F 32G X 4 MM misc Active ketorolac (Acular) 0.5 % ophthalmic solution Active OXcarbazepine (Trileptal) 300 MG tablet Take 1 tablet by mouth 2 times daily. Active prazosin (Minipress) 2 MG capsule Active sertraline (Zoloft) 100 MG tablet Active CeQur Simplicity 2U device Active naloxone (Narcan) 4 mg/0.1 mL nasal sprayIndications: [facility] prescription opiate use Administer 1 spray (4 mg) into affected nostril(s) if needed for opioid reversal for up to 2 doses. 2 each 1 023 Active atorvastatin (Lipitor) 80 MG tablet 023 Active prednisoLONE acetate (Pred-Forte) 1 % ophthalmic suspension 023 Active aspirin 81 MG EC tablet Take 1 tablet by mouth. Active Emollient (CeraVe Diabetics Dry Skin) creamIndications: Type 2 diabetes mellitus with stage 3 chronic kidney disease, with long-term current use of insulin, unspecified whether stage 3a or 3b CKD ([facility]),Dry skin Apply 1 Application. topically if needed in the morning and at bedtime (dry skin). 236 mL 11 024 Active glucose blood (FreeStyle Precision [place] Test) test strip Test blood sugar q 8 hours 100 each 024 Active levothyroxine (Synthroid, Levoxyl) 50 MCG tablet TAKE 1 TABLET BY MOUTH EVERY DAY 90 tablet 3 024 Active tadalafil (Cialis) 5 MG tabletIndications :Vasculogenic erectile dysfunction, unspecified vasculogenic erectile dysfunction type TAKE 1 TABLET BY MOUTH EVERY DAY IF NEEDED FOR ERECTILE DYSFUNCTION 20 tablet 1 024 Active albuterol 108 (90 Base) MCG/ACT inhaler Inhale 2 puffs every 6 (six) hours if needed for wheezing. 18 g 024 2024 Active omeprazole (PriLOSEC) [address] capsule TAKE 1 CAPSULES BY MOUTH EVERYDAY BEFORE A MEAL 90 capsule 1 025 Active enalapril (Vasotec) 10 MG tabletIndications :Hypertension with albuminuria,Hyper tension associated with diabetes ([facility]) TOME SHIRA TABLETA POR VIA ORAL TODOS LOS NETTLES 90 tablet 3 025 Active ticagrelor (Brilinta) 90 MG tablet Take 1 tablet by mouth 2 times daily. 025 Active Continuous Glucose Pie Topper (FreeStyle Edwin 3 [place]) device USE DAILY DIRECTED TO MONITOR BLOOD GLUCOSE 025 Active Continuous Glucose Sensor (FreeStyle Edwin 3 Plus Sensor) misc 025 Active insulin aspart FlexPen (NovoLOG) 100 UNIT/ML pen Inject 20 Units under the skin before breakfast, before lunch, and before evening meal. Active Insulin Degludec FlexTouch 200 UNIT/ML solution pen-injectorIndic ations:Type 2 Diabetes Mellitus Take 42 Units by mouth at bedtime. Active Toprol XL 25 MG 24 hr tablet Take 1 tablet by mouth Once per day. 2024 Active Ozempic, 0.25 or 0.5 MG/DOSE, 2 MG/3ML solution pen-injector Inject 0.5 mg under the skin every 7 (seven) days. Active oxyCODONE (Roxicodone) 10 MG immediate release tabletIndications :Primary osteoarthritis involving multiple joints Take 1 tablet (10 mg) by mouth every 6 (six) hours if needed for severe pain for up to 28 days. Do not start before September 21, 2024. 112 tablet 2024 Active NovoLOG 100 UNIT/ML solution 2024 Discontinued(S top taking at discharge) Lantus SoloStar 100 UNIT/ML pen Inject 40 Units under the skin in the morning. 2024 Discontinued(S top taking at discharge) QUEtiapine (SEROquel) 50 MG tablet 2024 Discontinued(M ed list cleanup (will not trigger notification to Pharmacy)) valACYclovir (Valtrex) 1 g tablet 2024 Discontinued(T herapy completed) zolpidem (Ambien) 10 MG tablet 2024 Discontinued(M ed list cleanup (will not trigger notification to Pharmacy)) cloNIDine (Catapres) 0.1 MG tabletIndications :Acute opioid withdrawal (CMS/HCC) Take orally up to three times daily for symptoms of withdrawal. Do note take if blood pressure less than 100/80 30 tablet 023 2024 Discontinued(M ed list cleanup (will not trigger notification to Pharmacy)) Mounjaro 2.5 MG/0.5ML solution pen-injector 5 mg. 023 2024 Discontinued(S top taking at discharge) testosterone cypionate (Depo-Testosteron e) 200 MG/ML injection 023 2024 Discontinued(M ed list cleanup (will not trigger notification to Pharmacy)) hydroCHLOROthiazi de (HYDRODiuril) 25 MG tabletIndications :Hypertension with albuminuria,Hyper tension associated with diabetes (CMS/HCC) TAKE 1 TABLET BY MOUTH ONCE DAILY 90 tablet 3 025 2024 Discontinued(S top taking at discharge) oxyCODONE (Roxicodone) 10 MG immediate release tabletIndications :Primary osteoarthritis involving multiple joints Take 1 tablet (10 mg) by mouth every 6 (six) hours if needed for severe pain for up to 28 days. 112 tablet 025 2024 Discontinued(R eorder (will not trigger notification to Pharmacy)) oxyCODONE ER (OxyCONTIN) 20 MG 12 hr tabletIndications :Primary osteoarthritis involving multiple joints Take 1 tablet (20 mg) by mouth every 12 (twelve) hours. Do not crush, chew, or split. 56 tablet 025 2024 oxyCODONE (Roxicodone) 10 MG immediate release tabletIndications :Primary osteoarthritis involving multiple joints Take 1 tablet (10 mg) by mouth every 6 (six) hours if needed for severe pain for up to 28 days. 112 tablet 025 2024 Discontinued(R eorder (will not trigger notification to Pharmacy)) Active Problems Problem Noted Date Diagnosed Date Coronary artery disease invo lving [place] coronary artery of [place] heart 08/29/2024 Acute cough 03/28/2024 COVID 03/28/2024 [facility] (current) use of opiate analgesic 03/10 Depression, [...] of insulin 04/30/2015 Overview (01/02/2023): Follows w/ [facility]o, meds rx'd by Dr. Boyer Has [...] Encounters Date Type Department Care Team Description 09/23/2024 Orders Only GENERIC EXTERNAL DATA DEPARTMENT Provider, Generic External Data 09/21/2024 Refill [facility] [address] [place] [address] Geoffrey Kaur MD 09/19/2024 Refill [facility] [address] [place] [address] Becky Pool RN Primary osteoarthritis involving multiple joints 09/19/[address] [phone] Karen Avelar ANP Medication Question 09/19/[address] [address] Karen Avelar ANP Med Refill 09/18/[address] [address] Karen Avelar ANP Amara recall 09/06/2024 10:30 AM EDT Office Visit [address] [address] Karen Avelar ANP Hospital discharge follow-up (Primary Dx); Diabetic polyneuropathy associated with type 2 diabetes mellitus ([facility]); Coronary artery disease involving [place] coronary artery of [place] heart, unspecified whether angina present; Hypertension associated with diabetes ([facility]); Vitamin D deficiency; Hypothyroidism, unspecified type 09/06/2024 Travel 09/05/2024 Telephone [facility] [address] [place] [phone] Karen Avelar ANP Chart Prep 08/29/2024 9:00 AM EDT Office Visit [address] [address] Karen Avelar ANP Coronary artery disease involving [place] coronary artery of [place] heart, unspecified whether angina present (Primary Dx); Type 2 diabetes mellitus with stage 3 chronic kidney disease, with long-term current use of insulin, unspecified whether stage 3a or 3b CKD ([facility]); Hypertension associated with diabetes ([facility]); [facility] (current) use of opiate analgesic 08/29/2024 Travel 08/28/2024 Telephone [facility] [address] [place] [phone] Karen Avelar ANP chartprep 08/26/2024 Refill [facility] [address] [place] [address] Becky Pool, RN Primary osteoarthritis involving multiple joints 08/26/2024 Telephone [facility] [address] [place] [phone] Karen Avelar ANP Med Refill 08/22/2024 Patient Outreach [address] [address] Zuri London Transition Of Care (Tcm) (HDF usncheduled) 08/22/2024 Telephone [facility] [address] [place] [phone] Karen Avelar ANP Hospital Follow-up 08/12/[address] [address] Monique Oro MD Chart Prep 08/12/2024 Telephone [facility] [address] [place] [phone] Karen Avelar ANP Nurse Triage 08/07/2024 Refill [facility] [address] [place] [address] Becky Pool, RN Primary osteoarthritis involving multiple joints 08/07/2024 Telephone [facility] [address] [place] [phone] Karen Avelar ANP Med Refill 08/01/2024 11:00 AM EDT Clinical Support [facility] [address] [place] [address] Becky Pool, RN Chronically on opiate therapy (Primary Dx) 08/01/2024 Travel 07/30/2024 Refill [facility] [address] [place] [phone] Karen Avelar ANP Primary osteoarthritis involving multiple joints 07/18/2024 Refill [facility] [address] [place] [address] Karen Avelar ANP Hypertension with albuminuria; Hypertension associated with diabetes ([facility]) 07/17/2024 Refill [facility] [address] [place] [address] Karen Avelar ANP 07/03/2024 Telephone [facility] [address] [place] [address] Karen Avelar ANP Nurse Triage 06/27/2024 Refill [facility] [address] [place] [address] Karen Avelar ANP Primary osteoarthritis involving multiple joints from Last 3 Months Immunizations Immunization Administration Dates Next Due Hep B, adult [...] Sign Reading Time Taken Comments Blood Pressure 128/80 09/06/2024 10:50 AM EDT Pulse 72 09/06/2024 10:50 AM EDT Temperature 36.8 ??C (98.2 ??F) 03/21/2024 11:[address] Respiratory Rate 16 09/06/2024 10:50 AM EDT Oxygen Saturation 95% 03/21/2024 11:05 AM EST Inhaled Oxygen Concentration - - Weight 129 kg (285 lb) 09/06/2024 10:50 AM EDT Height 180.3 cm (5' 11 ) 09/06/2024 10:50 AM EDT Body Mass Index 39.75 09/06/2024 10:50 AM EDT Plan of Treatment Upcoming Encounters Date Type Department Care Team (Late st Contact Info) Description 10/14/2024 10:30 AM EDT Telemedicine [facility] [address] [place] [address] Becky Pool, JIMMIE [address] [place] [address] Health Maintenance Due Date Last Done Comments [...] or Tdap) 09/12/2023 09/11/2013, 03/16/2009 Depression Monitoring 04/11/2024 10/10/2023, 024 SDOH Screening 05/24/2024 05/24/2023 Diabetes: Hemoglobin A1C 11/29/2024 025, 06/12/2024, 10/16/2023, Additional history exists Eye Exam 12/19/2024 12/19/2022 Alcohol/Substance Use Screening 03/21/2025 03/21/2024 COVID-19 Vaccine ( season) 2025 04/14/2022, 04/27/2021, 07/23/2020, Additional history exists Postponed from 12/10/2023 (Patient Refused) Disability Screening 08/29/2025 08/29/2024 Tobacco Screening 09/06/2025 09/06/2024 Hepatitis B Vaccines Completed 08/03/2015, 07/09/2013, 01/12/2009 [...] Associated Diagnosis Comments GLUCOSE, WHOLE BLOOD Routine 09/23/2024 10:22 AM EDT POCT GLYCATED HEMOGLOBIN, TOTAL Routine 08/29/2024 9:37 AM EDT Type 2 diabetes mellitus with stage 3 chronic kidney disease, with long-term current use of insulin, unspecified whether stage 3a or 3b CKD (CMS/HCC) POCT GLUCOSE Routine 08/29/2024 9:37 AM EDT Type 2 diabetes mellitus with stage 3 chronic kidney disease, with long-term current use of insulin, unspecified whether stage 3a or 3b CKD (CMS/HCC) POCT JESSICA-14 URINE DRUG SCREEN Routine 08/01/2024 11:01 AM EDT Chronically on opiate therapy LIPID PANEL, STANDARD Routine 08/10/2022 10:13 AM EDT HM COLONOSCOPY Routine 03/02/2016 4:57 PM EST from Last 3 Months or Most Recently Relevant to Health Maintenance Results * (ABNORMAL) Glucose, Whole Blood (09/23/2024 10:22 AM EDT) Glucose, Whole Blood 239(H) 60 - 115 mg/dL [facility] Comment:METER #: [id number] 5Testing performed in the Endocrinology Department [address] , [address], [place]. 09/23/2024 10:2 2 AM EDT 09/23/2024 10:25 AM EDT us Generic External Data Provider LAB BLOOD ORDERAB LES Final Result [facility] [address] [place] [phone] * (ABNORMAL) POCT HGB A1C (08/29/2024 9:37 AM EDT) Pathologist [facility] [place] Hemoglobin A1C 8.5(A) 4.0 - 6.0 % QC Media Lot # [id number] Lot# Expiration Date Blood 08/29/2024 9:37 AM EDT Karen Avelar [facility] POINT OF CARE TEST ENTER/EDIT OR DERABLES Final Result * POCT Glucose (08/29/2024 9:37 AM EDT) Pathologist [facility] [place] Glucose Blood, POC 185 60 - 200 mg/dL QC Media Lot # [id number] Lot# Expiration Date Blood Capillary blood specimen / Unknown 08/29/2024 9:37 AM EDT Karen Avelra [facility] POINT OF CARE TEST ENTER/EDIT OR DERABLES Final Result * POCT JESSICA-14 Urine Drug Screen (08/01/2024 11:01 AM EDT) Pathologist [facility] [place] TCA, Urine Positive Oxycodone Screen, Urine Positive Urine Urine specimen obtained by clean catch procedure / Unknown 08/01/2024 11:01 AM EDT Narrative Becky Pool RN - 08/01/2024 11:01 AM EDT Lot# [id number] Exp: 11-27-25 Karen Avelar [facility] POINT OF CARE TEST ENTER/EDIT OR DERABLES Final Result * Lipid Panel, Standard (08/10/2022 10:13 AM EDT) Pathologist [facility] [place] Triglycerides 111 mg/dL [facility] Comment:Desirable Triglyceri de: less than 150 mg/dLBorderline High Triglyceride 150-199 mg/dLHigh Triglyceride: 200-499 mg/dLVery High Triglyceride: greater than or equal to 5OO mg/dL Cholesterol 199 mg/dL [facility] Comment:Desirable Cholestero l: less than 200 mg/dLBorderline High Cholesterol: 200-239 mg/dLHigh Cholesterol: greater than 239 mg/dL LDL Cholesterol Calculated 140 mg/dl [facility] Comment:Desirable LDL: less than 100 mg/dLNear Optimal/Above Optimal LDL: 110- 129 mg/dLBorderline High LDL: 130-159 mg/dLHigh LDL: 160-189 mg/dLVery High LDL: greater than or equal to 190 mg/dL HDL Cholesterol 37 mg/dL [facility] Comment:Desirable HDL: great er than 40 mg/dL Note: This HDL assay may give artificially low results in patients with liver disease. 08/10/2022 10:1 3 AM EDT 08/10/2022 1:36 PM EDT [facility] External Provider LAB BLO OD ORDERABLES Final Result Performing Organization Address City/State/[facility] Co de Phone Number [facility] [address] [place] [phone] * Hm Colonoscopy (03/02/2016 4:57 PM EST) Historical Provider MD HEALTH MAINTENANCE Final Result from Last 3 Months or Most Recently Relevant to Health Maintenance Insurance [facility] < [address] [id number] Care Teams Machine Engraver Relationship Specialty Start Date End Date Karen Avelar ANP [address] [place] [phone] PCP - General Family Medicine 12/08/21
== END 2024-09-23 10:46 | disposition home or self-care (01) ==
LOC: HO.ENCR 10:09
PROVIDERS: PCP Family Medicine; Visit Provider Physician Assistant
DX: E11.42 Type 2 diabetes mellitus with diabetic polyneuropathy (principal); I10 Essential (primary) hypertension; E78.5 Hyperlipidemia, unspecified; Z13.9 Encounter for screening, unspecified; E11.65 Type 2 diabetes mellitus with hyperglycemia

== ENCOUNTER → 2024-09-23 10:08 | Outpatient (BNVA) | payer OTHER, SELFPAY | PROVIDERS: PCP Family Medicine; Visit Provider Physician Assistant | DX: E11.42 Type 2 diabetes mellitus with diabetic polyneuropathy (principal); I10 Essential (primary) hypertension; E78.5 Hyperlipidemia, unspecified | CPT/HCPCS: 82947; 83036; 99212 ==

== ENCOUNTER 2024-11-15 08:58 | Outpatient (AMB) | payer OTHER, SELFPAY ==
[2024-11-15 09:00] VITALS: BP 128/78; PULSE 84; O2SAT 96; BMI 40.6
--- NOTE | 2024-11-15 09:00 | MHC.OFFVIS ---
Vital Signs 11/15/24 09:00 Height 5 ft 11 in Weight 291 lb 3.69 oz BMI 40.6 BP 128/78 Blood Pressure Location Lt brachial Position Sitting Pulse 84 Pulse Source Pulse Oximeter Pulse Oximetry (%) 96 Oxygen Delivery Method Room Air Intake Visit Reasons: f/u T2DM Intake Note: Patient present today for Type 2 Diabetes Mellitus Last Diabetic eye exam: Last exam was on 02/2024 and has upcoming appt on 02/28/25. Last Podiatry Visit: 03/2025 Random Glucose: 245 mg/dl HgA1C: 9.6% 09/23/24 Farm [employer] Required: No Accompanied by: Self / Same As Patient Allergies Penicillins Allergy (Unknown, Verified 11/15/24 09:09) RASH/HIVES HPI HPI f/u T2DM: Details: Patient is a 64-year-old male with a significant past medical history of hypertension, hyperlipidemia, CKD, type 2 diabetes and obesity presenting today for a follow-up. Endo: DM: His A1c is 9.6. He is currently on ozempic 1 mg weekly, tresiba 42-45 units, NovoLog 20 units tid. He states he does not know why his glucose readings are high because he only eats from He reports that he actually has not been consistent with tresiba. He forgets it at bedtime 2-3x a week. He would find it easier to take in the morning. He did not take it last night He states that he has had some hypoglycemic events if he does not eat as much as he expected to eat. cgm-usage 93%, average glucose 218, G mi 8.5%, variability 24%. very hyperglycemic 27%, 48% hyperglycemic, 25% in range,0% low. - d/c from jardiance a couple years ago due to yeast infections and d/c from metformin to side effects. he states that he did not tolerate the 7.5 mg of Mounjaro so he started taking the left over 5 mg of Mounjaro that he had. He has not tolerated Trulicity due to GI upset. CV: BP today in office is 128/78. He is on enalapril 10 mg, hydrochlorothiazide 25 mg, metoprolol 25 mg. He is on atorvastatin and Zetia. Pysch: He has been struggling with depression and states that is why he has had some compliance issues. He recently followed with his psychiatrist and is finally feeling a lot better . No current SI/HI. 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 Diabetes type 2, uncontrolled Surgical History History of surgical procedure on eye proper using laser Hx of shoulder surgery History of hip surgery Hx of neck surgery Family History Father Prostate cancer Mother Diabetes Heart problem Social History Household Members: Family Alcohol intake: never Patient Tobacco Use Status: Never used Tobacco Physical Exam Vital Signs: Last Vital Signs Pulse 84 11/15/24 09:00 BP 128/78 11/15/24 09:00 Pulse Ox 96 11/15/24 09:00 Oxygen Delivery Method Room Air 11/15/24 09:00 BMI result Body Mass Index 40.6 Const Orientation/consciousness: patient oriented x3 HEENT Ears: hearing grossly normal bilaterally Neck Thyroid: Thyroid normal Lymphatic: no lymphadenopathy noted Resp Auscultation: clear to auscultation bilaterally Cardio Rate: regular rate Rhythm: regular rhythm Heart sounds: S1 normal heart sound present and S2 normal heart sound present GI Inspection: Yes normal to inspection Palpation (GI): Soft to palpation and Other GI palpation findings present (nontender, no cva tenderness) Auscultation: normoactive bowel sounds Rectal Exam - Male: Yes deferred Skin General skin exam: no rashes or lesions noted Neuro General: patient oriented x3, gait normal and no focal motor deficits Assessment & Plan Assessment & Plan (1) Diabetes type 2, uncontrolled: Code(s): E11.65 - Type 2 diabetes mellitus with hyperglycemia Category: Medical Qualifiers: Glycemic state: with hyperglycemia Qualified Code(s): E11.65 - Type 2 diabetes mellitus with hyperglycemia Plan: start taking tresiba in the mornings (he will take today). increased dose from 45 to 50 daily. He will set an alarm on the phone. continue novolog increase ozempic to 2 mg weekly. (2) Hypertension: Code(s): I10 - Essential (primary) hypertension Category: Medical Qualifiers: Hypertension type: primary hypertension Qualified Code(s): I10 - Essential (primary) hypertension Plan: wnl continue current plan (3) HLD (hyperlipidemia): Code(s): E78.5 - Hyperlipidemia, unspecified Category: Medical Plan: as above we will monitor Medications: New semaglutide (Ozempic) 2 mg (0.75 mL) subcut QWEEK 3 mL 5RF Changed From insulin degludec (Tresiba FlexTouch U-200 insulin) 30 units (0.15 mL) subcut BEDTIME 9 mL 3RF To insulin degludec (Tresiba FlexTouch U-200 insulin) 50 units (0.25 mL) subcut QAM 9 mL 5RF 30 days Discontinued semaglutide (Ozempic) Discontinued Reason: Doctor's Order 1 mg (0.75 mL) subcut QWEEK 3 mL 4RF Coding Level of Care Code Est Pt Level 4 (82738) Complex EM visit Add On G2211 Diagnoses Uncontrolled type 2 diabetes mellitus with hyperglycemia E11.65 Glycemic state: with hyperglycemia Primary hypertension I10 Hypertension type: primary hypertension HLD (hyperlipidemia) E78.5
--- OUTSIDE RECORDS SUMMARY | 2024-11-15 09:11 | XMS_ITS | Clinical Summary ---
Author Organization [facility] Address [address] [place] [address] Phone Care Team Providers Care Cane Flume Watcher Name Role Phone Jordana Cade MD Primary Care Provider [phone] Allergies Active Allergy Reactions Criticality Noted Date Comments Penicillins 05/31/2021 Medications acetaminophen (TYLENOL) 500 mg tablet Take 500 mg by mouth every 6 hours as needed. Active zolpidem (AMBIEN) 10 mg tablet Active aspirin 81 mg EC tablet Take 81 mg by mouth daily. Active docusate sodium (COLACE) 100 mg capsule Take 100 mg by mouth 2 times daily. Active clonazePAM (KlonoPIN) 2 mg tablet Take 2 mg by mouth 2 times daily as needed. Active levothyroxine (SYNTHROID, LEVOTHROID) 50 mcg tablet Take 50 mcg by mouth daily. Active polyethylene glycol (MIRALAX) 17 gram packet Take 17 g by mouth daily. Active oxyCODONE (ROXICODONE) 10 mg immediate release tablet Take 1 tablet (10 mg total) by mouth every 6 (six) hours if needed for moderate pain. Active ezetimibe (ZETIA) 10 mg tablet Take 10 mg by mouth daily. Active ketoconazole (NIZORAL) 2 % cream Apply topically 1 (one) time each day. 60 g 1 5 Active atorvastatin (LIPITOR) 80 mg tablet Take 1 tablet (80 mg total) by mouth at bedtime. 2 Active buPROPion XL (WELLBUTRIN XL) 300 mg 24 hr tablet Take 1 tablet (300 mg total) by mouth at bedtime. Active enalapril (VASOTEC) 10 mg tablet Take 1 tablet (10 mg total) by mouth 1 (one) time each day. 5 Active insulin aspart (NovoLOG FlexPen) 100 unit/mL (3 mL) injection pen Inject 20 Units under the skin 3 (three) times a day before meals. 5 Active insulin degludec (TRESIBA FlexTouch U-200) 200 unit/mL (3 mL) CONCENTRATED injection pen Inject 52 Units under the skin at bedtime. 5 Active omeprazole (PriLOSEC) [address] capsule Take 1 capsule (20 mg total) by mouth 1 (one) time each day. 4 Active OXcarbazepine (TRILEPTAL) 300 mg tablet Take 1 tablet (300 mg total) by mouth at bedtime. 2 Active prazosin (MINIPRESS) 2 mg capsule Take 1 capsule (2 mg total) by mouth at bedtime. Active sertraline (ZOLOFT) 100 mg tablet Take 2 tablets (200 mg total) by mouth at bedtime. Active testosterone (AndroGeL) 20.25 mg/1.25 gram (1.62 %) gel in metered-dose pump Place 20.25 mg on the skin 1 (one) time each day. Max Daily Amount: 20.25 mg Active melatonin 3 mg tablet Take 10 mg by mouth at bedtime. Active semaglutide (Ozempic) 1 mg/dose (4 mg/3 mL) injection pen Inject 1 mg under the skin every 7 (seven) days. Active clopidogreL (PLAVIX) 75 mg tablet Take 1 tablet (75 mg total) by mouth 1 (one) time each day. Active cloNIDine (CATAPRES) 0.1 mg tablet Take 1 tablet (0.1 mg total) by mouth 2 (two) times a day. Active testosterone (Androderm) 4 mg/[address] onto the skin. 025 Discontinu ed(Discont inued by another clinician) hydroCHLOROthiaz lynne (HYDRODIURIL) 25 mg tablet Take 1 tablet (25 mg total) by mouth daily. 3 025 Discontinu ed(Prescri sagar Discontinu ed) Mounjaro 5 mg/0.5 mL injection Inject 0.5 mL (5 mg total) under the skin every 7 (seven) days. 5 025 Discontinu ed(Discont inued by another clinician) ticagrelor (BRILINTA) 90 mg tablet Take 1 tablet (90 mg total) by mouth 2 (two) times a day. 180 tablet 1 5 025 Discontinu ed(Prescri sagar Discontinu ed) Active Problems Problem Noted Date Diagnosed Date Mixed hyperlipidemia 10/23/2024 Assessment & Plan (10/23/2024 2:17 PM EDT): Patient continues on atorvastatin 80 mg once a day. We will update a lipid panel next visit. Coronary artery disease invo lving anvik coronary artery of anvik heart without angina pectoris 08/13/2024 Assessment & Plan (10/23/2024 2:17 PM EDT): Patient has significant coronary risk factors and was recently hospitalized as outlined in detail above. He is found to have coronary artery disease with resulting in successful IVUS guided PCI of the mid RCA with a drug-eluting stent. He was placed on dual antiplatelet therapy with aspirin and Brilinta. Unfortunately he developed significant shortness of breath on Brilinta and he was transition to Plavix. He was also discharged from the hospital on Toprol 25 mg daily but developed worsening shortness of breath. He is reporting daily palpitations and reports that on Monday he had significant palpitations which resulted in shortness of breath. Symptoms resolved with rest. At this time I arranged for a 48-hour pvc monitor to further evaluate his palpitations. He also has untreated sleep apnea and I placed a referral for sleep medicine to readdress this. He will continue on dual antiplatelet therapy with aspirin and Plavix. Will consider adding diltiazem for his palpitations however would like to see what his cardiac rhythm shows during the monitoring period. EKG is stable today. I have reviewed with the patient the importance of a heart healthy lifestyle which includes eating a low-fat low-salt diet, getting regular exercise, maintaining a healthy weight, not smoking, and following up with routine medical care. Acute pain of right shoulder 05/31/2021 Overview [...] with any concerns or questions, worsening symptoms. Hypertensive disorder 05/31/2021 Overview (03/06/2024): Hypertensive disorder Assessment & Plan (10/23/2024 2:17 PM EDT): Patient's blood pressure is reasonable with a reading today of 118/72. Continue with medical therapies as prescribed. Resolved Problems Problem Noted Date Diagnosed Date Resolved Date Acute chest pain 08/12/2024 10/23/2024 Chest pain 05/31/2021 10/23/2024 Overview (03/06/2024): Chest pain Encounters Date Type Department Care Team Description 10/25/2024 Telephone [facility] Cardiology [facility] [address] [place] [phone] Alondra Sellers NP Referral (Sleep Medicine) 10/23/2024 1:40 PM EDT Office Visit [facility] [address] [place] [address] Alondra Sellers NP Coronary artery disease involving anvik coronary artery of anvik heart without angina pectoris (Primary Dx); Mixed hyperlipidemia; Primary hypertension; Palpitations; Unstable angina (CMS/HCC V24, CMS/HCC V28) 09/19/2024 Telephone [facility] Cardiology [facility] [address] [place] [phone] Cat Bee MD Medication Problem (Not tolerating brilinta ) 08/15/2024 10:30 AM EDT - 08/15/2024 1:30 PM EDT Surgery [facility] Cardiac Addiction Treatment Counselor [address] [place] [phone] Sharan Hamilton MD Left heart cath 08/12/2024 9:16 PM EDT - 08/15/2024 5:06 PM EDT Hospital Encounter [facility] [address] [place] [address] Yarelis Yeung DO Millay, Scot A, MD Jones, Christopher, MD Bukalo, Nermina, MD Rasul, Yar M, MD Acute chest pain (Primary Dx) Discharge Disposition: Short Term Hospital from Last 3 Months Surgical History Surgery Date Site/Laterality Comments HIP ARTHROPLASTY 2016 Right PROCEDURE: HISTORICAL HIP REPLACEMENT SHOULDER SURGERY 1979 Right PROCEDURE: HISTORICAL SHOULDER SURGERY; COMMENT: bone graft from hip, surgery [place] OTHER SURGICAL HISTORY 12/10/2019 PROCEDURE: AL ARTHRD ANT INTERBODY MIN DSC CRV BELOW C2; COMMENT: C5-6 ACDF, Dr. Glenda Frederick CARDIAC CATHETERIZATION DONE ON 08/15/2024 AT [facility] INDICATIONS:Acute chest pain CARDIAC CATHETERIZATION DONE ON 08/16/2024 AT [facility] INDICATIONS: Unstable angina. Medical History Medical History Date Comments DM type 2, uncontrolled, wit h neuropathy DX:DM type 2, uncontrolled, with neuropathy Mixed hyperlipidemia DX:Mixed hy perlipidemia Hypothyroidism (acquired) DX:Hyp othyroidism (acquired) Erectile dysfunction DX:Erectile dysfunction Low testosterone DX:Low testoste john GERD without esophagitis DX:GERD without esophagitis Vitamin D deficiency DX:Vitamin D deficiency Depression, unspecified depr ession type DX:Depression, unspecified d epression type Obesity DX:Obesity Polyneuropathy DX:Polyneuropath y Essential hypertension DX:Essent ial hypertension Anxiety disorder DX:Anxiety diso rder Hyperlipemia Acute chest pain 08/12/2024 Chest pain 05/31/2021 Chest pain Family History Medical History Relation Name Comments No Known Problems Brother No Known Problems Father No Known Problems Maternal Grandfather No Known Problems Maternal Grandmother No Known Problems Mother No Known Problems Other No Known Problems Paternal Grandfather No Known Problems Paternal Grandmother No Known Problems Sister Relation Name Status Comments Brother Father Maternal Grandfather Maternal Grandmother Mother Other Paternal Grandfather Paternal Grandmother Sister Social History Tobacco Use Types Packs/Day Years Used Date Smoking Tobacco: Never Smokeless Tobacco: Never Tobacco Cessation:Counseling Given: Not Answered Alcohol Use Standard Drinks/Week Comments Never 0 (1 standard drink = 0.6 oz pur e alcohol) Housing Instability Answer Date Recorde d Are you worried that in the next 2 months you may not have stable housing? No 08/13/2024 Food Access & Nutrition Answer Date Rec orded Do you have access to a vari ety of food including fruits and vegetables? No 08/13/2024 Health Literacy Answer Date Recorded How often do you need to hav e someone help you when you read instructions, pamphlets, or other written material from your doctor or pharmacy? Never 08/13/2024 Caregiver: How often do you need to have someone help you when you read instructions, pamphlets, or other written material from your doctor or pharmacy? Not on file 08/13/2024 Financial Risk Answer Date Recorded How hard is it for you to pa y for the very basics like food, housing, medical care, and air conditioning / heating? Very hard 08/13/2024 Transportation Answer Date Recorded Has the lack of transportati on kept you from meetings, work, or from getting things needed for daily living? No Has the lack of transportati on kept you from medical appointments or from getting medications? No 08/13/2024 Social Isolation Answer Date Recorded How often do you feel lonely or isolated from th ose around you? Never 08/13/2024 Food Risk Answer Date Recorded Within the past 12 months we worried whether our food would run out before we got money to buy more. Never true 08/13/2024 Within the past 12 months th e food we bought just didn't last and we didn't have money to get more. Never true 08/13/2024 Dependent Care Answer Date Recorded Do you need help finding or paying for care for your loved ones. For example, director child development center or elderly care for an older adult? No 08/13/2024 Education Answer Date Recorded Do you think completing more education or training, like finishing a GED, going to college, or learning a trade, would be helpful for you? No 08/13/2024 Employment and Income Answer Date Recor ded During the last four weeks, have you been actively looking for work? No 08/13/2024 Living Situation Answer Date Recorded What is your living situation? 0 08/13/2024 Interpersonal Safety Answer Date Record ed Physical Abuse 08/13/2024 Verbal Abuse 08/13/2024 Sex and Gender Information Value Date Recorded Sex Assigned at Male 08/13/2024 4:09 PM EDT Legal Sex Male 3:25 AM EST Gender Identity Male 08/13/2024 4:09 PM EDT Sexual Orientation Straight 08/13/2024 4: 09 PM EDT Obstetrics History Last Filed Vital Signs Vital Sign Reading Time Taken Comments Blood Pressure 118/72 10/23/2024 1:22 PM EDT Pulse 91 10/23/2024 1:22 PM EDT Temperature 36.2 C (97.2 F) 08/15/2024 3:13 PM EDT Respiratory Rate 17 08/15/2024 3:13 PM EDT Oxygen Saturation 94% 10/23/2024 1:22 PM EDT Inhaled Oxygen Concentration - - Weight 131 kg (288 lb) 10/23/2024 1:22 PM EDT Height 180.3 cm (5' 11 ) 10/23/2024 1:22 PM EDT Body Mass Index 40.17 10/23/2024 1:22 PM EDT Plan of Treatment Upcoming Encounters Date Type Department Care Team (Late st Contact Info) Description 12/11/2024 10:30 AM EDT Ancillary Procedure [facility] Cardiology [facility] [address] [place] [address] 12/25/2024 11:30 AM EDT Office Visit [facility] [address] [place] [address] [address] [place] [address] Alondra Sellers NP [address] [place] [address] [address] [place] [address] Health Maintenance Due Date Last Done Comments Diabetes: Annual Foot Exam 1972 Diabetes: Annual Retina Eye Exam 1972 Pneumococcal Vaccine: 50+ Years (2 of 2 - PCV) 09/24/2010 09/24/2009 Zoster Vaccines (1 of 2) 2012 Colorectal Cancer Screening: Colonoscopy 03/13/2022 HIV Screening 03/13/2022 Hepatitis C Screening 03/13/2022 Medicare Annual Wellness Visit 03/13/2022 RSV Immunization Adult Patients (1 - Risk 60-74 years 1-dose series) 2022 DTaP,Tdap,and Td Vaccines (3 - Td or Tdap) 09/12/2023 09/11/2013, 03/16/2009 COVID-19 Vaccine ( season) 2023 04/14/2022, 04/27/2021, 07/23/2020, Additional history exists Depression Screening 04/10/2024 Diabetes: Annual Urine Albumin-Creatinine Ratio (uACR) 05/07/2024 Influenza Vaccine (#1) 2024 , 04/14/2022, 01/27/2012, Additional history exists Diabetes: Blood Sugar Control Test (HGBA1C) 03/01/2025 08/29/2024, 06/12/2024, 10/16/2023, Additional history exists Social Influencers of Health Screening 08/13/2025 08/13/2024 Diabetes: Annual GFR (Glomerular Filtration Rate) 08/15/2025 08/15/2024, 08/14/2024, 08/12/2024, Additional history exists Hypertension/CHF/CAD Annual BMP Blood Test 08/15/2025 08/15/2024, 08/14/2024, 08/12/2024, Additional history exists Cholesterol Screening (Lipid Panel) 08/14/2029 08/14/2024, 08/10/2022 Hepatitis B Vaccines Completed 08/03/2015, 07/09/2013, 01/12/2009 HIB Vaccines Aged Out No longer eligi [...] Procedure Name Priority Date/Time Associated Diagnosis Comments ECG 12-LEAD Routine 10/23/2024 2:17 PM EDT Unstable angina (CMS/HCC V24, CMS/HCC V28) POCT GLUCOSE BLOOD Routine 08/15/2024 3: 13 PM EDT POCT GLUCOSE BLOOD Routine 08/15/2024 11 :58 AM EDT LEFT AND RIGHT HEART CATH Routine 08/15/2024 8:38 AM EDT Acute chest pain LEFT HEART CATH Routine 08/15/2024 8:38 AM EDT Acute chest pain LAVENDER - EDTA Routine 08/15/2024 5:25 AM EDT EXTRA TUBES Routine 08/15/2024 5:25 AM EDT MAGNESIUM Routine 08/15/2024 5:25 AM EDT BASIC METABOLIC PANEL Routine 08/15/2024 5:25 AM EDT COMPLETE BLOOD COUNT Timed 08/15/2024 12:02 AM EDT LIPID PANEL WITH REFLEX TO DIRECT LDL Add-On 08/14/2024 5:25 AM EDT from Last 3 Months or Most Recently Relevant to Health Maintenance Results * ECG 12 lead (10/23/2024 2:17 PM EDT) Ventricular Rate ECG 86 BPM GEMUSE Atrial Rate 86 BPM GEMUSE P-R Interval 188 ms GEMUSE QRS Duration 136 ms GEMUSE Q-T Interval 382 ms GEMUSE QTc 457 ms GEMUSE P Wave [place] 63 degrees GEMUSE R [place] -59 degrees GEMUSE T [place] 24 degrees GEMUSE ECG Interpretation Normal sinus rhythm Left axis deviation Right bundle branch block Minimal voltage criteria for LVH, may be normal variant Abnormal ECG When compared with ECG of 14-AUG-2024 05:49, Nonspecific T wave abnormality, improved in Inferior leads Confirmed by BOSTON CORBIN ([id number]) on 11/04/2024 10:18:30 AM GEMUSE 10/23/2024 1:41 PM EDT 11/04/2024 10:18 AM EDT Alondra Sellers NP ECG ORDERABLES Edited Resul t - Final Performing Organization Address [facility] de Phone Number GEMUSE * (ABNORMAL) POCT Glucose, blood (08/15/2024 3:13 PM EDT) Only the most recent of2 resultswithin the time period is included. [facility] Glucose POCT 217(H) 70 - 100 mg/dL 08/15/2024 3:14 PM EDT [facility] Blood Capillary blood specimen / Unknown 08/15/2024 3:13 PM EDT 08/15/2024 3:15 PM EDT David Phillips MD LAB POINT OF CARE TE ST DOCKED DEVICE UNSOLICITED RESULTS Final Result Performing Organization Address [facility] de Phone Number [facility] [address] [place] [address], [place] [phone] * LEFT HEART CATH, LEFT AND RIGHT HEART CATH (08/15/2024 8:38 AM EDT) Anatomical Region Laterality Modality X-Ray Angiograph y Narrative 08/16/2024 7:11 AM EDT 1. Left heart pressures were normal. There was no gradient across the aortic valve. 2. Single-vessel coronary artery disease due to a critical tubular stenosis involving the midportion of a weakly dominant right coronary artery. The left coronary system had only minor luminal irregularities. 3. Successful hemostasis utilizing a standard TR band. 4. No complications were encountered. Coronary Findings Diagnostic Dominance: Right Left Main: The vessel was visualized by angiography and is large. The vessel exhibits minimal luminal irregularities. The ostium is normal. Left Anterior Descending: The vessel was visualized by angiography and is large. The vessel exhibits minimal luminal irregularities. The ostium is normal. Normal flow to distal vessel and to diagonal and septal perforating artery branches. Left Circumflex: The vessel was visualized by angiography and is large. The vessel exhibits minimal luminal irregularities. This large left circumflex coronary artery gives rise to a very large obtuse marginal artery branch and to a series of small to medium sized posterolateral branches. There is normal flow to the distal vessel. No significant lesions are detected. Right Coronary Artery: The vessel is moderate in size. The ostium is normal. The right coronary artery is a relatively small but technically dominant vessel. Shortly after the ostium there is a branch to the anterior septum. The mid RCA contains a tubular, hazy greater than 95% stenosis which appears to be a likely culprit for the patient's recent symptoms. The distal RCA gives rise to a small caliber PDA and a single relatively small posterolateral branch. Intervention No interventions have been documented. Study Details Recurrent chest pain with features suggesting acute coronary insufficiency in a patient with multiple risk factors for premature coronary disease. Cardiac Cath Measurements Pressure measurements: LV pressure = 125 mmHg. LVED pressure = 11 mmHg. AO pressure = 125/56 mmHg. Cath Recommendations Recommendations: Consideration will be given to right coronary artery intervention. Heparin will be restarted without a bolus in approximately 2 hours.. Clinical Background This 64-year-old Tunisian-speaking man with multiple coronary risk factors including diabetes, obesity and sleep apnea syndrome presents with recurrent episodes of substernal pain and pressure. Symptoms have been aggravated by exertion have responded favorably to nitroglycerin. There have been no EKG changes and troponins have been negative. Hence cardiac catheterization and coronary angiography are being performed. Procedure Details Informed consent was obtained. Clinical history was reviewed and the patient was examined. A timeout was performed. A right radial approach was utilized. A 6 Turkish slender sheath was placed in the right radial artery in the customary fashion. Access to the central circulation was achieved with a 5 Turkish Jorge catheter placed over a baby J-wire. Heparin 4000 units was administered intravenously. The aortic valve was crossed in retrograde fashion and left ventricular pressures were obtained. A pullback was performed. Right coronary angiography was performed. I was unable to cannulate the left coronary artery with the Jorge catheter. Therefore an exchange was made for a 5 Turkish JL 3.5 catheter. Selective cannulation of the left coronary artery was performed and angiographic projections were obtained in multiple views. The catheter was removed over a wire. Hemostasis was achieved utilizing a standard TR band. The patient left the laboratory in stable condition. No complications were encountered. Spike Steinberg MD CV CARDIAC CATH PROCEDURES Fin al Result * Lavender tube (08/15/2024 5:25 AM EDT) [facility] Extra Tube Hold for add-ons. 08/15/2024 8:01 AM EDT [facility] Comment:Auto resulted. Blood Venous blood specimen / Unknown Venipuncture / Unknown 08/15/2024 5:25 AM EDT 08/15/2024 6:18 AM EDT David Phillips MD LAB BLOOD ORDERABLES Final Resul t Performing Organization Address City/[facility]/ZIP Co de Phone Number [facility] [address] [place] [address], * Magnesium (08/15/2024 5:25 AM EDT) [facility] Magnesium 2.1 1.9 - 2.6 mg/dL LAB CHEMISTRY METHOD 08/15/2024 7:23 AM EDT [facility] Blood Venous blood specimen / Unknown Venipuncture / Unknown 08/15/2024 5:25 AM EDT 08/15/2024 6:17 AM EDT Junior CURRIE LAB BLOOD ORDERABLES Ambar l Result [facility] [address] [place] [address], [place] [phone] * (ABNORMAL) Basic metabolic panel (08/15/2024 5:25 AM EDT) [facility] Sodium 135 133 - 145 mmol/L LAB CHEMISTRY METHOD 08/15/2024 7:23 AM EDT [facility] Potassium 4.3 3.5 - 5.5 mmol/L LAB CHEMISTRY METHOD 08/15/2024 7:23 AM [facility] Chloride 101 96 - 110 mmol/L LAB CHEMISTRY METHOD 08/15/2024 7:23 AM [facility] CO2 28 21 - 32 mmol/L LAB CHEMISTRY METHOD 08/15/2024 7:23 AM [facility] Anion Gap 6 3 - 11 LAB CHEMISTRY METHOD 08/15/2024 7:23 AM [facility] Glucose 257(H) 70 - 100 mg/dL LAB CHEMISTRY METHOD 08/15/2024 7:23 AM [facility] BUN 30(H) 5 - 25 mg/dL LAB CHEMISTRY METHOD 08/15/2024 7:23 AM [facility] Creatinine 1.50(H) 0.70 - 1.30 mg/dL LAB CHEMISTRY METHOD 08/15/2024 7:23 AM [facility] eGFR 52(L) >=60 mL/min/1. 73m2 LAB CHEMISTRY METHOD 08/15/2024 7:23 AM [facility] Comment:Calculation based on the Chronic Kidney Disease Epidemiology Collaboration (CKD-EPI) equation refit without adjustment for race. BUN/Creatinine Ratio 20.0 LAB CHEMISTRY METHOD 08/15/2024 7:23 AM [facility] Calcium 9.2 8.5 - 10.5 mg/dL LAB CHEMISTRY METHOD 08/15/2024 7:23 AM [facility] Blood Venous blood specimen / Unknown Venipuncture / Unknown 08/15/2024 5:25 AM EDT 08/15/2024 6:17 AM EDT Junior CURRIE LAB BLOOD ORDERABLES Ambar l Result [facility] [address] [place] [address], * (ABNORMAL) CBC - Every 3 Days (08/15/2024 12:02 AM EDT) [facility] Signature WBC 14.0(H) 4.8 - 10.8 K/mcL LAB HEMETOLOGY METHOD 08/15/2024 12:21 AM [facility] RBC 4.30(L) 4.50 - 5.50 M/mcL LAB HEMETOLOGY METHOD 08/15/2024 12:21 AM [facility] Hemoglobin 12.3(L) 13.5 - 17.5 g/dL LAB HEMETOLOGY METHOD 08/15/2024 12:21 AM [facility] Hematocrit 37.6(L) 42.0 - 54.0 % LAB HEMETOLOGY METHOD 08/15/2024 12:21 AM [facility] MCV 86.6 79.0 - 98.0 FL LAB HEMETOLOGY METHOD 08/15/2024 12:21 AM [facility] MCH 28.3 27.0 - 32.0 pcg LAB HEMETOLOGY METHOD 08/15/2024 12:21 AM [facility] MCHC 32.7 32.0 - 37.0 g/dL LAB HEMETOLOGY METHOD 08/15/2024 12:21 AM [facility] RDW 12.9 11.0 - 15.0 % LAB HEMETOLOGY METHOD 08/15/2024 12:21 AM [facility] Platelets 263 130 - 400 K/mcL LAB HEMETOLOGY METHOD 08/15/2024 12:21 AM [facility] MPV 10.7 7.0 - 11.0 FL LAB HEMETOLOGY METHOD 08/15/2024 12:21 AM [facility] NRBC 0.0 <1.0 % LAB HEMETOLOGY METHOD 08/15/2024 12:21 AM [facility] NRBC Absolute 0.00 <0.10 K/mcL LAB HEMETOLOGY METHOD 08/15/2024 12:21 AM EDT [facility] Blood Venous blood specimen / Unknown Venipuncture / Unknown 08/15/2024 12:02 AM EDT 08/15/2024 12:16 AM EDT us Imani CURRIE LAB BLOOD ORDERABLES Final R esult [facility] [address] [place] [address], [place] [phone] * (ABNORMAL) Lipid panel with reflex to direct LDL (08/14/2024 5:25 AM EDT) Cholesterol 169 0 - 200 mg/dL LAB CHEMISTRY METHOD 08/14/2024 9:04 AM [facility] Triglycerides 161(H) 0 - 150 mg/dL LAB CHEMISTRY METHOD 08/14/2024 9:04 AM [facility] HDL 36(L) >=40 mg/dL LAB CHEMISTRY METHOD 08/14/2024 9:04 AM [facility] LDL Calculated 101(H) 0 - 100 mg/dL LAB CHEMISTRY METHOD 08/14/2024 9:04 AM [facility] VLDL Cholesterol Pranav 32.2 mg/dL LAB CHEMISTRY METHOD 08/14/2024 9:04 AM [facility] Non HDL Chol. (LDL+VLDL) 133 <145 mg/dL LAB CHEMISTRY METHOD 08/14/2024 9:04 AM [facility] Chol/HDL Ratio 4.7(H) 0.0 - 4.4 LAB CHEMISTRY METHOD 08/14/2024 9:04 AM [facility] Blood Venous blood specimen / Unknown 08/14/2024 5:25 AM EDT 08/14/2024 7:24 AM EDT Junior CURRIE LAB BLOOD ORDERABLES Ambar colon Result 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 Do not modify or discontinue any currently active code status orders. Healthcare Agents on File Name Relationship Healthcare Agent Relationshi p Communication Radha Dodson Relative Health Care Agent Care Teams Cane Flume Watcher Relationship Specialty Start Date End Date Jordana Cade MD [address] [place] [phone] PCP - General 07/21/13
--- OUTSIDE RECORDS SUMMARY | 2024-11-15 09:11 | XMS_ITS | Encounter Summary ---
Author Organization [facility], Address [address] [address] Phone Care Team Providers Care Rail Operator Name Role Phone Merna Read NP Primary Care Provider [phone] Encounter Details Date Type Department Care Team (Late st Contact Info) Description 07/05/2021 Documentation Only [facility], [address] [place] [phone] Janusz Francisco MD [address] [place] [phone] Social History Tobacco Use Types Packs/Day Years Used Date Smoking Tobacco: Former Cigarettes Q uit: 07/18/1989 Comments:Smoking History Inf o:Some days Alcohol Use Standard Drinks/Week Comments No 0 (1 standard drink = 0.6 oz pur e alcohol) Sex and Gender Information Value Date Recorded Sex Assigned at Not on file Legal Sex Male 11:23 AM EDT Gender Identity Not on file Sexual Orientation Not on file documented as of this encounter Plan of Treatment Not on file documented as of this encounter Visit Diagnoses Not on filedocumented in this encounter Care Teams Rail Operator Relationship Specialty Start Date End Date Merna Read NP PCP - General 02/12/19 documented as of this encounter
--- OUTSIDE RECORDS SUMMARY | 2024-11-15 09:11 | XMS_ITS | Clinical Summary ---
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 topically if needed [...] ERECTILE DYSFUNCTION 20 tablet 1 024 Active omeprazole (PriLOSEC) [address] capsule TAKE 1 CAPSULES BY MOUTH EVERYDAY BEFORE A MEAL 90 capsule 1 025 Active enalapril (Vasotec) 10 MG tabletIndications :Hypertension with albuminuria,Hyper tension associated with diabetes ([facility]) TOME SHIRA TABLETA POR VIA ORAL TODOS LOS NETTLES 90 tablet 3 025 Active ticagrelor (Brilinta) 90 MG tablet Take 1 tablet by mouth 2 times daily. 025 Active Continuous Glucose Specialty Trimmer (FreeStyle Edwin 3 [place]) device USE DAILY DIRECTED TO MONITOR BLOOD GLUCOSE 025 Active Continuous Glucose Sensor (FreeStyle Edwin 3 Plus Sensor) misc 025 Active insulin aspart FlexPen (NovoLOG) 100 UNIT/ML pen Inject 20 Units under the skin before breakfast, before lunch, and before evening meal. 025 Active Insulin Degludec FlexTouch 200 UNIT/ML solution pen-injectorIndic ations:Type 2 Diabetes Mellitus Take 42 Units by mouth at bedtime. Active Toprol XL 25 MG 24 hr tablet Take 1 tablet by mouth Once per day. Active Ozempic, 0.25 or 0.5 MG/DOSE, 2 MG/3ML solution pen-injector Inject 0.5 mg under the skin every 7 (seven) days. Active albuterol 108 (90 Base) MCG/ACT inhaler INHALE 2 PUFFS EVERY 6 HOURS IF NEEDED FOR WHEEZING. 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 Do not crush, chew, or split. 56 tablet 025 2024 Active oxyCODONE ER (OxyCONTIN) 20 MG 12 hr tabletIndications :nursing home (current) use of opiate analgesic,Primary osteoarthritis involving multiple joints Take 1 tablet (20 mg) by mouth every 12 (twelve) hours for 28 days. Do not crush, chew, or split. 56 tablet 025 2024 Discontinued(R eorder (will not trigger notification to Pharmacy)) oxyCODONE (Roxicodone) 10 MG immediate release tabletIndications :Primary osteoarthritis involving multiple joints Take 1 tablet (10 mg) by mouth every 6 (six) hours if needed for severe pain for up to 28 days. 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 03/10 Depression, [...] Encounters Date Type Department Care Team Description 10/29/2024 Refill [facility] [address] [place] [address] Karen Avelar ANP nursing home (current) use of opiate analgesic; Primary osteoarthritis involving multiple joints 10/15/2024 Refill [facility] [address] [place] [address] Karen Avelar ANP Primary osteoarthritis involving multiple joints 10/14/2024 10:30 AM EDT Telemedicine [facility] [address] [place] [address] Becky Pool RN Chronically on opiate therapy 10/14/2024 Travel 09/30/2024 Refill [facility] [address] [place] [address] Becky Pool, JIMMIE 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 (Primary Dx); Primary osteoarthritis involving multiple joints 09/27/2024 Telephone [facility] [address] [place] [address] Karen Avelar ANP Medication Question 09/23/2024 Orders Only GENERIC EXTERNAL DATA DEPARTMENT Provider, Generic External Data 09/21/2024 Refill [facility] [address] [place] [address] Geoffrey Kaur MD 09/19/2024 Refill [facility] [address] [place] [address] Becky Pool, RN Primary osteoarthritis involving multiple joints 09/19/2024 Telephone [facility] [address] [place] [address] Karen Avelar ANP Medication Question 09/19/[address] [address] Karen Avelar ANP Med Refill 09/18/[address] [address] Karen Avelar ANP Amara recall 09/06/2024 10:30 AM EDT Office Visit [address] [address] Karen Avelar ANP Hospital discharge follow-up (Primary Dx); Diabetic polyneuropathy associated with type 2 diabetes mellitus ([facility]); Coronary artery disease involving lime coronary artery of lime heart, unspecified whether angina present; Hypertension associated with diabetes (CMS/HCC); Vitamin D deficiency; Hypothyroidism, unspecified type 09/06/2024 Travel 09/05/[address] [address] Karen Avelar ANP Chart Prep 08/29/2024 9:00 AM EDT Office Visit [address] [address] Karen Avelar ANP Coronary artery disease involving lime coronary artery of lime heart, unspecified whether angina present (Primary Dx); Type 2 diabetes mellitus with stage 3 chronic kidney disease, with long-term current use of insulin, unspecified whether stage 3a or 3b CKD (CMS/HCC); Hypertension associated with diabetes ([facility]); 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 08/29/2024 Travel 08/28/[address] [address] Karen Avelar ANP chartprep 08/26/2024 Refill [facility] [address] [place], [place] [phone] Becky Pool RN Primary osteoarthritis involving multiple joints 08/26/[address] [address] Karen Avelar ANP Med Refill 08/22/2024 Patient Outreach [address] [address] Zuri London Transition Of Care (Tcm) (HDF usncheduled) 08/22/2024 Telephone [facility] [address] [place], [place] [phone] Karen Avelar ANP Hospital Follow-up from Last 3 Months Immunizations Immunization Administration [...] 72 09/06/2024 10:50 AM EDT Temperature 36.8 C (98.2 F) 03/21/2024 11:05 AM EST Respiratory Rate 16 09/06/2024 10:50 AM EDT Oxygen Saturation 95% 03/21/2024 11:05 AM EST Inhaled Oxygen Concentration - - Weight 129 kg (285 lb) 09/06/2024 10:50 AM EDT Height 180.3 cm (5' 11 ) 09/06/2024 10:50 AM EDT Body Mass Index 39.75 09/06/2024 10:50 AM EDT Plan of Treatment Upcoming Encounters Date Type Department Care Team (Late st Contact Info) Description 01/28/2025 1:30 PM EDT Clinical Support [facility] [address] [place] [address] Becky Pool, RN [address] [place] [address] Health Maintenance Due Date Last Done Comments [...] 11/29/2024 025, 06/12/2024, 10/16/2023, Additional history exists Influenza Vaccine (#1) 2024 , 04/14/2022, 01/27/2012, Additional history exists Eye Exam 12/19/2024 12/19/2022 [...] unspecified whether stage 3a or 3b CKD ([facility]) POCT GLUCOSE Routine 08/29/2024 9:37 AM EDT Type 2 diabetes mellitus with stage 3 chronic kidney disease, with long-term current use of insulin, unspecified whether stage 3a or 3b CKD ([facility]) LIPID PANEL, STANDARD Routine 08/10/2022 10:13 AM EDT HM COLONOSCOPY Routine 03/02/2016 4:57 PM EST from Last 3 Months or Most Recently Relevant to Health Maintenance Results * (ABNORMAL) Glucose, Whole Blood (09/23/2024 10:22 AM EDT) Glucose, Whole Blood 239(H) 60 - 115 mg/dL [facility] Comment:METER #: [id number] 5Testing performed in the Endocrinology Department [address] , [address], [facility]. 09/23/2024 10:2 2 AM EDT 09/23/2024 10:25 AM EDT us Generic External Data Provider LAB BLOOD ORDERAB LES Final Result [facility] [address] [place] [phone] * (ABNORMAL) POCT HGB A1C (08/29/2024 9:37 AM EDT) Hemoglobin A1C 8.5(A) 4.0 - 6.0 % QC Media Lot # [id number] Lot# Expiration Date Blood 08/29/2024 9:37 AM EDT us Karen Avelar ANP POINT OF CARE TEST ENTER/EDIT OR DERABLES Final Result * POCT Glucose (08/29/2024 9:37 AM EDT) Glucose Blood, POC 185 60 - 200 mg/dL QC Media Lot # [id number] Lot# Expiration Date Blood Capillary blood specimen / Unknown 08/29/2024 9:37 AM EDT [facility] POINT OF CARE TEST ENTER/EDIT OR DERABLES Final Result * Lipid Panel, Standard (08/10/2022 10:13 AM EDT) Triglycerides 111 mg/dL [facility] Comment:Desirable Triglyceri de: less than 150 mg/dLBorderline High Triglyceride 150-199 mg/dLHigh Triglyceride: 200-499 mg/dLVery High Triglyceride: greater than or equal to 5OO mg/dL Cholesterol 199 mg/dL [facility] Comment:Desirable Cholestero l: less than 200 mg/dLBorderline High Cholesterol: 200-239 mg/dLHigh Cholesterol: greater than 239 mg/dL LDL Cholesterol Calculated 140 mg/dl [facility] Comment:Desirable LDL: less than 100 mg/dLNear Optimal/Above Optimal LDL: 110- 129 mg/dLBorderline High LDL: 130-159 mg/dLHigh LDL: 160-189 mg/dLVery High LDL: greater than or equal to 190 mg/dL HDL Cholesterol 37 mg/dL [facility] Comment:Desirable HDL: great er than 40 mg/dL Note: This HDL assay may give artificially low results in patients with liver disease. 08/10/2022 10:1 3 AM EDT 08/10/2022 1:36 PM EDT [facility] External Provider LAB BLO OD ORDERABLES Final Result [facility] [address] [place] [phone] * Hm Colonoscopy (03/02/2016 4:57 PM EST) Historical Provider HEALTH MAINTENANCE Final Result from Last 3 Months or Most Recently Relevant to Health Maintenance Insurance [facility] < [address] [place] [id number] Care Teams Unix Architect Relationship Specialty Start Date End Date Karen Avelar ANP [address] [place] [phone] PCP - General Family Medicine 12/08/21
--- OUTSIDE RECORDS SUMMARY | 2024-11-15 09:11 | XMS_ITS | Clinical Summary ---
Author Organization [facility] Address [address] [place] [address] Care Team Providers Care Kiln Door Builder Name Role Phone Merna Read HOSPICE CLINICAL SUPERVISOR Primary Care Provider [phone] Social History Tobacco Use Types Packs/Day Years [...] (1 of 2) 2012 Influenza Vaccine (#1) 2024 RSV Adult > 60+ Yrs or Pregn [...] age to complete this topic Care Teams Kiln Door Builder Relationship Specialty Start Date End Date Merna Read NP [address] [facility] [place] [address] PCP - General Family Medicine 08/10/17
[2024-11-15 09:15] LABS: Glucose, Whole Blood 245 mg/dL (60-115)
== END 2024-11-15 09:28 | disposition home or self-care (01) ==
LOC: HO.ENCR 08:58
PROVIDERS: PCP Family Medicine; Visit Provider Physician Assistant
DX: E11.65 Type 2 diabetes mellitus with hyperglycemia (principal); I10 Essential (primary) hypertension; E78.5 Hyperlipidemia, unspecified

== ENCOUNTER → 2024-11-15 08:58 | Outpatient (BNVA) | payer OTHER, SELFPAY | PROVIDERS: PCP Family Medicine; Visit Provider Physician Assistant | DX: E11.22 Type 2 diabetes mellitus with diabetic chronic kidney disease (principal); E11.65 Type 2 diabetes mellitus with hyperglycemia; I12.9 Hypertensive chronic kidney disease with stage 1 through stage 4 chronic kidney disease, or unspecified chronic kidney disease; E78.5 Hyperlipidemia, unspecified; N18.9 Chronic kidney disease, unspecified; Z79.4 Long term (current) use of insulin; Z79.899 Other long term (current) drug therapy | CPT/HCPCS: 82947; 99212 ==

== ENCOUNTER 2025-01-27 08:41 | Outpatient (REF) | payer OTHER, SELFPAY ==
--- OUTSIDE RECORDS SUMMARY | 2025-01-27 09:33 | XMS_ITS | Clinical Summary ---
Author Organization [employer] Address [address] [facility] 7[address] [place] [address] Care Team Providers Care Church Organist Name Role Phone Karen Avelar LIBBY Primary Care Provider [phone] Allergies Active Allergy Reactions Criticality Noted Date [...] naloxone (Narcan) 4 mg/0.1 mL nasal sprayIndications: senior living prescription opiate use Administer 1 spray (4 [...] unspecified whether stage 3a or 3b CKD (HCC),Dry skin Apply 1 Application. topically if needed in the morning and at bedtime (dry skin). 236 mL 11 024 Active tadalafil (Cialis) 5 MG tabletIndications :Vasculogenic erectile dysfunction, unspecified vasculogenic erectile dysfunction type TAKE 1 TABLET BY MOUTH EVERY DAY IF NEEDED FOR ERECTILE DYSFUNCTION 20 tablet 1 024 Active enalapril (Vasotec) 10 MG tabletIndications :Hypertension with albuminuria,Hyper tension associated with diabetes ([facility]) TOME SHIRA TABLETA POR VIA ORAL TODOS LOS NETTLES 90 tablet 3 025 Active ticagrelor (Brilinta) 90 MG tablet Take 1 tablet by mouth 2 times daily. 025 Active Continuous Glucose Steel Tester (FreeStyle Edwin 3 [place]) device USE DAILY DIRECTED TO MONITOR BLOOD GLUCOSE 025 Active Continuous Glucose Sensor (FreeStyle Edwin 3 Plus Sensor) misc 025 Active insulin aspart FlexPen (NovoLOG) 100 UNIT/ML pen Inject 20 Units under the skin before breakfast, before lunch, and before evening meal. 025 Active Insulin Degludec FlexTouch 200 UNIT/ML solution pen-injectorIndic ations:Type 2 Diabetes Mellitus Take 42 Units by mouth at bedtime. 025 Active Toprol XL 25 MG 24 hr tablet Take 1 tablet by mouth Once per day. 025 Active Ozempic, 0.25 or 0.5 MG/DOSE, 2 MG/3ML solution pen-injector Inject 0.5 mg under the skin every 7 (seven) days. 025 Active albuterol 108 (90 Base) MCG/ACT inhaler INHALE 2 PUFFS EVERY 6 HOURS IF NEEDED FOR WHEEZING. 8.5 g 025 Active glucose blood (FreeStyle Precision [place] Test) test stripIndications: Type 2 diabetes mellitus with stage 3 chronic kidney disease, with long-term current use of insulin, unspecified whether stage 3a or 3b CKD ([facility]) TEST BLOOD SUGAR EVERY 8 HOURS 100 strip 11 025 Active oxyCODONE (Roxicodone) 10 MG immediate release [...] or split. 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 Do not start before December 12, 2024. 112 tablet 025 2024 Discontinued(R eorder (will not trigger notification to Pharmacy)) Active Problems Problem Noted Date Diagnosed Date Coronary artery disease invo lving [place] coronary artery of [place] heart 08/29/2024 Acute cough 03/28/2024 COVID 03/28/2024 senior living (current) use of opiate analgesic 03/10 Depression, recurrent 10/10/2023 Hypertension associated with diabetes 08/02/2023 Hypertension with albuminuria 07/17/2019 Overview (01/02/2023): Enalapril-hydrochlorothiazide 10-25mg daily Chronic kidney disease due to hypertension 07/16 Stage 3 chronic kidney disease (CMS/HCC) 020 Disorder associated with type 2 diabetes mellitu [...] of insulin 04/30/2015 Overview (01/02/2023): Follows w/ [facility] Endo, meds rx'd by Dr. Boyer Has [...] Encounters Date Type Department Care Team Description 01/24/2025 Telephone [facility] [address] [place] [address] Karen Avelar ANP 01/09/2025 Telephone [facility] [address] [place] [address] Karen Avelar ANP Durable Medical Equipment 01/08/2025 Refill [facility] [address] [place] [address] Karen Avelar ANP 01/07/2025 Telephone [facility] [address] [place] [address] Karen Avelar ANP 01/07/2025 Refill [facility] [address] [place] [address] Karen Avelar ANP Primary osteoarthritis involving multiple joints 12/11/2024 Refill [facility] [address] [place] [address] Karen Avelar ANP Primary osteoarthritis involving multiple joints 12/02/2024 Telephone [facility] [address] [place] [address] Karen Avelar ANP Prior Authorization 12/02/2024 Refill [facility] [address] [place] [address] Becky Pool RN senior living (current) use of opiate analgesic; Primary osteoarthritis involving multiple joints 12/02/2024 Telephone [facility] [address] [place] [address] Karen Avelar ANP Med Refill 11/21/2024 Telephone [facility] [address] [place] [address] Karen Avelar ANP DTA forms 11/21/2024 Refill [facility] [address] [place] [address] Karen Avelar ANP Type 2 diabetes mellitus with stage 3 chronic kidney disease, with long-term current use of insulin, unspecified whether stage 3a or 3b CKD ([facility]) 11/15/2024 Refill [facility] [address] [place] [address] Karen Avelar ANP Primary osteoarthritis involving multiple joints 11/15/2024 Orders Only GENERIC EXTERNAL DATA DEPARTMENT Provider, Generic External Data 10/29/2024 Refill [facility] [address] [place] [address] Karen Avelar ANP senior living (current) use of opiate analgesic; Primary osteoarthritis involving multiple joints from Last [...] Upcoming Encounters Date Type Department Care Team ([facility] st Contact Info) Description 01/28/2025 1:30 PM EDT Clinical Support [facility] [address] [place] [address] Becky Pool, RN [address] [place] [address] Health Maintenance Due Date Last Done Comments [...] 11/29/2024 025, 06/12/2024, 10/16/2023, Additional history exists COVID-19 Vaccine ( season) 2024 04/14/2022, 04/27/2021, 07/23/2020, Additional history exists Influenza Vaccine (#1) 2024 4, 04/14/2022, 01/27/2012, Additional history exists Eye Exam 12/19/2024 12/19/2022 Alcohol/Substance Use Screening 03/21/2025 03/21/2024 Disability Screening 08/29/2025 08/29/2024 Tobacco Screening 09/06/2025 [...] Associated Diagnosis Comments GLUCOSE, WHOLE BLOOD Routine 11/15/2024 9:11 AM EDT POCT GLYCATED HEMOGLOBIN, TOTAL Routine 08/29/2024 9:37 AM EDT Type 2 diabetes mellitus with stage 3 chronic kidney disease, with long-term current use of insulin, unspecified whether stage 3a or 3b CKD ([facility]) LIPID PANEL, STANDARD Routine 08/10/2022 10:13 AM EDT HM COLONOSCOPY Routine 03/02/2016 4:57 PM EST from Last 3 Months or Most Recently Relevant to Health Maintenance Results * (ABNORMAL) Glucose, Whole Blood (11/15/2024 9:11 AM EDT) Glucose, Whole Blood 245(H) 60 - 115 mg/dL [facility] Comment:METER #: [id number] 0Testing performed in the Endocrinology Department [address] , [address], [facility]. 11/15/2024 9:11 AM EDT 11/15/2024 9:14 AM EDT us Generic External Data Provider LAB BLOOD ORDERAB LES Final Result [facility] [address] [place] [phone] * (ABNORMAL) POCT HGB A1C (08/29/2024 9:37 AM EDT) Hemoglobin A1C 8.5(A) 4.0 - 6.0 % QC Media Lot # [id number] Lot# Expiration Date Blood 08/29/2024 9:37 AM EDT us Karen Avelar ANP POINT OF CARE TEST ENTER/EDIT OR DERABLES Final Result * Lipid Panel, Standard (08/10/2022 10:13 AM EDT) Triglycerides 111 mg/dL [facility] Comment:Desirable Triglyceri de: less than [...] 3 AM EDT 08/10/2022 1:36 PM EDT [facility] External Provider LAB BLO OD ORDERABLES Final Result [facility] [address] [place] [phone] * Hm Colonoscopy (03/02/2016 4:57 PM EST) Historical Provider HEALTH MAINTENANCE Final Result from Last 3 Months or Most Recently Relevant to Health Maintenance Insurance [facility] < 65 [place] [id number] Care Teams Church Organist Relationship Specialty Start Date End Date Karen Avelar ANP [address] [place] [phone] PCP - General Family Medicine 12/08/21
--- OUTSIDE RECORDS SUMMARY | 2025-01-27 09:34 | XMS_ITS | Encounter Summary ---
Author Organization [employer] Address [address] [facility] 7t [place] [address] Care Team Providers Care Office Services Specialist Name Role Phone Karen Avelar Primary Care Provider [phone] Reason for Visit * Reason Onset Date Comments Nurse Triage 07/03/2024 Encounter Details Date Type Department Care Team ([facility] st Contact Info) Description 07/03/2024 Telephone [facility] MEDICINE [address] [place] [address] Karen Avelar ANP [address] [place], [place] [phone] Nurse Triage Social History Tobacco Use Types [...] apts available and offered to come to [facility] today. Pt reports willcome to [facility] tomorrow morning which opens at 830am. Pt [...] can't walk) The caller accepted this outcome. [phone] documented in this encounter Plan of Treatment Upcoming Encounters Date Type Department Care Team (Late st Contact Info) Description 01/28/2025 1:30 PM EDT Clinical Support [facility] MED & PEDS [address] [place] [address] Becky Pool, JIMMIE 505 [place] [address] documented as of this encounter Visit Diagnoses Not on filedocumented in this encounter Additional Health Concerns Assessment Noted Time PHQ-9 Depression Total Score: 21 024 2:14 PM EDT documented as of this encounter Care Teams Office Services Specialist Relationship Specialty Start Date End Date Karen Avelar ANP [address] [place] [address] PCP - General Family Medicine 12/08/21 documented as of this encounter
--- OUTSIDE RECORDS SUMMARY | 2025-01-27 09:34 | XMS_ITS | Clinical Summary ---
Author Organization [facility] Address [address] [place] [address] Phone Care Team Providers Care Mission Analyst Name Role Phone Jordana Cade MD Primary Care Provider [phone] Allergies Active Allergy Reactions Criticality Noted Date [...] mouth 2 (two) times a day. Active Active Problems Problem Noted Date Diagnosed Date Mixed hyperlipidemia 10/23/2024 Assessment & Plan (10/23/2024 2:17 PM EDT): Patient continues on atorvastatin 80 mg once a day. We will update a lipid panel next visit. Coronary artery disease invo lving [place] coronary artery of [place] heart without angina pectoris 08/13/2024 Assessment & [...] this time I arranged for a 48-hour lawn mower mechanic to further evaluate his palpitations. He also [...] can recall. Patient's C-spine MRI 05/11/2021 at [facility] shows left >right neuroforaminal narrowing C5-6, right [...] Encounters Date Type Department Care Team Description 12/30/2024 Telephone [facility] Cardiology [facility] [address] [place] [address] Alondra Sellers NP 12/24/2024 Telephone [facility]iology [facility] [address] [place] [address] Provider, Not In System 12/11/2024 10:30 AM EDT Ancillary Procedure [facility] Cardiology [facility] [address] [place] [address] Coronary artery disease involving [place] coronary artery of [place] heart without angina pectoris; Palpitations from Last 3 Months Surgical History Surgery Date Site/Laterality Comments HIP ARTHROPLASTY 2016 Right PROCEDURE: HISTORICAL HIP REPLACEMENT SHOULDER SURGERY 1979 Right PROCEDURE: HISTORICAL SHOULDER SURGERY; COMMENT: [place] from [place] OTHER SURGICAL HISTORY 12/10/2019 PROCEDURE: MT ARTHRD ANT INTERBODY MIN DSC CRV BELOW C2; COMMENT: C5-6 ACDF, Dr. Glenda Frederick CARDIAC CATHETERIZATION DONE ON 08/15/2024 AT [facility] W JJ INDICATIONS:Acute chest pain CARDIAC CATHETERIZATION DONE ON 08/16/2024 AT [facility] INDICATIONS: Unstable angina. Medical History Medical History [...] care for your loved ones. For example, exceptional children teacher or elderly care for an older adult? [...] Date Recorded What is your living situation? Unrecognized valu e 08/13/2024 Interpersonal Safety Answer Date Record ed Physical Abuse Unrecognized value 08/13/2024 Verbal Abuse Unrecognized value 08/13/2024 Sex and Gender Information Value Date [...] Care Team (Late st Contact Info) Description 04/22/2025 2:10 PM EST Office Visit [facility] Cardiology [facility] [address] [facility] [address] [place] [phone] Alondra Sellers NP [address] [place] [address] Dr [address] [place] [phone] Health Maintenance Due Date Last Done Comments Colorectal Cancer Screening: Colonoscopy 1962 Diabetes: Annual Foot Exam 1972 Diabetes: Annual Retina Eye Exam 1972 Pneumococcal Vaccine: 50+ Years (2 of 2 - PCV) 09/24/2010 09/24/2009 RSV Immunization Adult Patients (1 - Risk 50-74 years 1-dose series) 2012 Zoster Vaccines (1 of 2) 2012 HIV Screening 03/13/2022 Hepatitis C Screening 03/13/2022 Medicare Annual Wellness Visit 03/13/2022 DTaP,Tdap,and Td Vaccines (3 - Td or Tdap) 09/12/2023 09/11/2013, 03/16/2009 Depression Screening 04/10/2024 Diabetes: Annual Urine Albumin-Creatinine Ratio (uACR) 05/07/2024 COVID-19 Vaccine ( season) 2024 04/14/2022, 04/27/2021, [...] Procedure Name Priority Date/Time Associated Diagnosis Comments CARDIAC HOLTER MONITOR (REPORT GENERATED IN HOUSE) Routine 12/11/2024 10:17 AM EDT Coronary artery disease involving [place] coronary artery of [place] heart without angina pectoris Palpitations BASIC METABOLIC PANEL Routine 08/15/2024 5:25 AM EDT LIPID PANEL WITH REFLEX TO DIRECT LDL Add-On 08/14/2024 5:25 AM EDT from Last 3 Months or Most Recently Relevant to Health Maintenance Results * CARDIAC HOLTER MONITOR (REPORT GENERATED IN HOUSE) (12/11/2024 10:17 AM EDT) Anatomical Region Laterality Modality Cardiac Diagnost ic Narrative 12/26/2024 1:37 PM EDT [facility] DIAGNOSTIC TESTING DEPARTMENT [address] [place] [address] TEL: FAX: Type of Test: 48 Hour Holter Monitor Date of Test: 12/11/2024 Ordering Provider: Alondra Sellers NP Reason for Test: Coronary artery disease involving [place] coronary artery of [place] heart without angina pectoris; Palpitations PVCA Technician Submarine Cable Equipment Findings: (Large portions of scan obscured by artifact) 1: Normal Sinus Rhythm with Right Bundle Branch Block. 2: Rare PACs. One atrial pair. 3: One 11-beat run of nonsustained VT vs aberrancy noted. 4: No significant pause noted, longest R-R was 1.2 seconds at 5:59 AM. 5: Diary not returned. Impression: Episode of nonsustained V. tach occurring at 1:00 in the morning. Spike Steinberg MD FACC FACP us Alondra Sellers NP CV CARDIAC SERVICES PROCEDUR ES Final Result * (ABNORMAL) Basic metabolic panel (08/15/2024 5:25 AM EDT) Sodium 135 133 - 145 mmol/L LAB CHEMISTRY METHOD 08/15/2024 7:23 AM [facility] Potassium 4.3 3.5 - 5.5 mmol/L LAB CHEMISTRY METHOD 08/15/2024 7:23 AM [facility] Chloride 101 96 - 110 mmol/L LAB CHEMISTRY METHOD 08/15/2024 7:23 AM [facility] CO2 28 21 - 32 mmol/L LAB CHEMISTRY METHOD 08/15/2024 7:23 AM [facility] Anion Gap 6 3 - 11 LAB CHEMISTRY METHOD 08/15/2024 7:23 AM [facility] Glucose 257(H) 70 - 100 mg/dL LAB CHEMISTRY METHOD 08/15/2024 7:23 AM [facility] BUN 30(H) 5 - 25 mg/dL LAB CHEMISTRY METHOD 08/15/2024 7:23 AM [facility] Creatinine 1.50(H) 0.70 - 1.30 mg/dL LAB CHEMISTRY METHOD 08/15/2024 7:23 AM [facility] eGFR 52(L) >=60 mL/min/1. 73m2 LAB CHEMISTRY METHOD 08/15/2024 7:23 AM [facility] Comment:Calculation based on the Chronic Kidney Disease Epidemiology Collaboration (CKD-EPI) equation refit without adjustment for race. BUN/Creatinine Ratio 20.0 LAB CHEMISTRY METHOD 08/15/2024 7:23 AM [facility] Calcium 9.2 8.5 - 10.5 mg/dL LAB CHEMISTRY METHOD 08/15/2024 7:23 AM [facility] Blood Venous blood specimen / Unknown Venipuncture / Unknown 08/15/2024 5:25 AM EDT 08/15/2024 6:17 AM EDT Junior CURRIE LAB BLOOD ORDERABLES Ambar colon Result [facility] [address] [place] [address], [place] [phone] * (ABNORMAL) Lipid panel with reflex to direct LDL (08/14/2024 5:25 AM EDT) Cholesterol 169 0 - 200 mg/dL LAB CHEMISTRY METHOD 08/14/2024 9:04 AM EDT [facility] Triglycerides 161(H) 0 - 150 mg/dL LAB CHEMISTRY METHOD 08/14/2024 9:04 AM EDT [facility] HDL 36(L) >=40 mg/dL LAB CHEMISTRY METHOD 08/14/2024 9:04 AM EDT [facility] LDL Calculated 101(H) 0 - 100 mg/dL LAB CHEMISTRY METHOD 08/14/2024 9:04 AM EDT [facility] VLDL Cholesterol Pranav 32.2 mg/dL LAB CHEMISTRY METHOD 08/14/2024 9:04 AM EDT [facility] Non HDL Chol. (LDL+VLDL) 133 <145 mg/dL LAB CHEMISTRY METHOD 08/14/2024 9:04 AM EDT [facility] Chol/HDL Ratio 4.7(H) 0.0 - 4.4 LAB CHEMISTRY METHOD 08/14/2024 9:04 AM EDT [facility] Blood Venous blood specimen / Unknown 08/14/2024 5:25 AM EDT 08/14/2024 7:24 AM EDT Junior CURRIE LAB BLOOD ORDERABLES Ambar l Result [facility] [address] [place] [address], [place] [phone] from Last 3 Months or Most Recently Relevant to Health Maintenance Insurance [facility] MEDICARE Member Subscriber Plan / Payer (Ef fective 2013-Present) Name:ASHLEY LOVELACE Relation to Subscriber:Self Name:Ashley Rose Payer ID:[id number] Group ID:[id number] Type:Not on file Address: [address] [place] [id number] Advance Directives Documents on File Type Date Recorded Patient Accessibility Lift Technician Expl anation Advance Directives and Living Will [...] Agents on File Name Relationship Healthcare Agent Relationswi p Communication Radha Dodson Relative Health Care Agent Care Teams Mission Analyst Relationship Specialty Start Date End Date Jordana Cade MD [address] [place] [phone] PCP - General 07/21/13
--- OUTSIDE RECORDS SUMMARY | 2025-01-27 09:34 | XMS_ITS | Encounter Summary ---
Author Organization [employer] Address [address] [facility] 7t [place] [address] Care Team Providers Care Scheduling Coordinator Name Role Phone Karen Avelar Primary Care Provider [phone] Reason for Visit * Reason Onset Date Comments Referral 09/15/2022 Encounter Details Date Type Department Care Team (Late st Contact Info) Description 09/15/2022 Telephone [facility] MEDICINE [address] [place] [address] Karen Avelar ANP 230 [place], [place] [phone] Referral Social History Tobacco Use Types Packs/Day [...] Description 01/28/2025 1:30 PM EDT Clinical Support [facility] MED & PEDS [address] [place] [address] Becky Pool, JIMMIE [address] [place] [address] documented as of this encounter Visit Diagnoses Not on filedocumented in this encounter Care Teams Scheduling Coordinator Relationship Specialty Start Date End Date Karen Avelar ANP [address] [place] [address] PCP - General Family Medicine 12/08/21 documented as of this encounter
--- OUTSIDE RECORDS SUMMARY | 2025-01-27 09:34 | XMS_ITS | Encounter Summary ---
Author Organization [employer] Address [address] [facility] 7t [place] [address] Care Team Providers Care Float Tender Name Role Phone Karen Avelar Primary Care Provider [phone] Reason for Visit * Reason Onset Date Comments Med Refill 01/30/2023 Encounter Details Date Type Department Care Team ([facility] st Contact Info) Description 01/30/2023 Telephone [facility] MEDICINE [address] [place] [address] Karen Avelar ANP 230 [place], [place] [phone] Med Refill Social History Tobacco Use Types [...] Description 01/28/2025 1:30 PM EDT Clinical Support [facility] MED & PEDS [address] [place] [address] Becky Pool, RN [address] [place] [address] documented as of this encounter Visit Diagnoses Not on filedocumented in this encounter Additional Health Concerns Assessment Noted Time PHQ-9 Depression Total Score: 14 023 1:08 PM EDT documented as of this encounter Care Teams Float Tender Relationship Specialty Start Date End Date Karen Avelar ANP [address] [place] [address] PCP - General Family Medicine 12/08/21 documented as of this encounter
--- OUTSIDE RECORDS SUMMARY | 2025-01-27 09:34 | XMS_ITS | Encounter Summary ---
Author Organization [employer] Address [address] [facility] 7t [place] [address] Care Team Providers Care Business Services Specialist Sales Name Role Phone Karen Avelar Primary Care Provider [phone] Reason for Visit * Reason Onset Date Comments Prior Authorization 09/07/2022 Encounter Details Date Type Department Care Team ([facility] st Contact Info) Description 09/07/2022 Telephone [facility] MEDICINE [address] [place] [address] Karen Avelar ANP 230 [place], [place] [phone] Prior Authorization Social History Tobacco Use Types [...] - 09/07/2022 11:47 AM EDT Tc from nathalie with [facility] pharmacy requesting a PA for medication OxyCONTIN 20 MG 12 hr tablet documented in this encounter Plan of Treatment Upcoming Encounters Date Type Department Care Team ([facility] st Contact Info) Description 01/28/2025 1:30 PM EDT Clinical Support [facility] MED & PEDS [address] [place] [address] Becky Pool, RN 505 [place] [address] documented as of this encounter Visit Diagnoses Not on filedocumented in this encounter Care Teams Business Services Specialist Sales Relationship Specialty Start Date End Date Karen Avelar ANP [address] [place] [address] PCP - General Family Medicine 12/08/21 documented as of this encounter
--- OUTSIDE RECORDS SUMMARY | 2025-01-27 09:34 | XMS_ITS | Encounter Summary ---
Author Organization [employer] Address [address] [facility] 7t [place] [address] Care Team Providers Care Lamp Stack Developer Name Role Phone Karen Avelar Primary Care Provider [phone] Reason for Visit * Reason Comments Med Refill Encounter Details Date Type Department Care Team ([facility] st Contact Info) Description 03/05/[address] [facility] MEDICINE 230 [place], [place] [phone] Karen Avelar ANP 230 [place], [place] [phone] Social History Tobacco Use Types Packs/Day Years [...] Upcoming Encounters Date Type Department Care Team ([facility] st Contact Info) Description 01/28/2025 1:30 PM EDT Clinical Support [facility] MED & PEDS [address] [place] [address] Becky Pool, RN [address] [place] [address] documented as of this encounter Visit Diagnoses Not on filedocumented in this encounter Additional Health Concerns Assessment Noted Time PHQ-9 Depression Total Score: 14 023 1:08 PM EDT documented as of this encounter Care Teams Lamp Stack Developer Relationship Specialty Start Date End Date Karen Avelar ANP [address] [place] [address] PCP - General Family Medicine 12/08/21 documented as of this encounter
--- OUTSIDE RECORDS SUMMARY | 2025-01-27 09:35 | XMS_ITS | Encounter Summary ---
Author Organization [employer] Address [address] [facility] 7t [place] [address] Care Team Providers Care Behavioral Health Professional Name Role Phone Karen Avelar Primary Care Provider [phone] Reason for Visit * Reason Onset Date Comments Med Refill 12/02/2024 Encounter Details Date Type Department Care Team ([facility] st Contact Info) Description 12/02/2024 Telephone [facility] MEDICINE [address] [place] [address] Karen Avelar ANP 230 [place], [place] [phone] Med Refill Social History Tobacco Use Types [...] encounter Miscellaneous Notes * Telephone Encounter - Luz Mcclendon - 12/02/2024 9:01 AM EDT TC from pt requesting medication refill. Medications needing refill : oxyCODONE ER (OxyCONTIN) 20 MG 12 hr tablet To be sent to: [facility]/pharmacy #[id number] documented in this encounter Plan of Treatment Upcoming Encounters Date Type Department Care Team (Late st Contact Info) Description 01/28/2025 1:30 PM EDT Clinical Support [facility] MED & [facility]EDS [address] [place] [address] Becky Pool, JIMMIE 505 [place] [address] documented as of this encounter Visit Diagnoses Not on filedocumented in this encounter Additional Health Concerns Assessment Noted Time PHQ-9 Depression Total Score: 21 024 2:14 PM EDT documented as of this encounter Care Teams Behavioral Health Professional Relationship Specialty Start Date End Date Karen Avelar ANP [address] [place] [address] PCP - General Family Medicine 12/08/21 documented as of this encounter
--- OUTSIDE RECORDS SUMMARY | 2025-01-27 09:35 | XMS_ITS | Encounter Summary ---
Author Organization [employer] Address 75 [facility] 7t [place] [address] Care Team Providers Care Icing Mixer Name Role Phone Karen Avelar Primary Care Provider Reason for Visit * Reason Onset Date Comments Med Refill 01/27/2023 Encounter Details Date Type Department Care Team ([facility] st Contact Info) Description 01/27/2023 Telephone [facility] MEDICINE [address] [place] [address] Karen Avelar ANP 230 [place], [place] [phone] Med Refill Social History Tobacco Use Types [...] 12 hr tablet to be sent to [facility]/pharmacy #[id number] - [address] documented in this encounter Plan of Treatment Upcoming Encounters Date Type Department Care Team (Late st Contact Info) Description 01/28/2025 1:30 PM EDT Clinical Support [facility] MED & PEDS [address] [place] [address] Becky Pool, JIMMIE 505 [place] [address] documented as of this encounter Visit Diagnoses Not on filedocumented in this encounter Additional Health Concerns Assessment Noted Time PHQ-9 Depression Total Score: 14 023 1:08 PM EDT documented as of this encounter Care Teams Icing Mixer Relationship Specialty Start Date End Date Karen Avelar ANP 230 [place] [address] PCP - General Family Medicine 12/08/21 documented as of this encounter
--- OUTSIDE RECORDS SUMMARY | 2025-01-27 09:35 | XMS_ITS | Clinical Summary ---
Author Organization [facility] Address [address] [place] [address] Care Team Providers Care Information Officer Name Role Phone Merna Read CARD STRIPPER Primary Care Provider [phone] Social History Tobacco Use Types Packs/Day Years [...] age to complete this topic Care Teams Information Officer Relationship Specialty Start Date End Date Merna Read NP [address] [facility] [place] [address] PCP - General Family Medicine 08/10/17
--- OUTSIDE RECORDS SUMMARY | 2025-01-27 09:35 | XMS_ITS | Encounter Summary ---
Author Organization [employer] Address 75 [facility] 7t [place] [address] Care Team Providers Care Real Estate Associate Attorney Name Role Phone Karen Avelar Primary Care Provider [phone] Reason for Visit * Reason Onset Date Comments Medication Question 09/27/2024 Encounter Details Date Type Department Care Team ([facility] st Contact Info) Description 09/27/2024 Telephone [facility] MEDICINE [address] [place] [address] Karen Avelar ANP 230 [place], [place] [phone] Medication Question Social History Tobacco Use Types Packs/Day Years [...] * Telephone Encounter - Gladis London - 09/30/2024 1:24 PM EDT Tc from pt requesting status on med refill request from last message. * Telephone Encounter - Fifi Myers RN - 09/27/2024 3:48 PM EDT Per [facility] on 09/21/24, pt picked up Oxycodone 10mg tablets #112. Also Oxycontin 20mg was last picked up 09/03/24, refill would not be due until 10/01/24. Will leave this request to primary TOP TILE DECORATOR nurse on 09/30/24. * Telephone Encounter - Denise Su - 09/27/2024 3:44 PM EDT Tc from pt requesting Oxycodone 20 MG. Patient currently using 10 MG. documented in this encounter Plan of Treatment Upcoming Encounters Date Type Department Care Team ([facility] st Contact Info) Description 01/28/2025 1:30 PM EDT Clinical Support [facility] MED & PEDS [address] [place] [address] Becky Pool, RN [address] [place] [address] documented as of this encounter Visit Diagnoses Not on filedocumented in this encounter Additional Health Concerns Assessment Noted Time PHQ-9 Depression Total Score: 21 024 2:14 PM EDT documented as of this encounter Care Teams Real Estate Associate Attorney Relationship Specialty Start Date End Date Karen Avelar ANP [address] [place] [address] PCP - General Family Medicine 12/08/21 documented as of this encounter
--- OUTSIDE RECORDS SUMMARY | 2025-01-27 09:35 | XMS_ITS | Encounter Summary ---
Author Organization [employer] Address 75 [facility] 7t [place] [address] Care Team Providers Care Cheese Grader Name Role Phone Karen Avelar Primary Care Provider [phone] Reason for Visit * Reason Onset Date Comments Med Refill 03/28/2023 Encounter Details Date Type Department Care Team ([facility] st Contact Info) Description 03/28/[address] [facility] MEDICINE [address] [place] [address] Karen Avelar ANP 230 [place], [place] [phone] Med Refill Social History Tobacco Use Types [...] Description 01/28/2025 1:30 PM EDT Clinical Support [facility] MED & PEDS [address] [place] [address] Becky Pool, JIMMIE [address] [place] [address] documented as of this encounter Visit Diagnoses Not on filedocumented in this encounter Additional Health Concerns Assessment Noted Time PHQ-9 Depression Total Score: 14 023 1:08 PM EDT documented as of this encounter Care Teams Cheese Grader Relationship Specialty Start Date End Date Karen Avelar ANP [address] [place] [address] PCP - General Family Medicine 12/08/21 documented as of this encounter
--- OUTSIDE RECORDS SUMMARY | 2025-01-27 09:35 | XMS_ITS | Encounter Summary ---
Author Organization [employer] Address 75 [facility] 7t [place] [address] Care Team Providers Care Specification Manager Name Role Phone Karen Avelar Primary Care Provider [phone] Reason for Visit * Reason Onset Date Comments DTA forms 11/21/2024 Encounter Details Date Type Department Care Team ([facility] st Contact Info) Description 11/21/2024 Telephone [facility] MEDICINE 230 [place] [address] Karen Avelar ANP [address] [place], [place] [phone] DTA forms Social History Tobacco Use Types Packs/Day Years [...] encounter Miscellaneous Notes * Telephone Encounter - Stuart Reyes - 11/21/2024 10:14 AM EDT Tc from pt was transferred from [facility] and is requesting a call back for the status for DTA forms. Please contact pt at [phone]. (Faroese Speaker) documented in this encounter Plan of Treatment Upcoming Encounters Date Type Department Care Team ([facility] st Contact Info) Description 01/28/2025 1:30 PM EDT Clinical Support [facility] MED & PEDS [address] [place] [address] Becky Pool, JIMMIE [address] [place] [address] documented as of this encounter Visit Diagnoses Not on filedocumented in this encounter Additional Health Concerns Assessment Noted Time PHQ-9 Depression Total Score: 21 024 2:14 PM EDT documented as of this encounter Care Teams Specification Manager Relationship Specialty Start Date End Date Karen Avelar ANP [address] [place] [address] PCP - General Family Medicine 12/08/21 documented as of this encounter
--- OUTSIDE RECORDS SUMMARY | 2025-01-27 09:36 | XMS_ITS | Encounter Summary ---
Author Organization [employer] Address 75 [facility] 7t [place] [address] Care Team Providers Care Padded Products Inspector Trimmer Name Role Phone Karen Avelar Primary Care Provider [phone] Encounter Details Date Type Department Care Team ([facility] st Contact Info) Description 01/24/2025 Telephone [facility] MEDICINE [address] [place], [place] [phone] Karen Avelar ANP 230 [place], [place] [phone] Social History Tobacco Use Types Packs/Day Years [...] encounter Miscellaneous Notes * Telephone Encounter - Chaya Holbrook - 01/24/2025 11:33 AM EDT PA required for tadalafil (Cialis) 5 MG tablet, please advise. If agree with proceeding with PA, please addend most recent note to support the need. Thank you documented in this encounter Plan of Treatment Upcoming Encounters Date Type Department Care Team (Late st Contact Info) Description 01/28/2025 1:30 PM EDT Clinical Support [facility] MED & PEDS [address] [place] [address] Becky Pool, RN 505 [place] [address] documented as of this encounter Visit Diagnoses Not on filedocumented in this encounter Additional Health Concerns Assessment Noted Time PHQ-9 Depression Total Score: 21 024 2:14 PM EDT documented as of this encounter Care Teams Padded Products Inspector Trimmer Relationship Specialty Start Date End Date Karen Avelar ANP 230 [place] [address] PCP - General Family Medicine 12/08/21 documented as of this encounter
--- OUTSIDE RECORDS SUMMARY | 2025-01-27 09:36 | XMS_ITS | Encounter Summary ---
Author Organization [employer] Address 75 [facility] 7t [place] [address] Care Team Providers Care Academic Services Coordinator Name Role Phone Karen Avelar Primary Care Provider [phone] Reason for Visit * Reason Onset Date Comments Med Refill 11/21/2023 Encounter Details Date Type Department Care Team (Late st Contact Info) Description 11/21/2023 Telephone [facility] MEDICINE 230 [place] [address] Karen Avelar ANP 230 [place], [place] [phone] Med Refill Social History Tobacco Use Types [...] encounter Miscellaneous Notes * Telephone Encounter - eTofilo Martinez - 11/21/2023 9:23 AM EDT TC from pt requesting medication refill. Medications needing refill : oxyCODONE (Roxicodone) 5 MG immediate release tablet and oxyCODONE ER (OxyCONTIN) 30 MG 12 hr tablet To be sent to: [facility]/PHARMACY #[id number] documented in this encounter Plan of Treatment Upcoming Encounters Date Type Department Care Team (Late st Contact Info) Description 01/28/2025 1:30 PM EDT Clinical Support [facility] MED & PEDS 505 [place] [address] Becky Pool RN 505 [place] [address] documented as of this encounter Visit Diagnoses Not on filedocumented in this encounter Additional Health Concerns Assessment Noted Time PHQ-9 Depression Total Score: 21 024 2:14 PM EDT documented as of this encounter Care Teams Academic Services Coordinator Relationship Specialty Start Date End Date Karen Avelar ANP 230 [place] [address] PCP - General Family Medicine 8/31/22 documented as of this encounter
--- OUTSIDE RECORDS SUMMARY | 2025-01-27 09:36 | XMS_ITS | Encounter Summary ---
Author Organization [employer] Address 75 [facility] 7t [place] [address] Care Team Providers Care Director Diabetes Name Role Phone Karen Avelar Primary Care Provider [phone] Reason for Visit * Reason Onset Date Comments Med Refill 02/12/2024 Encounter Details Date Type Department Care Team ([facility] st Contact Info) Description 02/12/2024 Telephone [facility] MEDICINE 230 [place] [address] Karen Avelar ANP 230 [place], [place] [phone] Med Refill Social History Tobacco Use Types [...] To be sent to: [facility]/pharmacy #[id number] documented in this encounter Plan of Treatment Upcoming Encounters Date Type Department Care Team (Late st Contact Info) Description 01/28/2025 1:30 PM EDT Clinical Support [facility] MED & PEDS 505 [place] [address] Becky Pool, JIMMIE [address] [place] [address] documented as of this encounter Visit Diagnoses Not on filedocumented in this encounter Additional Health Concerns Assessment Noted Time PHQ-9 Depression Total Score: 21 024 2:14 PM EDT documented as of this encounter Care Teams Director Diabetes Relationship Specialty Start Date End Date Karen Avelar ANP 230 [place] [address] PCP - General Family Medicine 12/08/21 documented as of this encounter
--- OUTSIDE RECORDS SUMMARY | 2025-01-27 09:36 | XMS_ITS | Encounter Summary ---
Author Organization [employer] Address 75 [facility] 7t [place] [address] Care Team Providers Care Urban Gardening Specialist Name Role Phone Karen Avelar Primary Care Provider [phone] Reason for Visit * Reason Onset Date Comments Med Refill 12/19/2023 Encounter Details Date Type Department Care Team (Late st Contact Info) Description 12/19/2023 Telephone [facility] MEDICINE 230 [place] [address] Karen Avelar ANP 230 [place], [place] [phone] Med Refill Social History Tobacco Use Types [...] immediate release tablet To be sent to: [facility]/pharmacy #[id number] documented in this encounter Plan of Treatment Upcoming Encounters Date Type Department Care Team (Late st Contact Info) Description 01/28/2025 1:30 PM EDT Clinical Support [facility] MED & PEDS 505 [place] [address] Becky Pool RN 505 [place] [address] documented as of this encounter Visit Diagnoses Not on filedocumented in this encounter Additional Health Concerns Assessment Noted Time PHQ-9 Depression Total Score: 21 024 2:14 PM EDT documented as of this encounter Care Teams Urban Gardening Specialist Relationship Specialty Start Date End Date Karen Avelar ANP 230 [place] [address] PCP - General Family Medicine 8/31/22 documented as of this encounter
--- OUTSIDE RECORDS SUMMARY | 2025-01-27 09:36 | XMS_ITS | Encounter Summary ---
Author Organization [employer] Address 75 [facility] 7t [place] [address] Care Team Providers Care Folding Machine Tender Name Role Phone Karen Avelar Primary Care Provider [phone] Reason for Visit * Reason Onset Date Comments Med Refill 01/15/2024 Encounter Details Date Type Department Care Team ([facility] st Contact Info) Description 01/15/[address] [facility] MEDICINE 230 [place] [address] Karen Avelar ANP 230 [place], [place] [phone] Med Refill Social History Tobacco Use Types [...] hr tablet To be sent to: [facility]/pharmacy #[id number] documented in this encounter Plan of Treatment Upcoming Encounters Date Type Department Care Team (Late st Contact Info) Description 01/28/2025 1:30 PM EDT Clinical Support [facility] MED & PEDS [address] [place] [address] Becky Pool RN 505 [place] [address] documented as of this encounter Visit Diagnoses Not on filedocumented in this encounter Additional Health Concerns Assessment Noted Time PHQ-9 Depression Total Score: 21 024 2:14 PM EDT documented as of this encounter Care Teams Folding Machine Tender Relationship Specialty Start Date End Date Karen Avelar ANP 230 [place] [address] PCP - General Family Medicine 8/31/22 documented as of this encounter
--- OUTSIDE RECORDS SUMMARY | 2025-01-27 09:37 | XMS_ITS | Encounter Summary ---
Author Organization [employer] Address 75 [facility] 7t [place] [address] Care Team Providers Care Control Analyst Name Role Phone Karen Avelar Primary Care Provider [phone] Reason for Visit * Reason Onset Date Comments Hospital Follow-up 08/22/2024 Encounter Details Date Type Department Care Team ([facility] st Contact Info) Description 08/22/2024 Telephone [facility] MEDICINE 230 [place], [place] [phone] Karen Avelar ANP 230 [place], [place] [phone] Hospital Follow-up Social History Tobacco Use Types Packs/Day Years [...] * Telephone Encounter - Denise Su - 08/22/2024 1:12 PM EDT Tc from pt requesting a HDF appt. Hospital: [facility] Date of admission: 08/12 Discharge date: 08/21 Diagnosed: Chest Pain *Send message to [facility] Clinical Care Coordinators [phone] documented in this encounter Plan of Treatment Upcoming Encounters Date Type Department Care Team (Late st Contact Info) Description 01/28/2025 1:30 PM EDT Clinical Support [facility] MED & PEDS 505 [place] [address] Becky Pool, JIMMIE 505 [place] [address] documented as of this encounter Visit Diagnoses Not on filedocumented in this encounter Additional Health Concerns Assessment Noted Time PHQ-9 Depression Total Score: 21 024 2:14 PM EDT documented as of this encounter Care Teams Control Analyst Relationship Specialty Start Date End Date Karen Avelar ANP 230 [place] [address] PCP - General Family Medicine 12/08/21 documented as of this encounter
--- OUTSIDE RECORDS SUMMARY | 2025-01-27 09:37 | XMS_ITS | Encounter Summary ---
Author Organization [employer] Address 75 [facility] 7t [place] [address] Care Team Providers Care Utilization Review Rn Name Role Phone Karen Avelar Primary Care Provider Reason for Visit * Reason Onset Date Comments Med Refill 01/19/2024 Encounter Details Date Type Department Care Team ([facility] st Contact Info) Description 01/19/2024 Telephone [facility] MEDICINE 230 [place] [address] Karen Avelar ANP 230 [place], [place] [phone] Med Refill Social History Tobacco Use Types [...] 11:00 AM EDT Medication was sent to [id number] on 12/20/23 with 1 refill. * Telephone Encounter - Luz Mcclendon - 01/19/2024 10:54 AM EDT TC from pt requesting medication refill. Medications needing refill : tadalafil (Cialis) 5 MG tablet To be sent to: [facility] #[id number] - [address] documented in this encounter Plan of Treatment Upcoming Encounters Date Type Department Care Team (Late st Contact Info) Description 01/28/2025 1:30 PM EDT Clinical Support [facility] MED & PEDS 505 [place] [address] Becky Pool, JIMMIE 505 [place], [place] [phone] documented as of this encounter Visit Diagnoses Not on filedocumented in this encounter Additional Health Concerns Assessment Noted Time PHQ-9 Depression Total Score: 21 024 2:14 PM EDT documented as of this encounter Care Teams Utilization Review Rn Relationship Specialty Start Date End Date Karen Avelar ANP 230 [place] [address] PCP - General Family Medicine 12/08/21 documented as of this encounter
--- OUTSIDE RECORDS SUMMARY | 2025-01-27 09:37 | XMS_ITS | Clinical Summary ---
Author Organization [facility] Address [address] [address] Phone Care Team Providers Care Physiology Teacher Name Role Phone Merna Read NP Primary Care Provider [phone] Allergies Active Allergy Reactions Criticality Noted Date [...] Active cholecalcifero l (VITAMIN D-3) 50 MCG (1999) capsule Take 1 capsule by mouth 1 [...] Active Naloxone HCl (Narcan) 4 MG/0.1ML liquid [place] as directed Ac tive OXcarbazepine (TRILEPTAL) 150 [...] (MINIPRESS) 2 MG capsule TOME SHIRA C PSULA TODOS LOS D AL ACOSTARSE 2 Active omeprazole (PriLOSEC) [address] capsule TOME SHIRA C PSULA TODOS LOS D BEFORE A MEAL 2 Active [...] Disorder due to type 2 diabetes mellitus 020 Chronic kidney disease stage 3 07/17/2019 [...] 07/27/2011 Colorectal Cancer Screening: Sigmoidoscopy 07/27/2011 Diabetes: Hemoglobin A1C 09/09/2024 10/14/2020 Diabetes: Ophthalmology Exam 09/09/2024 Diabetes: Pedal Pulse Checked 09/09/2024 Diabetes: Sensory Foot Exam 09/09/2024 Diabetes: Visual Foot Exam 09/09/2024 Influenza Vaccine (#1) 2024 Hepatitis B Vaccine Aged Out No [...] AM EDT) Hemoglobin A1C 8.3(H) (4.0-5.6) % [facility] Comment: MONITORING: In known diabetic patients, hemoglobin A1c targets should be discussed with health care provider. DIAGNOSTIC USE: The [place] Diabetes Association (ADA) and the World Health [...] Supplement 1 Testing performed or reported by [facility], a Service of [facility], [address] [place] [address] Jude Villanueva MD, Hunting Sales Leader Blood specimen (specimen) Venous blood / Unknown 10/14/2020 9:11 AM EDT 10/14/2020 9:21 AM EDT us Janusz Francisco MD LAB BLOOD ORDERABLES Final Result [facility] from Last 3 Months or Most Recently Relevant to Health Maintenance Insurance [facility] ([id number]) [facility] Care Teams Physiology Teacher Relationship Specialty Start Date End Date Merna Read NP PCP - General 02/12/19
--- OUTSIDE RECORDS SUMMARY | 2025-01-27 09:37 | XMS_ITS | Encounter Summary ---
Author Organization [employer] Address 75 [facility] 7t [place] [address] Care Team Providers Care Academic Affairs Vice President Name Role Phone Karen Avelar Primary Care Provider [phone] Reason for Visit * Reason Onset Date Comments Med Refill 09/19/2024 Encounter Details Date Type Department Care Team ([facility] st Contact Info) Description 09/19/2024 Telephone [facility] MEDICINE 230 [place] [address] Karen Avelar ANP 230 [place], [place] [phone] Med Refill Social History Tobacco Use Types [...] * Telephone Encounter - Louise Garcias - 09/19/2024 12:27 PM EDT TC from pt requesting medication refill. Medications needing refill : oxyCODONE (Roxicodone) 10 MG immediate release tablet To be sent to: [facility]/pharmacy #[id number] - [address] documented in this encounter Plan of Treatment Upcoming Encounters Date Type Department Care Team (Late st Contact Info) Description 01/28/2025 1:30 PM EDT Clinical Support [facility] MED & PEDS 505 [place] [address] Becky Pool, JIMMIE 505 [place] [address] documented as of this encounter Visit Diagnoses Not on filedocumented in this encounter Additional Health Concerns Assessment Noted Time PHQ-9 Depression Total Score: 21 024 2:14 PM EDT documented as of this encounter Care Teams Academic Affairs Vice President Relationship Specialty Start Date End Date Karen Avelar ANP [address] [place] [address] PCP - General Family Medicine 12/08/21 documented as of this encounter
--- OUTSIDE RECORDS SUMMARY | 2025-01-27 09:37 | XMS_ITS | Encounter Summary ---
Author Organization [facility], Address [address] [address] Phone Care Team Providers Care Metal Pourer Name Role Phone Merna Read NP Primary Care Provider [phone] Encounter Details Date Type Department Care Team (Late st Contact Info) Description 07/05/2021 Documentation Only [facility], [address] [place] [phone] Janusz Francisco MD [address] [place] [phone] Social History Tobacco Use Types Packs/Day Years [...] on filedocumented in this encounter Care Teams Metal Pourer Relationship Specialty Start Date End Date Merna Read NP PCP - General 02/12/19 documented as of this encounter
--- OUTSIDE RECORDS SUMMARY | 2025-01-27 09:37 | XMS_ITS | Encounter Summary ---
Author Organization [employer] Address 75 [facility] 7t [place] [address] Care Team Providers Care Forest Engineer Name Role Phone Avelar Karen SOUZA Primary Care Provider [phone] Encounter Details Date Type Department Care Team (Late st Contact Info) Description 08/06/2023 Orders Only [facility] MEDICINE 230 [place], [place] [phone] Provider, MD Lawrence Social History Tobacco Use [...] the past 12 months, has t he [employer], gas, oil or water company threatened to [...] PM EDT Clinical Support [facility] MED & PEDS 505 [place] [address] Becky Pool, JIMMIE 505 [place] [address] documented as of this encounter Procedures Procedure [...] documented as of this encounter Care Teams Forest Engineer Relationship Specialty Start Date End Date Karen Avelar ANP [address] [place] [address] PCP - General Family Medicine 12/08/21 documented as of this encounter
--- OUTSIDE RECORDS SUMMARY | 2025-01-27 09:37 | XMS_ITS | Encounter Summary ---
Author Organization [employer] Address 75 [facility] 7t [place] [address] Care Team Providers Care Retail Event Coordinator Name Role Phone Karen Avelar Primary Care Provider [phone] Reason for Visit * Reason Onset Date Comments Med Refill 07/31/2023 Encounter Details Date Type Department Care Team (Late st Contact Info) Description 07/31/2023 Refill [facility] MEDICINE 230 [place] [address] Karen Avelar ANP 230 [place], [place] [phone] Social History Tobacco Use Types Packs/Day Years [...] 10-25 MG tablet To be sent to: [facility]/pharmacy #[id number] - [address] documented in this encounter Plan of Treatment Upcoming Encounters Date Type Department Care Team ([facility] st Contact Info) Description 01/28/2025 1:30 PM EDT Clinical Support [facility] MED & PEDS [address] [place] [address] Becky Pool, JIMMIE 505 [place] [address] documented as of this encounter Visit Diagnoses Not on filedocumented in this encounter Additional Health Concerns Assessment Noted Time PHQ-9 Depression Total Score: 14 023 1:08 PM EDT documented as of this encounter Care Teams Retail Event Coordinator Relationship Specialty Start Date End Date Karen Avelar ANP [address] [place] [address] PCP - General Family Medicine 12/08/21 documented as of this encounter
--- OUTSIDE RECORDS SUMMARY | 2025-01-27 09:38 | XMS_ITS | Encounter Summary ---
Author Organization [employer] Address 75 [facility] 7t [place] [address] Care Team Providers Care Installation Supervisor Name Role Phone Karen Avelar Primary Care Provider [phone] Reason for Visit * Reason Onset Date Comments Med Refill 08/26/2024 Encounter Details Date Type Department Care Team ([facility] st Contact Info) Description 08/26/2024 Telephone [facility] MEDICINE 230 [place] [address] Karen Avelar ANP 230 [place], [place] [phone] Med Refill Social History Tobacco Use Types [...] * Telephone Encounter - Denise Su - 08/26/2024 1:51 PM EDT TC from pt requesting medication refill. Medications needing refill : oxyCODONE (Roxicodone) 10 MG immediate release tablet To be sent to: [address] [place] [address] documented in this encounter Plan of Treatment Upcoming Encounters Date Type Department Care Team (Late st Contact Info) Description 01/28/2025 1:30 PM EDT Clinical Support [facility] MED & PEDS 505 [place] [address] Becky Pool, JIMMIE 505 [place] [address] documented as of this encounter Visit Diagnoses Not on filedocumented in this encounter Additional Health Concerns Assessment Noted Time PHQ-9 Depression Total Score: 21 024 2:14 PM EDT documented as of this encounter Care Teams Installation Supervisor Relationship Specialty Start Date End Date Karen Avelar ANP 230 [place] [address] PCP - General Family Medicine 12/08/21 documented as of this encounter
[2025-01-27 13:35] LABS: Anion Gap 13 (12-20); Blood Urea Nitrogen 20 mg/dL (9-16); Calcium 9.7 mg/dL (8.4-10.2); Carbon Dioxide 24 mmol/L (22-29); Chloride 107 mmol/L (96-108); Estimated Glomerular Filt Rate > 60; Potassium 4.1 mmol/L (3.3-5.1); Sodium 140 mmol/L (135-145)
== END 2025-01-27 08:42 | disposition home or self-care (01) ==
LOC: HO.HKASLDS 08:41
PROVIDERS: PCP Nurse Practitioner Primary Care; Visit Provider Internal Medicine Hypertension Specialist
DX: N18.30 Chronic kidney disease, stage 3 unspecified (principal)
CPT/HCPCS: 36415; 80048

== ENCOUNTER 2025-01-29 09:33 | Outpatient (AMB) | payer OTHER, SELFPAY ==
--- OUTSIDE RECORDS SUMMARY | 2025-01-28 13:30 | XMS_ITS | Encounter Summary ---
Author Organization [employer] Address 75 [facility] 7t [place] [address] Care Team Providers Care Software Packager Name Role Phone Valentino Karen SOUZA Primary Care Provider [phone] Reason for Visit * Reason Comments RESPIRATORY CARE ASSISTANT Encounter Details Date Type Department Care Team (Latest Contact Info) Description 01/28/2025 1:30 PM EDT Clinical Support [facility] P[facility]S [address] [place] [address] Becky Pool, RN [address] [place] [address] Chronically on opiate therapy (Primary Dx) Social History Tobacco Use Types Packs/Day Years [...] Progress Notes * Becky Pool RN - 01/28/2025 1:30 PM EDT SUBJECTIVE: Bhumika Rivera is a 64 y.o. year old male who presents for RESPIRATORY CARE ASSISTANT Preferred language for medical information: Eritrean Interpreted needed: No Bhumika Rivera does not report adherence to Oxycodone 10 mg, take 1 tablet every 6 hours PRN, last refilled 01/08/25. Oxycodone ER 20mg 1 tab @ 12 hrs last refilled 01/08/25. The patient last took both medications on: 01/28/25. Medication is: 40% % effective at alleviating pain. OBJECTIVE: MILLING MACHINE TENDER checked: 01/28/2025 Pill count completed for Oxycodone 10mg count today is 12 , anticipated count should be 12. Oxycodone ER 20mg count is 13, 15 expected. this is not as expected. Patient c/o worsening pain, states has been taking medications more that prescribed. Patient reminded of the RESPIRATORY CARE ASSISTANT Agreement rules and to take Rx only as prescribed. Will notify PCP. Vital Signs Pain Score: 10-Worst pain ever Pain Loc: Neck Pain Education: Yes Additional pain site: feet, hips Last PCP visit: 09/06/24 BPI completed on: 01/28/2025 , pain severity score: 8, activity interference score: 7 BPI completed on: 02/14/24 , pain severity score: 8, activity interference score: 9 Controlled substance agreement signed: Controlled Substance Agreement 01/28/2025 RESPIRATORY CARE ASSISTANT Tier: 2 Current Medications[1] Smoking status: Denies ETOH use: Denies Illicit substances: Denies Marijuana use: No Lab Results Component Value Date POCTHC Negative 01/28/2025 POCCOCAINEUR Negative 01/28/2025 POCOPIATEUR Negative 01/28/2025 DOAUR Negative 01/28/2025 POCAMPHETAMI Negative 01/28/2025 POCBENZODIUR Positive (A) 01/28/2025 POCBARBSCRN Negative 01/28/2025 POCMETHADOUR Negative 01/28/2025 POCBUPSCRN Negative 01/28/2025 POCTCAUR Positive (A) 01/28/2025 POCMDMAUR Negative 01/28/2025 POCOXYCODONE Positive (A) 01/28/2025 POCPHENCYCUR Negative 01/28/2025 PROPOXUR Negative 01/28/2025 FENTANYLURIN Negative 01/28/2025 ASSESSMENT: Encounter Diagnosis Name Primary? Chronically on opiate therapy Yes PLAN: Information on pain group given: Previously discussed Information on acupuncture given: Previously discussed Narcan education provided: Previously discussed Narcan prescription: active Bhumika Theresaemelyn Rivera will continue taking medication as prescribed and follow up at the next RESPIRATORY CARE ASSISTANT visit or sooner if needed. Bhumika Rivera has verbalized understanding of care plan. Future Appointments Date Time Provider Department Center 01/28/2025 1:30 PM Becky Pool RN [facility] 03/25/2025 11:00 AM Becky Pool RN [facility] Becky Pool RN [1] Current Outpatient Medications: albuterol 108 (90 Base) MCG/ACT inhaler, INHALE 2 PUFFS EVERY 6 HOURS IF NEEDED FOR WHEEZING., Disp: 8.5 g, Rfl: 0 aspirin 81 MG EC tablet, Take 1 tablet by mouth., Disp: , Rfl: atorvastatin (Lipitor) 80 MG tablet, , Disp: , Rfl: BD Pen Needle Amaya U/F 32G X 4 MM misc, , Disp: , Rfl: buPROPion XL (Wellbutrin XL) 300 MG 24 hr tablet, , Disp: , Rfl: CeQur Simplicity 2U device, , Disp: , Rfl: clonazePAM (KlonoPIN) 2 MG tablet, , Disp: , Rfl: Continuous Glucose Assistant Counsel (FreeStyle Edwin 3 [place]) device, USE DAILY DIRECTED TO MONITOR BLOOD GLUCOSE, Disp: , Rfl: Continuous Glucose Sensor (FreeStyle Edwin 3 Plus Sensor) [facility], , Disp: , Rfl: Docusate Sodium (DSS) 100 MG capsule, Take 1 capsule by mouth in the morning and 1 capsule in the evening., Disp: , Rfl: Emollient (CeraVe Diabetics Dry Skin) cream, Apply 1 Application. topically if needed in the morning and at bedtime (dry skin)., Disp: 236 mL, Rfl: 11 enalapril (Vasotec) 10 MG tablet, TOME SHIRA TABLETA POR VIA ORAL TODOS LOS NETTLES, Disp: 90 tablet, Rfl: 3 ezetimibe (Zetia) 10 MG tablet, , Disp: , Rfl: glucose blood (FreeStyle Precision [place] Test) test strip, TEST BLOOD SUGAR EVERY 8 HOURS, Disp: 100 strip, Rfl: 11 insulin aspart FlexPen (NovoLOG) 100 UNIT/ML pen, Inject 20 Units under the skin before breakfast, before lunch, and before evening meal., Disp: , Rfl: Insulin Degludec FlexTouch 200 UNIT/ML solution pen-injector, Take 42 Units by mouth at bedtime., Disp: , Rfl: Insulin Disposable Pump (V-Go 30) kit, , Disp: , Rfl: ketorolac (Acular) 0.5 % ophthalmic solution, , Disp: , Rfl: levothyroxine (Synthroid, Levoxyl) 50 MCG tablet, TAKE 1 TABLET BY MOUTH EVERY DAY, Disp: 90 tablet, Rfl: 3 naloxone (Narcan) 4 mg/0.1 mL nasal spray, Administer 1 spray (4 mg) into affected nostril(s) if needed for opioid reversal for up to 2 doses., Disp: 2 each, Rfl: 1 omeprazole (PriLOSEC) [address] capsule, TAKE 1 CAPSULES BY MOUTH EVERYDAY BEFORE A MEAL, Disp: 90 capsule, Rfl: 1 OXcarbazepine (Trileptal) 300 MG tablet, Take 1 tablet by mouth 2 times daily., Disp: , Rfl: oxyCODONE (Roxicodone) 10 MG immediate release tablet, Take 1 tablet (10 mg) by mouth every 6 (six)hours if needed for severe pain for up to 28 days., Disp: 112 tablet, Rfl: 0 oxyCODONE ER (OxyCONTIN) 20 MG 12 hr tablet, Take 1 tablet (20 mg) by mouth every 12 (twelve) hoursfor 28 days. Do not crush, chew, or split., Disp: 56 tablet, Rfl: 0 Ozempic, 0.25 or 0.5 MG/DOSE, 2 MG/3ML solution pen-injector, Inject 0.5 mg under the skin every 7 (seven) days., Disp: , Rfl: prazosin (Minipress) 2 MG capsule, , Disp: , Rfl: prednisoLONE acetate (Pred-Forte) 1 % ophthalmic suspension, , Disp: , Rfl: sertraline (Zoloft) 100 MG tablet, , Disp: , Rfl: tadalafil (Cialis) 5 MG tablet, TAKE 1 TABLET BY MOUTH EVERY DAY IF NEEDED FOR ERECTILE DYSFUNCTION, Disp: 20 tablet, Rfl: 1 ticagrelor (Brilinta) 90 MG tablet, Take 1 tablet by mouth 2 times daily., Disp: , Rfl: Toprol XL 25 MG 24 hr tablet, Take 1 tablet by mouth Once per day., Disp: , Rfl: documented in this encounter Plan of Treatment Upcoming Encounters Date Type Department Care Team (Late st Contact Info) Description 03/25/2025 11:00 AM EST Clinical Support [facility] MED [facility] PEDS [address] [place] [address] Becky Pool RN [address] [place] [address] documented as of this encounter Procedures Procedure Name Priority Date/Time Associated Diagnosis Comments POCT JESSICA-14 URINE DRUG SCREEN Routine 01/28/2025 1:27 PM EDT Chronically on opiate therapy documented in this encounter Results * (ABNORMAL) POCT JESSICA-14 Urine Drug Screen (01/28/2025 1:27 PM EDT) THC Negative Negative Cocaine Screen, Urine Negative Negative Opiate Screen, Urine Negative Negative Methamphetamine Screen Urine Negative Negative Amphetamine Screen, Urine Negative Negative Benzodiazepines Screen, Urine Positive(A) Negative Comment:Rx outside provider Barbiturate Screen, Urine Negative Negative Methadone Screen, Urine Negative Negative Buprenophine Screen, Urine Negative Negative TCA, Urine Positive(A) Negative Comment:Rx MDMA Urine Negative Negative ng/mL Oxycodone Screen, Urine Positive(A) Negative Comment:Rx Phencyclidine (PCP), Urine Negative Negative Propoxyphene, Urine Negative Negative Fentanyl, Urine Negative Negative Urine Urine specimen obtained by clean catch procedure / Unknown 01/28/2025 1:27 PM EDT Narrative Becky Pool RN - 01/28/2025 1:27 PM EDT . Internal Pass Control Lot# [id number] Exp: 02-07-26 Karen SOUZA POINT OF CARE TEST ENTER/EDIT OR DERABLES Final Result documented in this encounter Visit Diagnoses Diagnosis Chronically on opiate therapy- Primary documented in this encounter Additional Health Concerns Assessment Noted Time PHQ-9 Depression Total Score: 21 024 2:14 PM EDT documented as of this encounter Care Teams Software Packager Relationship Specialty Start Date End Date Karen Avelar ANP [address] [place] [id number] PCP - General Family Medicine 12/08/21 documented as of this encounter
--- NOTE | 2025-01-29 09:38 | HO.NEPHOV_ITS ---
Vital Signs 01/29/25 09:40 01/29/25 09:49 Height 5 ft 11 in Weight 286 lb BMI 39.9 BP 141/80 H 136/70 Blood Pressure Location Lt brachial Lt brachial Position Sitting Sitting Pulse 83 Pulse Source Pulse Oximeter Pulse Oximetry (%) 96 Oxygen Delivery Method Room Air Intake Visit Reasons: 6 month follow up,left vm Field Marketing Team Leader Required: No Accompanied by: Self / Same As Patient Allergies Penicillins Allergy (Unknown, Verified 01/29/25 09:40) RASH/HIVES Medication List - Last Reconciled 01/29/25 by Danny Pan MD atorvastatin 80 mg PO BEDTIME bempedoic acid (Nexletol) 180 mg PO DAILY blood sugar diagnostic (PycnoTouch Ultra Test strips) DIRECTED TESTS 4 X/DAY blood-glucose meter (Wiser (formerly WisePricer)uch Ultra2 Meter) DIRECTED CHECKS 4 X/DAY blood-glucose sensor (CO-ValueStyle Edwin 3 Plus Sensor device) Apply 1 new sensor every 14 days as directed to monitor blood glucose continuously. blood-glucose,water plant pump operator,cont (FreeStyle Edwin 3 [place]) Use daily As directed to monitor blood glucose bolus insulin pump, 200 unit (CeQur Simplicity) As directed bupropion HCl XL 300 mg PO DAILY cholecalciferol (vitamin D3) 50 mcg PO DAILY clonazepam 2 mg PO BEDTIME clopidogrel 75 mg PO DAILY enalapril maleate 20 mg PO DAILY hydrochlorothiazide 25 mg PO DAILY insulin aspart U-100 (Novolog FlexPen U-100 Insulin aspart) 20 units 3 times a day; insulin degludec (Tresiba FlexTouch U-200 insulin) 50 units (0.25 mL) subcut QAM 30 days lancets (FreeStyle Lancets) As directed lancets (PycnoTouch UltraSoft 2 Lancet) As directed tests 4 X/day levothyroxine 50 mcg PO DAILY metoprolol succinate ER 25 mg PO DAILY omeprazole 20 mg PO DAILY oxcarbazepine 300 mg PO DAILY oxycodone 10 mg PO DAILY PRN oxycodone ER 20 mg PO BID pen needle, diabetic (BD Amaya 2nd Gen Pen Needle) As directed 3 times a day prazosin 2 mg PO BEDTIME sertraline 200 mg PO DAILY syringe with needle, safety (BD Integra Syringe) As directed injrcts once a wk syringe with needle, safety (BD Integra Syringe) As directed use once a week tadalafil (Cialis) 5 mg PO DAILY PRN 30 days tirzepatide (Mounjaro) 2.5 mg (0.5 mL) subcut QWEEK zolpidem 10 mg PO BEDTIME HPI Comments Details: Bhumika a pleasant middle-aged man with a history of diabetes mellitus since age of 35. Hemoglobin A1c has been around 8.5-9.3%. He has been referred for evaluation of chronic kidney disease. Serum creatinine has been averaging around 1.5 mg/dL. The EGFR was 50 mL/minute back in 2020 and as of January 2024 EGFR was 47 mL/minute. In the past he did not have any significant proteinuria based on the urine protein creatinine ratio. Has a history of significant arthritis. He had right hip replaced back in 2018. He is waiting for left hip replacement in the next few weeks. He has been taking Patsy Neurobion which she obtained from [facility]. This contains diclofenac Also has a history of hypertension blood pressure has been well controlled. 07/31/24 Surgery has been postponed due to elevated blood sugar 01/29/25 - The patient is a 64-year-old male presenting with diabetes, chronic kidney disease, and hypertension management. - Diabetes Mellitus: Managed with dietary modifications, including Bittergard; blood sugar levels improved to 99-140 mg/dL. - Chronic Kidney Disease: eGFR improved from 55 to 65. - Hypertension: Enalapril has been increased to 20 mg QD - Obesity: Weight loss noted, current weight between 286 and 291 pounds.- lost few lbs [facility] Medical History (Reviewed 07/31/24 @ 09:37 by Priscila Kent [facility]) Obesity due to excess calories HLD (hyperlipidemia) Depression Osteoarthritis Dyslipidemia Hypertension Obesity (BMI 30-39.9) Hypogonadism male Diabetic polyneuropathy associated with type 2 diabetes mellitus FCI (current) use of insulin Diabetes type 2, uncontrolled Surgical History History of surgical procedure on eye proper using laser Hx of shoulder surgery History of hip surgery Hx of neck surgery Family History Father Prostate cancer Mother Diabetes Heart problem Social History Household Members: Family Alcohol intake: never Patient Tobacco Use Status: Never used Tobacco Physical Exam Vital Signs: BMI result Body Mass Index 39.9 Const General: comfortable; No acute distress Orientation/consciousness: patient oriented x3 Eyes General: appearance normal, both eyes and all related structures Visual Newsome: normal visual newsome by confrontation Neck Neck: Yes supple and Yes no JVD Resp Effort & Inspection: normal respiratory effort and respiratory effort not decreased Cardio Palpation: no palpable S3 and no palpable S4 Heart sounds: no rubs GI Inspection: Yes normal to inspection Palpation (GI): Soft to palpation Percussion: Yes normal to percussion Auscultation: normal bowel sounds General: Yes no CVA tenderness Back/Spine/Pelvis Back: no CVA tenderness Skin General skin exam: no petechiae and no purpura Neuro General: patient oriented x3 and no focal motor deficits Extrem General: No clubbing and No edema Results Reviewed Nephrology Results: Hgb, (14.0-18.0) 14.8 g/dl 06/17/24 WBC, (4.8-10.8) 13.0 X10*3/uL H 06/17/24 Plt Count, (160-400) 331 X10*3/uL 06/17/24 Sodium, (135-145) 140 mmol/L 01/27/25 Potassium, (3.3-5.1) 4.1 mmol/L 01/27/25 Chloride, (96-108) 107 mmol/L 01/27/25 Carbon Dioxide, (22-29) 24 mmol/L 01/27/25 BUN, (9-16) 20 mg/dL H 01/27/25 Creatinine, (0.5-1.4) 1.19 mg/dL 01/27/25 Calcium, (8.4-10.2) 9.7 mg/dL 01/27/25 Assessment & Plan Assessment & Plan (1) CKD (chronic kidney disease) stage 3, GFR 30-59 ml/min: Code(s): N18.30 - Chronic kidney disease, stage 3 unspecified Category: Medical Plan 64-year-old man with a history of longstanding diabetes mellitus with hypertension obesity has chronic kidney disease. Based on the available lab data renal function has been relatively stable for the last few years. The recent creatinine was 1.5 in January of 2024. Repeat was 1.33 in June 2024 and 1.19 in Jan 2025 No significant proteinuria at the time. He probably has underlying hypertensive diabetic kidney disease. Other possibilities would include obstructive uropathy- but seems unlikely Based on recent urine studies I do not believe he has any active glomerulo nephritis or interstitial disease. Recommendations. Discussed importance of tight control blood sugar to slow the progression of renal disease. Maintain blood pressure less than 130/80. Maximize ACEinhibition Continue with Weight loss He would benefit from SGLT-2 inhibitors. He should avoid NSAIDs including Doloneurobion. No changes made today Orders: Orders Basic Metabolic Panel 6 Months N18.30 - Chronic kidney disease, stage 3 unspecified Coding Level of Care Code Est Pt Level 4 (97163) Diagnoses CKD (chronic kidney disease) stage 3, GFR 30-59 ml/min N18.30
[2025-01-29 09:40] VITALS: BP 141/80; PULSE 83; O2SAT 96; BMI 39.9
[2025-01-29 09:49] VITALS: BP 136/70
--- OUTSIDE RECORDS SUMMARY | 2025-01-29 10:59 | XMS_ITS | Encounter Summary ---
Author Organization [employer] Address [address] [facility] 7t [place] [address] Care Team Providers Care Chainstitch Elastic Attacher Name Role Phone Karen Avelar Primary Care Provider [phone] Reason for Visit * Reason Onset Date Comments Nurse Triage 07/03/2024 Encounter Details Date Type Department Care Team ([facility] st Contact Info) Description 07/03/2024 Telephone [facility] [address] [place] [address] Karen Avelar ANP [address] [place], [place] [phone] Nurse Triage Social History Tobacco Use Types [...] apts available and offered to come to [facility] today. Pt reports willcome to [facility] tomorrow morning which opens at 830am. [...] can't walk) The caller accepted this outcome. [phone] documented in this encounter Plan of Treatment Upcoming Encounters Date Type Department Care Team (Late st Contact Info) Description 03/25/2025 11:00 AM EST Clinical Support [facility] MED & PEDS [address] [place] [address] Becky Pool, JIMMIE [address] [place] [address] documented as of this encounter Visit Diagnoses Not on filedocumented in this encounter Additional Health Concerns Assessment Noted Time PHQ-9 Depression Total Score: 21 024 2:14 PM EDT documented as of this encounter Care Teams Chainstitch Elastic Attacher Relationship Specialty Start Date End Date Karen Avelar ANP [address] [place] [address] PCP - General Family Medicine 12/08/21 documented as of this encounter
--- OUTSIDE RECORDS SUMMARY | 2025-01-29 10:59 | XMS_ITS | Encounter Summary ---
Author Organization [employer] Address [address] [facility] 7t [place] [address] Care Team Providers Care Bird Trapper Name Role Phone Karen Avelar Primary Care Provider [phone] Reason for Visit * Reason Onset Date Comments Prior Authorization 09/07/2022 Encounter Details Date Type Department Care Team (Late st Contact Info) Description 09/07/2022 Telephone [facility] MEDICINE [address] [place], [place] [phone] Karen Avelar ANP [address] [place], [place] [phone] Prior Authorization Social History Tobacco Use Types [...] - 09/07/2022 11:47 AM EDT Tc from [place] with [facility] pharmacy requesting a PA for medication OxyCONTIN 20 MG 12 hr tablet documented in this encounter Plan of Treatment Upcoming Encounters Date Type Department Care Team (Late st Contact Info) Description 03/25/2025 11:00 AM EST Clinical Support [facility] PEDS [address] [place] [address] Becky Pool, RN [address] [place] [address] documented as of this encounter Visit Diagnoses Not on filedocumented in this encounter Care Teams Bird Trapper Relationship Specialty Start Date End Date Karen Avelar ANP [address] [place] [address] PCP - General Family Medicine 12/08/21 documented as of this encounter
--- OUTSIDE RECORDS SUMMARY | 2025-01-29 10:59 | XMS_ITS | Clinical Summary ---
Author Organization [employer] Address [address] [facility] 7t [place] [address] Care Team Providers Care Environmental Protection Officer Name Role Phone AvelarKaren Primary Care Provider [phone] Allergies Active Allergy Reactions Criticality Noted Date [...] naloxone (Narcan) 4 mg/0.1 mL nasal sprayIndications: ad 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 prescription opiate use Administer 1 spray (4 [...] :Hypertension with albuminuria,Hyper tension associated with diabetes ([facility]) TOME SHIRA TABLETA POR VIA ORAL TODOS [place] NETTL[place] 90 tablet 3 025 Active ticagrelor (Brilinta) 90 MG tablet Take 1 tablet by mouth 2 times daily. 025 Active Continuous Glucose Coupon Redemption Clerk (FreeStyle Edwin 3 [place]) device USE DAILY DIRECTED TO MONITOR BLOOD GLUCOSE 025 Active Continuous Glucose Sensor (FreeStyle Edwin 3 Plus Sensor) [facility] 025 Active insulin aspart FlexPen (NovoLOG) 100 [...] under the skin every 7 (seven) days. 05/11/2 025 Active albuterol 108 (90 Base) MCG/ACT inhaler INHALE 2 PUFFS EVERY 6 HOURS IF NEEDED FOR WHEEZING. 8.5 g Active glucose blood (FreeStyle Precision [place] Test) test stripIndications: Type 2 diabetes mellitus with stage 3 chronic kidney disease, with long-term current use of insulin, unspecified whether stage 3a or 3b CKD ([facility]) TEST BLOOD SUGAR EVERY 8 HOURS 100 [...] MOUTH EVERY DAY 90 tablet 3 Active omeprazole (PriLOSEC) [address] capsule [...] ER (OxyCONTIN) 20 MG 12 hr tabletIndications :FCI (current) use of opiate analgesic,Primary osteoarthritis involving [...] Diagnosed Date Coronary artery disease invo lving [place] coronary artery of [place] heart 08/29/2024 Acute cough 03/28/2024 COVID 03/28/2024 ad 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 (current) use of opiate analgesic 03/10 Depression, [...] of insulin 04/30/2015 Overview (01/02/2023): Follows w/ [facility] Endo, meds rx'd by [...] Encounters Date Type Department Care Team Description 01/28/2025 1:30 PM EDT Clinical Support [facility] [address] [place] [address] Becky Pool RN Chronically on opiate therapy (Primary Dx) 01/28/2025 Telephone [facility] [address] [place] [address] Becky Pool RN 01/28/2025 Travel 01/27/2025 Orders Only GENERIC EXTERNAL DATA DEPARTMENT Provider, Generic External Data 01/24/[address] [address] Karen Avelar ANP 01/09/2025 Telephone [facility] [address] [place] [address] Karen Avelar ANP Durable Medical Equipment 01/08/2025 Refill [facility] [address] [place] [address] Karen Avelar ANP 01/07/2025 Telephone [facility] [address] [place] [address] Karen Avelar ANP 01/07/2025 Refill [facility] [address] [place] [address] Karen Avelar ANP Primary osteoarthritis involving multiple joints 12/11/2024 Refill [facility] [address] [place] [address] Karen Avelar ANP Primary osteoarthritis involving multiple joints 12/02/2024 Telephone [facility] [address] [place] [phone] Karen Avelar ANP Prior Authorization 12/02/2024 Refill [facility] [address] [place] [address] Becky Pool RN ad 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 (current) use of opiate analgesic; Primary osteoarthritis involving multiple joints 12/02/2024 Telephone [facility] [address] [place] [phone] Karen Avelar ANP Med Refill 11/21/2024 Telephone [facility] [address] [place] [phone] Karen Avelar ANP DTA forms 11/21/2024 Refill [facility] [address] [place] [phone] Karen Avelar ANP Type 2 diabetes mellitus with stage 3 chronic kidney disease, with long-term current use of insulin, unspecified whether stage 3a or 3b CKD (CMS/[facility]) 11/15/2024 Refill [facility] [address] [place] [address] Karen Avelar ANP Primary osteoarthritis involving multiple joints 11/15/2024 Orders Only GENERIC EXTERNAL DATA DEPARTMENT Provider, Generic External Data 10/29/2024 Refill [facility] [address] [place] [address] Karen Avelar ANP ad 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 (current) use of opiate analgesic; Primary osteoarthritis [...] Upcoming Encounters Date Type Department Care Team ([facility] st Contact Info) Description 03/25/2025 11:00 AM EST Clinical Support [facility] [address] [place] [address] Becky Pool, RN [address] [place] [address] Health Maintenance Due Date Last Done Comments [...] 1:27 PM EDT Chronically on opiate therapy BASIC METABOLIC PANEL Routine 01/27/2025 8:46 AM EDT GLUCOSE, WHOLE BLOOD Routine 11/15/2024 9:11 AM EDT POCT GLYCATED HEMOGLOBIN, TOTAL Routine 08/29/2024 9:37 AM EDT Type 2 diabetes mellitus with stage 3 chronic kidney disease, with long-term current use of insulin, unspecified whether stage 3a or 3b CKD (CMS/HCC) LIPID PANEL, STANDARD Routine 08/10/2022 10:13 AM EDT HM COLONOSCOPY Routine 03/02/2016 4:57 PM EST from Last 3 Months or Most Recently Relevant to Health Maintenance Results * (ABNORMAL) POCT JESSICA-14 Urine Drug [...] PM EDT . Internal Pass Control Lot# [id number] Exp: 02-07-26 Critical access hospital POINT OF CARE TEST ENTER/EDIT OR DERABLES Final Result * (ABNORMAL) Basic Metabolic Panel (01/27/2025 8:46 AM EDT) Sodium 140 135 - 145 mmol/L [facility] Potassium 4.1 3.3 - 5.1 mmol/L [facility] Chloride 107 96 - 108 mmol/L [facility] Carbon Dioxide 24 22 - 29 mmol/L [facility] Anion Gap 13 12 - 20 [facility] Urea Nitrogen (BUN) 20(H) 9 - 16 mg/dL [facility] Creatinine, Serum 1.19 0.5 - 1.4 mg/dL [facility] Estimated Glomerular Filt Rate >60 [facility] Comment:Chronic Kidney Disea se: Estimated GFR < 60 mL/min/1.01t0Eerdbn Kidney Disease: Estimated GFR < 15 mL/min/1.73m2 Glucose 84 60 - 115 mg/dL [facility] Calcium 9.7 8.4 - 10.2 mg/dL [facility] 01/27/2025 8:46 AM EDT 01/27/2025 1:04 PM EDT us Generic External Data Provider LAB BLOOD ORDERAB LES Final Result Performing Organization Address City/[facility]/ZIP Co de Phone Number [facility] [address] [place] [phone] * (ABNORMAL) Glucose, Whole Blood (11/15/2024 9:11 AM EDT) Glucose, Whole Blood 245(H) 60 - 115 mg/dL [facility] Comment:METER #: [id number] 0Testing performed in the Endocrinology Department [address], [address], [facility]. 11/15/2024 9:11 AM EDT 11/15/2024 9:14 AM EDT us Generic External Data Provider LAB BLOOD ORDERAB LES Final Result Performing Organization Address [facility] Co de Phone Number [facility] [address] [place] [phone] * (ABNORMAL) POCT HGB A1C (08/29/2024 9:37 AM EDT) Hemoglobin A1C 8.5(A) 4.0 - 6.0 % QC Media Lot # [id number] Lot# Expiration Date Blood 08/29/2024 9:37 AM EDT us Karen Avelar [facility] POINT OF CARE TEST ENTER/EDIT OR DERABLES Final Result * Lipid Panel, Standard (08/10/2022 10:13 AM EDT) Triglycerides 111 mg/dL [facility] Comment:Desirable Triglyceri de: less than 150 mg/dLBorderline High Triglyceride 150-199 mg/dLHigh Triglyceride: 200-499 mg/dLVery High Triglyceride: greater than or equal to 5OO mg/dL Cholesterol 199 mg/dL [facility] Comment:Desirable Cholestero l: less than 200 mg/dLBorderline High Cholesterol: 200-239 mg/dLHigh Cholesterol: greater than 239 mg/dL LDL Cholesterol Calculated 140 mg/dl [facility] Comment:Desirable LDL: less than 100 mg/dLNear Optimal/Above Optimal LDL: 110- 129 mg/dLBorderline High LDL: 130-159 mg/dLHigh LDL: 160-189 mg/dLVery High LDL: greater than or equal to 190 mg/dL HDL Cholesterol 37 mg/dL [facility] Comment:Desirable HDL: great er than 40 mg/dL Note: This HDL assay may give artificially low results in patients with liver disease. 08/10/2022 10:1 3 AM EDT 08/10/2022 1:36 PM EDT [facility] External Provider LAB BLO OD ORDERABLES Final Result [facility] [address] [place] [address] [phone] * Colonoscopy (03/02/2016 4:57 PM EST) Historical Provider HEALTH MAINTENANCE Final Result from Last 3 Months or Most Recently Relevant to Health Maintenance Insurance [employer] < [address] [place] [id number] Care Teams Environmental Protection Officer Relationship Specialty Start Date End Date Karen Avelar ANP [address] [place] [phone] PCP - General Family Medicine 12/08/21
--- OUTSIDE RECORDS SUMMARY | 2025-01-29 11:00 | XMS_ITS | Clinical Summary ---
Author Organization [address] [facility] Address [address] [place] [address] Phone Care Team Providers Care Security Officer Name Role Phone Jordana Cade MD Primary Care Provider [phone] Allergies Active Allergy Reactions Criticality Noted Date [...] next visit. Coronary artery disease invo lving [place] coronary artery of [place] heart without angina pectoris 08/13/2024 Assessment & [...] this time I arranged for a 48-hour senior java programmer analyst to further evaluate his palpitations. He also [...] can recall. Patient's C-spine MRI 05/11/2021 at [facility] shows left >right neuroforaminal narrowing C5-6, right [...] Type Department Care Team Description 12/30/2024 Telephone [facility] Card[facility] [address] [place] [address] Alondra Sellers NP 12/24/2024 Telephone [facility]iology [facility] [address] [place] [address] Provider, Not In System 12/11/2024 10:30 AM EDT Ancillary Procedure [facility] Cardiology [facility] [address] [place] [address] Coronary artery disease involving [place] coronary artery of [place] heart without angina pectoris; Palpitations from Last 3 Months Surgical History Surgery Date Site/Laterality Comments HIP ARTHROPLASTY 2016 Right PROCEDURE: HISTORICAL HIP REPLACEMENT SHOULDER SURGERY 1979 Right PROCEDURE: HISTORICAL SHOULDER SURGERY; COMMENT: bone graft from [place] OTHER SURGICAL HISTORY 12/10/2019 PROCEDURE: RI ARTHRD ANT INTERBODY MIN DSC CRV BELOW C2; COMMENT: C5-6 ACDF, Dr. Glenda Frederick CARDIAC CATHETERIZATION DONE ON 08/15/2024 AT [facility] INDICATIONS:Acute chest pain CARDIAC CATHETERIZATION DONE ON 08/16/2024 AT [facility] [place] [place] INDICATIONS: Unstable angina. Medical History [...] care for your loved ones. For example, children's lunchroom supervisor or elderly care for an older adult? [...] Description 04/22/2025 2:10 PM EST Office Visit [facility] [address] [facility] [address] [place] [phone] Alondra Sellers NP [address] [place] [address] [address] [place] [phone] Health Maintenance Due Date Last Done Comments [...] 10:17 AM EDT Coronary artery disease involving [place] coronary artery of [place] heart without angina pectoris Palpitations BASIC METABOLIC PANEL Routine 08/15/2024 5:25 AM EDT LIPID PANEL WITH REFLEX TO DIRECT LDL Add-On 08/14/2024 5:25 AM EDT from Last 3 Months or Most Recently Relevant to Health Maintenance Results * CARDIAC HOLTER MONITOR (REPORT GENERATED IN HOUSE) (12/11/2024 10:17 AM EDT) Anatomical Region Laterality Modality Cardiac Diagnost ic Narrative 12/26/2024 1:37 PM EDT [facility] DIAGNOSTIC TESTING DEPARTMENT [address] [place] [address] TEL: FAX: Type of Test: 48 Hour Holter Monitor Date of Test: 12/11/2024 Ordering Provider: Alondra Sellers NP Reason for Test: Coronary artery disease involving [place] coronary artery of [place] heart without angina pectoris; Palpitations PVCA Tar Worker Findings: (Large portions of scan obscured by [...] mmol/L LAB CHEMISTRY METHOD 08/15/2024 7:23 AM [facility] Potassium 4.3 3.5 - 5.5 mmol/L LAB CHEMISTRY METHOD 08/15/2024 7:23 AM [facility] Chloride 101 96 - 110 mmol/L LAB CHEMISTRY METHOD 08/15/2024 7:23 AM [facility] CO2 28 21 - 32 mmol/L LAB CHEMISTRY METHOD 08/15/2024 7:23 AM [facility] Anion Gap 6 3 - 11 LAB CHEMISTRY METHOD 08/15/2024 7:23 AM [facility] Glucose 257(H) 70 - 100 mg/dL LAB CHEMISTRY METHOD 08/15/2024 7:23 AM [facility] BUN 30(H) 5 - 25 mg/dL LAB CHEMISTRY METHOD 08/15/2024 7:23 AM [facility] Creatinine 1.50(H) 0.70 - 1.30 mg/dL LAB CHEMISTRY METHOD 08/15/2024 7:23 AM [facility] eGFR 52(L) >=60 mL/min/1. 73m2 LAB CHEMISTRY METHOD 08/15/2024 7:23 AM [facility] Comment:Calculation based on the Chronic Kidney Disease Epidemiology Collaboration (CKD-EPI) equation refit without adjustment for race. BUN/Creatinine Ratio 20.0 LAB CHEMISTRY METHOD 08/15/2024 7:23 AM [facility] Calcium 9.2 8.5 - 10.5 mg/dL LAB CHEMISTRY METHOD 08/15/2024 7:23 AM [facility] Blood Venous blood specimen / Unknown Venipuncture / Unknown 08/15/2024 5:25 AM EDT 08/15/2024 6:17 AM EDT Junior CURRIE LAB BLOOD ORDERABLES Ambar colon Result [facility] [address] [place] [address], [place] [phone] * (ABNORMAL) Lipid panel with reflex to direct LDL (08/14/2024 5:25 AM EDT) Cholesterol 169 0 - 200 mg/dL LAB CHEMISTRY METHOD 08/14/2024 9:04 AM EDT [facility] Triglycerides 161(H) 0 - 150 mg/dL LAB CHEMISTRY METHOD 08/14/2024 9:04 AM EDT [facility] HDL 36(L) >=40 mg/dL LAB CHEMISTRY METHOD 08/14/2024 9:04 AM EDT [facility] LDL Calculated 101(H) 0 - 100 mg/dL LAB CHEMISTRY METHOD 08/14/2024 9:04 AM EDT [facility] VLDL Cholesterol Pranav 32.2 mg/dL LAB CHEMISTRY METHOD 08/14/2024 9:04 AM EDT [facility] Non HDL Chol. (LDL+VLDL) 133 <145 mg/dL LAB CHEMISTRY METHOD 08/14/2024 9:04 AM EDT [facility] Chol/HDL Ratio 4.7(H) 0.0 - 4.4 LAB CHEMISTRY METHOD 08/14/2024 9:04 AM EDT [facility] Blood Venous blood specimen / Unknown 08/14/2024 5:25 AM EDT 08/14/2024 7:24 AM EDT Junior CURRIE LAB BLOOD ORDERABLES Ambar l Result [facility] [address] [place] [address], [place] [phone] from Last 3 Months or Most Recently Relevant to Health Maintenance Insurance [facility] MEDICARE Member Subscriber Plan / Payer (Ef fective 2013-Present) Name:ASHLEY LOVELACE Relation to Subscriber:Self Name:Ashley Rose Payer ID:[id number] Group ID:[id number] Type:Not on file Address: [address] [place] [phone] Advance Directives Documents on File Type Date Recorded 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
--- OUTSIDE RECORDS SUMMARY | 2025-01-29 11:00 | XMS_ITS | Clinical Summary ---
Author Organization [facility] Address [address] [place] [address] Care Team Providers Care Glass Production Machine Operator Name Role Phone Merna Read PRIMER POWDER BLENDER WET Primary Care Provider [phone] Social History Tobacco Use Types Packs/Day Years [...] age to complete this topic Care Teams Glass Production Machine Operator Relationship Specialty Start Date End Date Merna Read NP [address] [place] [address] PCP - General Family Medicine 08/10/17
--- OUTSIDE RECORDS SUMMARY | 2025-01-29 11:00 | XMS_ITS | Encounter Summary ---
Author Organization [employer] Address [address] [facility] 7t [place] [address] Care Team Providers Care Grades 1 6 Tutor Name Role Phone Karen Avelar Primary Care Provider [phone] Reason for Visit * Reason Onset Date Comments Medication Question 09/27/2024 Encounter Details Date Type Department Care Team ([facility] st Contact Info) Description 09/27/2024 Telephone [facility] MED[facility] [address] [place], [place] [phone] Karen Avelar ANP [address] [place], [place] [phone] Medication Question Social History Tobacco Use Types [...] 10/01/24. Will leave this request to primary LABORER FILTER PLANT nurse on 09/30/24. * Telephone Encounter - Denise Su - 09/27/2024 3:44 PM EDT Tc from pt requesting Oxycodone 20 MG. Patient currently using 10 MG. documented in this encounter Plan of Treatment Upcoming Encounters Date Type Department Care Team (Late st Contact Info) Description 03/25/2025 11:00 AM EST Clinical Support [facility] [address] [place] [address] Becky Pool, RN [address] [place] [address] documented as of this encounter Visit Diagnoses Not on filedocumented in this encounter Additional Health Concerns Assessment Noted Time PHQ-9 Depression Total Score: 21 024 2:14 PM EDT documented as of this encounter Care Teams Grades 1 6 Tutor Relationship Specialty Start Date End Date Karen Avelar ANP [address] [place] [address] PCP - General Family Medicine 12/08/21 documented as of this encounter
--- OUTSIDE RECORDS SUMMARY | 2025-01-29 11:00 | XMS_ITS | Encounter Summary ---
Author Organization [employer] Address [address] [facility] 7t [place] [address] Care Team Providers Care Railroad Firer/Fireman Name Role Phone Karen Avelar Primary Care Provider [phone] Reason for Visit * Reason Onset Date Comments Referral 09/15/2022 Encounter Details Date Type Department Care Team (Late st Contact Info) Description 09/15/2022 Telephone [facility] MED[facility]INE [address] [place] [address] Karen Avelar ANP [address] [place], [place] [phone] Referral Social History Tobacco Use Types Packs/Day [...] Upcoming Encounters Date Type Department Care Team ([facility] st Contact Info) Description 03/25/2025 11:00 AM EST Clinical Support [facility] [address] [place] [address] Becky Pool, RN [address] [place] [address] documented as of this encounter Visit Diagnoses Not on filedocumented in this encounter Care Teams Railroad Firer/Fireman Relationship Specialty Start Date End Date Karen Avelar ANP [address] [place] [address] PCP - General Family Medicine 12/08/21 documented as of this encounter
--- OUTSIDE RECORDS SUMMARY | 2025-01-29 11:00 | XMS_ITS | Encounter Summary ---
Author Organization [employer] Address [address] [facility] 7t [place] [address] Care Team Providers Care Industrial Relations Officer Name Role Phone Karen Avelar Primary Care Provider [phone] Reason for Visit * Reason Onset Date Comments Med Refill 02/12/2024 Encounter Details Date Type Department Care Team (Late st Contact Info) Description 02/12/2024 Telephone [facility] MEDICINE [address] [place], [place] [phone] Karen Avelar ANP [address] [place], [place] [phone] Med Refill Social History Tobacco Use Types [...] 12 hr tablet To be sent to: [id number] documented in this encounter Plan of Treatment Upcoming Encounters Date Type Department Care Team ([facility] st Contact Info) Description 03/25/2025 11:00 AM EST Clinical Support [facility] [address] [place] [address] Becky Pool, JIMMIE [address] [place] [address] documented as of this encounter Visit Diagnoses Not on filedocumented in this encounter Additional Health Concerns Assessment Noted Time PHQ-9 Depression Total Score: 21 024 2:14 PM EDT documented as of this encounter Care Teams Industrial Relations Officer Relationship Specialty Start Date End Date Karen Avelar ANP [address] [place] [address] PCP - General Family Medicine 12/08/21 documented as of this encounter
--- OUTSIDE RECORDS SUMMARY | 2025-01-29 11:00 | XMS_ITS | Encounter Summary ---
Author Organization [employer] Address [address] [facility] 7t [place] [address] Care Team Providers Care Archeology Professor Name Role Phone Karen Avelar Primary Care Provider [phone] Reason for Visit * Reason Onset Date Comments Med Refill 03/28/2023 Encounter Details Date Type Department Care Team ([facility] st Contact Info) Description 03/28/2023 Telephone [facility] MEDICINE [address] [place], [place] [phone] Karen Avelar ANP [address] [place], [place] [phone] Med Refill Social History Tobacco Use Types [...] Description 03/25/2025 11:00 AM EST Clinical Support [facility] [address] [place] [address] Becky Pool RN [address] [place] [address] documented as of this encounter Visit Diagnoses Not on filedocumented in this encounter Additional Health Concerns Assessment Noted Time PHQ-9 Depression Total Score: 14 023 1:08 PM EDT documented as of this encounter Care Teams Archeology Professor Relationship Specialty Start Date End Date Karen Avelar ANP [address] [place] [address] PCP - General Family Medicine 12/08/21 documented as of this encounter
--- OUTSIDE RECORDS SUMMARY | 2025-01-29 11:00 | XMS_ITS | Encounter Summary ---
Author Organization [employer] Address [address] [facility] 7t [place] [address] Care Team Providers Care Actor Understudy Name Role Phone Karen Avelar Primary Care Provider [phone] Reason for Visit * Reason Onset Date Comments Med Refill 01/19/2024 Encounter Details Date Type Department Care Team (Late st Contact Info) Description 01/19/2024 Telephone [facility] [address] [place], [place] [phone] Karen Avelar ANP [address] [place], [place] [phone] Med Refill Social History Tobacco Use Types [...] 11:00 AM EDT Medication was sent to [id number] on 12/20/23 with 1 refill. * Telephone Encounter - Luz Mcclendon - 01/19/2024 10:54 AM EDT TC from pt requesting medication refill. Medications needing refill : tadalafil (Cialis) 5 MG tablet To be sent to: [id number] - [address] documented in this encounter Plan of Treatment Upcoming Encounters Date Type Department Care Team (Late st Contact Info) Description 03/25/2025 11:00 AM EST Clinical Support [facility] [address] [place] [address] Becky Pool, JIMMIE [address] [place] [address] documented as of this encounter Visit Diagnoses Not on filedocumented in this encounter Additional Health Concerns Assessment Noted Time PHQ-9 Depression Total Score: 21 024 2:14 PM EDT documented as of this encounter Care Teams Actor Understudy Relationship Specialty Start Date End Date Karen Avelar ANP [address] [place] [address] PCP - General Family Medicine 12/08/21 documented as of this encounter
--- OUTSIDE RECORDS SUMMARY | 2025-01-29 11:00 | XMS_ITS | Encounter Summary ---
Author Organization [employer] Address 75 [facility] 7t [place] [address] Care Team Providers Care Mortgage Protection Sales Name Role Phone Karen Avelar Primary Care Provider [phone] Reason for Visit * Reason Onset Date Comments DTA forms 11/21/2024 Encounter Details Date Type Department Care Team (Late st Contact Info) Description 11/21/2024 Telephone [facility] MEDICINE 230 [place] [address] Karen Avelar ANP 230 [place], [place] [phone] DTA forms Social History Tobacco Use Types [...] Miscellaneous Notes * Telephone Encounter - Stuart Eric - 11/21/2024 10:14 AM EDT Tc from pt was transferred from HIM and is requesting a call back for the status for DTA forms. Please contact pt at [phone]. (Egyptian Speaker) documented in this encounter Plan of Treatment Upcoming Encounters Date Type Department Care Team (Late st Contact Info) Description 03/25/2025 11:00 AM EST Clinical Support [facility] MED & PEDS 505 [place] [address] Becky Pool, JIMMIE 505 [place] [address] documented as of this encounter Visit Diagnoses Not on filedocumented in this encounter Additional Health Concerns Assessment Noted Time PHQ-9 Depression Total Score: 21 024 2:14 PM EDT documented as of this encounter Care Teams Mortgage Protection Sales Relationship Specialty Start Date End Date Karen Avelar ANP [address] [place] [address] PCP - General Family Medicine 12/08/21 documented as of this encounter
--- OUTSIDE RECORDS SUMMARY | 2025-01-29 11:00 | XMS_ITS | Encounter Summary ---
Author Organization [employer] Address 75 [facility] 7t [place] [address] Care Team Providers Care Millinery Copyist Name Role Phone Karen Avelar Primary Care Provider [phone] Reason for Visit * Reason Onset Date Comments Med Refill 01/15/2024 Encounter Details Date Type Department Care Team (Late st Contact Info) Description 01/15/2024 Telephone [facility] MEDICINE 230 [place], [place] [phone] Karen Avelar ANP 230 [place], [place] [phone] Med Refill Social History Tobacco Use Types [...] tablet [id number] documented in this encounter Plan of Treatment Upcoming Encounters Date Type Department Care Team ([facility] st Contact Info) Description 03/25/2025 11:00 AM EST Clinical Support [facility] MED & PEDS 505 [place] [address] Becky Pool, JIMMIE 505 [place] [address] documented as of this encounter Visit Diagnoses Not on filedocumented in this encounter Additional Health Concerns Assessment Noted Time PHQ-9 Depression Total Score: 21 024 2:14 PM EDT documented as of this encounter Care Teams Millinery Copyist Relationship Specialty Start Date End Date Karen Avelar ANP 230 [place] [address] PCP - General Family Medicine 12/08/21 documented as of this encounter
--- OUTSIDE RECORDS SUMMARY | 2025-01-29 11:00 | XMS_ITS | Encounter Summary ---
Author Organization [employer] Address 75 [facility] 7t [place] [address] Care Team Providers Care Jet Dyeing Machine Tender Name Role Phone Karen Avelar Primary Care Provider [phone] Reason for Visit * Reason Onset Date Comments Med Refill 12/02/2024 Encounter Details Date Type Department Care Team (Late st Contact Info) Description 12/02/2024 Telephone [facility] MEDICINE 230 [place], [place] [phone] Karen Avelar ANP 230 [place], [place] [phone] Med Refill Social History Tobacco Use Types [...] 12 hr tablet To be sent to: [facility]/pharmacy #[id number] - [address] documented in this encounter Plan of Treatment Upcoming Encounters Date Type Department Care Team ([facility] Contact Info) Description 03/25/2025 11:00 AM EST Clinical Support [facility] CH[facility] MED & PEDS 505 [place] [address] Becky Pool, JIMMIE 505 [place] [address] documented as of this encounter Visit Diagnoses Not on filedocumented in this encounter Additional Health Concerns Assessment Noted Time PHQ-9 Depression Total Score: 21 024 2:14 PM EDT documented as of this encounter Care Teams Jet Dyeing Machine Tender Relationship Specialty Start Date End Date Karen Avelar ANP 230 [place] [address] PCP - General Family Medicine 12/08/21 documented as of this encounter
--- OUTSIDE RECORDS SUMMARY | 2025-01-29 11:00 | XMS_ITS | Encounter Summary ---
Author Organization [employer] Address 75 [facility] 7t [place] [address] Care Team Providers Care Appliquer Name Role Phone Karen Avelar Primary Care Provider [phone] Reason for Visit * Reason Comments Med Refill Encounter Details Date Type Department Care Team (Late st Contact Info) Description 03/05/2023 Refill [facility] MEDICINE 230 [place] [address] Karen Avelar ANP 230 [place], [place] [phone] Social History Tobacco Use Types Packs/Day Years [...] 11:00 AM EST Clinical Support [facility] MED & PEDS 505 [place] [address] Becky Pool, JIMMIE 505 [place] [address] documented as of this encounter Visit Diagnoses Not on filedocumented in this encounter Additional Health Concerns Assessment Noted Time PHQ-9 Depression Total Score: 14 023 1:08 PM EDT documented as of this encounter Care Teams Appliquer Relationship Specialty Start Date End Date Karen Avelar ANP 230 [place] [address] PCP - General Family Medicine 12/08/21 documented as of this encounter
--- OUTSIDE RECORDS SUMMARY | 2025-01-29 11:00 | XMS_ITS | Encounter Summary ---
Author Organization [employer] Address 75 [facility] 7t [place] [address] Care Team Providers Care Desizing Machine Offbearer Name Role Phone Karen Avelar Primary Care Provider [phone] Reason for Visit * Reason Onset Date Comments Med Refill 12/19/2023 Encounter Details Date Type Department Care Team (Late st Contact Info) Description 12/19/2023 Telephone [facility] MEDICINE 230 [place], [place] [phone] Karen Avelar ANP 230 [place], [place] [phone] Med Refill Social History Tobacco Use Types [...] immediate release tablet [id number] documented in this encounter Plan of Treatment Upcoming Encounters Date Type Department Care Team ([facility] st Contact Info) Description 03/25/2025 11:00 AM EST Clinical Support [facility] MED & PEDS 505 [place] [address] Becky Pool, JIMMIE 505 [place] [address] documented as of this encounter Visit Diagnoses Not on filedocumented in this encounter Additional Health Concerns Assessment Noted Time PHQ-9 Depression Total Score: 21 024 2:14 PM EDT documented as of this encounter Care Teams Desizing Machine Offbearer Relationship Specialty Start Date End Date Karen Avelar ANP 230 [place] [address] PCP - General Family Medicine 12/08/21 documented as of this encounter
--- OUTSIDE RECORDS SUMMARY | 2025-01-29 11:00 | XMS_ITS | Encounter Summary ---
Author Organization [employer] Address 75 [facility] 7t [place] [address] Care Team Providers Care Special Agent Group Insurance Name Role Phone Karen Avelar Primary Care Provider [phone] Reason for Visit * Reason Onset Date Comments Med Refill 01/27/2023 Encounter Details Date Type Department Care Team ([facility] st Contact Info) Description 01/27/2023 Telephone [facility] MEDICINE 230 [place], [place] [phone] Karen Avelar ANP 230 [place], [place] [phone] Med Refill Social History Tobacco Use Types [...] 12 hr tablet to be sent to [facility]/pharmacy #[id number] - [address] documented in this encounter Plan of Treatment Upcoming Encounters Date Type Department Care Team (Late st Contact Info) Description 03/25/2025 11:00 AM EST Clinical Support [facility] MED & PEDS 505 [place] [address] Becky Pool, RN 505 [place] [address] documented as of this encounter Visit Diagnoses Not on filedocumented in this encounter Additional Health Concerns Assessment Noted Time PHQ-9 Depression Total Score: 14 023 1:08 PM EDT documented as of this encounter Care Teams Special Agent Group Insurance Relationship Specialty Start Date End Date Karen Avelar ANP 230 [place] [address] PCP - General Family Medicine 12/08/21 documented as of this encounter
--- OUTSIDE RECORDS SUMMARY | 2025-01-29 11:00 | XMS_ITS | Encounter Summary ---
Author Organization [email or web address] Address 75 [facility] 7t [place] [address] Care Team Providers Care Lead Application Architect Name Role Phone Karen Avelar Primary Care Provider [phone] Encounter Details Date Type Department Care Team ([facility] st Contact Info) Description 01/24/2025 Telephone [facility] MEDICINE 230 [place], [place] [phone] Karen Avelar ANP 230 [place], [place] [phone] Social History Tobacco Use Types Packs/Day Years [...] Description 03/25/2025 11:00 AM EST Clinical Support [facility] CH[facility] MED & PEDS 505 [place] [address] Becky Pool, RN 505 [place] [address] documented as of this encounter Visit Diagnoses Not on filedocumented in this encounter Additional Health Concerns Assessment Noted Time PHQ-9 Depression Total Score: 21 024 2:14 PM EDT documented as of this encounter Care Teams Lead Application Architect Relationship Specialty Start Date End Date Karen Avelar ANP 230 [place] [address] PCP - General Family Medicine 12/08/21 documented as of this encounter
--- OUTSIDE RECORDS SUMMARY | 2025-01-29 11:00 | XMS_ITS | Encounter Summary ---
Author Organization [employer] Address 75 [facility] 7t [place] [address] Care Team Providers Care Director Video Name Role Phone Karen Avelar Primary Care Provider [phone] Reason for Visit * Reason Onset Date Comments Med Refill 11/21/2023 Encounter Details Date Type Department Care Team (Late st Contact Info) Description 11/21/2023 Telephone [facility] MEDICINE 230 [place], [place] [phone] Karen Avelar ANP 230 [place], [place] [phone] Med Refill Social History Tobacco Use Types [...] 12 hr tablet [id number] documented in this encounter Plan of Treatment Upcoming Encounters Date Type Department Care Team ([facility] st Contact Info) Description 03/25/2025 11:00 AM EST Clinical Support [facility] MED & PEDS 505 [place] [address] Becky Pool, JIMMIE 505 [place] [address] documented as of this encounter Visit Diagnoses Not on filedocumented in this encounter Additional Health Concerns Assessment Noted Time PHQ-9 Depression Total Score: 21 024 2:14 PM EDT documented as of this encounter Care Teams Director Video Relationship Specialty Start Date End Date Karen Avelar ANP 230 [place] [address] PCP - General Family Medicine 12/08/21 documented as of this encounter
--- OUTSIDE RECORDS SUMMARY | 2025-01-29 11:00 | XMS_ITS | Encounter Summary ---
Author Organization [employer] Address 75 [facility] 7t [place] [address] Care Team Providers Care Deckhand Tuna Boat Name Role Phone Karen Avelar Primary Care Provider [phone] Reason for Visit * Reason Onset Date Comments Med Refill 01/30/2023 Encounter Details Date Type Department Care Team ([facility] st Contact Info) Description 01/30/2023 Telephone [facility] MEDICINE 230 [place], [place] [phone] Karen Avelar ANP 230 [place], [place] [phone] Med Refill Social History Tobacco Use Types [...] Description 03/25/2025 11:00 AM EST Clinical Support [facility] MED & PEDS 505 [place] [address] Becky Pool, JIMMIE 505 [place] [address] documented as of this encounter Visit Diagnoses Not on filedocumented in this encounter Additional Health Concerns Assessment Noted Time PHQ-9 Depression Total Score: 14 023 1:08 PM EDT documented as of this encounter Care Teams Deckhand Tuna Boat Relationship Specialty Start Date End Date Karen Avelar ANP 230 [place] [address] PCP - General Family Medicine 12/08/21 documented as of this encounter
--- OUTSIDE RECORDS SUMMARY | 2025-01-29 11:01 | XMS_ITS | Encounter Summary ---
Author Organization [employer] Address [address] [facility] 7t [place] [address] Care Team Providers Care Wound Specialist Name Role Phone Karen Avelar Primary Care Provider [phone] Encounter Details Date Type Department Care Team ([facility] st Contact Info) Description 08/06/2023 Orders Only [facility] MEDICINE 230 [place], [place] [phone] Provider, MD Lawrence Social History Tobacco Use [...] Description 03/25/2025 11:00 AM EST Clinical Support [facility] MED & PEDS 505 [place] [address] Becky Pool RN 505 [place] [address] documented as of this encounter Procedures Procedure Name Priority Date/Time Associated Diagnosis Comments COLONOSCOPY Routine 03/02/2016 4:57 PM EST documented in this encounter Results * Hm Colonoscopy (03/02/2016 4:57 PM EST) us Historical Provider HEALTH MAINTENANCE Final Result documented in this encounter Visit Diagnoses Not on filedocumented in this encounter Additional Health Concerns Assessment Noted Time PHQ-9 Depression Total Score: 14 023 1:08 PM EDT documented as of this encounter Care Teams Wound Specialist Relationship Specialty Start Date End Date Karen Avelar ANP 230 [place] [address] PCP - General Family Medicine 12/08/21 documented as of this encounter
--- OUTSIDE RECORDS SUMMARY | 2025-01-29 11:01 | XMS_ITS | Encounter Summary ---
Author Organization [facility], Address [address] [address] Phone Care Team Providers Care Dyeing Machine Feeder Name Role Phone Merna Read NP Primary Care Provider Encounter Details Date Type Department Care Team (Late st Contact Info) Description 07/05/2021 Documentation Only [facility], [address] [place] [phone] Janusz Francisco MD [address] [place] [phone] Social History Tobacco Use Types Packs/Day Years [...] on filedocumented in this encounter Care Teams Dyeing Machine Feeder Relationship Specialty Start Date End Date Merna Read NP PCP - General 02/12/19 documented as of this encounter
--- OUTSIDE RECORDS SUMMARY | 2025-01-29 11:01 | XMS_ITS | Encounter Summary ---
Author Organization [employer] Address 75 [facility] 7t [place] [address] Care Team Providers Care Body And Fender Worker Name Role Phone Valentino Karen SOUZA Primary Care Provider [phone] Encounter Details Date Type Department Care Team ([facility] st Contact Info) Description 01/27/2025 Orders Only GENERIC EXTERNAL DATA DEPARTMENT [...] Description 03/25/2025 11:00 AM EST Clinical Support [facility] CHC MED & PEDS [address] [place] [address] Becky Pool, RN 505 [place] [address] documented as of this encounter Procedures Procedure Name Priority Date/Time Associated Diagnosis Comments BASIC METABOLIC PANEL Routine 01/27/2025 8:46 AM EDT documented in this encounter Results * (ABNORMAL) Basic Metabolic Panel (01/27/2025 8:46 AM EDT) Sodium 140 135 - 145 mmol/L [facility] Potassium 4.1 3.3 - 5.1 mmol/L [facility] Chloride 107 96 - 108 mmol/L [facility] Carbon Dioxide 24 22 - 29 mmol/L [facility] Anion Gap 13 12 - 20 [facility] Urea Nitrogen (BUN) 20(H) 9 - 16 mg/dL [facility] Creatinine, Serum 1.19 0.5 - 1.4 mg/dL [facility] Estimated Glomerular Filt Rate >60 [facility] Comment:Chronic Kidney Disea se: Estimated GFR < 60 mL/min/1.13q1Rhxyte Kidney Disease: Estimated GFR < 15 mL/min/1.73m2 Glucose 84 60 - 115 mg/dL [facility] Calcium 9.7 8.4 - 10.2 mg/dL [facility] 01/27/2025 8:46 AM EDT 01/27/2025 1:04 PM EDT us Generic External Data Provider LAB BLOOD ORDERAB LES Final Result [facility] [address] [place] [address] [phone] documented in this encounter Visit Diagnoses Not on filedocumented in this encounter Additional Health Concerns Assessment Noted Time PHQ-9 Depression Total Score: 21 024 2:14 PM EDT documented as of this encounter Care Teams Body And Fender Worker Relationship Specialty Start Date End Date Karen Avelar ANP 230 [place] [address] PCP - General Family Medicine 12/08/21 documented as of this encounter
--- OUTSIDE RECORDS SUMMARY | 2025-01-29 11:01 | XMS_ITS | Clinical Summary ---
Author Organization [facility] Address [address] [address] Phone Care Team Providers Care Preschool Teacher Aide Name Role Phone Merna Read NP Primary Care Provider [phone] Allergies Active Allergy Reactions Criticality Noted Date [...] Active Naloxone HCl (Narcan) 4 MG/0.1ML liquid Mercedes as directed Ac tive OXcarbazepine (TRILEPTAL) 150 [...] AM EDT) Hemoglobin A1C 8.3(H) (4.0-5.6) % [facility] Comment: MONITORING: In known diabetic patients, hemoglobin A1c targets should be discussed with health care provider. DIAGNOSTIC USE: The [place] Diabetes Association (ADA) and the World Health [...] Supplement 1 Testing performed or reported by [facility], a Service of [facility], [address] [place] [id number] Jude Villanueva MD, Utility Helicopter Repairer Blood specimen (specimen) Venous blood / Unknown 10/14/2020 9:11 AM EDT 10/14/2020 9:21 AM EDT us Janusz Francisco MD LAB BLOOD ORDERABLES Final Result [facility] from Last 3 Months or Most Recently Relevant to Health Maintenance Insurance [facility] ([id number]) [facility] Care Teams Preschool Teacher Aide Relationship Specialty Start Date End Date Merna Read NP PCP - General 02/12/19
--- OUTSIDE RECORDS SUMMARY | 2025-01-29 11:01 | XMS_ITS | Encounter Summary ---
Author Organization [employer] Address 75 [facility] 7t [place] [address] Care Team Providers Care Hydroelectric Systems Technician Name Role Phone Karen Avelar Primary Care Provider [phone] Reason for Visit * Reason Onset Date Comments Med Refill 08/26/2024 Encounter Details Date Type Department Care Team (Late st Contact Info) Description 08/26/[address] [facility] MEDICINE 230 [place], [place] [phone] Karen Avelar ANP 230 [place], [place] [phone] Med Refill Social History Tobacco Use Types [...] release tablet To be sent to: [address] [place] [address] documented in this encounter Plan of Treatment Upcoming Encounters Date Type Department Care Team ([facility] st Contact Info) Description 03/25/2025 11:00 AM EST Clinical Support [facility] MED & PEDS 505 [place] [address] Becky Pool, JIMMIE 505 [place] [address] documented as of this encounter Visit Diagnoses Not on filedocumented in this encounter Additional Health Concerns Assessment Noted Time PHQ-9 Depression Total Score: 21 024 2:14 PM EDT documented as of this encounter Care Teams Hydroelectric Systems Technician Relationship Specialty Start Date End Date Karen Avelar ANP 230 [place] [address] PCP - General Family Medicine 12/08/21 documented as of this encounter
--- OUTSIDE RECORDS SUMMARY | 2025-01-29 11:01 | XMS_ITS | Encounter Summary ---
Author Organization [employer] Address 75 [facility] 7t [place] [address] Care Team Providers Care District Manager Name Role Phone Karen Avelar Primary Care Provider [phone] Reason for Visit * Reason Onset Date Comments Med Refill 09/19/2024 Encounter Details Date Type Department Care Team (Late st Contact Info) Description 09/19/2024 Telephone [facility] MEDICINE 230 [place], [place] [phone] Karen Avelar ANP 230 [place], [place] [phone] Med Refill Social History Tobacco Use Types [...] tablet [id number] [address] documented in this encounter Plan of Treatment Upcoming Encounters Date Type Department Care Team ([facility] st Contact Info) Description 03/25/2025 11:00 AM EST Clinical Support [facility] MED & PEDS 505 [place] [address] Becky Pool, JIMMIE 505 [place] [address] documented as of this encounter Visit Diagnoses Not on filedocumented in this encounter Additional Health Concerns Assessment Noted Time PHQ-9 Depression Total Score: 21 024 2:14 PM EDT documented as of this encounter Care Teams District Manager Relationship Specialty Start Date End Date Karen Avelar ANP 230 [place] [address] PCP - General Family Medicine 12/08/21 documented as of this encounter
--- OUTSIDE RECORDS SUMMARY | 2025-01-29 11:01 | XMS_ITS | Encounter Summary ---
Author Organization [employer] Address [address] 7t [place] [address] Care Team Providers Care Pediatric Neurologist Name Role Phone Karen Avelar Primary Care Provider [phone] Encounter Details Date Type Department Care Team ([facility] Contact Info) Description 01/28/2025 Telephone [facility] MED & PEDS 505 [place] [address] Becky Pool, JIMMIE 505 [place] [address] Social History Tobacco Use Types Packs/Day Years [...] encounter Miscellaneous Notes * Telephone Encounter - Becky Pool RN - 01/28/2025 1:35 PM EDT Pt short 18 pills Oxycodone 10mg, and 2 pills Oxycodone ER 20mg. Pt c/o worsening pain, states has been taking medications more that prescribed. Pt reminded of the GLASSWARE ENGRAVER Agreement rules and to take Rx only as prescribed. Pt asking for an early Refill since will ran out sooner. Next GLASSWARE ENGRAVER f/u 03/25/25. Please advise. documented in this encounter Plan of Treatment Upcoming Encounters Date Type Department Care Team (Late st Contact Info) Description 03/25/2025 11:00 AM EST Clinical Support [facility] MED & PEDS 505 [place] [address] Becky Pool RN 505 [place] [address] documented as of this encounter Visit Diagnoses Not on filedocumented in this encounter Additional Health Concerns Assessment Noted Time PHQ-9 Depression Total Score: 21 024 2:14 PM EDT documented as of this encounter Care Teams Pediatric Neurologist Relationship Specialty Start Date End Date Karen Avelar ANP 230 [place] [address] PCP - General Family Medicine 12/08/21 documented as of this encounter
--- OUTSIDE RECORDS SUMMARY | 2025-01-29 11:01 | XMS_ITS | Encounter Summary ---
Author Organization [employer] Address [address] [facility] [address] 7t [place] [address] Care Team Providers Care Intelligence Intern Name Role Phone Karen Avelar LIBBY Primary Care Provider [phone] Encounter Details Date Type Department Care Team (Latest Contact Info) Description 01/28/2025 Travel Social History Tobacco Use Types Packs/Day Years Used Date Smoking Tobacco: Never Passive Smoke Exposure: Never Smokeless Tobacco: Never Alcohol Use Standard Drinks/Week Comments Never 0 (1 standard drink = 0.6 oz pur e alcohol) Depression Answer Date Recorded Patient Health Questionnaire-9 Score 10/10/2023 Patient Health Questionnaire-9 Score 21 10/10/2023 [...] Description 03/25/2025 11:00 AM EST Clinical Support [facility] [address] [place] [address] Becky Pool, JIMMIE 505 [place] [address] documented as of this encounter Visit Diagnoses Not on filedocumented in this encounter Additional Health Concerns Assessment Noted Time PHQ-9 Depression Total Score: 21 024 2:14 PM EDT documented as of this encounter Care Teams Intelligence Intern Relationship Specialty Start Date End Date Karen Avelar ANP [address] [place] [address] PCP - General Family Medicine 12/08/21 documented as of this encounter
--- OUTSIDE RECORDS SUMMARY | 2025-01-29 11:01 | XMS_ITS | Encounter Summary ---
Author Organization [employer] Address 75 [facility] 7t [place] [address] Care Team Providers Care Sports Coordinator Name Role Phone Karen Avelar Primary Care Provider Reason for Visit * Reason Onset Date Comments Med Refill 07/31/2023 Encounter Details Date Type Department Care Team (Late st Contact Info) Description 07/31/2023 Refill [facility] [address] [place] [address] Karen Avelar ANP [address] [place], [place] [phone] Social History Tobacco Use Types Packs/Day Years [...] 10-25 MG tablet To be sent to: [facility]/pharmacy #[id number] - [address] documented in this encounter Plan of Treatment Upcoming Encounters Date Type Department Care Team (Late st Contact Info) Description 03/25/2025 11:00 AM EST Clinical Support [facility] [address] [place] [address] Becky Pool, JIMMIE 505 [place] [address] documented as of this encounter Visit Diagnoses Not on filedocumented in this encounter Additional Health Concerns Assessment Noted Time PHQ-9 Depression Total Score: 14 023 1:08 PM EDT documented as of this encounter Care Teams Sports Coordinator Relationship Specialty Start Date End Date Karen Avelar ANP [address] [place] [address] PCP - General Family Medicine 12/08/21 documented as of this encounter
--- OUTSIDE RECORDS SUMMARY | 2025-01-29 11:01 | XMS_ITS | Encounter Summary ---
Author Organization [employer] Address 75 [facility] 7t [place] [address] Care Team Providers Care Curator Herbarium Name Role Phone Karen Avelar Primary Care Provider [phone] Reason for Visit * Reason Onset Date Comments Hospital Follow-up 08/22/2024 Encounter Details Date Type Department Care Team ([facility] st Contact Info) Description 08/22/2024 Telephone [facility] MEDICINE 230 [place], [place] [phone] Karen Avelar ANP [address] [place], [place] [phone] Hospital Follow-up Social History Tobacco Use Types [...] from pt requesting a HDF appt. [place] [facility] [place] Date of admission: 08/12 Discharge date: 08/21 Diagnosed: Chest Pain *Send message to [place] Clinical Care Coordinators [phone] documented in this encounter Plan of Treatment Upcoming Encounters Date Type Department Care Team (Late st Contact Info) Description 03/25/2025 11:00 AM EST Clinical Support [facility] MED & PEDS [address] [place] [address] Becky Pool RN 505 [place] [address] documented as of this encounter Visit Diagnoses Not on filedocumented in this encounter Additional Health Concerns Assessment Noted Time PHQ-9 Depression Total Score: 21 024 2:14 PM EDT documented as of this encounter Care Teams Curator Herbarium Relationship Specialty Start Date End Date Karen Avelar ANP [address] [place] [address] PCP - General Family Medicine 12/08/21 documented as of this encounter
== END 2025-01-29 09:54 | disposition home or self-care (01) ==
LOC: HO.HKAS 09:33
PROVIDERS: PCP Family Medicine; Visit Provider Internal Medicine Hypertension Specialist
DX: N18.30 Chronic kidney disease, stage 3 unspecified (principal)
CPT/HCPCS: 99214

== ENCOUNTER → 2025-01-29 09:33 | Outpatient (BNVA) | payer OTHER, SELFPAY | PROVIDERS: PCP Family Medicine; Visit Provider Internal Medicine Hypertension Specialist | DX: I10 Essential (primary) hypertension (principal); N18.30 Chronic kidney disease, stage 3 unspecified; E66.9 Obesity, unspecified; E11.9 Type 2 diabetes mellitus without complications | CPT/HCPCS: 99212 ==

== ENCOUNTER 2025-02-17 09:53 | Outpatient (AMB) | payer OTHER, SELFPAY ==
[2025-02-17 09:55] VITALS: BP 168/92; PULSE 92; O2SAT 98; BMI 40.8
--- NOTE | 2025-02-17 09:55 | A.OFFVIS_ITS ---
Vital Signs 02/17/25 09:55 Height 5 ft 11 in Weight 292 lb 8.854 oz BMI 40.8 BP 168/92 H Blood Pressure Location Lt brachial Position Sitting Pulse 92 Pulse Source Pulse Oximeter Pulse Oximetry (%) 98 Oxygen Delivery Method Room Air Intake Visit Reasons: DMT2 Follow-Up Intake Note: Patient present today for Type 2 Diabetes Mellitus Last Diabetic eye exam: Patient has upcoming appt on 02/28/2025 Last Podiatry Visit: Patient was seen a few months ago but they haven't given him a f/u appt. Patient is c/o pain, itching and burning feeling on both feet. Random Glucose: 149 mg/dl HgA1C: 8.5% Hydraulic Rockbreaker Operator Required: No Accompanied by: Self / Same As Patient Allergies Penicillins Allergy (Unknown, Verified 02/17/25 10:02) RASH/HIVES Medication List - Last Reconciled 02/17/25 by Génesis Gar PA-C atorvastatin 80 mg PO BEDTIME bempedoic acid (Nexletol) 180 mg PO DAILY blood sugar diagnostic (Zoonauch Ultra Test strips) DIRECTED TESTS 4 X/DAY blood-glucose meter (Zoonauch Ultra2 Meter) DIRECTED CHECKS 4 X/DAY blood-glucose sensor (RehabticsStyle Edwin 3 Plus Sensor device) Apply 1 new sensor every 14 days as directed to monitor blood glucose continuously. blood-glucose,pretzel cooker,cont (FreeStyle Edwin 3 [place]) Use daily As directed to monitor blood glucose bolus insulin pump, 200 unit (CeQur Simplicity) As directed bupropion HCl XL 300 mg PO DAILY cholecalciferol (vitamin D3) 50 mcg PO DAILY clonazepam 2 mg PO BEDTIME clopidogrel 75 mg PO DAILY enalapril maleate 20 mg PO DAILY hydrochlorothiazide 25 mg PO DAILY insulin aspart U-100 (Novolog FlexPen U-100 Insulin aspart) 20 units 3 times a day; insulin degludec (Tresiba FlexTouch U-200 insulin) 50 units (0.25 mL) subcut QAM 30 days lancets (FreeStyle Lancets) As directed lancets (Zoonauch UltraSoft 2 Lancet) As directed tests 4 X/day levothyroxine 50 mcg PO DAILY metoprolol succinate ER 25 mg PO DAILY omeprazole 20 mg PO DAILY oxcarbazepine 300 mg PO DAILY oxycodone 10 mg PO DAILY PRN oxycodone ER 20 mg PO BID pen needle, diabetic As directed 3 times a day prazosin 2 mg PO BEDTIME sertraline 200 mg PO DAILY syringe with needle, safety (BD Integra Syringe) As directed injrcts once a wk syringe with needle, safety (BD Integra Syringe) As directed use once a week tadalafil (Cialis) 5 mg PO DAILY PRN 30 days zolpidem 10 mg PO BEDTIME HPI HPI DMT2 Follow-Up: Details: Patient is a 64-year-old male with a significant past medical history of hypertension, hyperlipidemia, CKD, type 2 diabetes and obesity presenting today for a follow-up. Endo: DM: His A1c was 9.6 and today is . He is currently on mounjaro 2.5 mg weekly, tresiba 46 units, NovoLog 20 units tid. -states that his appetite is not suppressed with the 2.5 mg of mounjaro. He states that he needs a higher dose. cgm- no reader today- states he needs a PA for the sensors He tells me today that he did follow up with Podiatry a couple of months ago but over the last month or so he has noticed that his feet are very itchy. The skin is flaky, especially around the toes. He does have burning neuropathy in his feet in his not currently on any medication for this. States that he does have a follow up with PCP to discuss pain management as he is also a pain control contract. - d/c from jardiance a couple years ago due to yeast infections and d/c from metformin to side effects. he states that he did not tolerate the 7.5 mg of Mounjaro. He has not tolerated Trulicity due to GI upset. CV: BP today in office is 168/92. He is on enalapril 20 mg, hydrochlorothiazide 25 mg, metoprolol 25 mg. He is on atorvastatin and Zetia. -BP is at home has been elevated as well. He recently had increase with the enalapril from 10-20 mg but states that blood pressures are still a bit elevated. No chest pain. Pysch: He has been struggling with depression and states that is why he has had some compliance issues. He recently followed with his psychiatrist and is finally feeling a lot better . No current SI/HI. 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 Diabetes type 2, uncontrolled Surgical History History of surgical procedure on eye proper using laser Hx of shoulder surgery History of hip surgery Hx of neck surgery Family History Father Prostate cancer Mother Diabetes Heart problem Social History Household Members: Family Alcohol intake: never Patient Tobacco Use Status: Never used Tobacco Physical Exam Vital Signs: Last Vital Signs Pulse 92 02/17/25 09:55 BP 168/92 H 02/17/25 09:55 Pulse Ox 98 02/17/25 09:55 Oxygen Delivery Method Room Air 02/17/25 09:55 BMI result Body Mass Index 40.8 Const Orientation/consciousness: patient oriented x3 HEENT Ears: hearing grossly normal bilaterally Neck Thyroid: Thyroid normal Lymphatic: no lymphadenopathy noted Resp Auscultation: clear to auscultation bilaterally Cardio Rate: regular rate Rhythm: regular rhythm Heart sounds: S1 normal heart sound present and S2 normal heart sound present Skin General skin exam: no rashes or lesions noted Neuro General: patient oriented x3, gait normal and no focal motor deficits Extrem Other: The skin between the toes is flaky and white General: Yes normal to inspection Results AMB Hemoglobin A1c AMB Hemoglobin A1c 8.5 % Last Edit by NICHOL Hay on 02/17/25 10:21 Results Reviewed Results Reviewed: Laboratory Last Values Glucose (Clinic) 149 mg/dL (60-115) H 02/17/25 10:05 Assessment & Plan Assessment & Plan (1) Diabetes type 2, uncontrolled: Code(s): E11.65 - Type 2 diabetes mellitus with hyperglycemia Category: Medical Qualifiers: Glycemic state: with hyperglycemia Qualified Code(s): E11.65 - Type 2 diabetes mellitus with hyperglycemia Plan: continue tresiba 46 units continue novolog 20 units tid increase mounjaro to 5 mg weekly re ordered sensors (2) Hypertension: Code(s): I10 - Essential (primary) hypertension Category: Medical Qualifiers: Hypertension type: primary hypertension Qualified Code(s): I10 - Essential (primary) hypertension Plan: continue enalapril 20 mg daily continue hctz 25 mg increase metoprolol to 50 mg daily (3) HLD (hyperlipidemia): Code(s): E78.5 - Hyperlipidemia, unspecified Category: Medical Plan: overdue labs advised to complete continue atorvastatin 80 mg (4) Tinea pedis: Code(s): B35.3 - Tinea pedis Plan: We will start clotrimazole Plan short term follow up with pcp for bp check return in 2-3 months and labs prior Orders: Orders AMB Hemoglobin A1c Today E11.65 - Type 2 diabetes mellitus with hyperglycemia, Z13.9 - Encounter for screening, unspecified Comprehensive [place]. Panel Fast Today E11.65 - Type 2 diabetes mellitus with hyperglycemia, E78.5 - Hyperlipidemia, unspecified, I10 - Essential (primary) hypertension Lipid Panel Today E11.65 - Type 2 diabetes mellitus with hyperglycemia, E78.5 - Hyperlipidemia, unspecified, I10 - Essential (primary) hypertension Hemoglobin A1c Today E11.65 - Type 2 diabetes mellitus with hyperglycemia, E78.5 - Hyperlipidemia, unspecified, I10 - Essential (primary) hypertension, R73.01 - Impaired fasting glucose Microalbumin, Random (w Creat) Today E11.65 - Type 2 diabetes mellitus with hyperglycemia, E78.5 - Hyperlipidemia, unspecified, I10 - Essential (primary) hypertension Medications: New tirzepatide (Mounjaro) 5 mg (0.5 mL) subcut QWEEK 2 mL 5RF metoprolol succinate ER 50 mg PO DAILY 90 tabs 0RF clotrimazole 1% 1 appl topical BID 45 grams 0RF 2 weeks Refilled blood-glucose sensor (FreeStyle Edwin 3 Plus Sensor device) Apply 1 new sensor every 14 days as directed to monitor blood glucose continuously. 6 ea 3RF Patient Instructions: increase metoprolol from 25 mg to 50 mg daily increase mounjaro to 5 mg daily start clotrimazole cream on feet continue meds otherwise call podiatry [phone] call pcp to recheck bp and review med changes Coding Level of Care Code Est Pt Level 4 (73975) Complex EM visit Add On G2211 Diagnoses Uncontrolled type 2 diabetes mellitus with hyperglycemia E11.65 Glycemic state: with hyperglycemia Primary hypertension I10 Hypertension type: primary hypertension HLD (hyperlipidemia) E78.5 Tinea pedis B35.3
[2025-02-17 10:09] LABS: Glucose, Whole Blood 149 mg/dL (60-115)
--- OUTSIDE RECORDS SUMMARY | 2025-02-17 11:20 | XMS_ITS | Encounter Summary ---
Author Organization [employer] Address 75 [facility] 7t [place] [address] Care Team Providers Care Solar Applications Development Engineer Name Role Phone Karen Avelar Primary Care Provider [phone] Encounter Details Date Type Department Care Team ([facility] st Contact Info) Description 02/05/2025 Orders Only [facility] MEDICINE [address] [place], [place] [phone] Karen Avelar ANP 230 [place], [place] [phone] Social History Tobacco Use Types Packs/Day Years [...] AM EST Clinical Support [facility] [address] [place] [address] Becky Pool, JIMMIE 505 [place] [address] documented as of this encounter Visit Diagnoses Not on filedocumented in this encounter Additional Health Concerns Assessment Noted Time PHQ-9 Depression Total Score: 21 024 2:14 PM EDT documented as of this encounter Care Teams Solar Applications Development Engineer Relationship Specialty Start Date End Date Karen Avelar ANP [address] [place] [address] PCP - General Family Medicine 12/08/21 documented as of this encounter
--- OUTSIDE RECORDS SUMMARY | 2025-02-17 11:20 | XMS_ITS | Encounter Summary ---
Author Organization [employer] Address 75 [facility] 7t [place] [address] Care Team Providers Care Production Analyst Name Role Phone Karen Avelar Primary Care Provider [phone] Reason for Visit * Reason Onset Date Comments Med Refill 01/27/2023 Encounter Details Date Type Department Care Team ([facility] st Contact Info) Description 01/27/2023 Telephone [facility] MEDICINE [address] [place], [place] [phone] Karen Avelar ANP 230 [place], [place] [phone] Med Refill Social History Tobacco Use Types [...] 12 hr tablet to be sent to [facility]/pharmacy #[id number] - [address] documented in this encounter Plan of Treatment Upcoming Encounters Date Type Department Care Team (Late st Contact Info) Description 03/25/2025 11:00 AM EST Clinical Support [facility] [address] [place] [address] Becky Pool, RN [address] [place] [address] documented as of this encounter Visit Diagnoses Not on filedocumented in this encounter Additional Health Concerns Assessment Noted Time PHQ-9 Depression Total Score: 14 023 1:08 PM EDT documented as of this encounter Care Teams Production Analyst Relationship Specialty Start Date End Date Karen Avelar ANP [address] [place] [address] PCP - General Family Medicine 12/08/21 documented as of this encounter
--- OUTSIDE RECORDS SUMMARY | 2025-02-17 11:20 | XMS_ITS | Encounter Summary ---
Author Organization [employer] Address 75 [facility] 7t [place] [address] Care Team Providers Care Stemhole Borer And Topper Name Role Phone Karen Avelar Primary Care Provider [phone] Reason for Visit * Reason Onset Date Comments Med Refill 02/03/2025 Encounter Details Date Type Department Care Team (Late st Contact Info) Description 02/03/2025 Telephone [facility] MEDICINE 230 [place], [place] [phone] Karen Avelar ANP 230 [place], [place] [phone] Med Refill Social History Tobacco Use Types [...] * Telephone Encounter - Stuart Reyes - 02/06/2025 1:05 PM EDT Tc from pt calling in regards to message prior stating [facility] only received 10 mg oxycodone not the 20mg. Pt is requesting for script to be sent. * Telephone Encounter - Stuart Reyes - 02/03/2025 4:47 PM EDT TC from pt requesting medication refill. Medications needing refill: oxyCODONE ER (OxyCONTIN) 20 MG 12 hr tablet To be sent to: [facility]/pharmacy #[id number] - [address] documented in this encounter Plan of Treatment Upcoming Encounters Date Type Department Care Team (Late st Contact Info) Description 03/25/2025 11:00 AM EST Clinical Support [facility] 505 [place] [address] Becky Pool, JIMMIE 505 [place] [address] documented as of this encounter Visit Diagnoses Not on filedocumented in this encounter Additional Health Concerns Assessment Noted Time PHQ-9 Depression Total Score: 21 07/02/2 024 2:14 PM EDT documented as of this encounter Care Teams Stemhole Borer And Topper Relationship Specialty Start Date End Date Karen Avelar ANP 230 [place] [address] PCP - General Family Medicine 12/08/21 documented as of this encounter
--- OUTSIDE RECORDS SUMMARY | 2025-02-17 11:20 | XMS_ITS | Encounter Summary ---
Author Organization [employer] Address 75 [facility] 7t [place] [address] Care Team Providers Care Irrigator Gravity Flow Name Role Phone Karen Avelar Primary Care Provider [phone] Reason for Visit * Reason Comments Med Refill Encounter Details Date Type Department Care Team (Late st Contact Info) Description 03/05/2023 Refill [facility] MEDICINE [address] [place] [address] Karen Avelar ANP 230 [place], [place] [phone] Social History Tobacco Use Types Packs/Day Years [...] [facility] [address] [place] [address] Becky Pool, JIMMIE [address] [place] [address] documented as of this encounter Visit Diagnoses Not on filedocumented in this encounter Additional Health Concerns Assessment Noted Time PHQ-9 Depression Total Score: 14 023 1:08 PM EDT documented as of this encounter Care Teams Irrigator Gravity Flow Relationship Specialty Start Date End Date Karen Avelar ANP [address] [place] [address] PCP - General Family Medicine 12/08/21 documented as of this encounter
--- OUTSIDE RECORDS SUMMARY | 2025-02-17 11:20 | XMS_ITS | Encounter Summary ---
Author Organization [employer] Address 75 [facility] 7t [place] [address] Care Team Providers Care Grated Cheese Maker Name Role Phone Karen Avelar Primary Care Provider [phone] Reason for Visit * Reason Onset Date Comments Nurse Triage 07/03/2024 Encounter Details Date Type Department Care Team ([facility] st Contact Info) Description 07/03/2024 Telephone [facility] MEDICINE 230 [place] [address] Karen Avelar ANP 230 [place], [place] [phone] Nurse Triage Social History Tobacco Use Types [...] apts available and offered to come to [facility] today. Pt reports willcome to [facility] tomorrow morning which opens at 830am. Pt is advised to apply ice to bottom of foot , cover a ziplock baggie full of ice with wash cloth and apply for 20 min. Pt could also try heat but,must remove cream from foot first and Pt [...] can't walk) The caller accepted this outcome. [phone] documented in this encounter Plan of Treatment Upcoming Encounters Date Type Department Care Team (Late st Contact Info) Description 03/25/2025 11:00 AM EST Clinical Support [facility] MED & PEDS [address] [place] [address] Becky Pool, JIMMIE [address] [place] [address] documented as of this encounter Visit Diagnoses Not on filedocumented in this encounter Additional Health Concerns Assessment Noted Time PHQ-9 Depression Total Score: 21 024 2:14 PM EDT documented as of this encounter Care Teams Grated Cheese Maker Relationship Specialty Start Date End Date Karen Avelar ANP [address] [place] [address] PCP - General Family Medicine 12/08/21 documented as of this encounter
--- OUTSIDE RECORDS SUMMARY | 2025-02-17 11:20 | XMS_ITS | Encounter Summary ---
Author Organization [employer] Address 75 [facility] 7t [place] [address] Care Team Providers Care Electroencephalogram Technologist Name Role Phone Karen Avelar Primary Care Provider [phone] Reason for Visit * Reason Onset Date Comments Prior Authorization 09/07/2022 Encounter Details Date Type Department Care Team (Late st Contact Info) Description 09/07/2022 Telephone [facility] MEDICINE 230 [place], [place] [phone] Karen Avelar ANP 230 [place], [place] [phone] Prior Authorization Social History Tobacco Use Types [...] - 09/07/2022 11:47 AM EDT Tc from [place] with [facility] pharmacy requesting a PA for medication OxyCONTIN 20 MG 12 hr tablet documented in this encounter Plan of Treatment Upcoming Encounters Date Type Department Care Team (Late st Contact Info) Description 03/25/2025 11:00 AM EST Clinical Support [facility] [address] [place] [address] Becky Pool, RN [address] [place] [address] documented as of this encounter Visit Diagnoses Not on filedocumented in this encounter Care Teams Electroencephalogram Technologist Relationship Specialty Start Date End Date Karen Avelar ANP 230 [place] [address] PCP - General Family Medicine 12/08/21 documented as of this encounter
--- OUTSIDE RECORDS SUMMARY | 2025-02-17 11:20 | XMS_ITS | Clinical Summary ---
Author Organization [facility] Address [address] [place] [address] Phone Care Team Providers Care Manager It Security Name Role Phone Jordana Cade MD Primary Care Provider [phone] Allergies Active Allergy Reactions Criticality Noted Date [...] next visit. Coronary artery disease invo lving upper matt[place] coronary artery of upper matt[place] heart without angina pectoris 08/13/2024 Assessment & [...] this time I arranged for a 48-hour cardiac care nurse to further evaluate his palpitations. He also [...] can recall. Patient's C-spine MRI 05/11/2021 at [facility] shows left >right neuroforaminal narrowing C5-6, [...] Type Department Care Team Description 12/30/2024 Telephone [facility] [address] [place] [address] Alondra Sellers NP 12/24/2024 Telephone [facility] [address] [place] [address] Provider, Not In System 12/11/2024 10:30 AM EDT Ancillary Procedure [facility] [address] [place] [address] Coronary artery disease involving upper mattaponi coronary artery of upper matt[place]oni heart without angina pectoris; Palpitations from Last 3 Months Surgical History Surgery Date Site/Laterality Comments HIP ARTHROPLASTY 2016 Right PROCEDURE: HISTORICAL HIP REPLACEMENT SHOULDER SURGERY 1979 Right PROCEDURE: HISTORICAL SHOULDER SURGERY; COMMENT: bone graft from hip, surgery [place] OTHER SURGICAL HISTORY 12/10/2019 PROCEDURE: TN ARTHRD ANT INTERBODY MIN DSC CRV BELOW C2; COMMENT: C5-6 ACDF, Dr. Glenda Frederick CARDIAC CATHETERIZATION DONE ON 08/15/2024 AT [facility] W JJ INDICATIONS:Acute chest pain CARDIAC CATHETERIZATION DONE ON 08/16/2024 AT [facility] W VINNY INDICATIONS: Unstable angina. Medical History [...] for your loved ones. For example, children's program coordinator or elderly care for an older adult? [...] Description 04/22/2025 2:10 PM EST Office Visit [facility] [address] [facility] [address] [place] [phone] Alondra Sellers NP [address] [place] [address] [address] [place] [phone] Health Maintenance Due Date Last Done Comments [...] 10:17 AM EDT Coronary artery disease involving upper matt[place]oni coronary artery of upper matt[place] heart without angina pectoris Palpitations BASIC METABOLIC PANEL Routine 08/15/2024 5:25 AM EDT LIPID PANEL WITH REFLEX TO DIRECT LDL Add-On 08/14/2024 5:25 AM EDT from Last 3 Months or Most Recently Relevant to Health Maintenance Results * CARDIAC HOLTER MONITOR (REPORT GENERATED IN HOUSE) (12/11/2024 10:17 AM EDT) Anatomical Region Laterality Modality Cardiac Diagnost ic Narrative 12/26/2024 1:37 PM EDT [facility] DIAGNOSTIC TESTING DEPARTMENT [address] [place] [address] TEL: FAX: Type of Test: 48 Hour Holter Monitor Date of Test: 12/11/2024 Ordering Provider: Alondra Sellers NP Reason for Test: Coronary artery disease involving upper matt[place]oni coronary artery of upper mattaponi heart without angina pectoris; Palpitations [employer] Senior Financial Consultant Findings: (Large portions of scan obscured by [...] mmol/L LAB CHEMISTRY METHOD 08/15/2024 7:23 AM [facility] Potassium 4.3 3.5 - 5.5 mmol/L LAB CHEMISTRY METHOD 08/15/2024 7:23 AM [facility] Chloride 101 96 - 110 mmol/L LAB CHEMISTRY METHOD 08/15/2024 7:23 AM [facility] CO2 28 21 - 32 mmol/L LAB CHEMISTRY METHOD 08/15/2024 7:23 AM [facility] Anion Gap 6 3 - 11 LAB CHEMISTRY METHOD 08/15/2024 7:23 AM [facility] Glucose 257(H) 70 - 100 mg/dL LAB CHEMISTRY METHOD 08/15/2024 7:23 AM [facility] BUN 30(H) 5 - 25 mg/dL LAB CHEMISTRY METHOD 08/15/2024 7:23 AM [facility] Creatinine 1.50(H) 0.70 - 1.30 mg/dL LAB CHEMISTRY METHOD 08/15/2024 7:23 AM [facility] eGFR 52(L) >=60 mL/min/1. 73m2 LAB CHEMISTRY METHOD 08/15/2024 7:23 AM [facility] Comment:Calculation based on the Chronic Kidney Disease Epidemiology Collaboration (CKD-EPI) equation refit without adjustment for race. BUN/Creatinine Ratio 20.0 LAB CHEMISTRY METHOD 08/15/2024 7:23 AM [facility] Calcium 9.2 8.5 - 10.5 mg/dL LAB CHEMISTRY METHOD 08/15/2024 7:23 AM [facility] Blood Venous blood specimen / Unknown Venipuncture / Unknown 08/15/2024 5:25 AM EDT 08/15/2024 6:17 AM EDT Junior CURRIE LAB BLOOD ORDERABLES Ambar colon Result [facility] [address] [place] [address], [place] [phone] * (ABNORMAL) Lipid panel with reflex to direct LDL (08/14/2024 5:25 AM EDT) Cholesterol 169 0 - 200 mg/dL LAB CHEMISTRY METHOD 08/14/2024 9:04 AM EDT [facility] Triglycerides 161(H) 0 - 150 mg/dL LAB CHEMISTRY METHOD 08/14/2024 9:04 AM EDT [facility] HDL 36(L) >=40 mg/dL LAB CHEMISTRY METHOD 08/14/2024 9:04 AM EDT [facility] LDL Calculated 101(H) 0 - 100 mg/dL LAB CHEMISTRY METHOD 08/14/2024 9:04 AM EDT [facility] VLDL Cholesterol Pranav 32.2 mg/dL LAB CHEMISTRY METHOD 08/14/2024 9:04 AM EDT [facility] Non HDL Chol. (LDL+VLDL) 133 <145 mg/dL LAB CHEMISTRY METHOD 08/14/2024 9:04 AM EDT [facility] Chol/HDL Ratio 4.7(H) 0.0 - 4.4 LAB CHEMISTRY METHOD 08/14/2024 9:04 AM EDT [facility] Blood Venous blood specimen / Unknown 08/14/2024 5:25 AM EDT 08/14/2024 7:24 AM EDT Junior CURRIE LAB BLOOD ORDERABLES Ambar l Result [facility] [address] [place] [address], [place] [phone] from Last 3 Months or Most Recently Relevant to Health Maintenance Insurance [facility] MEDICARE Member Subscriber Plan / Payer (Ef fective 2013-Present) Name:ASHLEY LOVELACE Relation to Subscriber:Self Name:Ashley Rose Payer ID:[id number] Group ID:[id number] Type:Not on file Address: [address] [place] [id number] Advance Directives Documents on File Type Date Recorded Patient Transformer Molder Expl anation Advance Directives and Living Will [...] Agents on File Name Relationship Healthcare Agent Relationssd p Communication Radha Dodson Relative Health Care Agent Care Teams Manager It Security Relationship Specialty Start Date End Date Jordana Cade MD [address] [place] [phone] PCP - General 07/21/13
--- OUTSIDE RECORDS SUMMARY | 2025-02-17 11:20 | XMS_ITS | Encounter Summary ---
Author Organization [employer] Address [address] [facility] 7t [place] [address] Care Team Providers Care Cello Teacher Name Role Phone Karen Avelar Primary Care Provider [phone] Reason for Visit * Reason Onset Date Comments Med Refill 03/28/2023 Encounter Details Date Type Department Care Team ([facility] st Contact Info) Description 03/28/2023 Telephone [facility] MEDICINE [address] [place], [place] [phone] Karen Avelar ANP [address] [place], [place] [phone] Med Refill Social History Tobacco Use Types Packs/Day Years Used Date Smoking Tobacco: Never Passive Smoke Exposure: Never Smokeless Tobacco: Never Alcohol Use Standard Drinks/Week Comments Never 0 (1 standard drink = 0.6 oz pur e alcohol) Depression Answer Date Recorded Patient Health Questionnaire-9 Score 14 01/02/2023 Housing Stability Answer Date Recorded What is your housing situation today? I have ordo hernandez 01/27/[address] you [...] 03/25/2025 11:00 AM EST Clinical Support [facility] MED & PEDS [address] [place] [address] Becky Pool RN [address] [place] [address] documented as of this encounter Visit Diagnoses Not on filedocumented in this encounter Additional Health Concerns Assessment Noted Time PHQ-9 Depression Total Score: 14 023 1:08 PM EDT documented as of this encounter Care Teams Cello Teacher Relationship Specialty Start Date End Date Karen Avelar ANP [address] [place] [address] PCP - General Family Medicine 12/08/21 documented as of this encounter
--- OUTSIDE RECORDS SUMMARY | 2025-02-17 11:20 | XMS_ITS | Encounter Summary ---
Author Organization [employer] Address [address] [facility] 7t [place] [address] Care Team Providers Care Bondactor Machine Operator Name Role Phone Karen Avelar Primary Care Provider [phone] Reason for Visit * Reason Onset Date Comments Referral 09/15/2022 Encounter Details Date Type Department Care Team (Late st Contact Info) Description 09/15/2022 Telephone [facility] MEDICINE [address] [place] [address] Karen Avelar ANP [address] [place], [place] [phone] Referral Social History Tobacco Use Types Packs/Day [...] Upcoming Encounters Date Type Department Care Team ([facility] st Contact Info) Description 03/25/2025 11:00 AM EST Clinical Support [facility] MED & PEDS [address] [place] [address] Becky Pool, RN [address] [place] [address] documented as of this encounter Visit Diagnoses Not on filedocumented in this encounter Care Teams Bondactor Machine Operator Relationship Specialty Start Date End Date Karen Avelar ANP [address] [place] [address] PCP - General Family Medicine 12/08/21 documented as of this encounter
--- OUTSIDE RECORDS SUMMARY | 2025-02-17 11:20 | XMS_ITS | Encounter Summary ---
Author Organization [employer] Address [address] [facility] 7t [place] [address] Care Team Providers Care Mine Engineer Name Role Phone Karen Avelar Primary Care Provider [phone] Reason for Visit * Reason Onset Date Comments Medication Question 09/27/2024 Encounter Details Date Type Department Care Team ([facility] st Contact Info) Description 09/27/2024 Telephone [facility] MEDICINE [address] [place], [place] [phone] Karen Avelar ANP [address] [place], [place] [phone] Medication Question Social History Tobacco Use Types [...] 10/01/24. Will leave this request to primary DIANETIC COUNSELOR nurse on 09/30/24. * Telephone Encounter - Denise Su - 09/27/2024 3:44 PM EDT Tc from pt requesting Oxycodone 20 MG. Patient currently using 10 MG. documented in this encounter Plan of Treatment Upcoming Encounters Date Type Department Care Team (Late st Contact Info) Description 03/25/2025 11:00 AM EST Clinical Support [facility] MED & PEDS [address] [place] [address] Becky Pool, RN [address] [place] [address] documented as of this encounter Visit Diagnoses Not on filedocumented in this encounter Additional Health Concerns Assessment Noted Time PHQ-9 Depression Total Score: 21 024 2:14 PM EDT documented as of this encounter Care Teams Mine Engineer Relationship Specialty Start Date End Date Karen Avelar ANP [address] [place] [address] PCP - General Family Medicine 12/08/21 documented as of this encounter
--- OUTSIDE RECORDS SUMMARY | 2025-02-17 11:20 | XMS_ITS | Encounter Summary ---
Author Organization [employer] Address [address] [facility] 7t [place] [address] Care Team Providers Care Anhydrous Ammonia Production Supervisor Name Role Phone Valentino Karen SOUZA Primary Care Provider [phone] Encounter Details Date Type Department Care Team ([facility] st Contact Info) Description 02/17/2025 Orders Only GENERIC EXTERNAL DATA DEPARTMENT Provider, [...] Description 03/25/2025 11:00 AM EST Clinical Support [facility]EDS [address] [place] [address] Becky Pool RN [address] [place] [address] documented as of this encounter Procedures Procedure Name Priority Date/Time Associated Diagnosis Comments GLUCOSE, WHOLE BLOOD Routine 02/17/2025 10:05 AM EST documented in this encounter Results * (ABNORMAL) Glucose, Whole Blood (02/17/2025 10:05 AM EST) Glucose, Whole Blood 149(H) 60 - 115 mg/dL [facility] Comment:METER #: [id number] Testing performed in the Endocrinology Department [address] , [address], [facility]. 02/17/2025 10:0 5 AM EST 02/17/2025 10:08 AM EST us Generic External Data Provider LAB BLOOD ORDERAB LES Final Result [facility] [address] [place] [phone] [phone] documented in this encounter Visit Diagnoses Not on filedocumented in this encounter Additional Health Concerns Assessment Noted Time PHQ-9 Depression Total Score: 21 024 2:14 PM EDT documented as of this encounter Care Teams Anhydrous Ammonia Production Supervisor Relationship Specialty Start Date End Date Karen Avelar ANP [address] [place] [address] PCP - General Family Medicine 12/08/21 documented as of this encounter
--- OUTSIDE RECORDS SUMMARY | 2025-02-17 11:20 | XMS_ITS | Clinical Summary ---
Author Organization [employer] Address 75 [facility] 7t [place] [address] Care Team Providers Care Systems Mgr Name Role Phone AvelarKaren Primary Care Provider [phone] Allergies Active Allergy Reactions Criticality Noted Date [...] naloxone (Narcan) 4 mg/0.1 mL nasal sprayIndications: terminologist prescription opiate use Administer 1 spray (4 [...] :Hypertension with albuminuria,Hyper tension associated with diabetes ([facility]) TOME SHIRA TABLETA POR VIA ORAL TODOS LOS NETTLES 90 tablet 3 025 Active ticagrelor (Brilinta) 90 MG tablet Take 1 tablet by mouth 2 times daily. 025 Active Continuous Glucose Vehicle Insurance Agent (FreeStyle Edwin 3 Poteet) device USE DAILY DIRECTED TO MONITOR BLOOD GLUCOSE 025 Active Continuous Glucose Sensor (FreeStyle Edwin 3 Plus Sensor) [facility] 025 Active insulin aspart FlexPen (NovoLOG) 100 [...] unspecified whether stage 3a or 3b CKD ([facility]) TEST BLOOD SUGAR EVERY 8 HOURS 100 strip 11 Active levothyroxine (Synthroid, Levoxyl) 50 MCG tablet TAKE 1 TABLET BY MOUTH EVERY DAY 90 tablet 3 Active omeprazole (PriLOSEC) [address] capsule TAKE 1 CAPSULES BY MOUTH EVERYDAY BEFORE A MEAL 90 capsule 1 Active oxyCODONE (Roxicodone) 10 MG immediate release tabletIndications :Primary osteoarthritis involving multiple joints Take 1 tablet (10 mg) by mouth every 6 (six) hours if needed for severe pain for up to 28 days. Do not start before January 31, 2025. 112 tablet 2024 Active oxyCODONE ER (OxyCONTIN) 20 MG 12 hr tabletIndications :Primary osteoarthritis involving multiple joints Take 1 tablet (20 mg) by mouth every 12 (twelve) hours for 28 days. Do not crush, chew, or split. Do not start before February 03, 2025. 56 tablet 025 2024 Active oxyCODONE (Roxicodone) 10 MG immediate release tabletIndications :Primary osteoarthritis involving multiple joints Take 1 tablet (10 mg) by mouth every 6 (six) hours if needed for severe pain for up to 28 days. 112 tablet 2024 Discontinued(R eorder (will not trigger notification [...] Diagnosed Date Coronary artery disease invo lving nul[place] coronary artery of [place] heart 08/29/2024 Acute cough 03/28/2024 COVID 03/28/2024 halfway (current) use of opiate analgesic 03/10 Depression, [...] of insulin 04/30/2015 Overview (01/02/2023): Follows w/ [facility], meds rx'd by Dr. Boyer Has [...] Encounters Date Type Department Care Team Description 02/17/2025 Orders Only GENERIC EXTERNAL DATA DEPARTMENT Provider, Generic External Data 02/06/2025 Telephone [facility] MED & PEDS [address] [place] [address] Becky Pool, JIMMIE 02/05/[address] [facility] MEDICINE [address] [place] [phone] Karen Avelar ANP 02/04/2025 Refill [facility] MED & PEDS [address] [place] [address] Becky Pool RN Primary osteoarthritis involving multiple joints 02/03/[address] [facility] MEDICINE [address] [place] [address] Karen Avelar ANP Med Refill 01/30/2025 Refill [facility] MED & PEDS [address] [place] [address] Becky Pool, JIMMIE Primary osteoarthritis involving multiple joints 01/28/2025 1:30 PM EDT Clinical Support [facility] MED & PEDS [address] [place] [address] Becky Pool, RN Chronically on opiate therapy (Primary Dx) 01/28/2025 Telephone [facility] MED & PEDS [address] [place] [address] Becky Pool RN 01/28/2025 Travel 01/27/2025 Orders Only GENERIC EXTERNAL DATA DEPARTMENT Provider, Generic External Data 01/24/[address] [facility] MEDICINE [address] [place] [phone] Karen Avelar ANP 01/09/[address] [facility] MEDICINE [address] [place] [phone] Karen Avelar ANP Durable Medical Equipment 01/08/[address] [facility]INE [address] [place] [phone] Karen Avelar ANP 01/07/[address] [facility]INE [address] [place] [phone] Karen Avelar ANP 01/07/[address] [facility]INE [address] [place] [phone] Karen Avelar ANP Primary osteoarthritis involving multiple joints 12/11/[address] [facility]INE [address] [place] [phone] Karen Avelar ANP Primary osteoarthritis involving multiple joints 12/02/[address] [facility] MEDICINE [address] [place] [phone] Karen Avelar ANP Prior Authorization 12/02/2024 Refill [facility] MED & PEDS [address] [place] [address] Becky Polo, RN halfway (current) use of opiate analgesic; Primary osteoarthritis involving multiple joints 12/02/[address] [facility] MEDICINE [address] [place] [phone] Karen Avelar ANP Med Refill 11/21/[address] [facility]INE [address] [place] [phone] Karen Avelar ANP DTA forms 11/21/[address] [facility]INE [address] [place] [phone] Karen Avelar ANP Type 2 diabetes mellitus with stage 3 chronic kidney disease, with long-term current use of insulin, unspecified whether stage 3a or 3b CKD (CMS/HCC) from Last 3 Months Immunizations Immunization Administration [...] Upcoming Encounters Date Type Department Care Team ([facility] st Contact Info) Description 03/25/2025 11:00 AM EST Clinical Support [facility] MED & PEDS [address] [place] [address] Becky Pool, RN [address] [place] [address] Health Maintenance Due Date Last Done Comments [...] WHOLE BLOOD Routine 02/17/2025 10:05 AM EST POCT JESSICA-14 URINE DRUG SCREEN Routine 01/28/2025 1:27 PM EDT Chronically on opiate therapy BASIC METABOLIC PANEL Routine 01/27/2025 8:46 AM EDT POCT GLYCATED HEMOGLOBIN, TOTAL Routine 08/29/2024 9:37 AM EDT Type 2 diabetes mellitus with stage 3 chronic kidney disease, with long-term current use of insulin, unspecified whether stage 3a or 3b CKD ([facility]) LIPID PANEL, STANDARD Routine 08/10/2022 10:13 AM EDT HM COLONOSCOPY Routine 03/02/2016 4:57 PM EST from Last 3 Months or Most Recently Relevant to Health Maintenance Results * (ABNORMAL) Glucose, Whole Blood (02/17/2025 10:05 AM EST) Glucose, Whole Blood 149(H) 60 - 115 mg/dL [facility] Comment:METER #: [id number] Testing performed in the Endocrinology Department [address] , [address], [facility]. 02/17/2025 10:0 5 AM EST 02/17/2025 10:08 AM EST us Generic External Data Provider LAB BLOOD ORDERAB LES Final Result Performing Organization Address City/State/[facility] Co de Phone Number [facility] [address] [place] [phone] * (ABNORMAL) POCT JESSICA-14 Urine Drug Screen [...] PM EDT . Internal Pass Control Lot# [id number] Exp: 02-07-26 [facility] POINT OF CARE TEST ENTER/EDIT OR DERABLES Final Result * (ABNORMAL) Basic Metabolic Panel (01/27/2025 8:46 AM EDT) Pathologist [facility] Sodium 140 135 - 145 mmol/L [facility] Potassium 4.1 3.3 - 5.1 mmol/L [facility] Chloride 107 96 - 108 mmol/L [facility] Carbon Dioxide 24 22 - 29 mmol/L [facility] Anion Gap 13 12 - 20 [facility] Urea Nitrogen (BUN) 20(H) 9 - 16 mg/dL [facility] Creatinine, Serum 1.19 0.5 - 1.4 mg/dL [facility] Estimated Glomerular Filt Rate >60 [facility] Comment:Chronic Kidney Disea se: Estimated GFR < 60 mL/min/1.17l5Dmmrvi Kidney Disease: Estimated GFR < 15 mL/min/1.73m2 Glucose 84 60 - 115 mg/dL [facility] Calcium 9.7 8.4 - 10.2 mg/dL [facility] 01/27/2025 8:46 AM EDT 01/27/2025 1:04 PM EDT Generic External Data Provider LAB BLOOD ORDERAB LES Final Result [facility] [address] [place], [place] [phone] * (ABNORMAL) POCT HGB A1C (08/29/2024 9:37 AM EDT) Hemoglobin A1C 8.5(A) 4.0 - 6.0 % QC Media Lot # [id number] Lot# Expiration Date Blood 08/29/2024 9:37 AM EDT Karen Avelar ANP POINT OF CARE TEST ENTER/EDIT OR DERABLES Final Result * Lipid Panel, Standard (08/10/2022 10:13 AM EDT) Triglycerides 111 mg/dL [facility] Comment:Desirable Triglyceri de: less than 150 mg/dLBorderline High Triglyceride 150-199 mg/dLHigh Triglyceride: 200-499 mg/dLVery High Triglyceride: greater than or equal to 5OO mg/dL Cholesterol 199 mg/dL [facility] Comment:Desirable Cholestero l: less than 200 mg/dLBorderline High Cholesterol: 200-239 mg/dLHigh Cholesterol: greater than 239 mg/dL LDL Cholesterol Calculated 140 mg/dl [facility] Comment:Desirable LDL: less than 100 mg/dLNear Optimal/Above Optimal LDL: 110- 129 mg/dLBorderline High LDL: 130-159 mg/dLHigh LDL: 160-189 mg/dLVery High LDL: greater than or equal to 190 mg/dL HDL Cholesterol 37 mg/dL [facility] Comment:Desirable HDL: great er than 40 mg/dL Note: This HDL assay may give artificially low results in patients with liver disease. 08/10/2022 10:1 3 AM EDT 08/10/2022 1:36 PM EDT [facility] External Provider LAB BLO OD ORDERABLES Final Result [facility] [address] [place] [phone] * Hm Colonoscopy (03/02/2016 4:57 PM EST) Historical Provider HEALTH MAINTENANCE Final Result from Last 3 Months or Most Recently Relevant to Health Maintenance Insurance [facility] < [address] [place] [id number] Care Teams Systems Mgr Relationship Specialty Start Date End Date Karen Avelar ANP [address] [place] [phone] PCP - General Family Medicine 12/08/21
--- OUTSIDE RECORDS SUMMARY | 2025-02-17 11:20 | XMS_ITS | Encounter Summary ---
Author Organization [employer] Address [address] [facility] 7t [place] [address] Care Team Providers Care Shortage Worker Name Role Phone Karen Avelar Primary Care Provider [phone] Reason for Visit * Reason Onset Date Comments Med Refill 01/30/2023 Encounter Details Date Type Department Care Team ([facility] st Contact Info) Description 01/30/2023 Telephone [facility] MEDICINE [address] [place], [place] [phone] Karen Avelar ANP [address] [place], [place] [phone] Med Refill Social History Tobacco Use Types [...] Description 03/25/2025 11:00 AM EST Clinical Support [facility] MED & PEDS [address] [place] [address] Becky Pool, JIMMIE [address] [place] [address] documented as of this encounter Visit Diagnoses Not on filedocumented in this encounter Additional Health Concerns Assessment Noted Time PHQ-9 Depression Total Score: 14 023 1:08 PM EDT documented as of this encounter Care Teams Shortage Worker Relationship Specialty Start Date End Date Karen Avelar ANP [address] [place] [address] PCP - General Family Medicine 12/08/21 documented as of this encounter
--- OUTSIDE RECORDS SUMMARY | 2025-02-17 11:21 | XMS_ITS | Clinical Summary ---
Author Organization [facility] Address [address] [place] [address] Care Team Providers Care Systems Planner Name Role Phone Merna Read BOOM WORKER Primary Care Provider [phone] Social History Tobacco Use Types Packs/Day Years [...] age to complete this topic Care Teams Systems Planner Relationship Specialty Start Date End Date Merna Read NP [address] [place] [address] PCP - General Family Medicine 08/10/17
--- OUTSIDE RECORDS SUMMARY | 2025-02-17 11:21 | XMS_ITS | Encounter Summary ---
Author Organization [employer] Address 75 [facility] 7t [place] [address] Care Team Providers Care Senior Chemical Process Engineer Name Role Phone Karen Avelar Primary Care Provider [phone] Reason for Visit * Reason Onset Date Comments Med Refill 12/02/2024 Encounter Details Date Type Department Care Team (Late st Contact Info) Description 12/02/2024 Telephone [facility] MEDICINE [address] [place], [place] [phone] Karen Avelar ANP [address] [place], [place] [phone] Med Refill Social History Tobacco Use Types [...] sent to: [facility]/pharmacy #[id number] - [address] documented in this encounter Plan of Treatment Upcoming Encounters Date Type Department Care Team ([facility] Contact Info) Description 03/25/2025 11:00 AM EST Clinical Support [facility] MED & PEDS [address] [place] [address] Becky Pool, JIMMIE [address] [place] [address] documented as of this encounter Visit Diagnoses Not on filedocumented in this encounter Additional Health Concerns Assessment Noted Time PHQ-9 Depression Total Score: 21 024 2:14 PM EDT documented as of this encounter Care Teams Senior Chemical Process Engineer Relationship Specialty Start Date End Date Karen Avelar ANP [address] [place] [address] PCP - General Family Medicine 12/08/21 documented as of this encounter
--- OUTSIDE RECORDS SUMMARY | 2025-02-17 11:21 | XMS_ITS | Encounter Summary ---
Author Organization [employer] Address 75 [facility] 7t [place] [address] Care Team Providers Care Electrical Tester Name Role Phone Karen Avelar Primary Care Provider [phone] Reason for Visit * Reason Onset Date Comments Med Refill 02/12/2024 Encounter Details Date Type Department Care Team (Late st Contact Info) Description 02/12/2024 Telephone [facility] MEDICINE [address] [place], [place] [phone] Karen Avelar ANP [address] [place], [place] [phone] Med Refill Social History Tobacco Use Types [...] Upcoming Encounters Date Type Department Care Team ([facility] st Contact Info) Description 03/25/2025 11:00 AM EST Clinical Support [facility] [address] [place] [address] Becky Pool, JIMMIE 505 [place] [address] documented as of this encounter Visit Diagnoses Not on filedocumented in this encounter Additional Health Concerns Assessment Noted Time PHQ-9 Depression Total Score: 21 024 2:14 PM EDT documented as of this encounter Care Teams Electrical Tester Relationship Specialty Start Date End Date Karen Avelar ANP [address] [place] [address] PCP - General Family Medicine 12/08/21 documented as of this encounter
--- OUTSIDE RECORDS SUMMARY | 2025-02-17 11:21 | XMS_ITS | Encounter Summary ---
Author Organization [employer] Address 75 [facility] 7t [place] [address] Care Team Providers Care Able Bodied Watchman Name Role Phone Karen Avelar Primary Care Provider Reason for Visit * Reason Onset Date Comments Med Refill 07/31/2023 Encounter Details Date Type Department Care Team (Late st Contact Info) Description 07/31/2023 Refill [facility] MEDICINE [address] [place] [address] Karen Avelar ANP [address] [place], [place] [phone] Social History Tobacco Use Types Packs/Day Years [...] 10-25 MG tablet To be sent to: [facility]/pharmacy #[id number] - [address] documented in this encounter Plan of Treatment Upcoming Encounters Date Type Department Care Team (Late st Contact Info) Description 03/25/2025 11:00 AM EST Clinical Support [facility] MED & PEDS [address] [place] [address] Becky Pool, JIMMIE 505 [place] [address] documented as of this encounter Visit Diagnoses Not on filedocumented in this encounter Additional Health Concerns Assessment Noted Time PHQ-9 Depression Total Score: 14 023 1:08 PM EDT documented as of this encounter Care Teams Able Bodied Watchman Relationship Specialty Start Date End Date Karen Avelar ANP [address] [place] [address] PCP - General Family Medicine 12/08/21 documented as of this encounter
--- OUTSIDE RECORDS SUMMARY | 2025-02-17 11:21 | XMS_ITS | Encounter Summary ---
Author Organization [employer] Address [address] [facility] [address] 7t [place] [address] Care Team Providers Care Cloth Desizing Range Operator Chief Name Role Phone Karen Avelar Primary Care Provider [phone] Encounter Details Date Type Department Care Team ([facility] st Contact Info) Description 08/06/2023 Orders Only [facility] MEDICINE [address] [place], [place] [phone] Provider, MD Lawrence Social History Tobacco Use [...] Description 03/25/2025 11:00 AM EST Clinical Support [facility] MED & PEDS [address] [place] [address] Becky Pool RN 505 [place] [address] documented as of this encounter Procedures Procedure [...] documented as of this encounter Care Teams Cloth Desizing Range Operator Chief Relationship Specialty Start Date End Date Karen Avelar ANP [address] [place] [address] PCP - General Family Medicine 12/08/21 documented as of this encounter
--- OUTSIDE RECORDS SUMMARY | 2025-02-17 11:21 | XMS_ITS | Clinical Summary ---
Author Organization [facility] Address [address] [address] Phone Care Team Providers Care Cheese Production Supervisor Name Role Phone Merna Read NP Primary Care Provider [phone] Allergies Active Allergy Reactions Criticality Noted [...] Active Naloxone HCl (Narcan) 4 MG/0.1ML liquid [place] as directed Ac tive OXcarbazepine (TRILEPTAL) 150 [...] AM EDT) Hemoglobin A1C 8.3(H) (4.0-5.6) % [facility] Comment: MONITORING: In known diabetic patients, hemoglobin A1c targets should be discussed with health care provider. DIAGNOSTIC USE: The [place] Diabetes Association (ADA) and the World [...] Supplement 1 Testing performed or reported by [facility], a Service of [facility], [address] [place] [id number] Jude Villanueva MD, Circus Trainer Blood specimen (specimen) Venous blood / Unknown 10/14/2020 9:11 AM EDT 10/14/2020 9:21 AM EDT us Janusz Francisco MD LAB BLOOD ORDERABLES Final Result [facility] from Last 3 Months or Most Recently Relevant to Health Maintenance Insurance [facility] ([id number]) [facility] Care Teams Cheese Production Supervisor Relationship Specialty Start Date End Date Merna Read NP PCP - General 02/12/19
--- OUTSIDE RECORDS SUMMARY | 2025-02-17 11:21 | XMS_ITS | Encounter Summary ---
Author Organization [employer] Address 75 [facility] 7t [place] [address] Care Team Providers Care Elevator Operator Name Role Phone Karen Avelar Primary Care Provider [phone] Reason for Visit * Reason Onset Date Comments Med Refill 01/19/2024 Encounter Details Date Type Department Care Team (Late st Contact Info) Description 01/19/2024 Telephone [facility] MEDICINE [address] [place], [place] [phone] Karen Avelar ANP 230 [place], [place] [phone] Med Refill Social History Tobacco Use Types [...] 11:00 AM EDT Medication was sent to [id number] on 12/20/23 with 1 refill. * Telephone Encounter - Luz Mcclendon - 01/19/2024 10:54 AM EDT TC from pt requesting medication refill. Medications needing refill : tadalafil (Cialis) 5 MG tablet To be sent to: [id number] - [address] documented in this encounter Plan of Treatment Upcoming Encounters Date Type Department Care Team (Late st Contact Info) Description 03/25/2025 11:00 AM EST Clinical Support [facility] MED & PEDS [address] [place] [address] Becky Pool, JIMMIE 505 [place] [address] documented as of this encounter Visit Diagnoses Not on filedocumented in this encounter Additional Health Concerns Assessment Noted Time PHQ-9 Depression Total Score: 21 024 2:14 PM EDT documented as of this encounter Care Teams Elevator Operator Relationship Specialty Start Date End Date Karen Avelar ANP 230 [place] [address] PCP - General Family Medicine 12/08/21 documented as of this encounter
--- OUTSIDE RECORDS SUMMARY | 2025-02-17 11:21 | XMS_ITS | Encounter Summary ---
Author Organization [employer] Address 75 [facility] 7t [place] [address] Care Team Providers Care Securities Consultant Name Role Phone Karen Avelar Primary Care Provider [phone] Reason for Visit * Reason Onset Date Comments Hospital Follow-up 08/22/2024 Encounter Details Date Type Department Care Team ([facility] st Contact Info) Description 08/22/2024 Telephone [facility] MEDICINE [address] [place], [place] [phone] Karen Avelar ANP 230 [place], [place] [phone] Hospital Follow-up Social History Tobacco Use Types [...] from pt requesting a HDF appt. Hospital: [facility] Date of admission: 08/12 Discharge date: 08/21 Diagnosed: Chest Pain *Send message to [facility] Coordinators [phone] documented in this encounter Plan of Treatment Upcoming Encounters Date Type Department Care Team (Late st Contact Info) Description 03/25/2025 11:00 AM EST Clinical Support [facility] MED & PEDS [address] [place] [address] Becky Pool RN 505 [place] [address] documented as of this encounter Visit Diagnoses Not on filedocumented in this encounter Additional Health Concerns Assessment Noted Time PHQ-9 Depression Total Score: 21 024 2:14 PM EDT documented as of this encounter Care Teams Securities Consultant Relationship Specialty Start Date End Date Karen Avelar ANP [address] [place] [address] PCP - General Family Medicine 12/08/21 documented as of this encounter
--- OUTSIDE RECORDS SUMMARY | 2025-02-17 11:21 | XMS_ITS | Encounter Summary ---
Author Organization [facility], Address [address] [address] Phone Care Team Providers Care Records Administrator Name Role Phone Merna Read NP Primary Care Provider Encounter Details Date Type Department Care Team (Late st Contact Info) Description 07/05/2021 Documentation Only [facility], [address] [place] [phone] Janusz Francisco MD [address] [facility] [place] [phone] Social History Tobacco Use Types Packs/Day Years [...] on filedocumented in this encounter Care Teams Records Administrator Relationship Specialty Start Date End Date Merna Read NP PCP - General 02/12/19 documented as of this encounter
--- OUTSIDE RECORDS SUMMARY | 2025-02-17 11:21 | XMS_ITS | Encounter Summary ---
Author Organization [employer] Address 75 [facility] 7t [place] [address] Care Team Providers Care Python Architect Name Role Phone Karen Avelar Primary Care Provider [phone] Reason for Visit * Reason Onset Date Comments Med Refill 11/21/2023 Encounter Details Date Type Department Care Team (Late st Contact Info) Description 11/21/2023 Telephone [facility] MEDICINE 230 [place], [place] [phone] Karen Avelar ANP [address] [place], [place] [phone] Med Refill Social History Tobacco Use Types [...] tablet To be [facility] to: [id number] documented in this encounter Plan of Treatment Upcoming Encounters Date Type Department Care Team ([facility] st Contact Info) Description 03/25/2025 11:00 AM EST Clinical Support [facility] MED & PEDS [address] [place] [address] Becky Pool, JIMMIE [address] [place] [address] documented as of this encounter Visit Diagnoses Not on filedocumented in this encounter Additional Health Concerns Assessment Noted Time PHQ-9 Depression Total Score: 21 024 2:14 PM EDT documented as of this encounter Care Teams Python Architect Relationship Specialty Start Date End Date Karen Avelar ANP [address] [place] [address] PCP - General Family Medicine 12/08/21 documented as of this encounter
--- OUTSIDE RECORDS SUMMARY | 2025-02-17 11:21 | XMS_ITS | Encounter Summary ---
Author Organization [employer] Address 75 [facility] 7t [place] [address] Care Team Providers Care Inspecting Supervisor Name Role Phone Karen Avelar Primary Care Provider [phone] Reason for Visit * Reason Onset Date Comments Med Refill 01/15/2024 Encounter Details Date Type Department Care Team (Late st Contact Info) Description 01/15/2024 Telephone [facility] MEDICINE [address] [place], [place] [phone] Karen Avelar ANP [address] [place], [place] [phone] Med Refill Social History Tobacco Use Types [...] tablet [id number] documented in this encounter Plan of Treatment Upcoming Encounters Date Type Department Care Team ([facility] st Contact Info) Description 03/25/2025 11:00 AM EST Clinical Support [facility] MED & PEDS [address] [place] [address] Becky Pool, JIMMIE 505 [place] [address] documented as of this encounter Visit Diagnoses Not on filedocumented in this encounter Additional Health Concerns Assessment Noted Time PHQ-9 Depression Total Score: 21 024 2:14 PM EDT documented as of this encounter Care Teams Inspecting Supervisor Relationship Specialty Start Date End Date Karen Avelar ANP [address] [place] [address] PCP - General Family Medicine 12/08/21 documented as of this encounter
--- OUTSIDE RECORDS SUMMARY | 2025-02-17 11:21 | XMS_ITS | Encounter Summary ---
Author Organization [employer] Address 75 [facility] 7t [place] [address] Care Team Providers Care Extension Service Agent Name Role Phone Karen Avelar Primary Care Provider [phone] Reason for Visit * Reason Onset Date Comments Med Refill 12/19/2023 Encounter Details Date Type Department Care Team (Late st Contact Info) Description 12/19/2023 Telephone [facility] MEDICINE 230 [place], [place] [phone] Karen Avelar ANP 230 [place], [place] [phone] Med Refill Social History Tobacco Use Types [...] tablet [id number] documented in this encounter Plan of Treatment Upcoming Encounters Date Type Department Care Team ([facility] st Contact Info) Description 03/25/2025 11:00 AM EST Clinical Support [facility] MED & PEDS [address] [place] [address] Becky Pool, JIMMIE 505 [place] [address] documented as of this encounter Visit Diagnoses Not on filedocumented in this encounter Additional Health Concerns Assessment Noted Time PHQ-9 Depression Total Score: 21 024 2:14 PM EDT documented as of this encounter Care Teams Extension Service Agent Relationship Specialty Start Date End Date Karen Avelar ANP 230 [place] [address] PCP - General Family Medicine 12/08/21 documented as of this encounter
--- OUTSIDE RECORDS SUMMARY | 2025-02-17 11:21 | XMS_ITS | Encounter Summary ---
Author Organization [employer] Address 75 [facility] 7t [place] [address] Care Team Providers Care Assistant Controller Name Role Phone Karen Avelar Primary Care Provider [phone] Reason for Visit * Reason Onset Date Comments Med Refill 09/19/2024 Encounter Details Date Type Department Care Team (Late st Contact Info) Description 09/19/2024 Telephone [facility] MEDICINE 230 [place], [place] [phone] Karen Avelar ANP 230 [place], [place] [phone] Med Refill Social History Tobacco Use Types [...] [facility] be [id number] [address] documented in this encounter Plan of Treatment Upcoming Encounters Date Type Department Care Team ([facility] st Contact Info) Description 03/25/2025 11:00 AM EST Clinical Support [facility] MED & PEDS [address] [place] [address] Becky Pool, JIMMIE [address] [place] [address] documented as of this encounter Visit Diagnoses Not on filedocumented in this encounter Additional Health Concerns Assessment Noted Time PHQ-9 Depression Total Score: 21 024 2:14 PM EDT documented as of this encounter Care Teams Assistant Controller Relationship Specialty Start Date End Date Karen Avelar ANP 230 [place] [address] PCP - General Family Medicine 12/08/21 documented as of this encounter
--- OUTSIDE RECORDS SUMMARY | 2025-02-17 11:21 | XMS_ITS | Encounter Summary ---
Author Organization [employer] Address 75 [facility] 7t [place] [address] Care Team Providers Care Channel Sales Manager Name Role Phone Karen Avelar Primary Care Provider [phone] Reason for Visit * Reason Onset Date Comments Med Refill 08/26/2024 Encounter Details Date Type Department Care Team (Late st Contact Info) Description 08/26/2024 Telephone [facility] MEDICINE 230 [place], [place] [phone] Karen Avelar ANP [address] [place], [place] [phone] Med Refill Social History Tobacco Use Types [...] immediate release tablet To be sent to: [address] [place] [address] documented in this encounter Plan of Treatment Upcoming Encounters Date Type Department Care Team ([facility] st Contact Info) Description 03/25/2025 11:00 AM EST Clinical Support [facility] MED & PEDS [address] [place] [address] Becky Pool, JIMMIE [address] [place] [address] documented as of this encounter Visit Diagnoses Not on filedocumented in this encounter Additional Health Concerns Assessment Noted Time PHQ-9 Depression Total Score: 21 024 2:14 PM EDT documented as of this encounter Care Teams Channel Sales Manager Relationship Specialty Start Date End Date Karen Avelar ANP [address] [place] [address] PCP - General Family Medicine 12/08/21 documented as of this encounter
--- OUTSIDE RECORDS SUMMARY | 2025-02-17 11:21 | XMS_ITS | Encounter Summary ---
Author Organization [employer] Address 75 [facility] 7t [place] [address] Care Team Providers Care Production Cost Estimator Name Role Phone Karen Avelar Primary Care Provider [phone] Reason for Visit * Reason Onset Date Comments DTA forms 11/21/2024 Encounter Details Date Type Department Care Team (Late st Contact Info) Description 11/21/2024 Telephone [facility] MEDICINE [address] [place] [address] Karen Avelar ANP 230 [place], [place] [phone] DTA forms Social History Tobacco Use Types [...] for DTA forms. Please contact pt at [phone]. (Panamanian Speaker) documented in this encounter Plan of Treatment Upcoming Encounters Date Type Department Care Team (Late st Contact Info) Description 03/25/2025 11:00 AM EST Clinical Support [facility] & PEDS [address] [place] [address] Becky Pool, JIMMIE 505 [place] [address] documented as of this encounter Visit Diagnoses Not on filedocumented in this encounter Additional Health Concerns Assessment Noted Time PHQ-9 Depression Total Score: 21 024 2:14 PM EDT documented as of this encounter Care Teams Production Cost Estimator Relationship Specialty Start Date End Date Karen Avelar ANP [address] [place] [address] PCP - General Family Medicine 12/08/21 documented as of this encounter
== END 2025-02-17 10:29 | disposition home or self-care (01) ==
LOC: HO.ENCR 09:54
PROVIDERS: PCP Family Medicine; Visit Provider Physician Assistant
DX: E11.65 Type 2 diabetes mellitus with hyperglycemia (principal); I10 Essential (primary) hypertension; E78.5 Hyperlipidemia, unspecified; B35.3 Tinea pedis; Z13.9 Encounter for screening, unspecified

== ENCOUNTER → 2025-02-17 09:53 | Outpatient (BNVA) | payer OTHER, SELFPAY | PROVIDERS: PCP Family Medicine; Visit Provider Physician Assistant | DX: E11.65 Type 2 diabetes mellitus with hyperglycemia (principal); I10 Essential (primary) hypertension; E78.5 Hyperlipidemia, unspecified; B35.3 Tinea pedis | CPT/HCPCS: 82947; 83036; 99212 ==